=== PATIENT | male | born 1950 | race Two or more races ===

== ENCOUNTER 2018-07-27 21:42 | Inpatient (IN) | payer MEDICARE, OTHER ==
[~2018-07-27] VITALS: Ht 165.1 cm; Wt 93.0 kg
[~2018-07-27 21:42] MED LIST: DEPAKOTE250 MG PO; FERROUS SULFAT325 MG ORAL; NITROGLYCERIN2.5 MG PO; PANTOPRAZOLE SO40 MG ORAL
[2018-07-27 21:50] VITALS: BP 133/61
--- NOTE | 2018-07-27 21:50 | NUR ---
ED Nurse Note: Pt was brought in ED by Ambulance from [facility]. C/o Right arm Celluilitis. Pt is awake, confused. Right arm redness and swellen 3+. F/c in place with yellow color urine noted, IV at left upper arm [address] Osborne at bed side, waiting for orders.
[2018-07-27] MEDS ORDERED: Vancomycin 1.5gm/D5W Premix 250 ML IVPB ONE (22:15)
--- NOTE | 2018-07-27 22:15 | NUR ---
ED Nurse Note: Blood sample collected and sent to Lab.
[2018-07-27 22:53] LABS: HEMATOCRIT 27.5 % (42.0-52.0); HEMOGLOBIN 8.4 G/DL (14.2-18.0); MEAN CORPUSCULAR VOLUME 83 FL (80-99); PLATELET COUNT 65 K/UL (150-450); RED BLOOD COUNT 3.29 M/UL (4.70-6.10); RED CELL DISTRIBUTION WIDTH 18.9 % (11.6-14.8); WHITE BLOOD COUNT 4.6 K/UL (4.8-10.8)
--- NOTE | 2018-07-27 23:02 | NUR ---
ED Nurse Note: Pt's both arm were edema3+. Got order to draw blood on his legs.
[2018-07-27 23:06] LABS: ALANINE AMINOTRANSFERASE 27 U/L (12-78); ALBUMIN/GLOBULIN RATIO 0.4 (1.0-2.7); ALKALINE PHOSPHATASE 136 U/L (46-116); ANION GAP 5 mmol/L (5-15); ASPARTATE AMINO TRANSFERASE 24 U/L (15-37); BILIRUBIN,TOTAL 0.4 MG/DL (0.2-1.0); BLOOD UREA NITROGEN 53 mg/dL (7-18); CALCIUM 9.4 MG/DL (8.5-10.1); CARBON DIOXIDE 25 MMOL/L (21-32); CHLORIDE 108 MMOL/L (98-107); CREATININE 1.4 MG/DL (0.55-1.30); SODIUM 137 MMOL/L (136-145)
[2018-07-27 23:10] LABS: POTASSIUM 6.6 MMOL/L (3.5-5.1)
[2018-07-27] MEDS ORDERED: Insulin Human Regular 100units/ml 3ml IV ONE (23:15)
[2018-07-27] MEDS ORDERED: Calcium Gluconate 1gm/10ml vial IVP ONE (23:15)
--- NOTE | 2018-07-28 00:45 | NUR ---
ED Nurse Note: Meds given as ordered.
--- NOTE | 2018-07-28 01:07 | NUR ---
ED Nurse Note: Meds given as ordered.
--- NOTE | 2018-07-28 01:10 | NUR ---
ED Nurse Note: Urine sample and wound c/s of right arm sent to Lab.
[2018-07-28 01:39] LABS: BILIRUBIN, URINE NEGATIVE (NEGATIVE); COLOR,URINE PALE YELLOW; GLUCOSE, URINE (UA) NEGATIVE (NEGATIVE); KETONES,URINE NEGATIVE (NEGATIVE); LEUKOCYTE ESTERASE ,URINE 3+ (NEGATIVE); NITRITE,URINE NEGATIVE (NEGATIVE); PH,URINE 5 (4.5-8.0); PROTEIN,URINE 1+ (NEGATIVE); UROBILINOGEN,URINE NORMAL MG/DL (0.0-1.0)
[2018-07-28 01:52] LABS: APPEARANCE,URINE CLOUDY
--- NOTE | 2018-07-28 04:16 | Emergency Room Report ---
History of Present Illness General Chief Complaint: Skin Rash/Abscess Source: Medical Record Present Illness HPI 68-year-old male presents ED for evaluation. Patient brought in by EMS for swelling of the right upper extremity. Noticed today by nursing staff at [facility]. Upon arrival patient is in no distress. Nonverbal at baseline. No fevers or chills. No reported chest pain. No other aggravating relieving factors. no other associated symptoms Allergies: Coded Allergies: ATORVASTATIN (Unverified Allergy, Unknown, 07/27/18) Uncoded Allergies: VITAMIN B12 (Allergy, Unknown, 07/27/18) VITAMIN D (Allergy, Unknown, 07/27/18) Patient History Past Medical History: DM, HTN, GERD Immunizations: UTD Reviewed Nursing Documentation: PMH: Agreed; PSxH: Agreed Nursing Documentation-PMH Past Medical History: No History, Except For Hx Hypertension: Yes Hx COPD: Yes - dysphagia Hx Diabetes: Yes Hx Gastrointestinal Problems: Yes - GERD Review of Systems All Other Systems: limited Physical Exam Vital Signs Date Time Temp Pulse Resp B/P (MAP) Pulse Ox O2 Delivery O2 Flow Rate FiO2 07/27/18 21:32 96.3 71 18 120/70 95 Room Air Sp02 EP Interpretation: reviewed, normal General Appearance: no apparent distress, GCS 15, non-toxic, other - nonverbal Head: normocephalic Eyes: bilateral eye normal inspection, bilateral eye PERRL ENT: normal ENT inspection Neck: normal inspection Respiratory: chest non-tender, lungs clear, normal breath sounds, speaking full sentences Cardiovascular #1: regular rate, rhythm, no edema Gastrointestinal: normal bowel sounds, non tender, soft, non-distended, no guarding, no rebound Rectal: deferred Genitourinary: no CVA tenderness Musculoskeletal: swelling - RUE swelling Neurologic: other - nonverbal Psychiatric: other - nonverbal Skin: other - erythema/induration/swelling to RUE Lymphatic: normal inspection Procedures Critical Care Time Critical Care Time i. I feel this is a highly complex case requiring extensive working including EKG/Rhythm strip, Xray/CT/US, Blood/urine lab work, repeat exams while in ED, and administration of strong opiates/narcotics for pain control, admission to hospital or close patient follow up. Total time: 40 min bedside evaluation and treatment excludes procedures (EKG). Reason for critical care: hyperkalemia Possible complications: hypotension, hypertension, DC, shock, arrhythmias, metabolic acidosis, end organ damage, respiratory failure. Interventions: labs, IVFs, CXR. EKG. calcium, insulin/D50. venous duplex. broad spectrum abx. Course: Patient presenting with right upper extremity swelling. Venous duplex negative for DVT however limited study. Potassium 6.6. Troponin 0.042. EKG shows peaked T waves in anterior leads. Given calcium. Given insulin and D50. Broad-spectrum antibiotics Consultations: nursing staff, EMS, family Performed by: Dr Osborne Tolerated well condition = serious j. because of unstable vital signs this patient had a condition that could potentially threaten life or limb. I feel this is a critical patient who required my full attention while patient was considered critical. Total Critical Care Time excluding procedures was greater than 35 minutes Medical Decision Making Diagnostic Impression: Primary Impression: Cellulitis of right upper extremity Additional Impressions: Hyperkalemia, diminished renal excretion Renal insufficiency Anemia Qualified Codes: D64.9 - Anemia, unspecified UTI (urinary tract infection) Qualified Codes: N39.0 - Urinary tract infection, site not specified ER Course Hospital Course 68-year-old male presents to ED with redness, swelling to RUE Differential diagnoses include: Cellulitis, DVT, abscess, rash. Clinical course Patient placed on stretcher. After initial history and physical I ordered labs , blood Cx, UA, IVFs, doppler US of RUE labs reviewed - no leukocytosis, Hb/Hct 8.4/27.5, K 6.6, BUN 1.4, Trop 0.042, UA + bacteria Doppler US - no evidence of DVT EKG - peaked twaves in anterior leads given insulin/D50, given calcium. broad spectrum antibiotics given. Case discussed with Dr Johnson and he agreed to accept the patient to his service for further care and support Diagnosis - cellulitis of RUE, hyperkalemia, renal insuffiency, anemia, UTI Patient admitted to telemetry in serious condition Labs Test 07/27/18 22:30 07/27/18 22:58 07/27/18 23:30 07/28/18 01:10 White Blood Count 4.6 K/UL (4.8-10.8) Red Blood Count 3.29 M/UL (4.70-6.10) Hemoglobin 8.4 G/DL (14.2-18.0) Hematocrit 27.5 % (42.0-52.0) Mean Corpuscular Volume 83 FL (80-99) Mean Corpuscular Hemoglobin 25.4 PG (27.0-31.0) Mean Corpuscular Hemoglobin Concent 30.5 G/DL (32.0-36.0) Red Cell Distribution Width 18.9 % (11.6-14.8) Platelet Count 65 K/UL (150-450) Mean Platelet Volume 7.6 FL (6.5-10.1) Neutrophils (%) (Auto) % (45.0-75.0) Lymphocytes (%) (Auto) % (20.0-45.0) Monocytes (%) (Auto) % (1.0-10.0) Eosinophils (%) (Auto) % (0.0-3.0) Basophils (%) (Auto) % (0.0-2.0) Differential Total Cells Counted 100 Neutrophils % (Manual) 77 % (45-75) Lymphocytes % (Manual) 9 % (20-45) Monocytes % (Manual) 6 % (1-10) Eosinophils % (Manual) 1 % (0-3) Basophils % (Manual) 2 % (0-2) Band Neutrophils 5 % (0-8) Platelet Estimate Decreased Platelet Morphology Normal Hypochromasia 1+ Anisocytosis 1+ Sodium Level 137 MMOL/L (136-145) Potassium Level 6.6 MMOL/L (3.5-5.1) Chloride Level 108 MMOL/L (98-107) Carbon Dioxide Level 25 MMOL/L (21-32) Anion Gap 5 mmol/L (5-15) Blood Urea Nitrogen 53 mg/dL (7-18) Creatinine 1.4 MG/DL (0.55-1.30) Estimat Glomerular Filtration Rate 50.7 mL/min (>60) Glucose Level 167 MG/DL (74-106) Calcium Level 9.4 MG/DL (8.5-10.1) Total Bilirubin 0.4 MG/DL (0.2-1.0) Aspartate Amino Transf (AST/SGOT) 24 U/L (15-37) Alanine Aminotransferase (ALT/SGPT) 27 U/L (12-78) Alkaline Phosphatase 136 U/L (46-116) Total Protein 6.7 G/DL (6.4-8.2) Albumin 2.0 G/DL (3.4-5.0) Globulin 4.7 g/dL Albumin/Globulin Ratio 0.4 (1.0-2.7) Lactic Acid Level 1.20 mmol/L (0.4-2.0) Troponin I 0.042 ng/mL (0.000-0.056) Urine Color Pale yellow Urine Appearance Cloudy Urine pH 5 (4.5-8.0) Urine Specific [place] 1.015 (1.005-1.035) Urine Protein 1+ (NEGATIVE) Urine Glucose (UA) Negative (NEGATIVE) Urine Ketones Negative (NEGATIVE) Urine Blood 4+ (NEGATIVE) Urine Nitrite Negative (NEGATIVE) Urine Bilirubin Negative (NEGATIVE) Urine Urobilinogen Normal MG/DL (0.0-1.0) Urine Leukocyte Esterase 3+ (NEGATIVE) Urine RBC 15-20 /HPF (0 - 0) Urine WBC Tntc /HPF (0 - 0) Urine Squamous Epithelial Cells None /LPF (NONE/OCC) Urine Bacteria Moderate /HPF (NONE) Urine Coarse Granular Casts 2-4 /LPF (NONE) EKG Diagnostic Results Rate: normal Rhythm: NSR ST Segments: other - peaked twave in anterior leads ASA given to the pt in ED: No Rhythm Strip Diag. Results EP Interpretation: yes Rhythm: NSR, no PVC's, no ectopy Chest X-Ray Diagnostic Results Chest X-Ray Diagnostic Results : Chest X-Ray Ordered: Yes # of Views/Limited/Complete: 1 View Indication: Other EP Interpretation: Yes Interpretation: no consolidation, no effusion, no pneumothorax, no acute cardiopulmonary disease Impression: No acute disease Electronically Signed by: Electronically signed by Johnny Osborne MD CT/MRI/US Diagnostic Results CT/MRI/US Diagnostic Results : Imaging Test Ordered: Venous DUplex RUE Impression limited study due to cellulitis. no noted DVT Last Vital Signs Date Time Temp Pulse Resp B/P (MAP) Pulse Ox O2 Delivery O2 Flow Rate FiO2 07/27/18 21:50 97.1 72 18 133/61 95 Room Air Status: improved Disposition: ADMITTED INPATIENT Condition: Serious Referrals: Michael Johnson DO (PCP) Johnny Osborne MD Jul 28, 2018 04:16
--- NOTE | 2018-07-28 05:35 | NUR ---
TRANSFER TO FLOOR: Patient transferred to Tele/219 as ordered. Report given to Lennox/CJ. Belongings sent with Pt and rechecked with RN.
--- NOTE | 2018-07-28 05:40 | NUR ---
NURSE NOTES: Received pt from ED via [facility]. Pt is is awake, non-verbal. In no acute distress. VS stable. Placed on teletypesetter monitor showing SR. Bed in lowest position, call light within reach. Will contact MD for admission orders.
[2018-07-28 05:45] VITALS: BP 153/56
[2018-07-28] MEDS ORDERED: ZINC SULFATE220 M1 ORAL (06:52)
[2018-07-28] MEDS ORDERED: TRAMADOL HCL50 MG ORAL (06:52)
[2018-07-28] MEDS ORDERED: RISPERDAL2 MG ORAL (06:52)
[2018-07-28] MEDS ORDERED: MELOXICAM15 MG PO (06:52)
[2018-07-28] MEDS ORDERED: ASCORBIC ACID500 MG ORAL (06:52)
[2018-07-28] MEDS ORDERED: FERROUS SULFAT325 MG ORAL (06:52)
[2018-07-28] MEDS ORDERED: PAXIL20 MG ORAL (06:52)
[2018-07-28] MEDS ORDERED: MULTIVITAMINS1 EAC2 ORAL (06:52)
[2018-07-28] MEDS ORDERED: ACETAMINOPHEN325 M1 ORAL (06:52)
[2018-07-28] MEDS ORDERED: PANTOPRAZOLE SO40 MG ORAL (06:52)
[2018-07-28] MEDS ORDERED: HUMULIN R100 UNIT/1 SUBQ (06:52)
[2018-07-28] MEDS ORDERED: DOCUSATE SODIU100 M2 ORAL (06:52)
[2018-07-28] MEDS ORDERED: KEPPRA500 M4 ORAL (06:52)
[2018-07-28] MEDS ORDERED: Albuterol/Ipratropium 3ml neb HHN PRN (07:00)
[2018-07-28] MEDS ORDERED: Nitroglycerin Subl 0.4mg tab SL PRN (07:00)
[2018-07-28] MEDS ORDERED: Miralax 17gm pkt ORAL PRN (07:00)
[2018-07-28] MEDS ORDERED: Morphine Sulfate 4mg/ml Inj (IV USE ONLY) IVP PRN (07:00)
--- NOTE | 2018-07-28 07:50 | NUR ---
HAND-OFF: Report given to CJ Guevara.
[2018-07-28 08:00] VITALS: BP 150/70
[2018-07-28] MEDS: Heparin 5000 units/ml inj SUBQ SCH ×2 (09:00→20:17)
[2018-07-28] MEDS ORDERED: Cefepime HCl 2 GM in D5W 110 ML IV SCH ×2 (09:00→21:00)
--- NOTE | 2018-07-28 09:02 | Consultation ---
History of Present Illness General Date patient seen: Jul 28, 2018 Chief Complaint: Skin Rash/Abscess Reason for Consultation: Right arm swelling Present Illness HPI Mr. Tran is a 68 yo male who was sent to the ED from his care home for right arm swelling. He is not verbal at baseline so history obtained form the chart. There was fever, SOB, and we don not know how long he had this Problem. In the ED he was aferbile, Had no leukocytosis, US showed no DVT, CXR no PNA per ED read. ID was consulted for possible cellulitis. PMHx/PSHx Dysphagia HTN DM SocHx Unable to obtain as patient not verbal FamHx Unable to obtain as patient not verbal Allergies: Coded Allergies: ATORVASTATIN (Unverified Allergy, Unknown, 07/27/18) Uncoded Allergies: VITAMIN B12 (Allergy, Unknown, 07/27/18) VITAMIN D (Allergy, Unknown, 07/27/18) Medication History Scheduled Ascorbic Acid* (Ascorbic Acid*), 500 MG ORAL TWICE A DAY, (Reported) Divalproex Sodium* (Depakote*), 250 MG PO Q12HR, (Reported) Docusate Sodium (Docusate Sodium), 100 MG ORAL TWICE A DAY, (Reported) Ferrous Sulfate* (Ferrous Sulfate*), 325 MG ORAL DAILY, (Reported) Ferrous Sulfate* (Ferrous Sulfate*), 325 MG ORAL TWICE A DAY, (Reported) Insulin Regular, Human (Humulin R), SUBQ ACHS, (Reported) Levetiracetam (Keppra), 500 MG ORAL EVERY 12 HOURS, (Reported) Meloxicam* (Meloxicam*), 15 MG PO DAILY, (Reported) Multivitamins* (Multivitamins*), 1 TAB ORAL DAILY, (Reported) Pantoprazole* (Pantoprazole*), 40 MG ORAL DAILY, (Reported) Pantoprazole* (Pantoprazole*), 40 MG ORAL DAILY, (Reported) Paroxetine Hcl* (Paxil*), 20 MG ORAL DAILY, (Reported) Risperidone* (Risperdal*), 2 MG ORAL BID, (Reported) Zinc Sulfate (Zinc Sulfate*), 220 MG ORAL DAILY, (Reported) Scheduled PRN Acetaminophen* (Acetaminophen 325MG Tablet*), 650 MG ORAL Q4H PRN for Mild Pain/ Temp > 100.5, (Reported) Tramadol Hcl* (Ultram*), 50 MG ORAL Q6H PRN for Moderate Pain (Pain Scale 4-6), (Reported) Miscellaneous Medications Nitroglycerin (Nitroglycerin), 2.5 MG PO, (Reported) Patient History Healthcare decision maker Resuscitation status Full Code Advanced Directive on File Review of Systems ROS Narrative Unable to obtain as patient not verbal Physical Exam Last 24 Hour Vital Signs Date Time Temp Pulse Resp B/P (MAP) Pulse Ox O2 Delivery O2 Flow Rate FiO2 07/28/18 06:30 Room Air 07/28/18 05:45 97.0 65 20 153/56 (88) 98 07/28/18 05:35 65 07/28/18 05:35 97.5 75 18 135/62 96 Room Air 07/27/18 21:50 97.1 72 18 133/61 95 Room Air 07/27/18 21:32 96.3 71 18 120/70 95 Room Air Intake and Output 07/27/18 07/28/18 19:00 07:00 Intake Total 1250 ml Output Total 400 ml Balance 850 ml Intake IV Total 1250 ml Output Urine Total 400 ml Laboratory Tests Test 07/27/18 22:30 07/27/18 22:58 07/27/18 23:30 07/28/18 01:10 White Blood Count 4.6 K/UL (4.8-10.8) L Red Blood Count 3.29 M/UL (4.70-6.10) L Hemoglobin 8.4 G/DL (14.2-18.0) L Hematocrit 27.5 % (42.0-52.0) L Mean Corpuscular Volume 83 FL (80-99) Mean Corpuscular Hemoglobin 25.4 PG (27.0-31.0) L Mean Corpuscular Hemoglobin Concent 30.5 G/DL (32.0-36.0) L Red Cell Distribution Width 18.9 % (11.6-14.8) H Platelet Count 65 K/UL (150-450) L Mean Platelet Volume 7.6 FL (6.5-10.1) Neutrophils (%) (Auto) % (45.0-75.0) Lymphocytes (%) (Auto) % (20.0-45.0) Monocytes (%) (Auto) % (1.0-10.0) Eosinophils (%) (Auto) % (0.0-3.0) Basophils (%) (Auto) % (0.0-2.0) Differential Total Cells Counted 100 Neutrophils % (Manual) 77 % (45-75) H Lymphocytes % (Manual) 9 % (20-45) L Monocytes % (Manual) 6 % (1-10) Eosinophils % (Manual) 1 % (0-3) Basophils % (Manual) 2 % (0-2) Band Neutrophils 5 % (0-8) Platelet Estimate Decreased L Platelet Morphology Normal Hypochromasia 1+ Anisocytosis 1+ Sodium Level 137 MMOL/L (136-145) Potassium Level 6.6 MMOL/L (3.5-5.1) *H Chloride Level 108 MMOL/L (98-107) H Carbon Dioxide Level 25 MMOL/L (21-32) Anion Gap 5 mmol/L (5-15) Blood Urea Nitrogen 53 mg/dL (7-18) H Creatinine 1.4 MG/DL (0.55-1.30) H Estimat Glomerular Filtration Rate 50.7 mL/min (>60) Glucose Level 167 MG/DL (74-106) H Calcium Level 9.4 MG/DL (8.5-10.1) Total Bilirubin 0.4 MG/DL (0.2-1.0) Aspartate Amino Transf (AST/SGOT) 24 U/L (15-37) Alanine Aminotransferase (ALT/SGPT) 27 U/L (12-78) Alkaline Phosphatase 136 U/L (46-116) H Total Protein 6.7 G/DL (6.4-8.2) Albumin 2.0 G/DL (3.4-5.0) L Globulin 4.7 g/dL Albumin/Globulin Ratio 0.4 (1.0-2.7) L Lactic Acid Level 1.20 mmol/L (0.4-2.0) Troponin I 0.042 ng/mL (0.000-0.056) Urine Color Pale yellow Urine Appearance Cloudy Urine pH 5 (4.5-8.0) Urine Specific [place] 1.015 (1.005-1.035) Urine Protein 1+ (NEGATIVE) H Urine Glucose (UA) Negative (NEGATIVE) Urine Ketones Negative (NEGATIVE) Urine Blood 4+ (NEGATIVE) H Urine Nitrite Negative (NEGATIVE) Urine Bilirubin Negative (NEGATIVE) Urine Urobilinogen Normal MG/DL (0.0-1.0) Urine Leukocyte Esterase 3+ (NEGATIVE) H Urine RBC 15-20 /HPF (0 - 0) H Urine WBC Tntc /HPF (0 - 0) H Urine Squamous Epithelial Cells None /LPF (NONE/OCC) Urine Bacteria Moderate /HPF (NONE) H Urine Coarse Granular Casts 2-4 /LPF (NONE) H Height (Feet): 5 Height (Inches): 6.00 Weight (Pounds): 186 Medications Current Medications Medications (Trade) Dose Ordered Sig/Violette Route PRN Reason Start Time Stop Time Status Last Admin Dose Admin Acetaminophen (Tylenol) 650 mg Q4H PRN ORAL fever 07/28/18 07:00 08/27/18 06:59 Albuterol/ Ipratropium (Albuterol/ Ipratropium) 3 ml Q4H PRN HHN Shortness of Breath 07/28/18 07:00 08/02/18 06:59 Cefepime HCl 2 gm/ Dextrose 110 ml @ 220 mls/hr ONCE IV 07/28/18 09:00 07/28/18 10:00 Cefepime HCl 2 gm/ Dextrose 110 ml @ 220 mls/hr Q24H IV 07/28/18 21:00 08/04/18 20:59 Dextrose (Dextrose 50%) 25 ml Q30M PRN IV Hypoglycemia 07/28/18 07:00 08/27/18 06:59 Dextrose (Dextrose 50%) 50 ml Q30M PRN IV Hypoglycemia 07/28/18 07:00 08/27/18 06:59 Divalproex Sodium (Depakote) 250 mg Q12HR ORAL 07/28/18 09:00 08/27/18 08:59 Heparin Sodium (Porcine) (Heparin 5000 units/ml) 5,000 units EVERY 12 HOURS SUBQ 07/28/18 09:00 08/27/18 08:59 Morphine Sulfate (Morphine Sulfate) 2 mg Q4H PRN IVP Moderate Pain (Pain Scale 4-6) 07/28/18 07:00 08/04/18 06:59 Nitroglycerin (Ntg) 0.4 mg Q5M PRN SL Prn Chest Pain 07/28/18 07:00 2/9/19 06:59 Ondansetron HCl (Zofran) 4 mg Q6H PRN IVP Nausea & Vomiting 07/28/18 07:00 08/27/18 06:59 Pantoprazole (Protonix) 40 mg DAILY ORAL 07/28/18 09:00 08/27/18 08:59 Polyethylene Glycol (Miralax) 17 gm DAILYPRN PRN ORAL Constipation 07/28/18 07:00 08/27/18 06:59 Temazepam (Restoril) 15 mg HSPRN PRN ORAL Insomnia 07/28/18 07:00 08/04/18 06:59 Vancomycin HCl (Vanco rx to dose) 1 ea DAILY PRN MISC Per rx protocol 07/28/18 07:30 08/27/18 07:29 Objective Narrative Gen: NAD, Opens eyes not following commands HEENT: NCAT, MMM, EOMI, PERRL, No Oral lesion, no scleral icterus NECK: full range of motion, supple, no meningismus, No LAD, No JVD LUNGS: CTAB, No W/C, No Accessory muscle use CARDS: RRR, S1, S2, No M/R/G, ABD: Soft, NT, ND, No R/G, + BS, No HSM, No Masses : Deferred Ext: C/C/E, Pulses 2+ B/L (DP, Rad): Right upper extremity with swelling NEURO: A/O x 0, PSYCH: Mood/affect normal SKIN: Warm/dry, No rashes, Stage 4 sacral decube. No Purulent drainage Assessment/Plan Assessment/Plan 68 yo male who was sent to the ED from his care home for right arm swelling. Right arm swelling US no DVT No X-ray No Fever No leukocytosis Sacral Decub Stage 4 Dysphagia HTN DM PLAN - Continue Cefepime #1 and vancomycin #1 - Wound care - Monitor CBC and Temps - Monitor BMs Thank you for this consult. We will continue to follow the patient during this hospitalization. Macho Hernandez MD Jul 28, 2018 09:02
[2018-07-28] MEDS: Depakote 125mg Sprinkles ORAL SCH ×2 (09:58→20:21)
--- NOTE | 2018-07-28 10:05 | NUR ---
RD ASSESSMENT & RECOMMENDATIONS SEE CARE ACTIVITY FOR COMPLETE ASSESSMENT DAILY ESTIMATED NEEDS: Needs based on Wound, DM 73kg adj 30-35 kcals/kg 0651-8228 total kcals 1-1.5 g protein/kg 73-110 g total protein 25-30 mL/kg 6731-7317 total fluid mLs NUTRITION DIAGNOSIS: 1) Swallowing difficulty r/t dysphagia as evidenced by pt adm w/ puree texture diet and NTL. 2) Altered nutrition related lab values r/t clinical status as evidenced by elev K (6.6), elev BUN (53), elev creat (1.4), elev BG (167). 3) Increased kcal and protein needs r/t wasting and wound healing as evidenced by pt w/ BL LE moderate to severe wasting, wounds per photos w/ pending WC eval. CURRENT DIET: Regular puree w/ NTL PO DIET RECOMMENDATIONS: Maintain Regular diet (texture per LOADER) ADDITIONAL RECOMMENDATIONS: 1) MONITOR K, RENAL LABS/ need for diet change to RENAL 2) Monitor BG, need for CCHO MED diet 3) WOUND CARE: Add JACKIE BID; f/up w/ WC eval 4) Obtain a calibrated bed scale wt for CBW 5) LOADER eval for texture
--- NOTE | 2018-07-28 11:15 | NUR ---
HAND-OFF: Report given to JC Finley. Pt is in stable condition; plan of care endorsed.
[2018-07-28] MEDS: NovoLOG Insulin Flexpen SUBQ SCH ×3 (11:30→20:25)
[2018-07-28 12:00] VITALS: BP 140/83
--- NOTE | 2018-07-28 12:30 | Consultation ---
History of Present Illness General Date patient seen: Jul 28, 2018 Chief Complaint: Skin Rash/Abscess Reason for Consultation: Right arm swelling Present Illness HPI 68-year-old male with hx of presents ED for evaluation. Patient brought in by EMS for swelling of the right upper extremity. Upon arrival patient is in no distress. Nonverbal at baseline. Pt was found to be in acute renal failure with hyperkalemia. He also had severe anemia. Pt is admitted to telemetry for further work up. Allergies: Coded Allergies: ATORVASTATIN (Unverified Allergy, Unknown, 07/27/18) Uncoded Allergies: VITAMIN B12 (Allergy, Unknown, 07/27/18) VITAMIN D (Allergy, Unknown, 07/27/18) Medication History Scheduled Ascorbic Acid* (Ascorbic Acid*), 500 MG ORAL TWICE A DAY, (Reported) Divalproex Sodium* (Depakote*), 250 MG PO Q12HR, (Reported) Docusate Sodium (Docusate Sodium), 100 MG ORAL TWICE A DAY, (Reported) Ferrous Sulfate* (Ferrous Sulfate*), 325 MG ORAL DAILY, (Reported) Ferrous Sulfate* (Ferrous Sulfate*), 325 MG ORAL TWICE A DAY, (Reported) Insulin Regular, Human (Humulin R), SUBQ ACHS, (Reported) Levetiracetam (Keppra), 500 MG ORAL EVERY 12 HOURS, (Reported) Meloxicam* (Meloxicam*), 15 MG PO DAILY, (Reported) Multivitamins* (Multivitamins*), 1 TAB ORAL DAILY, (Reported) Pantoprazole* (Pantoprazole*), 40 MG ORAL DAILY, (Reported) Pantoprazole* (Pantoprazole*), 40 MG ORAL DAILY, (Reported) Paroxetine Hcl* (Paxil*), 20 MG ORAL DAILY, (Reported) Risperidone* (Risperdal*), 2 MG ORAL BID, (Reported) Zinc Sulfate (Zinc Sulfate*), 220 MG ORAL DAILY, (Reported) Scheduled PRN Acetaminophen* (Acetaminophen 325MG Tablet*), 650 MG ORAL Q4H PRN for Mild Pain/ Temp > 100.5, (Reported) Tramadol Hcl* (Ultram*), 50 MG ORAL Q6H PRN for Moderate Pain (Pain Scale 4-6), (Reported) Miscellaneous Medications Nitroglycerin (Nitroglycerin), 2.5 MG PO, (Reported) Patient History Healthcare decision maker Resuscitation status Full Code Advanced Directive on File Past Medical/Surgical History Past Medical/Surgical History: (1) COPD (chronic obstructive pulmonary disease) (2) History of seizure Review of Systems All Other Systems: negative except mentioned in HPI Physical Exam General Appearance: WD/WN Lines, tubes and drains: peripheral, PICC HEENT: normocephalic, atraumatic Neck: non-tender, supple Respiratory/Chest: chest wall non-tender, lungs clear Cardiovascular/Chest: normal peripheral pulses Abdomen: normal bowel sounds Genitourinary/Rectal: normal genital exam Last 24 Hour Vital Signs Date Time Temp Pulse Resp B/P (MAP) Pulse Ox O2 Delivery O2 Flow Rate FiO2 07/28/18 09:00 Room Air 07/28/18 08:00 96.2 68 20 150/70 (96) 99 07/28/18 06:30 Room Air 07/28/18 05:45 97.0 65 20 153/56 (88) 98 07/28/18 05:35 65 07/28/18 05:35 97.5 75 18 135/62 96 Room Air 07/27/18 21:50 97.1 72 18 133/61 95 Room Air 07/27/18 21:32 96.3 71 18 120/70 95 Room Air Intake and Output 07/27/18 07/28/18 18:59 06:59 Intake Total 1250 ml Output Total 400 ml Balance 850 ml IV Total 1250 ml Output Urine Total 400 ml Laboratory Tests Test 07/27/18 22:30 07/27/18 22:58 07/27/18 23:30 07/28/18 01:10 White Blood Count 4.6 K/UL (4.8-10.8) L Red Blood Count 3.29 M/UL (4.70-6.10) L Hemoglobin 8.4 G/DL (14.2-18.0) L Hematocrit 27.5 % (42.0-52.0) L Mean Corpuscular Volume 83 FL (80-99) Mean Corpuscular Hemoglobin 25.4 PG (27.0-31.0) L Mean Corpuscular Hemoglobin Concent 30.5 G/DL (32.0-36.0) L Red Cell Distribution Width 18.9 % (11.6-14.8) H Platelet Count 65 K/UL (150-450) L Mean Platelet Volume 7.6 FL (6.5-10.1) Neutrophils (%) (Auto) % (45.0-75.0) Lymphocytes (%) (Auto) % (20.0-45.0) Monocytes (%) (Auto) % (1.0-10.0) Eosinophils (%) (Auto) % (0.0-3.0) Basophils (%) (Auto) % (0.0-2.0) Differential Total Cells Counted 100 Neutrophils % (Manual) 77 % (45-75) H Lymphocytes % (Manual) 9 % (20-45) L Monocytes % (Manual) 6 % (1-10) Eosinophils % (Manual) 1 % (0-3) Basophils % (Manual) 2 % (0-2) Band Neutrophils 5 % (0-8) Platelet Estimate Decreased L Platelet Morphology Normal Hypochromasia 1+ Anisocytosis 1+ Sodium Level 137 MMOL/L (136-145) Potassium Level 6.6 MMOL/L (3.5-5.1) *H Chloride Level 108 MMOL/L (98-107) H Carbon Dioxide Level 25 MMOL/L (21-32) Anion Gap 5 mmol/L (5-15) Blood Urea Nitrogen 53 mg/dL (7-18) H Creatinine 1.4 MG/DL (0.55-1.30) H Estimat Glomerular Filtration Rate 50.7 mL/min (>60) Glucose Level 167 MG/DL (74-106) H Calcium Level 9.4 MG/DL (8.5-10.1) Total Bilirubin 0.4 MG/DL (0.2-1.0) Aspartate Amino Transf (AST/SGOT) 24 U/L (15-37) Alanine Aminotransferase (ALT/SGPT) 27 U/L (12-78) Alkaline Phosphatase 136 U/L (46-116) H Total Protein 6.7 G/DL (6.4-8.2) Albumin 2.0 G/DL (3.4-5.0) L Globulin 4.7 g/dL Albumin/Globulin Ratio 0.4 (1.0-2.7) L Lactic Acid Level 1.20 mmol/L (0.4-2.0) Troponin I 0.042 ng/mL (0.000-0.056) Urine Color Pale yellow Urine Appearance Cloudy Urine pH 5 (4.5-8.0) Urine Specific [place] 1.015 (1.005-1.035) Urine Protein 1+ (NEGATIVE) H Urine Glucose (UA) Negative (NEGATIVE) Urine Ketones Negative (NEGATIVE) Urine Blood 4+ (NEGATIVE) H Urine Nitrite Negative (NEGATIVE) Urine Bilirubin Negative (NEGATIVE) Urine Urobilinogen Normal MG/DL (0.0-1.0) Urine Leukocyte Esterase 3+ (NEGATIVE) H Urine RBC 15-20 /HPF (0 - 0) H Urine WBC Tntc /HPF (0 - 0) H Urine Squamous Epithelial Cells None /LPF (NONE/OCC) Urine Bacteria Moderate /HPF (NONE) H Urine Coarse Granular Casts 2-4 /LPF (NONE) H Height (Feet): 5 Height (Inches): 6.00 Weight (Pounds): 186 Medications Current Medications Medications (Trade) Dose Ordered Sig/Violette Route PRN Reason Start Time Stop Time Status Last Admin Dose Admin Acetaminophen (Tylenol) 650 mg Q4H PRN ORAL fever 07/28/18 07:00 08/27/18 06:59 Albuterol/ Ipratropium (Albuterol/ Ipratropium) 3 ml Q4H PRN HHN Shortness of Breath 07/28/18 07:00 08/02/18 06:59 Cefepime HCl 2 gm/ Dextrose 110 ml @ 220 mls/hr Q24H IV 07/28/18 21:00 08/04/18 20:59 Dextrose (Dextrose 50%) 25 ml Q30M PRN IV Hypoglycemia 07/28/18 09:15 08/27/18 09:14 Dextrose (Dextrose 50%) 50 ml Q30M PRN IV Hypoglycemia 07/28/18 09:15 08/27/18 09:14 Divalproex Sodium (Depakote Sprinkles) 250 mg Q12HR ORAL 07/28/18 10:00 08/27/18 09:59 07/28/18 09:58 Heparin Sodium (Porcine) (Heparin 5000 units/ml) 5,000 units EVERY 12 HOURS SUBQ 07/28/18 09:00 08/27/18 08:59 Insulin Aspart (NovoLOG) BEFORE MEALS AND HS SUBQ 07/28/18 11:30 08/27/18 11:29 07/28/18 11:30 Lansoprazole (Prevacid) 30 mg DAILY ORAL 07/28/18 09:00 08/27/18 08:59 07/28/18 09:58 Morphine Sulfate (Morphine Sulfate) 2 mg Q4H PRN IVP Moderate Pain (Pain Scale 4-6) 07/28/18 07:00 08/04/18 06:59 Nitroglycerin (Ntg) 0.4 mg Q5M PRN SL Prn Chest Pain 07/28/18 07:00 08/27/18 06:59 Ondansetron HCl (Zofran) 4 mg Q6H PRN IVP Nausea & Vomiting 07/28/18 07:00 08/27/18 06:59 Polyethylene Glycol (Miralax) 17 gm DAILYPRN PRN ORAL Constipation 07/28/18 07:00 08/27/18 06:59 Temazepam (Restoril) 15 mg HSPRN PRN ORAL Insomnia 07/28/18 07:00 08/04/18 06:59 Vancomycin HCl (Vanco rx to dose) 1 ea DAILY PRN MISC Per rx protocol 07/28/18 07:30 08/27/18 07:29 Assessment/Plan Problem List: (1) ATN (acute tubular necrosis) ICD Codes: N17.0 - Acute kidney failure with tubular necrosis SNOMED: 24293899 (2) COPD (chronic obstructive pulmonary disease) ICD Codes: J44.9 - Chronic obstructive pulmonary disease, unspecified SNOMED: 71590969 (3) History of seizure ICD Codes: Z87.898 - Personal history of other specified conditions SNOMED: 262362591 (4) UTI (urinary tract infection) ICD Codes: N39.0 - Urinary tract infection, site not specified SNOMED: 92970900, 589830165 Qualifiers: Qualified Codes: N39.0 - Urinary tract infection, site not specified (5) Hyperkalemia, diminished renal excretion ICD Codes: E87.5 - Hyperkalemia SNOMED: 30736932, 135888549 (6) Cellulitis of right upper extremity ICD Codes: L03.113 - Cellulitis of right upper limb SNOMED: 033252234 (7) Anemia ICD Codes: D64.9 - Anemia, unspecified SNOMED: 808997651 Qualifiers: Qualified Codes: D64.9 - Anemia, unspecified Assessment/Plan iv fluids Kayexalate ruiz cultures renal US check electrolytes ID evaluation. Lazaro Becker MD Jul 28, 2018 12:30
--- NOTE | 2018-07-28 13:11 | Diagnostic Imaging Report ---
Indication: Cough Technique: One view of the chest Comparison: none Findings: Lungs and pleural spaces are clear. Heart size normal. The aorta is tortuous Impression: No acute process
--- NOTE | 2018-07-28 13:42 | Consultation ---
Consult Note Consult Note asked to eval for renal failure and high K 68-year-old male presents ED for evaluation. Patient brought in by EMS for swelling of the right upper extremity. Noticed today by [facility] staff at [facility] facility. Upon arrival patient is in no distress. Nonverbal at baseline. No fevers or chills. No reported chest pain. No other aggravating relieving factors. no other associated symptoms Allergies: s: ATORVASTATIN (Unverified Allergy, Unknown, 07/27/18) Uncoded Allergies: VITAMIN B12 (Allergy, Unknown, 07/27/18) VITAMIN D (Allergy, Unknown, 07/27/18) Past Medical History: DM, HTN, GERD Immunizations: UTD Reviewed Nursing Documentation: PMH: Agreed; PSxH: Agreed Past Medical History: No History, Except For Hx Hypertension: Yes Hx COPD: Yes - dysphagia Hx Diabetes: Yes Hx Gastrointestinal Problems: Yes - GERD non historian examined data reviewed . Assessment/Plan Renal failure- Acute on Chronic, presents with hyperkalemia COPD Sz disorder UTI Anemia cellulitis Rt UE HypoAlbuminemia One liter Flomax Monitor renal parameters Anemia shay antibiotics avoid Nephrotoxics per orders Shashi Patel MD Jul 28, 2018 13:42
[2018-07-28 14:17] LABS: MEAN CORPUSCULAR VOLUME 83 FL (80-99); PLATELET COUNT 69 K/UL (150-450); RED BLOOD COUNT 3.14 M/UL (4.70-6.10); RED CELL DISTRIBUTION WIDTH 18.5 % (11.6-14.8); WHITE BLOOD COUNT 4.2 K/UL (4.8-10.8)
[2018-07-28 14:30] LABS: ALANINE AMINOTRANSFERASE 27 U/L (12-78); ALBUMIN 1.8 G/DL (3.4-5.0); ALBUMIN/GLOBULIN RATIO 0.4 (1.0-2.7); ALKALINE PHOSPHATASE 129 U/L (46-116); ANION GAP 3 mmol/L (5-15); ASPARTATE AMINO TRANSFERASE 26 U/L (15-37); BILIRUBIN,TOTAL 0.4 MG/DL (0.2-1.0); BLOOD UREA NITROGEN 48 mg/dL (7-18); CALCIUM 9.2 MG/DL (8.5-10.1); CARBON DIOXIDE 27 MMOL/L (21-32); CHLORIDE 108 MMOL/L (98-107); CREATININE 1.3 MG/DL (0.55-1.30); SODIUM 138 MMOL/L (136-145)
[2018-07-28 14:33] LABS: POTASSIUM 6.6 MMOL/L (3.5-5.1)
--- NOTE | 2018-07-28 14:59 | NUR ---
CASE MANAGEMENT:REVIEW BIBA FROM [facility] CC: SKIN RASH AND ABSCESS SI: RUE CELLULITIS. HYPERKALEMIA. UTI 96.2 71 18 120/70 96% ON RA K+6.6 H/H-8.4/27.5 PLT-65 K+6.6 BUN+53 CR+1.4 IS: IV VANCOMYCIN 1L NS BOLUS IV CA GLUCONATE IV INSULIN IV D50W CXR BLOOD CX : TO TELEMETRY INTERQUAL CRITERIA MET
--- NOTE | 2018-07-28 15:02 | NUR ---
NURSE NOTES:WOUND CARE NOTES:Pt admitted with cellulitis R forearm ,multiple pressure injuries present on admission.R forearm swollen. Full thickness wound above R wrist with 100% fibrinous slough with erythema along borders (L)1.3cm x (W)1.2cm ,undermining 9-5 by 3.3cm @11o'clock.Moderate amt purulent exudate noted.Dry brown eschar (2) sites noted to R wrist. DTPI noted to L trochanter,maroon discoloration with induration ,marginal erythema (L)7.2cm x (W)7.5cm.surrounding non-blanchable erythema noted. Full thickness pressure injury R Ischium ,wound base granular ,(+) maceration along edges,Bone palpable. Minimal serous exudate,no odor noted(L)4cm x (W)3cm x(D)4.5cm. DTPI R heel,Reabsorbing Blood blister with marginal erythema with surrounding fluctuance (L)6cm x (W)5cm. Non-blanchable erythema periwound. Non-blanchable erythema L heel with delineated borders ,fluctuant centrally (L)4cm x (W)3.5cm .R foot 2nd, 3rd and 4th metatarsals with stable dry eschar dorsal aspects of each metatarsals. Tx.Plan:Cleanse Wound R forearm with Saline.Pat dry .Apply Mupirocin oint to wound with attention to undermined areas. Cover with Optifoam drsg Twice Daily.(Confirmed with ) Cleanse R Ischial wound with Saline.Loosely pack with Hydrogel infused gauze.Cavilon Skin Barrier periwound .Cover Optifoam drsg Daily and prn. Apply Cavilon Skin Barrier to L trochanter .Cover with Optifoam drsg Change every 3 days and prn. Apply Cavilon Skin Barrier to R and L heels. Cover with Optifoam drsg .Change every 3 days and prn. Apply Cavilon Skin Barrier to dorsal aspects of L foot 2nd ,3rd,4th metatarsals daily . Off-load heels with pillow. Reposition at least every 2 hours or as tolerated. Air fluidized mattress.
--- NOTE | 2018-07-28 15:03 | Diagnostic Imaging Report ---
Indication: Right arm pain, cellulitis Technique: Grayscale and duplex images of the right upper extremity veins. Note that due to patient body habitus and cellulitis, only limited images could be obtained. The right subclavian, right basilic, and forearm veins could not be scanned. Comparison: none Findings: Limited images demonstrate no evidence of intraluminal thrombus within the internal jugular, axillary, brachial, cephalic veins. Normal phasic Doppler waveforms, demonstrating no evidence of valvular insufficiency. Normal compressibility of all venous structures study. Impression: Limited exam, as described. No evidence of upper extremity venous thrombosis
--- NOTE | 2018-07-28 15:30 | NUR ---
NURSE NOTES: Pt received from CJ Finley alert and oriented x0. Opens eyes to name but is nonverbal. IV site asymptomatic and patent. Bed in lowest position, call light and belongings within reach. Seizure precautions implemented - side rails padded, suction at bedside.
--- NOTE | 2018-07-28 15:38 | Consultation ---
History of Present Illness General Date patient seen: Jul 28, 2018 Chief Complaint: Skin Rash/Abscess Reason for Consultation: Right arm swelling Present Illness HPI 68 year old male detention resident with multiple medical comorbidities who is non verbal at baseline presented with recently noted right arm swelling. Patient cannot given history. History obtained from records. unknown etiology of swelling and was just noted 1-2 days ago. redness, drainage, warmth, cellulitis. surgery called to evaluate for right arm cellulitis. patient seen , chart reviewed, patient examined. Allergies: Coded Allergies: ATORVASTATIN (Unverified Allergy, Unknown, 07/27/18) Uncoded Allergies: VITAMIN B12 (Allergy, Unknown, 07/27/18) VITAMIN D (Allergy, Unknown, 07/27/18) Medication History Scheduled Ascorbic Acid* (Ascorbic Acid*), 500 MG ORAL TWICE A DAY, (Reported) Divalproex Sodium* (Depakote*), 250 MG PO Q12HR, (Reported) Docusate Sodium (Docusate Sodium), 100 MG ORAL TWICE A DAY, (Reported) Ferrous Sulfate* (Ferrous Sulfate*), 325 MG ORAL DAILY, (Reported) Ferrous Sulfate* (Ferrous Sulfate*), 325 MG ORAL TWICE A DAY, (Reported) Insulin Regular, Human (Humulin R), SUBQ ACHS, (Reported) Levetiracetam (Keppra), 500 MG ORAL EVERY 12 HOURS, (Reported) Meloxicam* (Meloxicam*), 15 MG PO DAILY, (Reported) Multivitamins* (Multivitamins*), 1 TAB ORAL DAILY, (Reported) Pantoprazole* (Pantoprazole*), 40 MG ORAL DAILY, (Reported) Pantoprazole* (Pantoprazole*), 40 MG ORAL DAILY, (Reported) Paroxetine Hcl* (Paxil*), 20 MG ORAL DAILY, (Reported) Risperidone* (Risperdal*), 2 MG ORAL BID, (Reported) Zinc Sulfate (Zinc Sulfate*), 220 MG ORAL DAILY, (Reported) Scheduled PRN Acetaminophen* (Acetaminophen 325MG Tablet*), 650 MG ORAL Q4H PRN for Mild Pain/ Temp > 100.5, (Reported) Tramadol Hcl* (Ultram*), 50 MG ORAL Q6H PRN for Moderate Pain (Pain Scale 4-6), (Reported) Miscellaneous Medications Nitroglycerin (Nitroglycerin), 2.5 MG PO, (Reported) Patient History Limited by: medical condition History Provided By: Medical Record, PMD Healthcare decision maker Resuscitation status Full Code Advanced Directive on File Past Medical/Surgical History Past Medical/Surgical History: (1) Anemia (2) Cellulitis of right upper extremity (3) Hyperkalemia, diminished renal excretion (4) Renal insufficiency (5) UTI (urinary tract infection) (6) History of seizure (7) COPD (chronic obstructive pulmonary disease) (8) ATN (acute tubular necrosis) Review of Systems ROS Narrative cannot obtain Physical Exam General Appearance: no apparent distress Lines, tubes and drains: peripheral HEENT: mucous membranes moist Neck: normal inspection Respiratory/Chest: normal breath sounds, no respiratory distress, no accessory muscle use Cardiovascular/Chest: regular rhythm Abdomen: soft, no organomegaly, no mass Extremities: other Skin Exam: other Neurologic: unresponsiveness Last 24 Hour Vital Signs Date Time Temp Pulse Resp B/P (MAP) Pulse Ox O2 Delivery O2 Flow Rate FiO2 07/28/18 12:03 64 07/28/18 12:00 96.3 68 20 140/83 (102) 96 07/28/18 09:00 Room Air 07/28/18 08:00 96.2 68 20 150/70 (96) 99 07/28/18 06:30 Room Air 07/28/18 05:45 97.0 65 20 153/56 (88) 98 07/28/18 05:35 65 07/28/18 05:35 97.5 75 18 135/62 96 Room Air 07/27/18 21:50 97.1 72 18 133/61 95 Room Air 07/27/18 21:32 96.3 71 18 120/70 95 Room Air Intake and Output 07/27/18 07/28/18 18:59 06:59 Intake Total 1250 ml Output Total 400 ml Balance 850 ml IV Total 1250 ml Output Urine Total 400 ml Laboratory Tests Test 07/27/18 22:30 07/27/18 22:58 07/27/18 23:30 07/28/18 01:10 White Blood Count 4.6 K/UL (4.8-10.8) L Red Blood Count 3.29 M/UL (4.70-6.10) L Hemoglobin 8.4 G/DL (14.2-18.0) L Hematocrit 27.5 % (42.0-52.0) L Mean Corpuscular Volume 83 FL (80-99) Mean Corpuscular Hemoglobin 25.4 PG (27.0-31.0) L Mean Corpuscular Hemoglobin Concent 30.5 G/DL (32.0-36.0) L Red Cell Distribution Width 18.9 % (11.6-14.8) H Platelet Count 65 K/UL (150-450) L Mean Platelet Volume 7.6 FL (6.5-10.1) Neutrophils (%) (Auto) % (45.0-75.0) Lymphocytes (%) (Auto) % (20.0-45.0) Monocytes (%) (Auto) % (1.0-10.0) Eosinophils (%) (Auto) % (0.0-3.0) Basophils (%) (Auto) % (0.0-2.0) Differential Total Cells Counted 100 Neutrophils % (Manual) 77 % (45-75) H Lymphocytes % (Manual) 9 % (20-45) L Monocytes % (Manual) 6 % (1-10) Eosinophils % (Manual) 1 % (0-3) Basophils % (Manual) 2 % (0-2) Band Neutrophils 5 % (0-8) Platelet Estimate Decreased L Platelet Morphology Normal Hypochromasia 1+ Anisocytosis 1+ Sodium Level 137 MMOL/L (136-145) Potassium Level 6.6 MMOL/L (3.5-5.1) *H Chloride Level 108 MMOL/L (98-107) H Carbon Dioxide Level 25 MMOL/L (21-32) Anion Gap 5 mmol/L (5-15) Blood Urea Nitrogen 53 mg/dL (7-18) H Creatinine 1.4 MG/DL (0.55-1.30) H Estimat Glomerular Filtration Rate 50.7 mL/min (>60) Glucose Level 167 MG/DL (74-106) H Calcium Level 9.4 MG/DL (8.5-10.1) Total Bilirubin 0.4 MG/DL (0.2-1.0) Aspartate Amino Transf (AST/SGOT) 24 U/L (15-37) Alanine Aminotransferase (ALT/SGPT) 27 U/L (12-78) Alkaline Phosphatase 136 U/L (46-116) H Total Protein 6.7 G/DL (6.4-8.2) Albumin 2.0 G/DL (3.4-5.0) L Globulin 4.7 g/dL Albumin/Globulin Ratio 0.4 (1.0-2.7) L Lactic Acid Level 1.20 mmol/L (0.4-2.0) Troponin I 0.042 ng/mL (0.000-0.056) Urine Color Pale yellow Urine Appearance Cloudy Urine pH 5 (4.5-8.0) Urine Specific [place] 1.015 (1.005-1.035) Urine Protein 1+ (NEGATIVE) H Urine Glucose (UA) Negative (NEGATIVE) Urine Ketones Negative (NEGATIVE) Urine Blood 4+ (NEGATIVE) H Urine Nitrite Negative (NEGATIVE) Urine Bilirubin Negative (NEGATIVE) Urine Urobilinogen Normal MG/DL (0.0-1.0) Urine Leukocyte Esterase 3+ (NEGATIVE) H Urine RBC 15-20 /HPF (0 - 0) H Urine WBC Tntc /HPF (0 - 0) H Urine Squamous Epithelial Cells None /LPF (NONE/OCC) Urine Bacteria Moderate /HPF (NONE) H Urine Coarse Granular Casts 2-4 /LPF (NONE) H Test 07/28/18 14:00 White Blood Count 4.2 K/UL (4.8-10.8) L Red Blood Count 3.14 M/UL (4.70-6.10) L Hemoglobin 8.0 G/DL (14.2-18.0) L Hematocrit 26.0 % (42.0-52.0) L Mean Corpuscular Volume 83 FL (80-99) Mean Corpuscular Hemoglobin 25.6 PG (27.0-31.0) L Mean Corpuscular Hemoglobin Concent 30.8 G/DL (32.0-36.0) L Red Cell Distribution Width 18.5 % (11.6-14.8) H Platelet Count 69 K/UL (150-450) L Mean Platelet Volume 8.1 FL (6.5-10.1) Neutrophils (%) (Auto) % (45.0-75.0) Lymphocytes (%) (Auto) % (20.0-45.0) Monocytes (%) (Auto) % (1.0-10.0) Eosinophils (%) (Auto) % (0.0-3.0) Basophils (%) (Auto) % (0.0-2.0) Differential Total Cells Counted 100 Neutrophils % (Manual) 76 % (45-75) H Lymphocytes % (Manual) 14 % (20-45) L Monocytes % (Manual) 4 % (1-10) Eosinophils % (Manual) 3 % (0-3) Basophils % (Manual) 0 % (0-2) Band Neutrophils 3 % (0-8) Platelet Estimate Decreased L Platelet Morphology Normal Hypochromasia 1+ Anisocytosis 2+ Sodium Level 138 MMOL/L (136-145) Potassium Level 6.6 MMOL/L (3.5-5.1) *H Chloride Level 108 MMOL/L (98-107) H Carbon Dioxide Level 27 MMOL/L (21-32) Anion Gap 3 mmol/L (5-15) L Blood Urea Nitrogen 48 mg/dL (7-18) H Creatinine 1.3 MG/DL (0.55-1.30) Estimat Glomerular Filtration Rate 55.2 mL/min (>60) Glucose Level 198 MG/DL (74-106) H Calcium Level 9.2 MG/DL (8.5-10.1) Total Bilirubin 0.4 MG/DL (0.2-1.0) Aspartate Amino Transf (AST/SGOT) 26 U/L (15-37) Alanine Aminotransferase (ALT/SGPT) 27 U/L (12-78) Alkaline Phosphatase 129 U/L (46-116) H Total Protein 6.3 G/DL (6.4-8.2) L Albumin 1.8 G/DL (3.4-5.0) L Globulin 4.5 g/dL Albumin/Globulin Ratio 0.4 (1.0-2.7) L Hepatitis A IgM Antibody Pending Hepatitis B Surface Antigen Pending Hepatitis B Core IgM Antibody Pending Hepatitis C Antibody Pending HIV (1&2) Antibody Rapid Pending Height (Feet): 5 Height (Inches): 6.00 Weight (Pounds): 186 Medications Current Medications Medications (Trade) Dose Ordered Sig/Violette Route PRN Reason Start Time Stop Time Status Last Admin Dose Admin Acetaminophen (Tylenol) 650 mg Q4H PRN ORAL fever 07/28/18 07:00 08/27/18 06:59 Albuterol/ Ipratropium (Albuterol/ Ipratropium) 3 ml Q4H PRN HHN Shortness of Breath 07/28/18 07:00 08/02/18 06:59 Cefepime HCl 2 gm/ Dextrose 110 ml @ 220 mls/hr Q24H IV 07/28/18 21:00 08/04/18 20:59 Dextrose (Dextrose 50%) 25 ml Q30M PRN IV Hypoglycemia 07/28/18 09:15 08/27/18 09:14 Dextrose (Dextrose 50%) 50 ml Q30M PRN IV Hypoglycemia 07/28/18 09:15 08/27/18 09:14 Divalproex Sodium (Depakote Sprinkles) 250 mg Q12HR ORAL 07/28/18 10:00 08/27/18 09:59 07/28/18 09:58 Heparin Sodium (Porcine) (Heparin 5000 units/ml) 5,000 units EVERY 12 HOURS SUBQ 07/28/18 09:00 08/27/18 08:59 Insulin Aspart (NovoLOG) BEFORE MEALS AND HS SUBQ 07/28/18 11:30 08/27/18 11:29 07/28/18 11:30 Lansoprazole (Prevacid) 30 mg DAILY ORAL 07/28/18 09:00 08/27/18 08:59 07/28/18 09:58 Morphine Sulfate (Morphine Sulfate) 2 mg Q4H PRN IVP Moderate Pain (Pain Scale 4-6) 07/28/18 07:00 08/04/18 06:59 Nitroglycerin (Ntg) 0.4 mg Q5M PRN SL Prn Chest Pain 07/28/18 07:00 08/27/18 06:59 Ondansetron HCl (Zofran) 4 mg Q6H PRN IVP Nausea & Vomiting 07/28/18 07:00 08/27/18 06:59 Polyethylene Glycol (Miralax) 17 gm DAILYPRN PRN ORAL Constipation 07/28/18 07:00 08/27/18 06:59 Sodium Chloride 1,000 ml @ 100 mls/hr Q10H IV 07/28/18 13:45 08/27/18 13:44 Tamsulosin HCl (Flomax) 0.4 mg BEDTIME ORAL 07/28/18 21:00 08/27/18 20:59 Temazepam (Restoril) 15 mg HSPRN PRN ORAL Insomnia 07/28/18 07:00 08/04/18 06:59 Vancomycin HCl (Vanco rx to dose) 1 ea DAILY PRN MISC Per rx protocol 07/28/18 07:30 08/27/18 07:29 Assessment/Plan Problem List: (1) Cellulitis of right upper extremity Assessment & Plan: right wrist cellulitis. 1.5cm ulceration noted. seropurulent drainage noted. minimal foul odor. cellulitis circumferential. pulses okay. hand okay. proximally okay -MRI of right wrist ordered -IV abx -skin protectant and dressings for now -keep right arm elevated will await MRI results. if abscess will need I&D. if no abscess will monitor clinically on medical therapy. ICD Codes: L03.113 - Cellulitis of right upper limb SNOMED: 374836788 (2) Decubitus ulcer of right buttock, stage 4 Assessment & Plan: patient presents with multiple wounds upon admission moderate sized stage 4 right buttock lower decubitus ulcer clean and seems to have had debridement prior right heel dti -apply hydrogel, gauze packing, dressings daily and prn -heel protectors, apply foam dressing to right heel -will monitor and treat wounds while in hospital -turn q2h -off load pressure -air mattress thank you ICD Codes: L89.314 - Pressure ulcer of right buttock, stage 4 SNOMED: 365362567 Jin Hogan Jul 28, 2018 15:38
[2018-07-28 16:00] VITALS: BP 153/71
[2018-07-28] MEDS ORDERED: Sodium Polystyrene Sulfonate 15gm Powder ORAL SCH (17:15)
--- NOTE | 2018-07-28 18:30 | History and Physical Report ---
DATE OF ADMISSION: 07/27/2018 TIME SEEN: 1 p.m. CONSULTANTS: 1. Lazaro Becker M.D. 2. Becki Coe M.D. 3. Shashi Patel M.D. 4. Rios Barron M.D. 5. Jin Hogan M.D. 6. Preston Escalera M.D. 7. CHIEF COMPLAINT: Nonhealing wound, right upper extremity cellulitis, hyperkalemia, elevated troponin, altered mental status. BRIEF HISTORY: This is a 68-year-old male from [facility] presented with the above-mentioned diagnosis, admitted to telemetry for further care. Currently, lethargic in bed, confused, not responding to questions. REVIEW OF SYSTEMS: Unavailable. PAST MEDICAL HISTORY: Cellulitis right upper extremity, anemia, renal insufficiency, UTI, seizure, COPD, ATN. PAST SURGICAL HISTORY: Unknown. ALLERGY: Atorvastatin, vitamin B12, and vitamin D. SOCIAL HISTORY: Unable to obtain secondary to the patient's condition. PHYSICAL EXAMINATION: GENERAL: Lethargic in bed, nonverbal. VITAL SIGNS: Temperature 96, pulse 68, respiratory rate 20, blood pressure 140/83. CARDIOVASCULAR: No murmurs. LUNGS: Distant and clear. ABDOMEN: Bowel sounds positive. Nontender. Nondistended. EXTREMITIES: No cyanosis, clubbing, or edema. Right arm dressing clean and dry. NEUROLOGIC: The patient flaccid in bed, not following directions. LABORATORY AND DIAGNOSTIC DATA: White count 4.6, hemoglobin and hematocrit 8.4 and 27, platelets 65. BMP show potassium 6.6, chloride 108, BUN and creatinine 53 and 1.4, glucose 167, alkaline phosphatase 136. Albumin 2.0. Urinalysis showed 3+ leukocyte esterase, 1+ protein. MEDICATIONS: Include cefepime, insulin, divalproex, dextrose, heparin, vancomycin, nitroglycerin, Zofran, morphine, Tylenol, and albuterol. ASSESSMENT: 1. Nonhealing wound. 2. Right upper extremity cellulitis. 3. UTI. 4. Hyperkalemia. 5. Anemia. 6. Elevated troponin. 7. Malnutrition. 8. Thrombocytopenia. 9. Renal cysts. 10. Altered mental status. 11. UTI. 12. Seizure. 13. COPD. 14. Hypertension. PLAN: 1. Continue previous medications. 2. Wound care. 3. Antibiotic per Infectious Diseases. 4. PT and dietary evaluation. 5. CBC and BMP in the morning. 6. Resume home medications. 7. We will add Dr. Lino, Dr. Hutchinson to consult. Michael Johnson D.O. DR: Dave JOB#: [id number] CC:
--- NOTE | 2018-07-28 19:43 | Consultation ---
Consult Note Consult Note NEUROLOGY CONSULTATION: Full note dictated #[id number] 68 y/o, HM of ?H who lives in a NH. He has a PH of HTN, COPD, renal dysfunction, seizure disorder, anemia, UTIs and right UE cellulitis. He was hospitalized for AMS and cellulitis. At this time he is non-verbal and as per his nurse he has been non-verbal since he came in. It is unclear as to what his baseline MS is. It is also unclear as to what type of seizure disorder he has he however is treated with a subtherapeutic dose of VA. ON EXAM: Awake but non-verbal. Unable to cooperate for further MS tests. Blinks to threat. No definite focal findings. Globally absent DTRs with flexor plantars. IMPRESSION: Cellulitis of RUE. Unclear as to what exactly his AMS represents. H/O unknown type of seizure disorder. REC: Brain MRI to evaluate AMS. EEG to evaluate for seizure type and AMS Labs for treatable AMS. Preston Escalera M.D., M.S.P.Preston Felix MD Jul 28, 2018 19:43
[2018-07-28 20:00] VITALS: BP 134/68
[2018-07-28] MEDS: Tamsulosin 0.4mg cap ORAL SCH (20:21)
--- NOTE | 2018-07-28 21:15 | Consultation ---
DATE OF CONSULTATION: 07/28/2018 NEUROLOGY CONSULTATION CONSULTING PHYSICIAN: Preston Escalera M.D. REQUESTING PHYSICIAN: Michael Johnson D.O. HISTORY: Mr. Juan Tran is a 68-year-old, gentleman, of unknown handedness, who lives in a care home. He has a past history of hypertension, chronic obstructive pulmonary disease, renal dysfunction, an undefined seizure disorder, anemia, urinary tract infections, and recently right upper extremity cellulitis. He was brought into the hospital for worsening cellulitis and in addition, "an alteration in his mental state." At this point in time, he is nonverbal and as per his nurse, he has been nonverbal ever since he came in. It is unclear as to what exactly his baseline mental state is. It is also unclear as to what type of seizure disorder he has. He, however, is being treated with subtherapeutic doses of valproic acid. PAST MEDICAL HISTORY: Hypertension, chronic obstructive pulmonary disease, renal dysfunction, seizure disorder, anemia, urinary tract infections, and right upper extremity cellulitis. FAMILY HISTORY: Unavailable. PERSONAL HISTORY: Home: He lives in the care home. Work: He is unemployed. Habits: None at this point in time. MEDICATIONS: Cefepime, Flomax, insulin, Prevacid, Depakote 250 mg q.12 hours, heparin for DVT prophylaxis, vancomycin, nitroglycerin, Zofran, MiraLAX, morphine sulfate, Tylenol, and DuoNeb inhaler. PHYSICAL EXAMINATION: GENERAL: He is a well-developed, well-nourished, gentleman, lying in bed, in no acute distress. VITAL SIGNS: Pulse 67/minute, blood pressure 153/71 mmHg, respirations 20/minute, temperature 96.1 degrees Fahrenheit. HEAD: Normocephalic and atraumatic. EENT: Examination benign. NECK: No neck rigidity was observed. NEUROLOGIC EXAMINATION: MENTAL STATUS EXAMINATION: He was awake, but nonverbal. He was unable to follow simple commands. He was unable to cooperate for further mental status testing. SPEECH: Could not be tested as he was mute. LANGUAGE: He was unable to follow simple commands and unable to express himself in any manner. CRANIAL NERVE EXAMINATION: II: He did blink to threat. III, IV & : The external ocular movements were present on oculocephalic maneuvers. The pupils were 3 mm in diameter, equal, round, regular, and reactive sluggishly to light. V & VII: The corneal reflexes were equal, but subdued. VIII: He did respond to sounds and had no nystagmus. IX & X: The gag reflex was present, but significantly subdued. XI: The sternocleidomastoids and trapezii did function. XII: The tongue was in the midline without any fasciculations or atrophy. MOTOR SYSTEM: The tone was increased in all four extremities with a combination of spasticity and gegenhalten. Examination of muscle mass revealed generalized wasting. Examination of power was impossible to perform because he moved all four extremities minimally on deep painful stimuli. SENSORY EXAMINATION: He responded appropriately to deep painful stimuli. He could not cooperate for other sensory modalities. REFLEXES: 0 at the biceps, triceps, brachioradialis, knees, and ankles. The plantar responses were flexor bilaterally. COORDINATION, STANCE & GAIT: Could not be tested. DIAGNOSTIC IMPRESSION: 1. Mr. Juan Tran is a 68-year-old, gentleman, of unknown handedness, who lives in a care home. He has a past history of hypertension, chronic obstructive pulmonary disease, renal dysfunction, seizure disorder, anemia, urinary tract infections, and right upper extremity cellulitis. He was hospitalized for an alteration in mental state and worsening of his right upper extremity cellulitis. At this point in time, he is nonverbal and is unable to give any history. 2. On neurological examination, at this time, he is awake, but not verbal. He is unable to cooperate for further mental status test. He does blink to threat. He does not demonstrate any lateralizing cranial nerve dysfunction. He only responds to deep painful stimuli with minimal movements of all four extremities and his deep tendon reflexes are globally absent. His plantar responses are flexor. 3. Laboratory data obtained thus far revealed that he is anemic with a hemoglobin of 8.0 G. His chemistry panel revealed an elevated potassium at 6.6, BUN elevated at 48, creatinine elevated at 1.3, blood glucose elevated at 198, alkaline phosphatase elevated to 129, albumin low at 1.8. His urinalysis revealed 3+ leukocyte esterase, 15-20 RBCs and too numerous to count WBCs per high-power field. 4. The patient's history and neurological examination are most compatible with cellulitis of the right upper extremity and a significant urinary tract infection. However, it is unclear as to what his change of mental state represents as his baseline mental state is unknown to us. 5. In addition, he also carries a history of a seizure disorder, but it is unclear as to what type of seizure disorder he has. At this point in time, he is on a subtherapeutic dose of valproic acid for seizure control. RECOMMENDATIONS: 1. Agree with management thus far. 2. Would try to obtain a better history regarding his baseline mental state and seizure type. 3. An MRI scan of the brain will be ordered to evaluate the patient for intracranial pathology. 4. An EEG will be ordered to evaluate the patient for his altered mental state and seizure type. 5. The patient will be worked up thoroughly for other treatable causes of altered mental state. 6. The patient will be observed closely and depending on how he fares over the next day or so, further recommendations will be given. Thank you for entrusting me with the care of Mr. Tran. I shall follow him with you. Preston Escalera M.D., M.S.P.H. DR: OLIVIA JOB#: [id number]
[2018-07-29] VITALS: BP 130/69
[2018-07-29] MEDS ORDERED: Vancomycin 1 GM in D5W 275 ML IV SCH (00:30)
[2018-07-29 04:00] VITALS: BP 123/65
[2018-07-29] MEDS ORDERED: LORazepam 0.5mg tab ORAL PRN (04:30)
[2018-07-29] MEDS: NovoLOG Insulin Flexpen SUBQ SCH ×4 (05:42→21:00)
[2018-07-29 06:03] LABS: HEMATOCRIT 26.7 % (42.0-52.0); HEMOGLOBIN 8.2 G/DL (14.2-18.0); MEAN CORPUSCULAR VOLUME 84 FL (80-99); PLATELET COUNT 74 K/UL (150-450); RED BLOOD COUNT 3.19 M/UL (4.70-6.10); WHITE BLOOD COUNT 4.2 K/UL (4.8-10.8)
[2018-07-29 06:24] LABS: ALANINE AMINOTRANSFERASE 34 U/L (12-78); ALBUMIN 1.9 G/DL (3.4-5.0); ALBUMIN/GLOBULIN RATIO 0.4 (1.0-2.7); ALKALINE PHOSPHATASE 135 U/L (46-116); ANION GAP 1 mmol/L (5-15); ASPARTATE AMINO TRANSFERASE 27 U/L (15-37); BILIRUBIN,TOTAL 0.4 MG/DL (0.2-1.0); BLOOD UREA NITROGEN 42 mg/dL (7-18); CALCIUM 9.3 MG/DL (8.5-10.1); CARBON DIOXIDE 28 MMOL/L (21-32); CHLORIDE 109 MMOL/L (98-107); CREATININE 1.2 MG/DL (0.55-1.30); SODIUM 138 MMOL/L (136-145)
[2018-07-29 06:27] LABS: POTASSIUM 6.5 MMOL/L (3.5-5.1)
[2018-07-29 06:35] LABS: CHOLESTEROL 113 MG/DL (< 200); FERRITIN 914 NG/ML (8-388); HDL CHOLESTEROL 22 MG/DL (40-60); TRIGLYCERIDES 20 MG/DL (30-150)
[2018-07-29 06:54] LABS: GAMMA GLUTAMYL TRANSPEPTIDASE 59 U/L (5-85); PHOSPHORUS 3.8 MG/DL (2.5-4.9)
[2018-07-29 06:57] LABS: % IRON SATURATION 32 % (15-50); IRON 48 ug/dL (50-175); TOTAL IRON BINDING CAPACITY 148 ug/dL (250-450)
[2018-07-29] MEDS ORDERED: Sodium Polystyrene Sulfonate 15gm Powder ORAL SCH (07:15)
[2018-07-29 08:00] VITALS: BP 114/61
--- NOTE | 2018-07-29 08:13 | NUR ---
HAND-OFF: Report given to CJ Cordoba.
--- NOTE | 2018-07-29 08:19 | NUR ---
NURSE NOTES: Received report from Jayesh Pineda RN. Pt in bed awake but aphasic. No distress noted. IV site when flushed, infiltrated at bedside report so will attempt to regain IV access. Asked MD Johnson for off-tele order for multiple MRIs to be performed today 07/29/18. Will continue to monitor.
--- NOTE | 2018-07-29 08:32 | Infectious Diseases Prog Note ---
Assessment/Plan Assessment/Plan 68 yo male who was sent to the ED from his long term for right arm swelling. Right arm swelling US no DVT No X-ray No Fever No leukocytosis Sacral Decub Stage 4 Dysphagia HTN DM PLAN - Continue Cefepime #2 and vancomycin #2 - Wound care - Monitor CBC and Temps - Monitor BMs - f/u MRI Thank you for this consult. We will continue to follow the patient during this hospitalization. Subjective Allergies: Coded Allergies: ATORVASTATIN (Unverified Allergy, Unknown, 07/27/18) Uncoded Allergies: VITAMIN B12 (Allergy, Unknown, 07/27/18) VITAMIN D (Allergy, Unknown, 07/27/18) Subjective Patient with eye open and tracking but not verbal Afebrile No leukocytosis Objective Vital Signs Last 24 Hour Vital Signs Date Time Temp Pulse Resp B/P (MAP) Pulse Ox O2 Delivery O2 Flow Rate FiO2 07/29/18 04:00 97.0 66 20 123/65 (84) 100 07/29/18 04:00 65 07/29/18 00:00 64 07/29/18 00:00 97.0 71 20 130/69 (89) 100 07/28/18 21:16 Nasal Cannula 2.0 28 07/28/18 21:16 60 18 Nasal Cannula 2.0 28 07/28/18 21:16 94 Nasal Cannula 2.0 28 07/28/18 21:00 Room Air 07/28/18 20:00 97.0 70 20 134/68 (90) 99 07/28/18 20:00 69 07/28/18 16:00 96.1 67 20 153/71 (98) 99 07/28/18 16:00 56 07/28/18 12:03 64 07/28/18 12:00 96.3 68 20 140/83 (102) 96 07/28/18 09:00 Room Air Height (Feet): 5 Height (Inches): 6.00 Weight (Pounds): 185 Objective Gen: NAD, Opens eyes not following commands HEENT: NCAT, MMM, EOMI LUNGS: CTAB, No W CARDS: RRR, S1, S2, No M/R/G, ABD: Soft, NT, ND, + BS Ext: C/C/E, Pulses 2+ B/L (DP, Rad): Right upper extremity with swelling with ulcer. some eschar covering SKIN: Warm/dry, No rashes, Stage 4 sacral decube. No Purulent drainage Microbiology Date/Time Source Procedure Growth Status 07/27/18 23:13 Blood Blood Culture - Preliminary NO GROWTH AFTER 24 HOURS Resulted 07/27/18 22:58 Blood Blood Culture - Preliminary NO GROWTH AFTER 24 HOURS Resulted Laboratory Tests Test 07/28/18 14:00 07/28/18 14:30 07/29/18 05:10 White Blood Count 4.2 K/UL (4.8-10.8) L 4.2 K/UL (4.8-10.8) L Red Blood Count 3.14 M/UL (4.70-6.10) L 3.19 M/UL (4.70-6.10) L Hemoglobin 8.0 G/DL (14.2-18.0) L 8.2 G/DL (14.2-18.0) L Hematocrit 26.0 % (42.0-52.0) L 26.7 % (42.0-52.0) L Mean Corpuscular Volume 83 FL (80-99) 84 FL (80-99) Mean Corpuscular Hemoglobin 25.6 PG (27.0-31.0) L 25.8 PG (27.0-31.0) L Mean Corpuscular Hemoglobin Concent 30.8 G/DL (32.0-36.0) L 30.8 G/DL (32.0-36.0) L Red Cell Distribution Width 18.5 % (11.6-14.8) H 19.0 % (11.6-14.8) H Platelet Count 69 K/UL (150-450) L 74 K/UL (150-450) L Mean Platelet Volume 8.1 FL (6.5-10.1) 6.5 FL (6.5-10.1) Neutrophils (%) (Auto) % (45.0-75.0) % (45.0-75.0) Lymphocytes (%) (Auto) % (20.0-45.0) % (20.0-45.0) Monocytes (%) (Auto) % (1.0-10.0) % (1.0-10.0) Eosinophils (%) (Auto) % (0.0-3.0) % (0.0-3.0) Basophils (%) (Auto) % (0.0-2.0) % (0.0-2.0) Differential Total Cells Counted 100 Neutrophils % (Manual) 76 % (45-75) H Lymphocytes % (Manual) 14 % (20-45) L Monocytes % (Manual) 4 % (1-10) Eosinophils % (Manual) 3 % (0-3) Basophils % (Manual) 0 % (0-2) Band Neutrophils 3 % (0-8) Platelet Estimate Decreased L Platelet Morphology Normal Hypochromasia 1+ Anisocytosis 2+ Sodium Level 138 MMOL/L (136-145) 138 MMOL/L (136-145) Potassium Level 6.6 MMOL/L (3.5-5.1) *H 6.5 MMOL/L (3.5-5.1) *H Chloride Level 108 MMOL/L (98-107) H 109 MMOL/L (98-107) H Carbon Dioxide Level 27 MMOL/L (21-32) 28 MMOL/L (21-32) Anion Gap 3 mmol/L (5-15) L 1 mmol/L (5-15) L Blood Urea Nitrogen 48 mg/dL (7-18) H 42 mg/dL (7-18) H Creatinine 1.3 MG/DL (0.55-1.30) 1.2 MG/DL (0.55-1.30) Estimat Glomerular Filtration Rate 55.2 mL/min (>60) > 60 mL/min (>60) Glucose Level 198 MG/DL (74-106) H 95 MG/DL (74-106) # Calcium Level 9.2 MG/DL (8.5-10.1) 9.3 MG/DL (8.5-10.1) Total Bilirubin 0.4 MG/DL (0.2-1.0) 0.4 MG/DL (0.2-1.0) Aspartate Amino Transf (AST/SGOT) 26 U/L (15-37) 27 U/L (15-37) Alanine Aminotransferase (ALT/SGPT) 27 U/L (12-78) 34 U/L (12-78) Alkaline Phosphatase 129 U/L (46-116) H 135 U/L (46-116) H Total Protein 6.3 G/DL (6.4-8.2) L 6.6 G/DL (6.4-8.2) Albumin 1.8 G/DL (3.4-5.0) L 1.9 G/DL (3.4-5.0) L Globulin 4.5 g/dL 4.7 g/dL Albumin/Globulin Ratio 0.4 (1.0-2.7) L 0.4 (1.0-2.7) L Hepatitis A IgM Antibody Negative (Negative) Hepatitis B Surface Antigen Negative (Negative) Hepatitis B Core IgM Antibody Negative (Negative) Hepatitis C Antibody <0.1 s/co ratio HIV (1&2) Antibody Rapid Negative (NEGATIVE) Vitamin D 25-Hydroxy Pending 25-Hydroxy Vitamin D2 Pending 25-Hydroxy Vitamin D3 Pending Rapid Plasma Reagin Pending Hemoglobin A1c 6.6 % (4.3-6.0) H Uric Acid 4.8 MG/DL (2.6-7.2) Phosphorus Level 3.8 MG/DL (2.5-4.9) Magnesium Level 1.7 MG/DL (1.8-2.4) L Iron Level 48 ug/dL (50-175) L Total Iron Binding Capacity 148 ug/dL (250-450) L Percent Iron Saturation 32 % (15-50) Unsaturated Iron Binding 100 ug/dL (112-346) L Ferritin 914 NG/ML (8-388) H Gamma Glutamyl Transpeptidase 59 U/L (5-85) Troponin I 0.049 ng/mL (0.000-0.056) Triglycerides Level 20 MG/DL (30-150) L Cholesterol Level 113 MG/DL (< 200) LDL Cholesterol 76 mg/dL (<100) HDL Cholesterol 22 MG/DL (40-60) L Cholesterol/HDL Ratio 5.1 (3.3-4.4) H Vitamin B12 Level > 2000 PG/ML (193-986) H Folate 17.8 NG/ML (8.6-58.9) Thyroid Stimulating Hormone (TSH) 4.876 uiU/mL (0.358-3.740) Random Vancomycin Level 11.9 ug/mL Current Medications Medications (Trade) Dose Ordered Sig/Violette Route PRN Reason Start Time Stop Time Status Last Admin Dose Admin Acetaminophen (Tylenol) 650 mg Q4H PRN ORAL fever 07/28/18 07:00 08/27/18 06:59 Albuterol/ Ipratropium (Albuterol/ Ipratropium) 3 ml Q4H PRN HHN Shortness of Breath 07/28/18 07:00 08/02/18 06:59 Cefepime HCl 2 gm/ Dextrose 110 ml @ 220 mls/hr Q24H IV 07/28/18 21:00 08/04/18 20:59 07/28/18 20:21 Dextrose (Dextrose 50%) 25 ml Q30M PRN IV Hypoglycemia 07/28/18 09:15 08/27/18 09:14 Dextrose (Dextrose 50%) 50 ml Q30M PRN IV Hypoglycemia 07/28/18 09:15 08/27/18 09:14 Divalproex Sodium (Depakote Sprinkles) 250 mg Q12HR ORAL 07/28/18 10:00 08/27/18 09:59 07/28/18 20:21 Heparin Sodium (Porcine) (Heparin 5000 units/ml) 5,000 units EVERY 12 HOURS SUBQ 07/28/18 09:00 08/27/18 08:59 Insulin Aspart (NovoLOG) BEFORE MEALS AND HS SUBQ 07/28/18 11:30 08/27/18 11:29 07/28/18 20:25 Lansoprazole (Prevacid) 30 mg DAILY ORAL 07/28/18 09:00 08/27/18 08:59 07/28/18 09:58 Lorazepam (Ativan) 0.5 mg Q6H PRN ORAL For Anxiety 07/29/18 04:30 08/05/18 04:29 Morphine Sulfate (Morphine Sulfate) 2 mg Q4H PRN IVP Moderate Pain (Pain Scale 4-6) 07/28/18 07:00 08/04/18 06:59 Nitroglycerin (Ntg) 0.4 mg Q5M PRN SL Prn Chest Pain 07/28/18 07:00 08/27/18 06:59 Ondansetron HCl (Zofran) 4 mg Q6H PRN IVP Nausea & Vomiting 07/28/18 07:00 08/27/18 06:59 Paroxetine HCl (Paxil) 20 mg DAILY ORAL 07/29/18 09:00 08/28/18 08:59 Polyethylene Glycol (Miralax) 17 gm DAILYPRN PRN ORAL Constipation 07/28/18 07:00 08/27/18 06:59 Risperidone (RisperDAL) 1 mg BID ORAL 07/29/18 09:00 08/28/18 08:59 Sodium Polystyrene Sulfonate (Kayexalate) 30 gm ONCE ORAL 07/29/18 07:15 07/29/18 09:00 Sodium Chloride 1,000 ml @ 100 mls/hr Q10H IV 07/28/18 13:45 08/27/18 13:44 07/29/18 05:58 Tamsulosin HCl (Flomax) 0.4 mg BEDTIME ORAL 07/28/18 21:00 08/27/18 20:59 07/28/18 20:21 Temazepam (Restoril) 15 mg HSPRN PRN ORAL Insomnia 07/28/18 07:00 08/04/18 06:59 Vancomycin HCl (Vanco rx to dose) 1 ea DAILY PRN MISC Per rx protocol 07/28/18 07:30 08/27/18 07:29 Macho Hernandez MD Jul 29, 2018 08:32
[2018-07-29] MEDS: Cefepime 2gm/D5W 110ml IV SCH ×4 (09:00→18:11)
[2018-07-29] MEDS: Heparin 5000 units/ml inj SUBQ SCH (09:00)
[2018-07-29] MEDS: Depakote 125mg Sprinkles ORAL SCH ×3 (09:02→21:45)
[2018-07-29] MEDS: PARoxetine 20mg tab ORAL SCH ×2 (09:02→09:32)
[2018-07-29] MEDS: Sodium Polystyrene Sulfonate 15gm Powder ORAL SCH ×5 (09:02→23:15)
--- NOTE | 2018-07-29 10:07 | Diagnostic Imaging Report ---
Indication: Elevated liver function tests Technique: Grayscale and duplex Doppler imaging of the abdomen performed. Comparison: None Findings: The liver is enlarged and slightly heterogeneous.. The gallbladder is unremarkable. The demonstrated part of the pancreas, aorta and IVC show no abnormalities. There are small cysts noted within the left kidney. The current exam is limited due to body habitus. The spleen is normal in size. There is no biliary ductal dilatation identified. Doppler evaluation of the main portal vein shows patency. There is no ascites. No hydronephrosis seen. Impression: Hepatomegaly. Mild fatty infiltration. Cysts within the left kidney. Limited evaluation due to body habitus
[2018-07-29] MEDS ORDERED: Lidocaine 1% Plain 30 ml INJ PRN (10:45)
[2018-07-29] MEDS ORDERED: Heparin 2000 units/Ns 1000ml INJ PRN (10:45)
[2018-07-29 12:00] VITALS: BP 106/55
--- NOTE | 2018-07-29 12:04 | General Surgery Progress Note ---
General Surgery-Progress Note Subjective Additional Comments no acute events. wound draining still Objective Last 24 Hour Vital Signs Date Time Temp Pulse Resp B/P (MAP) Pulse Ox O2 Delivery O2 Flow Rate FiO2 07/29/18 11:28 95 Nasal Cannula 2.0 28 07/29/18 11:28 64 18 Nasal Cannula 2.0 28 07/29/18 11:28 Nasal Cannula 2.0 28 07/29/18 09:00 Room Air 07/29/18 08:00 98.4 60 17 114/61 (78) 97 07/29/18 08:00 53 07/29/18 04:00 97.0 66 20 123/65 (84) 100 07/29/18 04:00 65 07/29/18 00:00 64 07/29/18 00:00 97.0 71 20 130/69 (89) 100 07/28/18 21:16 Nasal Cannula 2.0 28 07/28/18 21:16 60 18 Nasal Cannula 2.0 28 07/28/18 21:16 94 Nasal Cannula 2.0 28 07/28/18 21:00 Room Air 07/28/18 20:00 97.0 70 20 134/68 (90) 99 07/28/18 20:00 69 07/28/18 16:00 96.1 67 20 153/71 (98) 99 07/28/18 16:00 56 07/28/18 12:03 64 I&O Intake and Output 07/28/18 07/29/18 19:00 07:00 Intake Total 740 ml 1240 ml Output Total 1600 ml 1200 ml Balance -860 ml 40 ml Intake Oral 540 ml 220 ml IV Total 200 ml 1020 ml Output Urine Total 1600 ml 1200 ml Dressing: saturated Wound: other Drains: other Cardiovascular: RSR Respiratory: clear Abdomen: soft, present bowel sounds Extremities: other Laboratory Tests Test 07/28/18 14:00 07/28/18 14:30 07/29/18 05:10 07/29/18 10:30 White Blood Count 4.2 K/UL (4.8-10.8) L 4.2 K/UL (4.8-10.8) L Red Blood Count 3.14 M/UL (4.70-6.10) L 3.19 M/UL (4.70-6.10) L Hemoglobin 8.0 G/DL (14.2-18.0) L 8.2 G/DL (14.2-18.0) L Hematocrit 26.0 % (42.0-52.0) L 26.7 % (42.0-52.0) L Mean Corpuscular Volume 83 FL (80-99) 84 FL (80-99) Mean Corpuscular Hemoglobin 25.6 PG (27.0-31.0) L 25.8 PG (27.0-31.0) L Mean Corpuscular Hemoglobin Concent 30.8 G/DL (32.0-36.0) L 30.8 G/DL (32.0-36.0) L Red Cell Distribution Width 18.5 % (11.6-14.8) H 19.0 % (11.6-14.8) H Platelet Count 69 K/UL (150-450) L 74 K/UL (150-450) L Mean Platelet Volume 8.1 FL (6.5-10.1) 6.5 FL (6.5-10.1) Neutrophils (%) (Auto) % (45.0-75.0) % (45.0-75.0) Lymphocytes (%) (Auto) % (20.0-45.0) % (20.0-45.0) Monocytes (%) (Auto) % (1.0-10.0) % (1.0-10.0) Eosinophils (%) (Auto) % (0.0-3.0) % (0.0-3.0) Basophils (%) (Auto) % (0.0-2.0) % (0.0-2.0) Differential Total Cells Counted 100 Neutrophils % (Manual) 76 % (45-75) H Lymphocytes % (Manual) 14 % (20-45) L Monocytes % (Manual) 4 % (1-10) Eosinophils % (Manual) 3 % (0-3) Basophils % (Manual) 0 % (0-2) Band Neutrophils 3 % (0-8) Platelet Estimate Decreased L Platelet Morphology Normal Hypochromasia 1+ Anisocytosis 2+ Sodium Level 138 MMOL/L (136-145) 138 MMOL/L (136-145) Potassium Level 6.6 MMOL/L (3.5-5.1) *H 6.5 MMOL/L (3.5-5.1) *H 6.3 MMOL/L (3.5-5.1) *H Chloride Level 108 MMOL/L (98-107) H 109 MMOL/L (98-107) H Carbon Dioxide Level 27 MMOL/L (21-32) 28 MMOL/L (21-32) Anion Gap 3 mmol/L (5-15) L 1 mmol/L (5-15) L Blood Urea Nitrogen 48 mg/dL (7-18) H 42 mg/dL (7-18) H Creatinine 1.3 MG/DL (0.55-1.30) 1.2 MG/DL (0.55-1.30) Estimat Glomerular Filtration Rate 55.2 mL/min (>60) > 60 mL/min (>60) Glucose Level 198 MG/DL (74-106) H 95 MG/DL (74-106) # Calcium Level 9.2 MG/DL (8.5-10.1) 9.3 MG/DL (8.5-10.1) Total Bilirubin 0.4 MG/DL (0.2-1.0) 0.4 MG/DL (0.2-1.0) Aspartate Amino Transf (AST/SGOT) 26 U/L (15-37) 27 U/L (15-37) Alanine Aminotransferase (ALT/SGPT) 27 U/L (12-78) 34 U/L (12-78) Alkaline Phosphatase 129 U/L (46-116) H 135 U/L (46-116) H Total Protein 6.3 G/DL (6.4-8.2) L 6.6 G/DL (6.4-8.2) Albumin 1.8 G/DL (3.4-5.0) L 1.9 G/DL (3.4-5.0) L Globulin 4.5 g/dL 4.7 g/dL Albumin/Globulin Ratio 0.4 (1.0-2.7) L 0.4 (1.0-2.7) L Hepatitis A IgM Antibody Negative (Negative) Hepatitis B Surface Antigen Negative (Negative) Hepatitis B Core IgM Antibody Negative (Negative) Hepatitis C Antibody <0.1 s/co ratio HIV (1&2) Antibody Rapid Negative (NEGATIVE) Vitamin D 25-Hydroxy Pending 25-Hydroxy Vitamin D2 Pending 25-Hydroxy Vitamin D3 Pending Rapid Plasma Reagin Pending Hemoglobin A1c 6.6 % (4.3-6.0) H Uric Acid 4.8 MG/DL (2.6-7.2) Phosphorus Level 3.8 MG/DL (2.5-4.9) Magnesium Level 1.7 MG/DL (1.8-2.4) L Iron Level 48 ug/dL (50-175) L Total Iron Binding Capacity 148 ug/dL (250-450) L Percent Iron Saturation 32 % (15-50) Unsaturated Iron Binding 100 ug/dL (112-346) L Ferritin 914 NG/ML (8-388) H Gamma Glutamyl Transpeptidase 59 U/L (5-85) Troponin I 0.049 ng/mL (0.000-0.056) Triglycerides Level 20 MG/DL (30-150) L Cholesterol Level 113 MG/DL (< 200) LDL Cholesterol 76 mg/dL (<100) HDL Cholesterol 22 MG/DL (40-60) L Cholesterol/HDL Ratio 5.1 (3.3-4.4) H Vitamin B12 Level > 2000 PG/ML (193-986) H Folate 17.8 NG/ML (8.6-58.9) Thyroid Stimulating Hormone (TSH) 4.876 uiU/mL (0.358-3.740) Random Vancomycin Level 11.9 ug/mL Plan Problems: (1) Cellulitis of right upper extremity Assessment & Plan: right wrist cellulitis. 1.5cm ulceration noted. seropurulent drainage noted. minimal foul odor. cellulitis circumferential. pulses okay. hand okay. proximally okay hand with more edema today. ulceration still draining edema in right arm and hand 2+ pitting. no abscess palpated. no areas of significant induration -MRI of right wrist pending -IV abx (lost IV access. STAT PICC) -skin protectant and dressings for now -keep right arm elevated will await MRI results. if abscess will need I&D. if no abscess will monitor clinically on medical therapy. (2) Decubitus ulcer of right buttock, stage 4 Assessment & Plan: patient presents with multiple wounds upon admission moderate sized stage 4 right buttock lower decubitus ulcer clean and seems to have had debridement prior right heel dti -apply hydrogel, gauze packing, dressings daily and prn -heel protectors, apply foam dressing to right heel -will monitor and treat wounds while in hospital -turn q2h -off load pressure -air mattress thank you Jin Hogan Jul 29, 2018 12:04
--- NOTE | 2018-07-29 12:24 | General Progress Note ---
Assessment/Plan Problem List: (1) Anemia ICD Codes: D64.9 - Anemia, unspecified SNOMED: 872100593 Qualifiers: Qualified Codes: D64.9 - Anemia, unspecified (2) Cellulitis of right upper extremity ICD Codes: L03.113 - Cellulitis of right upper limb SNOMED: 643867081 (3) Renal insufficiency ICD Codes: N28.9 - Disorder of kidney and ureter, unspecified SNOMED: 894586089, 901442283 (4) UTI (urinary tract infection) ICD Codes: N39.0 - Urinary tract infection, site not specified SNOMED: 62945268, 752576887 Qualifiers: Qualified Codes: N39.0 - Urinary tract infection, site not specified (5) History of seizure ICD Codes: Z87.898 - Personal history of other specified conditions SNOMED: 067358213 (6) COPD (chronic obstructive pulmonary disease) ICD Codes: J44.9 - Chronic obstructive pulmonary disease, unspecified SNOMED: 09300388 (7) ATN (acute tubular necrosis) ICD Codes: N17.0 - Acute kidney failure with tubular necrosis SNOMED: 53718418 (8) Hyperkalemia, diminished renal excretion ICD Codes: E87.5 - Hyperkalemia SNOMED: 53245416, 211553667 Status: unchanged Assessment/Plan wound care abx pt diet cbc bmp am Subjective Constitutional: Reports: weakness Allergies: Coded Allergies: ATORVASTATIN (Unverified Allergy, Unknown, 07/27/18) Uncoded Allergies: VITAMIN B12 (Allergy, Unknown, 07/27/18) VITAMIN D (Allergy, Unknown, 07/27/18) All Systems: reviewed and negative except above Subjective confused in bed Objective Last 24 Hour Vital Signs Date Time Temp Pulse Resp B/P (MAP) Pulse Ox O2 Delivery O2 Flow Rate FiO2 07/29/18 11:28 95 Nasal Cannula 2.0 28 07/29/18 11:28 64 18 Nasal Cannula 2.0 28 07/29/18 11:28 Nasal Cannula 2.0 28 07/29/18 09:00 Room Air 07/29/18 08:00 98.4 60 17 114/61 (78) 97 07/29/18 08:00 53 07/29/18 04:00 97.0 66 20 123/65 (84) 100 07/29/18 04:00 65 07/29/18 00:00 64 07/29/18 00:00 97.0 71 20 130/69 (89) 100 07/28/18 21:16 Nasal Cannula 2.0 28 07/28/18 21:16 60 18 Nasal Cannula 2.0 28 07/28/18 21:16 94 Nasal Cannula 2.0 28 07/28/18 21:00 Room Air 07/28/18 20:00 97.0 70 20 134/68 (90) 99 07/28/18 20:00 69 07/28/18 16:00 96.1 67 20 153/71 (98) 99 07/28/18 16:00 56 Intake and Output 07/28/18 07/29/18 19:00 07:00 Intake Total 740 ml 1240 ml Output Total 1600 ml 1200 ml Balance -860 ml 40 ml Intake Oral 540 ml 220 ml IV Total 200 ml 1020 ml Output Urine Total 1600 ml 1200 ml Laboratory Tests 07/28/18 14:00: White Blood Count 4.2L, Red Blood Count 3.14L, Hemoglobin 8.0L, Hematocrit 26.0L , Mean Corpuscular Volume 83, Mean Corpuscular Hemoglobin 25.6L, Mean Corpuscular Hemoglobin Concent 30.8L, Red Cell Distribution Width 18.5H, Platelet Count 69L, Mean Platelet Volume 8.1, Neutrophils (%) (Auto) , Lymphocytes (%) (Auto) , Monocytes (%) (Auto) , Eosinophils (%) (Auto) , Basophils (%) (Auto) , Differential Total Cells Counted 100, Neutrophils % ( Manual) 76H, Lymphocytes % (Manual) 14L, Monocytes % (Manual) 4, Eosinophils % ( Manual) 3, Basophils % (Manual) 0, Band Neutrophils 3, Platelet Estimate DecreasedL, Platelet Morphology Normal, Hypochromasia 1+, Anisocytosis 2+, Sodium Level 138, Potassium Level 6.6*H, Chloride Level 108H, Carbon Dioxide Level 27, Anion Gap 3L, Blood Urea Nitrogen 48H, Creatinine 1.3, Estimat Glomerular Filtration Rate 55.2, Glucose Level 198H, Calcium Level 9.2, Total Bilirubin 0.4, Aspartate Amino Transf (AST/SGOT) 26, Alanine Aminotransferase ( ALT/SGPT) 27, Alkaline Phosphatase 129H, Total Protein 6.3L, Albumin 1.8L, Globulin 4.5, Albumin/Globulin Ratio 0.4L, Hepatitis A IgM Antibody Negative, Hepatitis B Surface Antigen Negative, Hepatitis B Core IgM Antibody Negative, Hepatitis C Antibody <0.1, HIV (1&2) Antibody Rapid Negative 07/28/18 14:30: Vitamin D 25-Hydroxy [Pending], 25-Hydroxy Vitamin D2 [Pending], 25-Hydroxy Vitamin D3 [Pending], Rapid Plasma Reagin [Pending] 07/29/18 05:10: White Blood Count 4.2L, Red Blood Count 3.19L, Hemoglobin 8.2L, Hematocrit 26.7L , Mean Corpuscular Volume 84, Mean Corpuscular Hemoglobin 25.8L, Mean Corpuscular Hemoglobin Concent 30.8L, Red Cell Distribution Width 19.0H, Platelet Count 74L, Mean Platelet Volume 6.5, Neutrophils (%) (Auto) , Lymphocytes (%) (Auto) , Monocytes (%) (Auto) , Eosinophils (%) (Auto) , Basophils (%) (Auto) , Sodium Level 138, Potassium Level 6.5*H, Chloride Level 109H, Carbon Dioxide Level 28, Anion Gap 1L, Blood Urea Nitrogen 42H, Creatinine 1.2, Estimat Glomerular Filtration Rate > 60, Glucose Level 95#, Calcium Level 9.3, Total Bilirubin 0.4, Aspartate Amino Transf (AST/SGOT) 27, Alanine Aminotransferase (ALT/SGPT) 34, Alkaline Phosphatase 135H, Total Protein 6.6, Albumin 1.9L, Globulin 4.7, Albumin/Globulin Ratio 0.4L, Hemoglobin A1c 6.6H, Uric Acid 4.8, Phosphorus Level 3.8, Magnesium Level 1.7L, Iron Level 48L, Total Iron Binding Capacity 148L, Percent Iron Saturation 32, Unsaturated Iron Binding 100L, Ferritin 914H, Gamma Glutamyl Transpeptidase 59, Troponin I 0.049, Triglycerides Level 20L, Cholesterol Level 113, LDL Cholesterol 76, HDL Cholesterol 22L, Cholesterol/HDL Ratio 5.1H, Vitamin B12 Level > 2000H, Folate 17.8, Thyroid Stimulating Hormone (TSH) 4.876H, Random Vancomycin Level 11.9 07/29/18 10:30: Potassium Level 6.3*H Height (Feet): 5 Height (Inches): 6.00 Weight (Pounds): 185 General Appearance: lethargic EENT: normal ENT inspection Neck: normal alignment Cardiovascular: normal peripheral pulses, normal rate, regular rhythm Respiratory/Chest: chest wall non-tender, lungs clear, normal breath sounds Abdomen: normal bowel sounds, non tender, soft Extremities: normal inspection Edema: 1+ Arm (L), 1+ Arm (R), 1+ Leg (L), 1+ Leg (R), 1+ Pedal (L), 1+ Pedal ( R), 1+ Generalized Edema: trace edema Neurologic: motor weakness Skin: normal pigmentation, warm/dry Objective r wrist dressing c&d Michael Johnson DO Jul 29, 2018 12:24
--- NOTE | 2018-07-29 12:34 | Consultation ---
History of Present Illness General Date patient seen: Jul 29, 2018 Chief Complaint: Skin Rash/Abscess Reason for Consultation: Right arm swelling Present Illness Allergies: Coded Allergies: ATORVASTATIN (Unverified Allergy, Unknown, 07/27/18) Uncoded Allergies: VITAMIN B12 (Allergy, Unknown, 07/27/18) VITAMIN D (Allergy, Unknown, 07/27/18) Medication History Scheduled Ascorbic Acid* (Ascorbic Acid*), 500 MG ORAL TWICE A DAY, (Reported) Divalproex Sodium* (Depakote*), 250 MG PO Q12HR, (Reported) Docusate Sodium (Docusate Sodium), 100 MG ORAL TWICE A DAY, (Reported) Ferrous Sulfate* (Ferrous Sulfate*), 325 MG ORAL DAILY, (Reported) Ferrous Sulfate* (Ferrous Sulfate*), 325 MG ORAL TWICE A DAY, (Reported) Insulin Regular, Human (Humulin R), SUBQ ACHS, (Reported) Levetiracetam (Keppra), 500 MG ORAL EVERY 12 HOURS, (Reported) Meloxicam* (Meloxicam*), 15 MG PO DAILY, (Reported) Multivitamins* (Multivitamins*), 1 TAB ORAL DAILY, (Reported) Pantoprazole* (Pantoprazole*), 40 MG ORAL DAILY, (Reported) Pantoprazole* (Pantoprazole*), 40 MG ORAL DAILY, (Reported) Paroxetine Hcl* (Paxil*), 20 MG ORAL DAILY, (Reported) Risperidone* (Risperdal*), 2 MG ORAL BID, (Reported) Zinc Sulfate (Zinc Sulfate*), 220 MG ORAL DAILY, (Reported) Scheduled PRN Acetaminophen* (Acetaminophen 325MG Tablet*), 650 MG ORAL Q4H PRN for Mild Pain/ Temp > 100.5, (Reported) Tramadol Hcl* (Ultram*), 50 MG ORAL Q6H PRN for Moderate Pain (Pain Scale 4-6), (Reported) Miscellaneous Medications Nitroglycerin (Nitroglycerin), 2.5 MG PO, (Reported) Patient History Healthcare decision maker Resuscitation status Full Code Advanced Directive on File Physical Exam Last 24 Hour Vital Signs Date Time Temp Pulse Resp B/P (MAP) Pulse Ox O2 Delivery O2 Flow Rate FiO2 07/29/18 11:28 95 Nasal Cannula 2.0 28 07/29/18 11:28 64 18 Nasal Cannula 2.0 28 07/29/18 11:28 Nasal Cannula 2.0 28 07/29/18 09:00 Room Air 07/29/18 08:00 98.4 60 17 114/61 (78) 97 07/29/18 08:00 53 07/29/18 04:00 97.0 66 20 123/65 (84) 100 07/29/18 04:00 65 07/29/18 00:00 64 07/29/18 00:00 97.0 71 20 130/69 (89) 100 07/28/18 21:16 Nasal Cannula 2.0 28 07/28/18 21:16 60 18 Nasal Cannula 2.0 28 07/28/18 21:16 94 Nasal Cannula 2.0 28 07/28/18 21:00 Room Air 07/28/18 20:00 97.0 70 20 134/68 (90) 99 07/28/18 20:00 69 07/28/18 16:00 96.1 67 20 153/71 (98) 99 07/28/18 16:00 56 Intake and Output 07/28/18 07/29/18 19:00 07:00 Intake Total 740 ml 1240 ml Output Total 1600 ml 1200 ml Balance -860 ml 40 ml Intake Oral 540 ml 220 ml IV Total 200 ml 1020 ml Output Urine Total 1600 ml 1200 ml Laboratory Tests Test 07/28/18 14:00 07/28/18 14:30 07/29/18 05:10 07/29/18 10:30 White Blood Count 4.2 K/UL (4.8-10.8) L 4.2 K/UL (4.8-10.8) L Red Blood Count 3.14 M/UL (4.70-6.10) L 3.19 M/UL (4.70-6.10) L Hemoglobin 8.0 G/DL (14.2-18.0) L 8.2 G/DL (14.2-18.0) L Hematocrit 26.0 % (42.0-52.0) L 26.7 % (42.0-52.0) L Mean Corpuscular Volume 83 FL (80-99) 84 FL (80-99) Mean Corpuscular Hemoglobin 25.6 PG (27.0-31.0) L 25.8 PG (27.0-31.0) L Mean Corpuscular Hemoglobin Concent 30.8 G/DL (32.0-36.0) L 30.8 G/DL (32.0-36.0) L Red Cell Distribution Width 18.5 % (11.6-14.8) H 19.0 % (11.6-14.8) H Platelet Count 69 K/UL (150-450) L 74 K/UL (150-450) L Mean Platelet Volume 8.1 FL (6.5-10.1) 6.5 FL (6.5-10.1) Neutrophils (%) (Auto) % (45.0-75.0) % (45.0-75.0) Lymphocytes (%) (Auto) % (20.0-45.0) % (20.0-45.0) Monocytes (%) (Auto) % (1.0-10.0) % (1.0-10.0) Eosinophils (%) (Auto) % (0.0-3.0) % (0.0-3.0) Basophils (%) (Auto) % (0.0-2.0) % (0.0-2.0) Differential Total Cells Counted 100 Neutrophils % (Manual) 76 % (45-75) H Lymphocytes % (Manual) 14 % (20-45) L Monocytes % (Manual) 4 % (1-10) Eosinophils % (Manual) 3 % (0-3) Basophils % (Manual) 0 % (0-2) Band Neutrophils 3 % (0-8) Platelet Estimate Decreased L Platelet Morphology Normal Hypochromasia 1+ Anisocytosis 2+ Sodium Level 138 MMOL/L (136-145) 138 MMOL/L (136-145) Potassium Level 6.6 MMOL/L (3.5-5.1) *H 6.5 MMOL/L (3.5-5.1) *H 6.3 MMOL/L (3.5-5.1) *H Chloride Level 108 MMOL/L (98-107) H 109 MMOL/L (98-107) H Carbon Dioxide Level 27 MMOL/L (21-32) 28 MMOL/L (21-32) Anion Gap 3 mmol/L (5-15) L 1 mmol/L (5-15) L Blood Urea Nitrogen 48 mg/dL (7-18) H 42 mg/dL (7-18) H Creatinine 1.3 MG/DL (0.55-1.30) 1.2 MG/DL (0.55-1.30) Estimat Glomerular Filtration Rate 55.2 mL/min (>60) > 60 mL/min (>60) Glucose Level 198 MG/DL (74-106) H 95 MG/DL (74-106) # Calcium Level 9.2 MG/DL (8.5-10.1) 9.3 MG/DL (8.5-10.1) Total Bilirubin 0.4 MG/DL (0.2-1.0) 0.4 MG/DL (0.2-1.0) Aspartate Amino Transf (AST/SGOT) 26 U/L (15-37) 27 U/L (15-37) Alanine Aminotransferase (ALT/SGPT) 27 U/L (12-78) 34 U/L (12-78) Alkaline Phosphatase 129 U/L (46-116) H 135 U/L (46-116) H Total Protein 6.3 G/DL (6.4-8.2) L 6.6 G/DL (6.4-8.2) Albumin 1.8 G/DL (3.4-5.0) L 1.9 G/DL (3.4-5.0) L Globulin 4.5 g/dL 4.7 g/dL Albumin/Globulin Ratio 0.4 (1.0-2.7) L 0.4 (1.0-2.7) L Hepatitis A IgM Antibody Negative (Negative) Hepatitis B Surface Antigen Negative (Negative) Hepatitis B Core IgM Antibody Negative (Negative) Hepatitis C Antibody <0.1 s/co ratio HIV (1&2) Antibody Rapid Negative (NEGATIVE) Vitamin D 25-Hydroxy Pending 25-Hydroxy Vitamin D2 Pending 25-Hydroxy Vitamin D3 Pending Rapid Plasma Reagin Pending Hemoglobin A1c 6.6 % (4.3-6.0) H Uric Acid 4.8 MG/DL (2.6-7.2) Phosphorus Level 3.8 MG/DL (2.5-4.9) Magnesium Level 1.7 MG/DL (1.8-2.4) L Iron Level 48 ug/dL (50-175) L Total Iron Binding Capacity 148 ug/dL (250-450) L Percent Iron Saturation 32 % (15-50) Unsaturated Iron Binding 100 ug/dL (112-346) L Ferritin 914 NG/ML (8-388) H Gamma Glutamyl Transpeptidase 59 U/L (5-85) Troponin I 0.049 ng/mL (0.000-0.056) Triglycerides Level 20 MG/DL (30-150) L Cholesterol Level 113 MG/DL (< 200) LDL Cholesterol 76 mg/dL (<100) HDL Cholesterol 22 MG/DL (40-60) L Cholesterol/HDL Ratio 5.1 (3.3-4.4) H Vitamin B12 Level > 2000 PG/ML (193-986) H Folate 17.8 NG/ML (8.6-58.9) Thyroid Stimulating Hormone (TSH) 4.876 uiU/mL (0.358-3.740) Random Vancomycin Level 11.9 ug/mL Height (Feet): 5 Height (Inches): 6.00 Weight (Pounds): 185 Medications Current Medications Medications (Trade) Dose Ordered Sig/Violette Route PRN Reason Start Time Stop Time Status Last Admin Dose Admin Acetaminophen (Tylenol) 650 mg Q4H PRN ORAL fever 07/28/18 07:00 08/27/18 06:59 Albuterol/ Ipratropium (Albuterol/ Ipratropium) 3 ml Q4H PRN HHN Shortness of Breath 07/28/18 07:00 08/02/18 06:59 Cefepime HCl 2 gm/ Dextrose 110 ml @ 220 mls/hr EVERY 12 HOURS IV 07/29/18 09:00 08/05/18 08:59 Chlorhexidine Gluconate (Samantha-Hex 2%) 1 applic DAILY@2000 TOPIC 07/29/18 20:00 08/28/18 19:59 Dextrose (Dextrose 50%) 25 ml Q30M PRN IV Hypoglycemia 07/28/18 09:15 08/27/18 09:14 Dextrose (Dextrose 50%) 50 ml Q30M PRN IV Hypoglycemia 07/28/18 09:15 08/27/18 09:14 Divalproex Sodium (Depakote Sprinkles) 250 mg Q12HR ORAL 07/28/18 10:00 08/27/18 09:59 07/28/18 20:21 Heparin Sodium (Porcine) (Heparin 5000 units/ml) 5,000 units EVERY 12 HOURS SUBQ 07/28/18 09:00 08/27/18 08:59 Heparin Sodium/ Sodium Chloride (Heparin 2000 units/Ns 1000ml premix) 2,000 unit ONCE PRN INJ picc line placement 07/29/18 10:45 07/30/18 10:44 Insulin Aspart (NovoLOG) BEFORE MEALS AND HS SUBQ 07/28/18 11:30 08/27/18 11:29 07/28/18 20:25 Lansoprazole (Prevacid) 30 mg DAILY ORAL 07/28/18 09:00 08/27/18 08:59 07/28/18 09:58 Lidocaine HCl (Xylocaine 1% 30ml) 30 ml ONCE PRN INJ picc line placement 07/29/18 10:45 07/30/18 10:44 Lorazepam (Ativan) 0.5 mg Q6H PRN ORAL For Anxiety 07/29/18 04:30 08/05/18 04:29 Morphine Sulfate (Morphine Sulfate) 2 mg Q4H PRN IVP Moderate Pain (Pain Scale 4-6) 07/28/18 07:00 08/04/18 06:59 Nitroglycerin (Ntg) 0.4 mg Q5M PRN SL Prn Chest Pain 07/28/18 07:00 08/27/18 06:59 Ondansetron HCl (Zofran) 4 mg Q6H PRN IVP Nausea & Vomiting 07/28/18 07:00 08/27/18 06:59 Paroxetine HCl (Paxil) 20 mg DAILY ORAL 07/29/18 09:00 08/28/18 08:59 Polyethylene Glycol (Miralax) 17 gm DAILYPRN PRN ORAL Constipation 07/28/18 07:00 08/27/18 06:59 Risperidone (RisperDAL) 1 mg BID ORAL 07/29/18 09:00 08/28/18 08:59 Sodium Polystyrene Sulfonate (Kayexalate) 30 gm THREE TIMES A DAY ORAL 07/29/18 09:00 08/28/18 08:59 Sodium Chloride 1,000 ml @ 100 mls/hr Q10H IV 07/28/18 13:45 08/27/18 13:44 07/29/18 05:58 Tamsulosin HCl (Flomax) 0.4 mg BEDTIME ORAL 07/28/18 21:00 08/27/18 20:59 07/28/18 20:21 Temazepam (Restoril) 15 mg HSPRN PRN ORAL Insomnia 07/28/18 07:00 08/04/18 06:59 Vancomycin HCl (Vanco rx to dose) 1 ea DAILY PRN MISC Per rx protocol 07/28/18 07:30 08/27/18 07:29 Vancomycin HCl/ Dextrose 250 ml @ 125 mls/hr Q24H IVPB 07/29/18 12:00 08/03/18 11:59 Assessment/Plan Status Narrative Hematology Consultation REQ MD: Anjum Johnson RFC: Pancytopenia DOS: 07/29/18 HPI 68-year-old male presents ED for evaluation. Patient brought in by EMS for swelling of the right upper extremity. [facility]. Upon arrival patient is in no distress. Nonverbal at baseline. No fevers or chills. No reported chest pain. No other aggravating relieving factors. no other associated symptoms, not to have decub ulceration that is severe draining, started on abx, seen by providers, has panctyopenia and heme consulted Coded Allergies: ATORVASTATIN (Unverified Allergy, Unknown, 07/27/18) Uncoded Allergies: VITAMIN B12 (Allergy, Unknown, 07/27/18) VITAMIN D (Allergy, Unknown, 07/27/18) Past Medical History: DM, HTN, GERD Immunizations: UTD Reviewed Nursing Documentation: PMH: Agreed; PSxH: Agreed Past Medical History: No History, Except For Hx Hypertension: Yes Hx COPD: Yes - dysphagia Hx Diabetes: Yes Hx Gastrointestinal Problems: Yes - GERD Review of Systems: limited ER Physical Exam - General Physical Exam Vital Signs Last 24 Hour Vital Signs Date Time Temp Pulse Resp B/P (MAP) Pulse Ox O2 Delivery O2 Flow Rate FiO2 07/29/18 11:28 95 Nasal Cannula 2.0 28 07/29/18 11:28 64 18 Nasal Cannula 2.0 28 07/29/18 11:28 Nasal Cannula 2.0 28 07/29/18 09:00 Room Air 07/29/18 08:00 98.4 60 17 114/61 (78) 97 07/29/18 08:00 53 07/29/18 04:00 97.0 66 20 123/65 (84) 100 07/29/18 04:00 65 07/29/18 00:00 64 07/29/18 00:00 97.0 71 20 130/69 (89) 100 07/28/18 21:16 Nasal Cannula 2.0 28 07/28/18 21:16 60 18 Nasal Cannula 2.0 28 07/28/18 21:16 94 Nasal Cannula 2.0 28 07/28/18 21:00 Room Air 07/28/18 20:00 97.0 70 20 134/68 (90) 99 07/28/18 20:00 69 07/28/18 16:00 96.1 67 20 153/71 (98) 99 07/28/18 16:00 56 Sp02 EP Interpretation: reviewed, normal General Appearance: no apparent distress, GCS 15, non-toxic, other - nonverbal Head: normocephalic Eyes: bilateral eye normal inspection, bilateral eye PERRL ENT: normal ENT inspection Neck: normal inspection Respiratory: chest non-tender, lungs clear, normal breath sounds, speaking full sentences Cardiovascular: regular rate, rhythm, no edema Gastrointestinal: normal bowel sounds, non tender Rectal: deferred Genitourinary: no CVA tenderness Musculoskeletal: swelling - RUE swelling Assessment and Recs # Pancytopenia -- mutliple etiologies possible, potentially related to infection /viralcauses, ongoing multiple infections, celluliis, baseline unknown, 1st time admitted --> hepatitis and hiv are negative --> anemia panel reviewed and is cw acd --> us of the abdomen has been ordered and results pending --> if no underyling cause, consider a bone marrow biopsy --> peripheral smear review --> med reviewed # Anemia of chronic disease --> panel has been reviewed # Cellulitis of right upper extremity --> s/p treatment with abx --> appre id and surg recs # Hyperkalemia, diminished renal excretion --> as per renal recs --> on ivf # Renal insufficiency --> s/p ivf administration # UTI (urinary tract infection) Test 07/27/18 22:30 07/27/18 22:58 07/27/18 23:30 07/28/18 01:10 White Blood Count 4.6 K/UL (4.8-10.8) Red Blood Count 3.29 M/UL (4.70-6.10) Hemoglobin 8.4 G/DL (14.2-18.0) Hematocrit 27.5 % (42.0-52.0) Mean Corpuscular Volume 83 FL (80-99) Mean Corpuscular Hemoglobin 25.4 PG (27.0-31.0) Mean Corpuscular Hemoglobin Concent 30.5 G/DL (32.0-36.0) Red Cell Distribution Width 18.9 % (11.6-14.8) Platelet Count 65 K/UL (150-450) Mean Platelet Volume 7.6 FL (6.5-10.1) Neutrophils (%) (Auto) % (45.0-75.0) Lymphocytes (%) (Auto) % (20.0-45.0) Monocytes (%) (Auto) % (1.0-10.0) Eosinophils (%) (Auto) % (0.0-3.0) Basophils (%) (Auto) % (0.0-2.0) Differential Total Cells Counted 100 Neutrophils % (Manual) 77 % (45-75) Lymphocytes % (Manual) 9 % (20-45) Monocytes % (Manual) 6 % (1-10) Eosinophils % (Manual) 1 % (0-3) Basophils % (Manual) 2 % (0-2) Band Neutrophils 5 % (0-8) Platelet Estimate Decreased Platelet Morphology Normal Hypochromasia 1+ Anisocytosis 1+ Sodium Level 137 MMOL/L (136-145) Potassium Level 6.6 MMOL/L (3.5-5.1) Chloride Level 108 MMOL/L (98-107) Carbon Dioxide Level 25 MMOL/L (21-32) Anion Gap 5 mmol/L (5-15) Blood Urea Nitrogen 53 mg/dL (7-18) Creatinine 1.4 MG/DL (0.55-1.30) Estimat Glomerular Filtration Rate 50.7 mL/min (>60) Glucose Level 167 MG/DL (74-106) Calcium Level 9.4 MG/DL (8.5-10.1) Total Bilirubin 0.4 MG/DL (0.2-1.0) Aspartate Amino Transf (AST/SGOT) 24 U/L (15-37) Alanine Aminotransferase (ALT/SGPT) 27 U/L (12-78) Alkaline Phosphatase 136 U/L (46-116) Total Protein 6.7 G/DL (6.4-8.2) Albumin 2.0 G/DL (3.4-5.0) Globulin 4.7 g/dL Albumin/Globulin Ratio 0.4 (1.0-2.7) Lactic Acid Level 1.20 mmol/L (0.4-2.0) Troponin I 0.042 ng/mL (0.000-0.056) Urine Color Pale yellow Urine Appearance Cloudy Urine pH 5 (4.5-8.0) Urine Specific [place] 1.015 (1.005-1.035) Urine Protein 1+ (NEGATIVE) Urine Glucose (UA) Negative (NEGATIVE) Urine Ketones Negative (NEGATIVE) Urine Blood 4+ (NEGATIVE) Urine Nitrite Negative (NEGATIVE) Urine Bilirubin Negative (NEGATIVE) Urine Urobilinogen Normal MG/DL (0.0-1.0) Urine Leukocyte Esterase 3+ (NEGATIVE) Urine RBC 15-20 /HPF (0 - 0) Urine WBC Tntc /HPF (0 - 0) Urine Squamous Epithelial Cells None /LPF (NONE/OCC) Urine Bacteria Moderate /HPF (NONE) Urine Coarse Granular Casts 2-4 /LPF (NONE) Alex Lino MD Jul 29, 2018 12:34
--- NOTE | 2018-07-29 12:48 | Pulmonology Progress Note ---
Assessment/Plan Problems: (1) ATN (acute tubular necrosis) (2) COPD (chronic obstructive pulmonary disease) (3) History of seizure (4) UTI (urinary tract infection) (5) Hyperkalemia, diminished renal excretion (6) Cellulitis of right upper extremity (7) Anemia Assessment/Plan EEG, MRI pending symptomatic treatment K slightly lower iv fluids neuro f/u respiratory treatment. Subjective ROS Limited/Unobtainable: No Constitutional: Reports: no symptoms Respiratory: Reports: no symptoms Allergies: Coded Allergies: ATORVASTATIN (Unverified Allergy, Unknown, 07/27/18) Uncoded Allergies: VITAMIN B12 (Allergy, Unknown, 07/27/18) VITAMIN D (Allergy, Unknown, 07/27/18) Objective Last 24 Hour Vital Signs Date Time Temp Pulse Resp B/P (MAP) Pulse Ox O2 Delivery O2 Flow Rate FiO2 07/29/18 11:28 95 Nasal Cannula 2.0 28 07/29/18 11:28 64 18 Nasal Cannula 2.0 28 07/29/18 11:28 Nasal Cannula 2.0 28 07/29/18 09:00 Room Air 07/29/18 08:00 98.4 60 17 114/61 (78) 97 07/29/18 08:00 53 07/29/18 04:00 97.0 66 20 123/65 (84) 100 07/29/18 04:00 65 07/29/18 00:00 64 07/29/18 00:00 97.0 71 20 130/69 (89) 100 07/28/18 21:16 Nasal Cannula 2.0 28 07/28/18 21:16 60 18 Nasal Cannula 2.0 28 07/28/18 21:16 94 Nasal Cannula 2.0 28 07/28/18 21:00 Room Air 07/28/18 20:00 97.0 70 20 134/68 (90) 99 07/28/18 20:00 69 07/28/18 16:00 96.1 67 20 153/71 (98) 99 07/28/18 16:00 56 Intake and Output 07/28/18 07/29/18 19:00 07:00 Intake Total 740 ml 1240 ml Output Total 1600 ml 1200 ml Balance -860 ml 40 ml Intake Oral 540 ml 220 ml IV Total 200 ml 1020 ml Output Urine Total 1600 ml 1200 ml Objective General Appearance: WD/WN Lines, tubes and drains: peripheral HEENT: normocephalic, atraumatic Neck: non-tender, normal alignment Breasts: no masses Cardiovascular/Chest: normal rate Genitourinary/Rectal: normal genital exam Skin Exam: normal pigmentation, rash, other - Microbiology Date/Time Source Procedure Growth Status 07/27/18 23:13 Blood Blood Culture - Preliminary NO GROWTH AFTER 24 HOURS Resulted 07/27/18 22:58 Blood Blood Culture - Preliminary NO GROWTH AFTER 24 HOURS Resulted 07/28/18 01:10 Urine,Clean Catch Urine Culture - Preliminary NO GROWTH Resulted 07/28/18 06:00 Buttock Right Gram Stain Pending Resulted 07/28/18 06:00 Buttock Right Wound Culture - Preliminary Resulted 07/28/18 02:43 Arm Right Gram Stain Pending Resulted 07/28/18 02:43 Arm Right Wound Culture - Preliminary NO GROWTH AFTER 24 HOURS Resulted 07/28/18 02:43 Rectum - Preliminary Resulted Laboratory Tests 07/28/18 14:00: White Blood Count 4.2L, Red Blood Count 3.14L, Hemoglobin 8.0L, Hematocrit 26.0L , Mean Corpuscular Volume 83, Mean Corpuscular Hemoglobin 25.6L, Mean Corpuscular Hemoglobin Concent 30.8L, Red Cell Distribution Width 18.5H, Platelet Count 69L, Mean Platelet Volume 8.1, Neutrophils (%) (Auto) , Lymphocytes (%) (Auto) , Monocytes (%) (Auto) , Eosinophils (%) (Auto) , Basophils (%) (Auto) , Differential Total Cells Counted 100, Neutrophils % ( Manual) 76H, Lymphocytes % (Manual) 14L, Monocytes % (Manual) 4, Eosinophils % ( Manual) 3, Basophils % (Manual) 0, Band Neutrophils 3, Platelet Estimate DecreasedL, Platelet Morphology Normal, Hypochromasia 1+, Anisocytosis 2+, Sodium Level 138, Potassium Level 6.6*H, Chloride Level 108H, Carbon Dioxide Level 27, Anion Gap 3L, Blood Urea Nitrogen 48H, Creatinine 1.3, Estimat Glomerular Filtration Rate 55.2, Glucose Level 198H, Calcium Level 9.2, Total Bilirubin 0.4, Aspartate Amino Transf (AST/SGOT) 26, Alanine Aminotransferase ( ALT/SGPT) 27, Alkaline Phosphatase 129H, Total Protein 6.3L, Albumin 1.8L, Globulin 4.5, Albumin/Globulin Ratio 0.4L, Hepatitis A IgM Antibody Negative, Hepatitis B Surface Antigen Negative, Hepatitis B Core IgM Antibody Negative, Hepatitis C Antibody <0.1, HIV (1&2) Antibody Rapid Negative 07/28/18 14:30: Vitamin D 25-Hydroxy [Pending], 25-Hydroxy Vitamin D2 [Pending], 25-Hydroxy Vitamin D3 [Pending], Rapid Plasma Reagin [Pending] 07/29/18 05:10: White Blood Count 4.2L, Red Blood Count 3.19L, Hemoglobin 8.2L, Hematocrit 26.7L , Mean Corpuscular Volume 84, Mean Corpuscular Hemoglobin 25.8L, Mean Corpuscular Hemoglobin Concent 30.8L, Red Cell Distribution Width 19.0H, Platelet Count 74L, Mean Platelet Volume 6.5, Neutrophils (%) (Auto) , Lymphocytes (%) (Auto) , Monocytes (%) (Auto) , Eosinophils (%) (Auto) , Basophils (%) (Auto) , Sodium Level 138, Potassium Level 6.5*H, Chloride Level 109H, Carbon Dioxide Level 28, Anion Gap 1L, Blood Urea Nitrogen 42H, Creatinine 1.2, Estimat Glomerular Filtration Rate > 60, Glucose Level 95#, Calcium Level 9.3, Total Bilirubin 0.4, Aspartate Amino Transf (AST/SGOT) 27, Alanine Aminotransferase (ALT/SGPT) 34, Alkaline Phosphatase 135H, Total Protein 6.6, Albumin 1.9L, Globulin 4.7, Albumin/Globulin Ratio 0.4L, Hemoglobin A1c 6.6H, Uric Acid 4.8, Phosphorus Level 3.8, Magnesium Level 1.7L, Iron Level 48L, Total Iron Binding Capacity 148L, Percent Iron Saturation 32, Unsaturated Iron Binding 100L, Ferritin 914H, Gamma Glutamyl Transpeptidase 59, Troponin I 0.049, Triglycerides Level 20L, Cholesterol Level 113, LDL Cholesterol 76, HDL Cholesterol 22L, Cholesterol/HDL Ratio 5.1H, Vitamin B12 Level > 2000H, Folate 17.8, Thyroid Stimulating Hormone (TSH) 4.876H, Random Vancomycin Level 11.9 07/29/18 10:30: Potassium Level 6.3*H Current Medications Medications (Trade) Dose Ordered Sig/Violette Route PRN Reason Start Time Stop Time Status Last Admin Dose Admin Acetaminophen (Tylenol) 650 mg Q4H PRN ORAL fever 07/28/18 07:00 08/27/18 06:59 Albuterol/ Ipratropium (Albuterol/ Ipratropium) 3 ml Q4H PRN HHN Shortness of Breath 07/28/18 07:00 08/02/18 06:59 Cefepime HCl 2 gm/ Dextrose 110 ml @ 220 mls/hr EVERY 12 HOURS IV 07/29/18 09:00 08/05/18 08:59 Chlorhexidine Gluconate (Samantha-Hex 2%) 1 applic DAILY@2000 TOPIC 07/29/18 20:00 08/28/18 19:59 Dextrose (Dextrose 50%) 25 ml Q30M PRN IV Hypoglycemia 07/28/18 09:15 08/27/18 09:14 Dextrose (Dextrose 50%) 50 ml Q30M PRN IV Hypoglycemia 07/28/18 09:15 08/27/18 09:14 Divalproex Sodium (Depakote Sprinkles) 250 mg Q12HR ORAL 07/28/18 10:00 08/27/18 09:59 07/28/18 20:21 Heparin Sodium (Porcine) (Heparin 5000 units/ml) 5,000 units EVERY 12 HOURS SUBQ 07/28/18 09:00 08/27/18 08:59 Heparin Sodium/ Sodium Chloride (Heparin 2000 units/Ns 1000ml premix) 2,000 unit ONCE PRN INJ picc line placement 07/29/18 10:45 07/30/18 10:44 Insulin Aspart (NovoLOG) BEFORE MEALS AND HS SUBQ 07/28/18 11:30 08/27/18 11:29 07/28/18 20:25 Lansoprazole (Prevacid) 30 mg DAILY ORAL 07/28/18 09:00 08/27/18 08:59 07/28/18 09:58 Lidocaine HCl (Xylocaine 1% 30ml) 30 ml ONCE PRN INJ picc line placement 07/29/18 10:45 07/30/18 10:44 Lorazepam (Ativan) 0.5 mg Q6H PRN ORAL For Anxiety 07/29/18 04:30 08/05/18 04:29 Morphine Sulfate (Morphine Sulfate) 2 mg Q4H PRN IVP Moderate Pain (Pain Scale 4-6) 07/28/18 07:00 08/04/18 06:59 Nitroglycerin (Ntg) 0.4 mg Q5M PRN SL Prn Chest Pain 07/28/18 07:00 08/27/18 06:59 Ondansetron HCl (Zofran) 4 mg Q6H PRN IVP Nausea & Vomiting 07/28/18 07:00 08/27/18 06:59 Paroxetine HCl (Paxil) 20 mg DAILY ORAL 07/29/18 09:00 08/28/18 08:59 Polyethylene Glycol (Miralax) 17 gm DAILYPRN PRN ORAL Constipation 07/28/18 07:00 08/27/18 06:59 Risperidone (RisperDAL) 1 mg BID ORAL 07/29/18 09:00 08/28/18 08:59 Sodium Polystyrene Sulfonate (Kayexalate) 30 gm THREE TIMES A DAY ORAL 07/29/18 09:00 08/28/18 08:59 Sodium Chloride 1,000 ml @ 100 mls/hr Q10H IV 07/28/18 13:45 08/27/18 13:44 07/29/18 05:58 Tamsulosin HCl (Flomax) 0.4 mg BEDTIME ORAL 07/28/18 21:00 08/27/18 20:59 07/28/18 20:21 Temazepam (Restoril) 15 mg HSPRN PRN ORAL Insomnia 07/28/18 07:00 08/04/18 06:59 Vancomycin HCl (Vanco rx to dose) 1 ea DAILY PRN MISC Per rx protocol 07/28/18 07:30 08/27/18 07:29 Vancomycin HCl/ Dextrose 250 ml @ 125 mls/hr Q24H IVPB 07/29/18 12:00 08/03/18 11:59 Lazaro Becker MD Jul 29, 2018 12:48
[2018-07-29] MEDS ORDERED: LORazepam Inj 2mg/ml 1ml IM SCH (13:00)
--- NOTE | 2018-07-29 14:25 | NUR ---
MRI RIGHT WRIST/FOREARM COMPLETED. MRI BRAIN COMPLETED.
--- NOTE | 2018-07-29 14:57 | Nephrology Progress Note ---
Assessment/Plan Problem List: (1) Renal insufficiency Assessment: acute on chronic (2) Hyperkalemia (3) Anemia (4) Hypoalbuminemia (5) History of seizure Assessment Renal failure- Acute on Chronic, presents with hyperkalemia COPD Sz disorder UTI Anemia cellulitis Rt UE HypoAlbuminemia Plan Hydrate Flomax Kayexelate 2K diet stop heparin SQ Monitor renal parameters Anemia shay antibiotics avoid Nephrotoxics per orders Subjective ROS Limited/Unobtainable: No Constitutional: Reports: malaise, weakness Objective Objective Last 24 Hour Vital Signs Date Time Temp Pulse Resp B/P (MAP) Pulse Ox O2 Delivery O2 Flow Rate FiO2 07/29/18 12:00 98.0 71 20 106/55 (72) 95 07/29/18 11:28 95 Nasal Cannula 2.0 28 07/29/18 11:28 64 18 Nasal Cannula 2.0 28 07/29/18 11:28 Nasal Cannula 2.0 28 07/29/18 09:00 Room Air 07/29/18 08:00 98.4 60 17 114/61 (78) 97 07/29/18 08:00 53 07/29/18 04:00 97.0 66 20 123/65 (84) 100 07/29/18 04:00 65 07/29/18 00:00 64 07/29/18 00:00 97.0 71 20 130/69 (89) 100 07/28/18 21:16 Nasal Cannula 2.0 28 07/28/18 21:16 60 18 Nasal Cannula 2.0 28 07/28/18 21:16 94 Nasal Cannula 2.0 28 07/28/18 21:00 Room Air 07/28/18 20:00 97.0 70 20 134/68 (90) 99 07/28/18 20:00 69 07/28/18 16:00 96.1 67 20 153/71 (98) 99 07/28/18 16:00 56 Intake and Output 07/28/18 07/29/18 18:59 06:59 Intake Total 740 ml 1240 ml Output Total 1600 ml 1200 ml Balance -860 ml 40 ml Intake Oral 540 ml 220 ml IV Total 200 ml 1020 ml Output Urine Total 1600 ml 1200 ml Laboratory Tests 07/29/18 05:10: White Blood Count 4.2L, Red Blood Count 3.19L, Hemoglobin 8.2L, Hematocrit 26.7L , Mean Corpuscular Volume 84, Mean Corpuscular Hemoglobin 25.8L, Mean Corpuscular Hemoglobin Concent 30.8L, Red Cell Distribution Width 19.0H, Platelet Count 74L, Mean Platelet Volume 6.5, Neutrophils (%) (Auto) , Lymphocytes (%) (Auto) , Monocytes (%) (Auto) , Eosinophils (%) (Auto) , Basophils (%) (Auto) , Sodium Level 138, Potassium Level 6.5*H, Chloride Level 109H, Carbon Dioxide Level 28, Anion Gap 1L, Blood Urea Nitrogen 42H, Creatinine 1.2, Estimat Glomerular Filtration Rate > 60, Glucose Level 95#, Hemoglobin A1c 6.6H, Uric Acid 4.8, Calcium Level 9.3, Phosphorus Level 3.8, Magnesium Level 1.7L, Iron Level 48L, Total Iron Binding Capacity 148L, Percent Iron Saturation 32, Unsaturated Iron Binding 100L, Ferritin 914H, Total Bilirubin 0.4, Gamma Glutamyl Transpeptidase 59, Aspartate Amino Transf (AST/ SGOT) 27, Alanine Aminotransferase (ALT/SGPT) 34, Alkaline Phosphatase 135H, Troponin I 0.049, Total Protein 6.6, Albumin 1.9L, Globulin 4.7, Albumin/ Globulin Ratio 0.4L, Triglycerides Level 20L, Cholesterol Level 113, LDL Cholesterol 76, HDL Cholesterol 22L, Cholesterol/HDL Ratio 5.1H, Vitamin B12 Level > 2000H, Folate 17.8, Thyroid Stimulating Hormone (TSH) 4.876H, Random Vancomycin Level 11.9 07/29/18 10:30: Potassium Level 6.3*H Height (Feet): 5 Height (Inches): 6.00 Weight (Pounds): 185 General Appearance: no apparent distress, lethargic Cardiovascular: normal rate Respiratory/Chest: decreased breath sounds Abdomen: soft Shashi Patel MD Jul 29, 2018 14:57
--- NOTE | 2018-07-29 15:31 | Diagnostic Imaging Report ---
Indication: termite treater venous access Findings: After the indications, procedure, risks, complications, and alternatives of the procedure were explained, written informed consent was obtained. The left upper extremity was prepped with alcohol. All elements of maximal sterile barrier technique were followed including usage of a cap, mask, sterile gown, sterile gloves, hand hygiene and a large sterile sheet. Sonographic evaluation of the upper extremity was performed demonstrating a patent and compressible basilic vein. Access was obtained under real-time ultrasound guidance (with utilization of sterile gel and sterile probe cover) and digital image was saved and archived. An .018 wire was introduced. Needle exchanged for a 5 Portuguese peel-away sheath. Measurements were obtained. A 5 Portuguese dual-lumen Power PICC line catheter was cut to 47 cm and introduced over the wire. Peel-away sheath and wire were removed.Catheter was secured to the skin using 2-0 Prolene suture. Both ports aspirate and flush easily. Fluoroscopic images show distal tip in the superior vena cava. Total fluoroscopic time 14 seconds. Impression: Successful placement of an upper extremity PICC line catheter
--- NOTE | 2018-07-29 15:44 | Diagnostic Imaging Report ---
Indication: Seizure Technique: The head was imaged in a 1.5 Keyonna magnet. Sequences obtained include sagittal and axial T1 FLAIR, axial T2 fast spin echo with fat saturation, axial T2 FLAIR, diffusion and ADC map. Comparison: None Findings: There is considerable motion related artifact significantly limiting evaluation. There is moderate prominence of the sulci, ventricles, and basal cisterns consistent with atrophy. Moderate, nonspecific T2 hyperintensity noted within white matter. This may be due to chronic small vessel disease. There is no restricted diffusion. Sexton-white differentiation is normal. There is no mass effect, midline shift, edema, or hemorrhage. There are no abnormal extra-axial or intra-axial fluid collections. The corpus callosum and sella are unremarkable. The brainstem and cerebellum are unremarkable. Bone marrow signal within the visualized osseous structures appears age appropriate and unremarkable otherwise. Impression: No acute intracranial findings. Significantly limited study due to motion. No acute CVA, obvious bleed or mass effect/edema. Moderate atrophy and evidence of chronic small vessel disease involving white matter tracts.
[2018-07-29 16:00] VITALS: BP 123/72
--- NOTE | 2018-07-29 16:00 | Consultation ---
DATE OF CONSULTATION: 07/29/2018 CONSULTING PHYSICIAN: Becki Coe M.D. HISTORY OF PRESENT ILLNESS: This is a male patient. He is 68 years old. He was admitted to [facility] secondary to hypokalemia, right upper extremity cellulitis. This patient is very confused and disorganized. His mood is labile. He has got no logical plan for his own self-care and does have low energy, poor appetite, and loss of interest in activities. This patient does have some mood lability, confusion, and disorganized thought process worsened by stress of his medical illness. That is why he does require daily psychiatric consultation because he does have history of schizoaffective, bipolar type and he does have worsened mood lability worsened by stress of his medical illness, which is why his attending physician has requested daily psychiatric consultation. He came in with right upper extremity cellulitis and hypokalemia, but he is very confused and he has increasing confusion secondary to stress of his medical illness, which is another reason why the daily psychiatric consultation requested. It is very difficult to get a history from him because he is very poor historian at bedside today, so a lot of information I obtained had to be through chart review for this patient. PAST MEDICAL HISTORY: Cellulitis of right upper extremity, urinary tract infection, acute tubular necrosis, COPD, seizure disorder, renal insufficiency, and anemia. ALLERGIES: He has allergies to atorvastatin, vitamin B12, and vitamin D. MEDICATIONS: This patient's psychotropic medications on admission normally this patient takes Risperdal 1 mg twice a day, Paxil 20 mg daily, and Depakote 250 mg q.12 hours per chart. SUBSTANCE ABUSE HISTORY: No known history of any drug and alcohol use. PAIN ASSESSMENT: 0/10 pain. DEVELOPMENTAL PROBLEMS: Denies. FAMILY PSYCHIATRIC HISTORY: No known family psychiatric history. SOCIAL HISTORY: This patient is currently living in [facility]. Financially supported by [employer] and Medicare. PSYCHIATRIC HISTORY: He has schizoaffective bipolar type, rule out depression with psychotic features, rule out dementia with psychosis. MENTAL STATUS EXAMINATION: This is a 68-year-old male. Appearance is disheveled. Attitude, irritable and agitated. His affect is flat. His intellect is poor because he does not know last four presidents, does not know current events. Mood, depressed and anxious. Motor activity, psychomotor agitation. Attention span is poor because he cannot do serials 7's or spell world backwards. Orientation x1. He is only oriented to person, but not time, place, or situation. Speech is nonverbal. Thought process, disorganized and illogical thought content. He has poverty of speech. Perception is poor because he seems to have as paranoid delusions. Abstract reasoning is poor he does not understand proverbs. His insight is poor because he has . Judgment is poor because he does not medical decisions for himself, is not able to support judgment. No signs of any suicidal or homicidal ideations, but as far as his short-term memory is 0/3 on a 3 word recall, so poor short-term memory, long-term memory is poor because he does not seem to recall any long-term events in his life such as high school that he went to. DIAGNOSES: 1. Major depression disorder with psychotic features, rule out dementia with psychosis, no secondary. 2. Medical includes hyperlipidemia, cellulitis of right upper extremity, acute tubular necrosis, urinary tract infection, seizure disorder, COPD, renal insufficiency, and anemia. 3. Psychosocial stressors, financial. 4. Functional impairment, severe. PLAN: I am going to start him back on his Risperdal 1 mg twice a day and Paxil 20 mg daily. Continue Depakote 250 mg q.12 h., and his antiseizure, mood stabilizer medication. I am also going to add Ativan 1 mg every 6 hours p.r.n. anxiety and agitation. Encouraged him to interact appropriately with staff and other patients and try to get him to respond verbally, although it is very difficult. Also 20 minutes of insight-oriented psychotherapy and behavior management provided for this patient. insight into his medical and psychiatric condition and also behavioral management with staff. The patient is seen and assessed in his room. I would like to thank Dr. Michael Johnson for this interesting consultation. I will be happy to follow this patient with you throughout his hospital course. Becki Coe M.D. : RACHEL JOB#: [id number] CC:
--- NOTE | 2018-07-29 16:01 | Cardiac Electrophysiology PN ---
Subjective Subjective [id number] Objective Last 24 Hour Vital Signs Date Time Temp Pulse Resp B/P (MAP) Pulse Ox O2 Delivery O2 Flow Rate FiO2 07/29/18 12:00 98.0 71 20 106/55 (72) 95 07/29/18 11:28 95 Nasal Cannula 2.0 28 07/29/18 11:28 64 18 Nasal Cannula 2.0 28 07/29/18 11:28 Nasal Cannula 2.0 28 07/29/18 09:00 Room Air 07/29/18 08:00 98.4 60 17 114/61 (78) 97 07/29/18 08:00 53 07/29/18 04:00 97.0 66 20 123/65 (84) 100 07/29/18 04:00 65 07/29/18 00:00 64 07/29/18 00:00 97.0 71 20 130/69 (89) 100 07/28/18 21:16 Nasal Cannula 2.0 28 07/28/18 21:16 60 18 Nasal Cannula 2.0 28 07/28/18 21:16 94 Nasal Cannula 2.0 28 07/28/18 21:00 Room Air 07/28/18 20:00 97.0 70 20 134/68 (90) 99 07/28/18 20:00 69 Intake and Output 07/28/18 07/29/18 18:59 06:59 Intake Total 740 ml 1240 ml Output Total 1600 ml 1200 ml Balance -860 ml 40 ml Intake Oral 540 ml 220 ml IV Total 200 ml 1020 ml Output Urine Total 1600 ml 1200 ml Laboratory Tests Test 07/29/18 05:10 07/29/18 10:30 White Blood Count 4.2 K/UL (4.8-10.8) L Red Blood Count 3.19 M/UL (4.70-6.10) L Hemoglobin 8.2 G/DL (14.2-18.0) L Hematocrit 26.7 % (42.0-52.0) L Mean Corpuscular Volume 84 FL (80-99) Mean Corpuscular Hemoglobin 25.8 PG (27.0-31.0) L Mean Corpuscular Hemoglobin Concent 30.8 G/DL (32.0-36.0) L Red Cell Distribution Width 19.0 % (11.6-14.8) H Platelet Count 74 K/UL (150-450) L Mean Platelet Volume 6.5 FL (6.5-10.1) Neutrophils (%) (Auto) % (45.0-75.0) Lymphocytes (%) (Auto) % (20.0-45.0) Monocytes (%) (Auto) % (1.0-10.0) Eosinophils (%) (Auto) % (0.0-3.0) Basophils (%) (Auto) % (0.0-2.0) Sodium Level 138 MMOL/L (136-145) Potassium Level 6.5 MMOL/L (3.5-5.1) *H 6.3 MMOL/L (3.5-5.1) *H Chloride Level 109 MMOL/L (98-107) H Carbon Dioxide Level 28 MMOL/L (21-32) Anion Gap 1 mmol/L (5-15) L Blood Urea Nitrogen 42 mg/dL (7-18) H Creatinine 1.2 MG/DL (0.55-1.30) Estimat Glomerular Filtration Rate > 60 mL/min (>60) Glucose Level 95 MG/DL (74-106) # Hemoglobin A1c 6.6 % (4.3-6.0) H Uric Acid 4.8 MG/DL (2.6-7.2) Calcium Level 9.3 MG/DL (8.5-10.1) Phosphorus Level 3.8 MG/DL (2.5-4.9) Magnesium Level 1.7 MG/DL (1.8-2.4) L Iron Level 48 ug/dL (50-175) L Total Iron Binding Capacity 148 ug/dL (250-450) L Percent Iron Saturation 32 % (15-50) Unsaturated Iron Binding 100 ug/dL (112-346) L Ferritin 914 NG/ML (8-388) H Total Bilirubin 0.4 MG/DL (0.2-1.0) Gamma Glutamyl Transpeptidase 59 U/L (5-85) Aspartate Amino Transf (AST/SGOT) 27 U/L (15-37) Alanine Aminotransferase (ALT/SGPT) 34 U/L (12-78) Alkaline Phosphatase 135 U/L (46-116) H Troponin I 0.049 ng/mL (0.000-0.056) Total Protein 6.6 G/DL (6.4-8.2) Albumin 1.9 G/DL (3.4-5.0) L Globulin 4.7 g/dL Albumin/Globulin Ratio 0.4 (1.0-2.7) L Triglycerides Level 20 MG/DL (30-150) L Cholesterol Level 113 MG/DL (< 200) LDL Cholesterol 76 mg/dL (<100) HDL Cholesterol 22 MG/DL (40-60) L Cholesterol/HDL Ratio 5.1 (3.3-4.4) H Vitamin B12 Level > 2000 PG/ML (193-986) H Folate 17.8 NG/ML (8.6-58.9) Thyroid Stimulating Hormone (TSH) 4.876 uiU/mL (0.358-3.740) Random Vancomycin Level 11.9 ug/mL Microbiology Date/Time Source Procedure Growth Status 07/27/18 23:13 Blood Blood Culture - Preliminary NO GROWTH AFTER 24 HOURS Resulted 07/27/18 22:58 Blood Blood Culture - Preliminary NO GROWTH AFTER 24 HOURS Resulted 07/28/18 01:10 Urine,Clean Catch Urine Culture - Preliminary NO GROWTH Resulted 07/28/18 06:00 Buttock Right Gram Stain - Final Resulted 07/28/18 06:00 Buttock Right Wound Culture - Preliminary Resulted 07/28/18 02:43 Arm Right Gram Stain - Final Resulted 07/28/18 02:43 Arm Right Wound Culture - Preliminary NO GROWTH AFTER 24 HOURS Resulted 07/28/18 02:43 Rectum - Preliminary Resulted Rios Barron MD Jul 29, 2018 16:01
--- NOTE | 2018-07-29 16:08 | Neurology Progress Note ---
Interim History Interim History Interim History Mr. Tran continues to be awake. 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 He continues to be cognitively impoverished. He continues to be generally weak. Review of Systems Neuro Review of Systems Unable to evaluate. Objective Physical Exam Last Vital Signs Date Time Temp Pulse Resp B/P (MAP) Pulse Ox O2 Delivery O2 Flow Rate FiO2 07/29/18 12:00 98.0 71 20 106/55 (72) 95 07/29/18 11:28 Nasal Cannula 2.0 28 Laboratory Tests Test 07/29/18 05:10 07/29/18 10:30 White Blood Count 4.2 K/UL (4.8-10.8) L Red Blood Count 3.19 M/UL (4.70-6.10) L Hemoglobin 8.2 G/DL (14.2-18.0) L Hematocrit 26.7 % (42.0-52.0) L Mean Corpuscular Volume 84 FL (80-99) Mean Corpuscular Hemoglobin 25.8 PG (27.0-31.0) L Mean Corpuscular Hemoglobin Concent 30.8 G/DL (32.0-36.0) L Red Cell Distribution Width 19.0 % (11.6-14.8) H Platelet Count 74 K/UL (150-450) L Mean Platelet Volume 6.5 FL (6.5-10.1) Neutrophils (%) (Auto) % (45.0-75.0) Lymphocytes (%) (Auto) % (20.0-45.0) Monocytes (%) (Auto) % (1.0-10.0) Eosinophils (%) (Auto) % (0.0-3.0) Basophils (%) (Auto) % (0.0-2.0) Sodium Level 138 MMOL/L (136-145) Potassium Level 6.5 MMOL/L (3.5-5.1) *H 6.3 MMOL/L (3.5-5.1) *H Chloride Level 109 MMOL/L (98-107) H Carbon Dioxide Level 28 MMOL/L (21-32) Anion Gap 1 mmol/L (5-15) L Blood Urea Nitrogen 42 mg/dL (7-18) H Creatinine 1.2 MG/DL (0.55-1.30) Estimat Glomerular Filtration Rate > 60 mL/min (>60) Glucose Level 95 MG/DL (74-106) # Hemoglobin A1c 6.6 % (4.3-6.0) H Uric Acid 4.8 MG/DL (2.6-7.2) Calcium Level 9.3 MG/DL (8.5-10.1) Phosphorus Level 3.8 MG/DL (2.5-4.9) Magnesium Level 1.7 MG/DL (1.8-2.4) L Iron Level 48 ug/dL (50-175) L Total Iron Binding Capacity 148 ug/dL (250-450) L Percent Iron Saturation 32 % (15-50) Unsaturated Iron Binding 100 ug/dL (112-346) L Ferritin 914 NG/ML (8-388) H Total Bilirubin 0.4 MG/DL (0.2-1.0) Gamma Glutamyl Transpeptidase 59 U/L (5-85) Aspartate Amino Transf (AST/SGOT) 27 U/L (15-37) Alanine Aminotransferase (ALT/SGPT) 34 U/L (12-78) Alkaline Phosphatase 135 U/L (46-116) H Troponin I 0.049 ng/mL (0.000-0.056) Total Protein 6.6 G/DL (6.4-8.2) Albumin 1.9 G/DL (3.4-5.0) L Globulin 4.7 g/dL Albumin/Globulin Ratio 0.4 (1.0-2.7) L Triglycerides Level 20 MG/DL (30-150) L Cholesterol Level 113 MG/DL (< 200) LDL Cholesterol 76 mg/dL (<100) HDL Cholesterol 22 MG/DL (40-60) L Cholesterol/HDL Ratio 5.1 (3.3-4.4) H Vitamin B12 Level > 2000 PG/ML (193-986) H Folate 17.8 NG/ML (8.6-58.9) Thyroid Stimulating Hormone (TSH) 4.876 uiU/mL (0.358-3.740) Random Vancomycin Level 11.9 ug/mL Neurologic Exam Objective PHYSICAL EXAMINATION: GENERAL: He is a well-developed, well-nourished, gentleman, lying in bed, in no acute distress. HEAD: Normocephalic and atraumatic. EENT: Examination benign. NECK: No neck rigidity was observed. NEUROLOGIC EXAMINATION: MENTAL STATUS EXAMINATION: He was awake, but nonverbal. He was unable to follow simple commands. He was unable to cooperate for further mental status testing. SPEECH: Could not be tested as he was mute. LANGUAGE: He was unable to follow simple commands and unable to express himself in any manner. CRANIAL NERVE EXAMINATION: II: He did blink to threat. III, IV & : The external ocular movements were present on oculocephalic maneuvers. The pupils were 3 mm in diameter, equal, round, regular, and reactive sluggishly to light. V & VII: The corneal reflexes were equal, but subdued. VIII: He did respond to sounds and had no nystagmus. IX & X: The gag reflex was present, but significantly subdued. XI: The sternocleidomastoids and trapezii did function. XII: The tongue was in the midline without any fasciculations or atrophy. MOTOR SYSTEM: The tone was increased in all four extremities with a combination of spasticity and gegenhalten. Examination of muscle mass revealed generalized wasting. Examination of power was impossible to perform because he moved all four extremities minimally on deep painful stimuli. SENSORY EXAMINATION: He responded appropriately to deep painful stimuli. He could not cooperate for other sensory modalities. REFLEXES: 0 at the biceps, triceps, brachioradialis, knees, and ankles. The plantar responses were flexor bilaterally. COORDINATION, STANCE & GAIT: Could not be tested. Impression/Recommendations Diagnostic Impression 1. Mr. Juan Tran is a 68-year-old, gentleman, of unknown handedness , who lives in a half-way. He has a past history of hypertension, chronic obstructive pulmonary disease, renal dysfunction, seizure disorder, anemia, urinary tract infections, and right upper extremity cellulitis. He was hospitalized for an alteration in mental state and worsening of his right upper extremity cellulitis. At this point in time, he is nonverbal and is unable to give any history. 2. He continues to be awake. 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 He continues to be cognitively impoverished. He continues to be generally weak. 3. On neurological examination, at this time, he is awake, but not verbal. He is unable to cooperate for further mental status test. He does blink to threat. He does not demonstrate any lateralizing cranial nerve dysfunction. He only responds to deep painful stimuli with minimal movements of all four extremities and his deep tendon reflexes are globally absent. His plantar responses are flexor. 4. Laboratory data obtained thus far revealed that he is anemic with a hemoglobin of 8.0 G. His chemistry panel revealed an elevated potassium at 6.6 , BUN elevated at 48, creatinine elevated at 1.3, blood glucose elevated at 198 , alkaline phosphatase elevated to 129, albumin low at 1.8. His urinalysis revealed 3+ leukocyte esterase, 15-20 RBCs and too numerous to count WBCs per high-power field. 5. Further laboratory tests have revealed an elevated TSH. 6. The MRI done on 07/29/18 was marred by movement artifact but did not reveal any acute pathology. Old deep white matter disease and atrophy was seen. 7. The patient's history and neurological examination are most compatible with cellulitis of the right upper extremity and a significant urinary tract infection. However, it is unclear as to what his change of mental state represents as his baseline mental state is unknown to us. 8. In addition, he also carries a history of a seizure disorder, but it is unclear as to what type of seizure disorder he has. At this point in time, he is on a subtherapeutic dose of valproic acid for seizure control. Recommendations 1. Continue present management. 2. Would try to obtain a better history regarding his baseline mental state and seizure type. 3. Await EEG to evaluate the patient for his altered mental state and seizure type. 4. T3 and T4 to evaluate elevated TSH 5. Observe closely. Preston Escalera M.D., M.S.P.H. Preston Escalera MD Jul 29, 2018 16:07
[2018-07-29] MEDS: Vancomycin 1.5 GM/D5W 250ML IVPB SCH (16:27)
--- NOTE | 2018-07-29 19:59 | NUR ---
HAND-OFF: Report given to CJ Turner. Endorsed call to Nurse Practitioner Physicians Assistant per MD Johnson. New orders noted and carried out. Pt stable.
[2018-07-29 20:00] VITALS: BP 100/63
--- NOTE | 2018-07-29 20:00 | NUR ---
NURSE NOTES: Received report from Aisha Burrell RN. Patient in bed awake and non-verbal, responds to mostly to tactile stimuli with no tracking observed. No S/S of acute pain at this time, kept clean, dry, and comfortable at this time. FC intact and patent. ISMAEL PICC (2 lumen) inserted on 07/29 at 1520, both lines are intact and patent. Safety and seizure precaution in place; siderails up and padded x3, call light within reach, bed in lowest position, suction equipment present at bedside, brakes and alarm on at all times and bed is free from clutter. Needs and wants anticipated and attended, will continue plan of care and monitor for any changes noted
--- NOTE | 2018-07-29 21:30 | NUR ---
NURSE NOTES: Spoke with MD Amanda regarding NGT placement. Order received and carried out
[2018-07-29] MEDS: Tamsulosin 0.4mg cap ORAL SCH (21:45)
--- NOTE | 2018-07-29 21:50 | NUR ---
NURSE NOTES: Called MD Jw regarding patients EEG result. No new orders, continue to monitor and implement seizure precaution per protocol
[2018-07-29] MEDS: Dyna-Hex 2% Top Sol 2oz TOPIC SCH (21:53)
--- NOTE | 2018-07-29 22:10 | NUR ---
NURSE NOTES: NGT inserted with CN at bedside, placement and residual checked. Will order portable Abd XRay to confirm placement
--- NOTE | 2018-07-29 23:15 | Diagnostic Imaging Report ---
EXAM: XR Abdomen, one view. CLINICAL HISTORY: NGT TECHNIQUE: Frontal view of the left upper quadrant. COMPARISON: No relevant prior studies available. FINDINGS: Lower thorax: Small left-sided pleural effusion versus pleural thickening. Gastrointestinal tract: A prominent small bowel loop is projected in the left upper quadrant. Bones/joints: Degenerative changes of the thoracolumbar spine. Tubes, lines and devices: Nasogastric tube with tip projected in the region of the body/fundus of the stomach. IMPRESSION: 1. Nasogastric tube with tip projected in the region of the body/fundus of the stomach. 2. A prominent small bowel loop is projected in the left upper quadrant.
--- NOTE | 2018-07-29 23:20 | NUR ---
NURSE NOTES: ABD XR result seen and reviewed, NGT placement confirmed. Will continue to monitor
[2018-07-30] VITALS: BP 129/59
--- NOTE | 2018-07-30 02:45 | NUR ---
NURSE NOTES: Patient in bed asleep with no S/S of acute pain or distress noted at this time. Will continue to monitor
[2018-07-30 04:00] VITALS: BP 101/62
--- NOTE | 2018-07-30 05:15 | Consultation ---
DATE OF CONSULTATION: 07/29/2018 CARDIOLOGY CONSULTATION CONSULTING PHYSICIAN: Rios Barron M.D. REFERRING PHYSICIAN: Michael Johnson D.O. REASON FOR CONSULTATION: Evaluation of hypertension. HISTORY OF PRESENT ILLNESS: The patient is a 68-year-old gentleman with history of hypertension, diabetes, and gastroesophageal reflux disorder, and dementia, was brought to the emergency room for right upper extremity edema that was noticed by nursing staff. The patient is nonverbal at baseline. There is no report of fever, chills, chest pain, or shortness of breath. The patient also has pancytopenia. Cardiology consultation was obtained for further evaluation and management. REVIEW OF SYSTEMS: Cannot be obtained. PAST MEDICAL HISTORY: As mentioned above. FAMILY HISTORY: Noncontributory. SOCIAL HISTORY: She alcohol. PHYSICAL EXAMINATION: VITAL SIGNS: Blood pressure of 106/55, pulse 71, respirations is 18, and he is afebrile. HEAD AND NECK: Shows no JVD. LUNGS: Decreased breath sounds. CARDIOVASCULAR: Shows regular S1 and S2 with no gallop. ABDOMEN: Soft. EXTREMITIES: A 2+ pitting edema on the right arm and leg. LABORATORY AND DIAGNOSTIC DATA: MRI of the brain showed no acute intracranial findings with no other atrophy and chronic ischemic skin changes. His EKG showing sinus rhythm, normal electrocardiogram. LABORATORY DATA: Labs show white count of 4.2, hemoglobin , hematocrit 26.7, and platelet count . His potassium was 6.3, initially was 6.6. Sodium 138, BUN of 48, and creatinine 1.3. Troponin was negative. ASSESSMENT AND PLAN: 1. Hyperkalemia. The patient's EKG showed no acute ischemic changes. We will keep the patient on telemetry, get an echocardiogram to evaluate for ejection fraction and wall motion abnormality. The patient received Kayexalate. 2. History of hypertension. Blood pressure currently is stable. Off antihypertensive agents. 3. Pancytopenia, . 4. Right arm swelling and cellulitis, on IV antibiotics. 5. Renal insufficiency . Thank you very much, Dr. Johnson, for allowing me to participate in the care of this patient. Please do not hesitate to contact me for any questions regarding my evaluation. Rios Barron M.D. DR: CRISTOPHER JOB#: [id number] CC:
[2018-07-30] MEDS: NovoLOG Insulin Flexpen SUBQ SCH ×4 (06:30→21:00)
--- NOTE | 2018-07-30 07:39 | NUR ---
HAND-OFF: Report given to Robin Brito RN. Patient in bed in stable condition, endorsed plan of care
--- NOTE | 2018-07-30 07:40 | NUR ---
NURSE NOTES: Patient in bed asleep with no sign or symptom of acute pain or distress noted at this time. Patient is breathing regular and unlabored. Patient is SR. Patient's NGT is intact. Bed is in the lowest postion with 3 side rails up. Call light within reach. Patient is on p200 mattress. Will continue to monitor.
[2018-07-30 07:58] LABS: HEMATOCRIT 25.1 % (42.0-52.0); HEMOGLOBIN 7.7 G/DL (14.2-18.0); MEAN CORPUSCULAR VOLUME 84 FL (80-99); PLATELET COUNT 90 K/UL (150-450); RED BLOOD COUNT 2.99 M/UL (4.70-6.10); RED CELL DISTRIBUTION WIDTH 18.6 % (11.6-14.8); WHITE BLOOD COUNT 4.2 K/UL (4.8-10.8)
[2018-07-30 08:00] VITALS: BP 116/70
[2018-07-30 08:23] LABS: ALANINE AMINOTRANSFERASE 29 U/L (12-78); ALBUMIN 1.8 G/DL (3.4-5.0); ALBUMIN/GLOBULIN RATIO 0.4 (1.0-2.7); ALKALINE PHOSPHATASE 129 U/L (46-116); ANION GAP 5 mmol/L (5-15); ASPARTATE AMINO TRANSFERASE 24 U/L (15-37); BILIRUBIN,TOTAL 0.5 MG/DL (0.2-1.0); BLOOD UREA NITROGEN 37 mg/dL (7-18); CALCIUM 9.6 MG/DL (8.5-10.1); CARBON DIOXIDE 28 MMOL/L (21-32); CHLORIDE 109 MMOL/L (98-107); CREATININE 1.4 MG/DL (0.55-1.30); PHOSPHORUS 3.5 MG/DL (2.5-4.9); POTASSIUM 5.4 MMOL/L (3.5-5.1); SODIUM 142 MMOL/L (136-145)
[2018-07-30] MEDS: Depakote 125mg Sprinkles ORAL SCH ×2 (09:00→21:00)
--- NOTE | 2018-07-30 09:19 | General Progress Note ---
Assessment/Plan Problem List: (1) Anemia ICD Codes: D64.9 - Anemia, unspecified SNOMED: 794293195 Qualifiers: Qualified Codes: D64.9 - Anemia, unspecified (2) Cellulitis of right upper extremity ICD Codes: L03.113 - Cellulitis of right upper limb SNOMED: 960859016 (3) Renal insufficiency ICD Codes: N28.9 - Disorder of kidney and ureter, unspecified SNOMED: 040286308, 855744773 (4) UTI (urinary tract infection) ICD Codes: N39.0 - Urinary tract infection, site not specified SNOMED: 36482012, 072669289 Qualifiers: Qualified Codes: N39.0 - Urinary tract infection, site not specified (5) History of seizure ICD Codes: Z87.898 - Personal history of other specified conditions SNOMED: 739877090 (6) COPD (chronic obstructive pulmonary disease) ICD Codes: J44.9 - Chronic obstructive pulmonary disease, unspecified SNOMED: 88574399 (7) ATN (acute tubular necrosis) ICD Codes: N17.0 - Acute kidney failure with tubular necrosis SNOMED: 47014778 (8) Hyperkalemia, diminished renal excretion ICD Codes: E87.5 - Hyperkalemia SNOMED: 02744478, 181690330 Status: unchanged Assessment/Plan wound care abx pt diet cbc bmp am gi eval Subjective Constitutional: Reports: weakness Allergies: Coded Allergies: ATORVASTATIN (Unverified Allergy, Unknown, 07/27/18) Uncoded Allergies: VITAMIN B12 (Allergy, Unknown, 07/27/18) VITAMIN D (Allergy, Unknown, 07/27/18) All Systems: reviewed and negative except above Subjective confused in bed ng Objective Last 24 Hour Vital Signs Date Time Temp Pulse Resp B/P (MAP) Pulse Ox O2 Delivery O2 Flow Rate FiO2 07/30/18 08:36 90 18 Room Air 21 07/30/18 08:36 Room Air 21 07/30/18 08:36 92 Room Air 21 07/30/18 04:00 93 07/30/18 04:00 97.4 97 18 101/62 (75) 93 07/30/18 00:00 92 07/30/18 00:00 98.0 88 17 129/59 (82) 97 07/29/18 21:00 Room Air 07/29/18 20:00 97.2 95 17 100/63 (75) 95 07/29/18 20:00 82 07/29/18 16:40 Nasal Cannula 2.0 28 07/29/18 16:40 70 18 Nasal Cannula 2.0 28 07/29/18 16:40 94 Nasal Cannula 2.0 28 07/29/18 16:00 98.3 76 18 123/72 (89) 93 07/29/18 16:00 86 07/29/18 12:00 77 07/29/18 12:00 98.0 71 20 106/55 (72) 95 07/29/18 11:28 95 Nasal Cannula 2.0 28 07/29/18 11:28 64 18 Nasal Cannula 2.0 28 07/29/18 11:28 Nasal Cannula 2.0 28 Intake and Output 07/29/18 07/30/18 19:00 07:00 Intake Total 30 ml 1200 ml Output Total 800 ml 1500 ml Balance -770 ml -300 ml Intake Oral 30 ml Free Water 300 ml IV Total 900 ml Output Urine Total 800 ml 1500 ml # Bowel Movements 1 Laboratory Tests 07/29/18 10:30: Potassium Level 6.3*H, Free Triiodothyronine 1.1L 07/30/18 06:45: Potassium Level 5.4H, White Blood Count 4.2L, Red Blood Count 2.99L, Hemoglobin 7.7L, Hematocrit 25.1L, Mean Corpuscular Volume 84, Mean Corpuscular Hemoglobin 25.8L, Mean Corpuscular Hemoglobin Concent 30.7L, Red Cell Distribution Width 18.6H, Platelet Count 90L, Mean Platelet Volume 7.3, Neutrophils (%) (Auto) , Lymphocytes (%) (Auto) , Monocytes (%) (Auto) , Eosinophils (%) (Auto) , Basophils (%) (Auto) , Neutrophils % (Manual) [Pending], Lymphocytes % (Manual) [Pending], Platelet Estimate [Pending], Platelet Morphology [Pending], Sodium Level 142, Chloride Level 109H, Carbon Dioxide Level 28, Anion Gap 5, Blood Urea Nitrogen 37H, Creatinine 1.4H, Estimat Glomerular Filtration Rate 50.7, Glucose Level 67L, Uric Acid 5.5, Calcium Level 9.6, Phosphorus Level 3.5, Magnesium Level 1.6L, Total Bilirubin 0.5, Aspartate Amino Transf (AST/SGOT) 24 , Alanine Aminotransferase (ALT/SGPT) 29, Alkaline Phosphatase 129H, Total Protein 6.4, Albumin 1.8L, Globulin 4.6, Albumin/Globulin Ratio 0.4L, Thyroid Stimulating Hormone (TSH) 4.558H, Free Thyroxine 0.94 Height (Feet): 5 Height (Inches): 6.00 Weight (Pounds): 185 General Appearance: lethargic, confused EENT: normal ENT inspection Neck: normal alignment Cardiovascular: normal peripheral pulses, normal rate, regular rhythm Respiratory/Chest: chest wall non-tender, lungs clear, normal breath sounds Abdomen: normal bowel sounds, non tender, soft Extremities: normal inspection Edema: no edema noted Arm (L), no edema noted Arm (R), no edema noted Leg (L), no edema noted Leg (R), no edema noted Pedal (L), no edema noted Pedal (R), no edema noted Generalized Neurologic: motor weakness Skin: normal pigmentation, warm/dry Objective r wrist dressing c&d Michael Johnson DO Jul 30, 2018 09:19
[2018-07-30] MEDS: PARoxetine 20mg tab ORAL SCH (10:01)
[2018-07-30] MEDS: Cefepime 2gm/D5W 110ml IV SCH ×2 (10:15)
--- NOTE | 2018-07-30 10:40 | NUR ---
NURSE NOTES: Dr. Patel saw patient at 10:30am. Dr. Patel is aware about potassium level 5.4 and to continue treatment. IN addition, Dr. Cuello saw patient at 10:35am.
--- NOTE | 2018-07-30 11:18 | Infectious Diseases Prog Note ---
Assessment/Plan Assessment/Plan 68 yo male who [facility] for [facility] swelling. Right arm swelling right wrist cellulitis- 1.5cm ulceration noted. seropurulent drainage noted. minimal foul odor. cellulitis circumferential. -wound cx NTD -MRI R wrist p US no DVT No X-ray No Fever No leukocytosis Sacral Decub Stage 4 Dysphagia HTN DM PLAN - Continue Cefepime #3 and vancomycin #3 pending wound cx, MRI R wrist and clinical improvement - Wound care - Monitor CBC and Temps - Monitor BMs - f/u MRI Thank you for this consult. We will continue to follow the patient during this hospitalization. Subjective Allergies: Coded Allergies: ATORVASTATIN (Unverified Allergy, Unknown, 07/27/18) Uncoded Allergies: VITAMIN B12 (Allergy, Unknown, 07/27/18) VITAMIN D (Allergy, Unknown, 07/27/18) Subjective afebrile wound cx NTD MRI R wrist P Objective Vital Signs Last 24 Hour Vital Signs Date Time Temp Pulse Resp B/P (MAP) Pulse Ox O2 Delivery O2 Flow Rate FiO2 07/30/18 08:36 90 18 Room Air 21 07/30/18 08:36 Room Air 21 07/30/18 08:36 92 Room Air 21 07/30/18 08:00 97.8 92 20 116/70 (85) 94 07/30/18 04:00 93 07/30/18 04:00 97.4 97 18 101/62 (75) 93 07/30/18 00:00 92 07/30/18 00:00 98.0 88 17 129/59 (82) 97 07/29/18 21:00 Room Air 07/29/18 20:00 97.2 95 17 100/63 (75) 95 07/29/18 20:00 82 07/29/18 16:40 Nasal Cannula 2.0 28 07/29/18 16:40 70 18 Nasal Cannula 2.0 28 07/29/18 16:40 94 Nasal Cannula 2.0 28 07/29/18 16:00 98.3 76 18 123/72 (89) 93 07/29/18 16:00 86 07/29/18 12:00 77 07/29/18 12:00 98.0 71 20 106/55 (72) 95 07/29/18 11:28 95 Nasal Cannula 2.0 28 07/29/18 11:28 64 18 Nasal Cannula 2.0 28 07/29/18 11:28 Nasal Cannula 2.0 28 Height (Feet): 5 Height (Inches): 6.00 Weight (Pounds): 185 Objective Gen: NAD, Opens eyes not following commands HEENT: NCAT, MMM, EOMI LUNGS: CTAB, No W CARDS: RRR, S1, S2, No M/R/G, ABD: Soft, NT, ND, + BS Ext: C/C/E, Pulses 2+ B/L (DP, Rad): Right upper extremity with swelling with ulcer. some eschar covering SKIN: Warm/dry, No rashes, Stage 4 sacral decube. No Purulent drainage Microbiology Date/Time Source Procedure Growth Status 07/27/18 23:13 Blood Blood Culture - Preliminary NO GROWTH AFTER 48 HOURS Resulted 07/27/18 22:58 Blood Blood Culture - Preliminary NO GROWTH AFTER 48 HOURS Resulted 07/28/18 02:43 Nasal Nares MRSA Culture - Final NO METHICILLIN RESISTANT STAPH AUREUS... Complete 07/28/18 01:10 Urine,Clean Catch Urine Culture - Final NO GROWTH AFTER 48 HOURS Complete 07/28/18 06:00 Buttock Right Gram Stain - Final Resulted 07/28/18 06:00 Buttock Right Wound Culture - Preliminary Resulted 07/28/18 02:43 Arm Right Gram Stain - Final Resulted 07/28/18 02:43 Arm Right Wound Culture - Preliminary NO GROWTH AFTER 24 HOURS Resulted 07/28/18 02:43 Rectum - Preliminary Resulted Laboratory Tests Test 07/30/18 06:45 White Blood Count 4.2 K/UL (4.8-10.8) L Red Blood Count 2.99 M/UL (4.70-6.10) L Hemoglobin 7.7 G/DL (14.2-18.0) L Hematocrit 25.1 % (42.0-52.0) L Mean Corpuscular Volume 84 FL (80-99) Mean Corpuscular Hemoglobin 25.8 PG (27.0-31.0) L Mean Corpuscular Hemoglobin Concent 30.7 G/DL (32.0-36.0) L Red Cell Distribution Width 18.6 % (11.6-14.8) H Platelet Count 90 K/UL (150-450) L Mean Platelet Volume 7.3 FL (6.5-10.1) Neutrophils (%) (Auto) % (45.0-75.0) Lymphocytes (%) (Auto) % (20.0-45.0) Monocytes (%) (Auto) % (1.0-10.0) Eosinophils (%) (Auto) % (0.0-3.0) Basophils (%) (Auto) % (0.0-2.0) Neutrophils % (Manual) Pending Lymphocytes % (Manual) Pending Platelet Estimate Pending Platelet Morphology Pending Sodium Level 142 MMOL/L (136-145) Potassium Level 5.4 MMOL/L (3.5-5.1) H Chloride Level 109 MMOL/L (98-107) H Carbon Dioxide Level 28 MMOL/L (21-32) Anion Gap 5 mmol/L (5-15) Blood Urea Nitrogen 37 mg/dL (7-18) H Creatinine 1.4 MG/DL (0.55-1.30) H Estimat Glomerular Filtration Rate 50.7 mL/min (>60) Glucose Level 67 MG/DL (74-106) L Uric Acid 5.5 MG/DL (2.6-7.2) Calcium Level 9.6 MG/DL (8.5-10.1) Phosphorus Level 3.5 MG/DL (2.5-4.9) Magnesium Level 1.6 MG/DL (1.8-2.4) L Total Bilirubin 0.5 MG/DL (0.2-1.0) Aspartate Amino Transf (AST/SGOT) 24 U/L (15-37) Alanine Aminotransferase (ALT/SGPT) 29 U/L (12-78) Alkaline Phosphatase 129 U/L (46-116) H Total Protein 6.4 G/DL (6.4-8.2) Albumin 1.8 G/DL (3.4-5.0) L Globulin 4.6 g/dL Albumin/Globulin Ratio 0.4 (1.0-2.7) L Thyroid Stimulating Hormone (TSH) 4.558 uiU/mL (0.358-3.740) Free Thyroxine 0.94 NG/DL (0.76-1.46) Current Medications Medications (Trade) Dose Ordered Sig/Violette Route PRN Reason Start Time Stop Time Status Last Admin Dose Admin Acetaminophen (Tylenol) 650 mg Q4H PRN ORAL fever 07/28/18 07:00 08/27/18 06:59 Albuterol/ Ipratropium (Albuterol/ Ipratropium) 3 ml Q4H PRN HHN Shortness of Breath 07/28/18 07:00 08/02/18 06:59 Cefepime HCl 2 gm/ Dextrose 110 ml @ 220 mls/hr DAILY IV 07/31/18 09:00 08/07/18 08:59 Chlorhexidine Gluconate (Samantha-Hex 2%) 1 applic DAILY@2000 TOPIC 07/29/18 20:00 08/28/18 19:59 07/29/18 21:53 Dextrose (Dextrose 50%) 25 ml Q30M PRN IV Hypoglycemia 07/28/18 09:15 08/27/18 09:14 Dextrose (Dextrose 50%) 50 ml Q30M PRN IV Hypoglycemia 07/28/18 09:15 08/27/18 09:14 Divalproex Sodium (Depakote Sprinkles) 250 mg Q12HR ORAL 07/28/18 10:00 08/27/18 09:59 07/30/18 09:00 Insulin Aspart (NovoLOG) BEFORE MEALS AND HS SUBQ 07/28/18 11:30 08/27/18 11:29 07/28/18 20:25 Lansoprazole (Prevacid) 30 mg DAILY ORAL 07/28/18 09:00 08/27/18 08:59 07/30/18 10:00 Lorazepam (Ativan) 0.5 mg Q6H PRN ORAL For Anxiety 07/29/18 04:30 08/05/18 04:29 Morphine Sulfate (Morphine Sulfate) 2 mg Q4H PRN IVP Moderate Pain (Pain Scale 4-6) 07/28/18 07:00 08/04/18 06:59 Nitroglycerin (Ntg) 0.4 mg Q5M PRN SL Prn Chest Pain 07/28/18 07:00 08/27/18 06:59 Ondansetron HCl (Zofran) 4 mg Q6H PRN IVP Nausea & Vomiting 07/28/18 07:00 08/27/18 06:59 Paroxetine HCl (Paxil) 20 mg DAILY ORAL 07/29/18 09:00 08/28/18 08:59 07/30/18 10:01 Polyethylene Glycol (Miralax) 17 gm DAILYPRN PRN ORAL Constipation 07/28/18 07:00 08/27/18 06:59 Risperidone (RisperDAL) 1 mg BID ORAL 07/29/18 09:00 08/28/18 08:59 07/30/18 10:00 Sodium Polystyrene Sulfonate (Kayexalate) 30 gm THREE TIMES A DAY ORAL 07/29/18 09:00 08/28/18 08:59 07/29/18 23:15 Sodium Chloride 1,000 ml @ 100 mls/hr Q10H IV 07/28/18 13:45 08/27/18 13:44 07/29/18 20:37 Tamsulosin HCl (Flomax) 0.4 mg BEDTIME ORAL 07/28/18 21:00 08/27/18 20:59 07/29/18 21:45 Temazepam (Restoril) 15 mg HSPRN PRN ORAL Insomnia 07/28/18 07:00 08/04/18 06:59 Vancomycin HCl (Vanco rx to dose) 1 ea DAILY PRN MISC Per rx protocol 07/28/18 07:30 08/27/18 07:29 Vancomycin HCl/ Dextrose 250 ml @ 125 mls/hr Q24H IVPB 07/29/18 12:00 08/03/18 11:59 07/29/18 16:27 Rima Reardon M.D. Jul 30, 2018 11:18
[2018-07-30 12:00] VITALS: BP 129/61
--- NOTE | 2018-07-30 12:31 | Diagnostic Imaging Report ---
EXAM: XR Abdomen, 2 Views CLINICAL HISTORY: NGT TECHNIQUE: Frontal view of the abdomen/pelvis with upright view of the abdomen. COMPARISON: Abdominal x-ray dated 07/29/18. FINDINGS: Intraperitoneal space: No visible free air under the diaphragm. Gastrointestinal tract: Diffuse colonic and rectal fecal retention, suggestive of constipation. Bowel gas pattern is otherwise unremarkable. No evidence of pneumatosis intestinalis. Organs: Renal shadows are partially obscured by overlying bowel gas. No abnormal calcifications in the abdomen or pelvis. Bones/joints: Unremarkable. Tubes, lines and devices: Nasogastric tube tip overlies the expected region of the gastric body. IMPRESSION: 1. Nasogastric tube tip overlies the expected region of the gastric body. 2. Diffuse colonic and rectal fecal retention, suggestive of constipation.
--- NOTE | 2018-07-30 12:34 | Cardiac Electrophysiology PN ---
Assessment/Plan Assessment/Plan 1. Hyperkalemia. The patient received Kayexalate. The patient's EKG showed no acute ischemic changes. Echocardiogram 55% 2. History of hypertension. Blood pressure currently is stable off antihypertensive agents. 3. Pancytopenia. 4. Right arm swelling and cellulitis, on IV antibiotics. 5. Renal insufficiency 6. Dysphagia, PEG DW RN Subjective Subjective Confused. Has NG tube in. Awaiting swallow eval Objective Last 24 Hour Vital Signs Date Time Temp Pulse Resp B/P (MAP) Pulse Ox O2 Delivery O2 Flow Rate FiO2 07/30/18 09:00 Room Air 07/30/18 08:36 90 18 Room Air 21 07/30/18 08:36 Room Air 21 07/30/18 08:36 92 Room Air 21 07/30/18 08:00 97.8 92 20 116/70 (85) 94 07/30/18 07:55 92 07/30/18 04:00 93 07/30/18 04:00 97.4 97 18 101/62 (75) 93 07/30/18 00:00 92 07/30/18 00:00 98.0 88 17 129/59 (82) 97 07/29/18 21:00 Room Air 07/29/18 20:00 97.2 95 17 100/63 (75) 95 07/29/18 20:00 82 07/29/18 16:40 Nasal Cannula 2.0 28 07/29/18 16:40 70 18 Nasal Cannula 2.0 28 07/29/18 16:40 94 Nasal Cannula 2.0 28 07/29/18 16:00 98.3 76 18 123/72 (89) 93 07/29/18 16:00 86 Intake and Output 07/29/18 07/30/18 19:00 07:00 Intake Total 30 ml 1200 ml Output Total 800 ml 1500 ml Balance -770 ml -300 ml Intake Oral 30 ml Free Water 300 ml IV Total 900 ml Output Urine Total 800 ml 1500 ml # Bowel Movements 1 Laboratory Tests Test 07/30/18 06:45 White Blood Count 4.2 K/UL (4.8-10.8) L Red Blood Count 2.99 M/UL (4.70-6.10) L Hemoglobin 7.7 G/DL (14.2-18.0) L Hematocrit 25.1 % (42.0-52.0) L Mean Corpuscular Volume 84 FL (80-99) Mean Corpuscular Hemoglobin 25.8 PG (27.0-31.0) L Mean Corpuscular Hemoglobin Concent 30.7 G/DL (32.0-36.0) L Red Cell Distribution Width 18.6 % (11.6-14.8) H Platelet Count 90 K/UL (150-450) L Mean Platelet Volume 7.3 FL (6.5-10.1) Neutrophils (%) (Auto) % (45.0-75.0) Lymphocytes (%) (Auto) % (20.0-45.0) Monocytes (%) (Auto) % (1.0-10.0) Eosinophils (%) (Auto) % (0.0-3.0) Basophils (%) (Auto) % (0.0-2.0) Differential Total Cells Counted 100 Neutrophils % (Manual) 78 % (45-75) H Lymphocytes % (Manual) 12 % (20-45) L Monocytes % (Manual) 6 % (1-10) Eosinophils % (Manual) 1 % (0-3) Basophils % (Manual) 0 % (0-2) Band Neutrophils 3 % (0-8) Platelet Estimate Decreased L Platelet Morphology Normal Hypochromasia 2+ Anisocytosis 2+ Sodium Level 142 MMOL/L (136-145) Potassium Level 5.4 MMOL/L (3.5-5.1) H Chloride Level 109 MMOL/L (98-107) H Carbon Dioxide Level 28 MMOL/L (21-32) Anion Gap 5 mmol/L (5-15) Blood Urea Nitrogen 37 mg/dL (7-18) H Creatinine 1.4 MG/DL (0.55-1.30) H Estimat Glomerular Filtration Rate 50.7 mL/min (>60) Glucose Level 67 MG/DL (74-106) L Uric Acid 5.5 MG/DL (2.6-7.2) Calcium Level 9.6 MG/DL (8.5-10.1) Phosphorus Level 3.5 MG/DL (2.5-4.9) Magnesium Level 1.6 MG/DL (1.8-2.4) L Total Bilirubin 0.5 MG/DL (0.2-1.0) Aspartate Amino Transf (AST/SGOT) 24 U/L (15-37) Alanine Aminotransferase (ALT/SGPT) 29 U/L (12-78) Alkaline Phosphatase 129 U/L (46-116) H Total Protein 6.4 G/DL (6.4-8.2) Albumin 1.8 G/DL (3.4-5.0) L Globulin 4.6 g/dL Albumin/Globulin Ratio 0.4 (1.0-2.7) L Thyroid Stimulating Hormone (TSH) 4.558 uiU/mL (0.358-3.740) Free Thyroxine 0.94 NG/DL (0.76-1.46) Microbiology Date/Time Source Procedure Growth Status 07/27/18 23:13 Blood Blood Culture - Preliminary NO GROWTH AFTER 48 HOURS Resulted 07/27/18 22:58 Blood Blood Culture - Preliminary NO GROWTH AFTER 48 HOURS Resulted 07/28/18 02:43 Nasal Nares MRSA Culture - Final NO METHICILLIN RESISTANT STAPH AUREUS... Complete 07/28/18 01:10 Urine,Clean Catch Urine Culture - Final NO GROWTH AFTER 48 HOURS Complete 07/28/18 06:00 Buttock Right Gram Stain - Final Resulted 07/28/18 06:00 Buttock Right Wound Culture - Preliminary Resulted 07/28/18 02:43 Arm Right Gram Stain - Final Resulted 07/28/18 02:43 Arm Right Wound Culture - Preliminary NO GROWTH AFTER 24 HOURS Resulted 07/28/18 02:43 Rectum - Final NO CARBAPENEM-RESISTANT ENTEROBACTERI... Complete 07/28/18 02:43 Rectum VRE Culture - Final Enterococcus Faecalis - Vre Complete Objective HEAD AND NECK: Shows no JVD. LUNGS: Decreased breath sounds. CARDIOVASCULAR: Shows regular S1 and S2 with no gallop. ABDOMEN: Soft. EXTREMITIES: 2+ pitting edema on the right arm and leg. Rios Barron MD Jul 30, 2018 12:34
--- NOTE | 2018-07-30 14:05 | Nephrology Progress Note ---
Assessment/Plan Problem List: (1) Renal insufficiency Assessment: acute on chronic (2) Hyperkalemia (3) Anemia (4) Hypoalbuminemia (5) History of seizure Assessment Renal failure- Acute on Chronic, presents with hyperkalemia COPD Sz disorder UTI Anemia cellulitis Rt UE HypoAlbuminemia Plan NGT Hydrate Kayexelate Nepro NGT stop heparin SQ Monitor renal parameters Anemia shay antibiotics avoid Nephrotoxics per orders Subjective ROS Limited/Unobtainable: No Constitutional: Reports: malaise, weakness Objective Objective Last 24 Hour Vital Signs Date Time Temp Pulse Resp B/P (MAP) Pulse Ox O2 Delivery O2 Flow Rate FiO2 07/30/18 09:00 Room Air 07/30/18 08:36 90 18 Room Air 21 07/30/18 08:36 Room Air 21 07/30/18 08:36 92 Room Air 21 07/30/18 08:00 97.8 92 20 116/70 (85) 94 07/30/18 07:55 92 07/30/18 04:00 93 07/30/18 04:00 97.4 97 18 101/62 (75) 93 07/30/18 00:00 92 07/30/18 00:00 98.0 88 17 129/59 (82) 97 07/29/18 21:00 Room Air 07/29/18 20:00 97.2 95 17 100/63 (75) 95 07/29/18 20:00 82 07/29/18 16:40 Nasal Cannula 2.0 28 07/29/18 16:40 70 18 Nasal Cannula 2.0 28 07/29/18 16:40 94 Nasal Cannula 2.0 28 07/29/18 16:00 98.3 76 18 123/72 (89) 93 07/29/18 16:00 86 Intake and Output 07/29/18 07/30/18 19:00 07:00 Intake Total 30 ml 1200 ml Output Total 800 ml 1500 ml Balance -770 ml -300 ml Intake Oral 30 ml Free Water 300 ml IV Total 900 ml Output Urine Total 800 ml 1500 ml # Bowel Movements 1 Laboratory Tests 07/30/18 06:45: White Blood Count 4.2L, Red Blood Count 2.99L, Hemoglobin 7.7L, Hematocrit 25.1L , Mean Corpuscular Volume 84, Mean Corpuscular Hemoglobin 25.8L, Mean Corpuscular Hemoglobin Concent 30.7L, Red Cell Distribution Width 18.6H, Platelet Count 90L, Mean Platelet Volume 7.3, Neutrophils (%) (Auto) , Lymphocytes (%) (Auto) , Monocytes (%) (Auto) , Eosinophils (%) (Auto) , Basophils (%) (Auto) , Differential Total Cells Counted 100, Neutrophils % ( Manual) 78H, Lymphocytes % (Manual) 12L, Monocytes % (Manual) 6, Eosinophils % ( Manual) 1, Basophils % (Manual) 0, Band Neutrophils 3, Platelet Estimate DecreasedL, Platelet Morphology Normal, Hypochromasia 2+, Anisocytosis 2+, Sodium Level 142, Potassium Level 5.4H, Chloride Level 109H, Carbon Dioxide Level 28, Anion Gap 5, Blood Urea Nitrogen 37H, Creatinine 1.4H, Estimat Glomerular Filtration Rate 50.7, Glucose Level 67L, Uric Acid 5.5, Calcium Level 9.6, Phosphorus Level 3.5, Magnesium Level 1.6L, Total Bilirubin 0.5, Aspartate Amino Transf (AST/SGOT) 24, Alanine Aminotransferase (ALT/SGPT) 29, Alkaline Phosphatase 129H, Total Protein 6.4, Albumin 1.8L, Globulin 4.6, Albumin/Globulin Ratio 0.4L, Thyroid Stimulating Hormone (TSH) 4.558H, Free Thyroxine 0.94 Height (Feet): 5 Height (Inches): 6.00 Weight (Pounds): 185 General Appearance: no apparent distress EENT: other - NGT Cardiovascular: tachycardia Respiratory/Chest: decreased breath sounds Abdomen: soft Shashi Patel MD Jul 30, 2018 14:05
[2018-07-30] MEDS: Sodium Polystyrene Sulfonate 15gm Powder ORAL SCH ×2 (14:14→18:00)
[2018-07-30] MEDS: Vancomycin 1.5 GM/D5W 250ML IVPB SCH (14:28)
--- NOTE | 2018-07-30 14:43 | General Surgery Progress Note ---
General Surgery-Progress Note Subjective Additional Comments right wrist and hand edema improved. Objective Last 24 Hour Vital Signs Date Time Temp Pulse Resp B/P (MAP) Pulse Ox O2 Delivery O2 Flow Rate FiO2 07/30/18 09:00 Room Air 07/30/18 08:36 90 18 Room Air 21 07/30/18 08:36 Room Air 21 07/30/18 08:36 92 Room Air 21 07/30/18 08:00 97.8 92 20 116/70 (85) 94 07/30/18 07:55 92 07/30/18 04:00 93 07/30/18 04:00 97.4 97 18 101/62 (75) 93 07/30/18 00:00 92 07/30/18 00:00 98.0 88 17 129/59 (82) 97 07/29/18 21:00 Room Air 07/29/18 20:00 97.2 95 17 100/63 (75) 95 07/29/18 20:00 82 07/29/18 16:40 Nasal Cannula 2.0 28 07/29/18 16:40 70 18 Nasal Cannula 2.0 28 07/29/18 16:40 94 Nasal Cannula 2.0 28 07/29/18 16:00 98.3 76 18 123/72 (89) 93 07/29/18 16:00 86 I&O Intake and Output 07/29/18 07/30/18 19:00 07:00 Intake Total 30 ml 1200 ml Output Total 800 ml 1500 ml Balance -770 ml -300 ml Intake Oral 30 ml Free Water 300 ml IV Total 900 ml Output Urine Total 800 ml 1500 ml # Bowel Movements 1 Dressing: saturated Wound: other Drains: other Cardiovascular: RSR Respiratory: clear Abdomen: soft, distended, present bowel sounds Extremities: other Laboratory Tests Test 07/30/18 06:45 White Blood Count 4.2 K/UL (4.8-10.8) L Red Blood Count 2.99 M/UL (4.70-6.10) L Hemoglobin 7.7 G/DL (14.2-18.0) L Hematocrit 25.1 % (42.0-52.0) L Mean Corpuscular Volume 84 FL (80-99) Mean Corpuscular Hemoglobin 25.8 PG (27.0-31.0) L Mean Corpuscular Hemoglobin Concent 30.7 G/DL (32.0-36.0) L Red Cell Distribution Width 18.6 % (11.6-14.8) H Platelet Count 90 K/UL (150-450) L Mean Platelet Volume 7.3 FL (6.5-10.1) Neutrophils (%) (Auto) % (45.0-75.0) Lymphocytes (%) (Auto) % (20.0-45.0) Monocytes (%) (Auto) % (1.0-10.0) Eosinophils (%) (Auto) % (0.0-3.0) Basophils (%) (Auto) % (0.0-2.0) Differential Total Cells Counted 100 Neutrophils % (Manual) 78 % (45-75) H Lymphocytes % (Manual) 12 % (20-45) L Monocytes % (Manual) 6 % (1-10) Eosinophils % (Manual) 1 % (0-3) Basophils % (Manual) 0 % (0-2) Band Neutrophils 3 % (0-8) Platelet Estimate Decreased L Platelet Morphology Normal Hypochromasia 2+ Anisocytosis 2+ Sodium Level 142 MMOL/L (136-145) Potassium Level 5.4 MMOL/L (3.5-5.1) H Chloride Level 109 MMOL/L (98-107) H Carbon Dioxide Level 28 MMOL/L (21-32) Anion Gap 5 mmol/L (5-15) Blood Urea Nitrogen 37 mg/dL (7-18) H Creatinine 1.4 MG/DL (0.55-1.30) H Estimat Glomerular Filtration Rate 50.7 mL/min (>60) Glucose Level 67 MG/DL (74-106) L Uric Acid 5.5 MG/DL (2.6-7.2) Calcium Level 9.6 MG/DL (8.5-10.1) Phosphorus Level 3.5 MG/DL (2.5-4.9) Magnesium Level 1.6 MG/DL (1.8-2.4) L Total Bilirubin 0.5 MG/DL (0.2-1.0) Aspartate Amino Transf (AST/SGOT) 24 U/L (15-37) Alanine Aminotransferase (ALT/SGPT) 29 U/L (12-78) Alkaline Phosphatase 129 U/L (46-116) H Total Protein 6.4 G/DL (6.4-8.2) Albumin 1.8 G/DL (3.4-5.0) L Globulin 4.6 g/dL Albumin/Globulin Ratio 0.4 (1.0-2.7) L Thyroid Stimulating Hormone (TSH) 4.558 uiU/mL (0.358-3.740) Free Thyroxine 0.94 NG/DL (0.76-1.46) Plan Problems: (1) Cellulitis of right upper extremity Assessment & Plan: right wrist cellulitis. 1.5cm ulceration noted. seropurulent drainage noted. minimal foul odor. cellulitis circumferential. pulses okay. hand okay. proximally okay edema improved today ulceration still draining edema in right arm and hand 2+ pitting. no abscess palpated. no areas of significant induration -MRI of right wrist pending -IV abx (lost IV access. STAT PICC) -skin protectant and dressings for now -keep right arm elevated will await MRI results. if abscess will need I&D. if no abscess will monitor clinically on medical therapy. (2) Decubitus ulcer of right buttock, stage 4 Assessment & Plan: patient presents with multiple wounds upon admission moderate sized stage 4 right buttock lower decubitus ulcer clean and seems to have had debridement prior right heel dti -apply hydrogel, gauze packing, dressings daily and prn -heel protectors, apply foam dressing to right heel -will monitor and treat wounds while in hospital -turn q2h -off load pressure -air mattress thank you Jin Hogan Jul 30, 2018 14:43
--- NOTE | 2018-07-30 14:51 | Neurology Progress Note ---
Interim History Interim History Interim History Mr. Tran continues to be awake. 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 He continues to be cognitively impoverished. He continues to be generally weak. There has been no improvement in his condition. His right UE however is less swollen. Review of Systems Neuro Review of Systems Unable to evaluate. Objective Physical Exam Last Vital Signs Date Time Temp Pulse Resp B/P (MAP) Pulse Ox O2 Delivery O2 Flow Rate FiO2 07/30/18 09:00 Room Air 07/30/18 08:36 90 18 21 07/30/18 08:36 92 07/30/18 08:00 97.8 116/70 (85) 07/29/18 16:40 2.0 Laboratory Tests Test 07/30/18 06:45 White Blood Count 4.2 K/UL (4.8-10.8) L Red Blood Count 2.99 M/UL (4.70-6.10) L Hemoglobin 7.7 G/DL (14.2-18.0) L Hematocrit 25.1 % (42.0-52.0) L Mean Corpuscular Volume 84 FL (80-99) Mean Corpuscular Hemoglobin 25.8 PG (27.0-31.0) L Mean Corpuscular Hemoglobin Concent 30.7 G/DL (32.0-36.0) L Red Cell Distribution Width 18.6 % (11.6-14.8) H Platelet Count 90 K/UL (150-450) L Mean Platelet Volume 7.3 FL (6.5-10.1) Neutrophils (%) (Auto) % (45.0-75.0) Lymphocytes (%) (Auto) % (20.0-45.0) Monocytes (%) (Auto) % (1.0-10.0) Eosinophils (%) (Auto) % (0.0-3.0) Basophils (%) (Auto) % (0.0-2.0) Differential Total Cells Counted 100 Neutrophils % (Manual) 78 % (45-75) H Lymphocytes % (Manual) 12 % (20-45) L Monocytes % (Manual) 6 % (1-10) Eosinophils % (Manual) 1 % (0-3) Basophils % (Manual) 0 % (0-2) Band Neutrophils 3 % (0-8) Platelet Estimate Decreased L Platelet Morphology Normal Hypochromasia 2+ Anisocytosis 2+ Sodium Level 142 MMOL/L (136-145) Potassium Level 5.4 MMOL/L (3.5-5.1) H Chloride Level 109 MMOL/L (98-107) H Carbon Dioxide Level 28 MMOL/L (21-32) Anion Gap 5 mmol/L (5-15) Blood Urea Nitrogen 37 mg/dL (7-18) H Creatinine 1.4 MG/DL (0.55-1.30) H Estimat Glomerular Filtration Rate 50.7 mL/min (>60) Glucose Level 67 MG/DL (74-106) L Uric Acid 5.5 MG/DL (2.6-7.2) Calcium Level 9.6 MG/DL (8.5-10.1) Phosphorus Level 3.5 MG/DL (2.5-4.9) Magnesium Level 1.6 MG/DL (1.8-2.4) L Total Bilirubin 0.5 MG/DL (0.2-1.0) Aspartate Amino Transf (AST/SGOT) 24 U/L (15-37) Alanine Aminotransferase (ALT/SGPT) 29 U/L (12-78) Alkaline Phosphatase 129 U/L (46-116) H Total Protein 6.4 G/DL (6.4-8.2) Albumin 1.8 G/DL (3.4-5.0) L Globulin 4.6 g/dL Albumin/Globulin Ratio 0.4 (1.0-2.7) L Thyroid Stimulating Hormone (TSH) 4.558 uiU/mL (0.358-3.740) Free Thyroxine 0.94 NG/DL (0.76-1.46) Neurologic Exam Objective PHYSICAL EXAMINATION: GENERAL: He is a well-developed, well-nourished, gentleman, lying in bed, in no acute distress. HEAD: Normocephalic and atraumatic. EENT: Examination benign. NECK: No neck rigidity was observed. NEUROLOGIC EXAMINATION: MENTAL STATUS EXAMINATION: He was awake, but nonverbal. He was unable to follow simple commands. He was unable to cooperate for further mental status testing. SPEECH: Could not be tested as he was mute. LANGUAGE: He was unable to follow simple commands and unable to express himself in any manner. CRANIAL NERVE EXAMINATION: II: He did blink to threat. III, IV & : The external ocular movements were present on oculocephalic maneuvers. The pupils were 3 mm in diameter, equal, round, regular, and reactive sluggishly to light. V & VII: The corneal reflexes were equal, but subdued. VIII: He did respond to sounds and had no nystagmus. IX & X: The gag reflex was present, but significantly subdued. XI: The sternocleidomastoids and trapezii did function. XII: The tongue was in the midline without any fasciculations or atrophy. MOTOR SYSTEM: The tone was increased in all four extremities with a combination of spasticity and gegenhalten. Examination of muscle mass revealed generalized wasting. Examination of power was impossible to perform because he moved all four extremities minimally on deep painful stimuli. SENSORY EXAMINATION: He responded appropriately to deep painful stimuli. He could not cooperate for other sensory modalities. REFLEXES: 0 at the biceps, triceps, brachioradialis, knees, and ankles. The plantar responses were flexor bilaterally. COORDINATION, STANCE & GAIT: Could not be tested. Impression/Recommendations Diagnostic Impression 1. Mr. Juan Tran is a 68-year-old, gentleman, of unknown handedness , who lives in a assisted. He has a past history of hypertension, chronic obstructive pulmonary disease, renal dysfunction, seizure disorder, anemia, urinary tract infections, and right upper extremity cellulitis. He was hospitalized for an alteration in mental state and worsening of his right upper extremity cellulitis. At this point in time, he is nonverbal and is unable to give any history. 2. He continues to be awake. 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 He continues to be cognitively impoverished. He continues to be generally weak. There has been no improvement in his condition. His right UE however is less swollen. 3. On neurological examination, at this time, he is awake, but not verbal. He is unable to cooperate for further mental status test. He does blink to threat. He does not demonstrate any lateralizing cranial nerve dysfunction. He only responds to deep painful stimuli with minimal movements of all four extremities and his deep tendon reflexes are globally absent. His plantar responses are flexor. 4. Laboratory data obtained thus far revealed that he is anemic with a hemoglobin of 8.0 G. His chemistry panel revealed an elevated potassium at 6.6 , BUN elevated at 48, creatinine elevated at 1.3, blood glucose elevated at 198 , alkaline phosphatase elevated to 129, albumin low at 1.8. His urinalysis revealed 3+ leukocyte esterase, 15-20 RBCs and too numerous to count WBCs per high-power field. 5. Further laboratory tests have revealed an elevated TSH. 6. The MRI done on 07/29/18 was marred by movement artifact but did not reveal any acute pathology. Old deep white matter disease and atrophy was seen. 7. The EEG done on 07/29/18 revealed a severe toxic metabolic encephalopathy and multifocal epileptogenic discharges from F3/F4/T3/T4. No electrographic or clinical seizures were noted. 8. The patient's history and neurological examination are most compatible with cellulitis of the right upper extremity and a significant urinary tract infection. However, it is unclear as to what his change of mental state represents as his baseline mental state is unknown to us. 9. In addition, he also carries a history of a seizure disorder, but it is unclear as to what type of seizure disorder he has. At this point in time, he is on a subtherapeutic dose of valproic acid for seizure control. Recommendations 1. Continue present management. 2. Would try to obtain a better history regarding his baseline mental state and seizure type. 3. Increase Depakote to 1 G q 12 hours. 4. Observe closely. Preston Escalera M.D., M.S.P.H. Preston Escalera MD Jul 30, 2018 14:51
--- NOTE | 2018-07-30 15:20 | General Progress Note ---
Assessment/Plan Assessment/Plan # Pancytopenia -- mutliple etiologies possible, potentially related to infection /viralcauses, ongoing multiple infections, celluliis, baseline unknown, 1st time admitted --> hepatitis and hiv are negative --> anemia panel reviewed and is cw acd --> us of the abdomen has been ordered and results pending --> if no underyling cause, consider a bone marrow biopsy --> peripheral smear review --> med reviewed # Anemia of chronic disease --> panel has been reviewed --> transfuse to hgb goal >7 # Cellulitis of right upper extremity --> s/p treatment with abx --> appre id and surg recs # Hyperkalemia, diminished renal excretion --> as per renal recs --> on ivf # Renal insufficiency --> s/p ivf administration # UTI (urinary tract infection) Subjective Constitutional: Denies: no symptoms, chills, diaphoresis, fever, malaise, weakness, other HEENT: Denies: no symptoms, eye pain, blurred vision, tearing, double vision, ear pain, ear discharge, nose pain, nose congestion, throat pain, throat swelling, mouth pain, mouth swelling, other Cardiovascular: Denies: no symptoms, chest pain, edema, irregular heart rate, lightheadedness, palpitations, syncope, other Respiratory: Denies: no symptoms, cough, orthopnea, shortness of breath, SOB with excertion, SOB at rest, sputum, stridor, wheezing, other Gastrointestinal/Abdominal: Denies: no symptoms, abdomen distended, abdominal pain, black stools, tarry stools, blood in stool, constipated, diarrhea, difficulty swallowing, nausea, poor appetite, poor fluid intake, rectal bleeding , vomiting, other Genitourinary: Denies: no symptoms, burning, discharge, frequency, flank pain, hematuria, incontinence, pain, urgency, other Neurologic/Psychiatric: Denies: no symptoms, anxiety, depressed, emotional problems, headache, numbness, paresthesia, pre-existing deficit, seizure, tingling, tremors, weakness, other Endocrine: Denies: no symptoms, excessive sweating, flushing, intolerance to cold, intolerance to heat, increased hunger, increased thirst, increased urine, unexplained weight gain, unexplained weight loss, other Allergies: Coded Allergies: ATORVASTATIN (Unverified Allergy, Unknown, 07/27/18) Uncoded Allergies: VITAMIN B12 (Allergy, Unknown, 07/27/18) VITAMIN D (Allergy, Unknown, 07/27/18) Subjective 07/30: remains without events, nonverbal, less swollen arm/less cellulitis Objective Last 24 Hour Vital Signs Date Time Temp Pulse Resp B/P (MAP) Pulse Ox O2 Delivery O2 Flow Rate FiO2 07/30/18 12:00 97.6 97 20 129/61 (83) 94 07/30/18 09:00 Room Air 07/30/18 08:36 90 18 Room Air 21 07/30/18 08:36 Room Air 21 07/30/18 08:36 92 Room Air 21 07/30/18 08:00 97.8 92 20 116/70 (85) 94 07/30/18 07:55 92 07/30/18 04:00 93 07/30/18 04:00 97.4 97 18 101/62 (75) 93 07/30/18 00:00 92 07/30/18 00:00 98.0 88 17 129/59 (82) 97 07/29/18 21:00 Room Air 07/29/18 20:00 97.2 95 17 100/63 (75) 95 07/29/18 20:00 82 07/29/18 16:40 Nasal Cannula 2.0 28 07/29/18 16:40 70 18 Nasal Cannula 2.0 28 07/29/18 16:40 94 Nasal Cannula 2.0 28 07/29/18 16:00 98.3 76 18 123/72 (89) 93 07/29/18 16:00 86 Intake and Output 07/29/18 07/30/18 19:00 07:00 Intake Total 30 ml 1200 ml Output Total 800 ml 1500 ml Balance -770 ml -300 ml Intake Oral 30 ml Free Water 300 ml IV Total 900 ml Output Urine Total 800 ml 1500 ml # Bowel Movements 1 Laboratory Tests 07/30/18 06:45: White Blood Count 4.2L, Red Blood Count 2.99L, Hemoglobin 7.7L, Hematocrit 25.1L , Mean Corpuscular Volume 84, Mean Corpuscular Hemoglobin 25.8L, Mean Corpuscular Hemoglobin Concent 30.7L, Red Cell Distribution Width 18.6H, Platelet Count 90L, Mean Platelet Volume 7.3, Neutrophils (%) (Auto) , Lymphocytes (%) (Auto) , Monocytes (%) (Auto) , Eosinophils (%) (Auto) , Basophils (%) (Auto) , Differential Total Cells Counted 100, Neutrophils % ( Manual) 78H, Lymphocytes % (Manual) 12L, Monocytes % (Manual) 6, Eosinophils % ( Manual) 1, Basophils % (Manual) 0, Band Neutrophils 3, Platelet Estimate DecreasedL, Platelet Morphology Normal, Hypochromasia 2+, Anisocytosis 2+, Sodium Level 142, Potassium Level 5.4H, Chloride Level 109H, Carbon Dioxide Level 28, Anion Gap 5, Blood Urea Nitrogen 37H, Creatinine 1.4H, Estimat Glomerular Filtration Rate 50.7, Glucose Level 67L, Uric Acid 5.5, Calcium Level 9.6, Phosphorus Level 3.5, Magnesium Level 1.6L, Total Bilirubin 0.5, Aspartate Amino Transf (AST/SGOT) 24, Alanine Aminotransferase (ALT/SGPT) 29, Alkaline Phosphatase 129H, Total Protein 6.4, Albumin 1.8L, Globulin 4.6, Albumin/Globulin Ratio 0.4L, Thyroid Stimulating Hormone (TSH) 4.558H, Free Thyroxine 0.94 Height (Feet): 5 Height (Inches): 6.00 Weight (Pounds): 185 General Appearance: no apparent distress Neck: normal alignment Cardiovascular: regular rhythm Respiratory/Chest: no respiratory distress Abdomen: abnormal bowel sounds Edema: 1+ Leg (L), 1+ Leg (R) Edema: mild edema Alex Lino MD Jul 30, 2018 15:20
[2018-07-30 16:00] VITALS: BP 137/95
[2018-07-30] MEDS ORDERED: 1/2 NS 1000ml IV ONE (16:55)
[2018-07-30] MEDS ORDERED: NS 275ml ONE (16:55)
[2018-07-30] MEDS ORDERED: Tubing IV Secondary IV ONE (16:55)
[2018-07-30] MEDS ORDERED: Sterile Water Irrig 1000ml IRRIG ONE (16:55)
[2018-07-30] MEDS ORDERED: Tubing IV Blood Pump IV ONE (16:55)
--- NOTE | 2018-07-30 17:00 | NUR ---
NURSE NOTES: Attempted to flush ng tube. Was unsuccessful. Had poker dealer Malia attempt to unclog ng tube and was unsuccessful. Will be endorsed to project safety manager.
--- NOTE | 2018-07-30 18:45 | NUR ---
NURSE NOTES: Dr. Lino was notified of hgb 7.7 at 12:10pm. Received order for one unit PRBC. PRBC was started at 4:15pm and ended at 6:45pm. No s/s noted and patient resting comfortably in the bed in lowest position.
--- NOTE | 2018-07-30 19:27 | NUR ---
HAND-OFF: Report given to CJ Turner. Endorsed plan of care.
--- NOTE | 2018-07-30 19:30 | NUR ---
NURSE NOTES: Received report from Robin Brito RN. Patient in bed with HOB elevated at semi fowlers for new order of NGT placement and tube feeding. NGT clogged at this time and will try to declog during shift and will start new tube feeding formula once access has been established. Patient is non verbal with noted grunts and grimaces when in pain, no acute pain noted at this time; kept clean, dry and comfortable in bed. PICC line on LUE (2 lumen) intact and patent. Safety and seizure precaution in place; siderails x2up and padded, call light within reach, bed in lowest position, brakes and alarm on at all times, and suction equipment set up in place at bedside. No SOB/ resp distress noted at this time, will continue to unclog NGT. Needs and wants anticipated and attended, will continue plan of care and monitor for any changes noted
[2018-07-30 20:00] VITALS: BP 115/70
--- NOTE | 2018-07-30 21:00 | NUR ---
NURSE NOTES: Still trying to declog NGT for medication admin at this time, unsuccessful. CN notified and will try to unclog.
--- NOTE | 2018-07-30 21:35 | Pulmonology Progress Note ---
Assessment/Plan Problems: (1) ATN (acute tubular necrosis) (2) COPD (chronic obstructive pulmonary disease) (3) History of seizure (4) UTI (urinary tract infection) (5) Hyperkalemia, diminished renal excretion (6) Cellulitis of right upper extremity (7) Anemia Assessment/Plan improving slightly symptomatic treatment K slightly lower iv fluids neuro f/u respiratory treatment. continue telemetry Subjective ROS Limited/Unobtainable: No Constitutional: Reports: no symptoms HEENT: Repors: no symptoms Allergies: Coded Allergies: ATORVASTATIN (Unverified Allergy, Unknown, 07/27/18) Uncoded Allergies: VITAMIN B12 (Allergy, Unknown, 07/27/18) VITAMIN D (Allergy, Unknown, 07/27/18) Objective Last 24 Hour Vital Signs Date Time Temp Pulse Resp B/P (MAP) Pulse Ox O2 Delivery O2 Flow Rate FiO2 07/30/18 16:00 97.4 93 20 137/95 (109) 94 07/30/18 15:33 88 07/30/18 12:00 97.6 97 20 129/61 (83) 94 07/30/18 11:29 100 07/30/18 09:00 Room Air 07/30/18 08:36 90 18 Room Air 21 07/30/18 08:36 Room Air 21 07/30/18 08:36 92 Room Air 21 07/30/18 08:00 97.8 92 20 116/70 (85) 94 07/30/18 07:55 92 07/30/18 04:00 93 07/30/18 04:00 97.4 97 18 101/62 (75) 93 07/30/18 00:00 92 07/30/18 00:00 98.0 88 17 129/59 (82) 97 Intake and Output 07/29/18 07/30/18 18:59 06:59 Intake Total 30 ml 1200 ml Output Total 800 ml 1500 ml Balance -770 ml -300 ml Intake Oral 30 ml Free Water 300 ml IV Total 900 ml Output Urine Total 800 ml 1500 ml # Bowel Movements 1 Objective General Appearance: WD/WN Lines, tubes and drains: peripheral HEENT: normocephalic, atraumatic Neck: non-tender, normal alignment Breasts: no masses Cardiovascular/Chest: normal rate Genitourinary/Rectal: normal genital exam Skin Exam: normal pigmentation, rash, other - Microbiology Date/Time Source Procedure Growth Status 07/27/18 23:13 Blood Blood Culture - Preliminary NO GROWTH AFTER 48 HOURS Resulted 07/27/18 22:58 Blood Blood Culture - Preliminary NO GROWTH AFTER 48 HOURS Resulted 07/28/18 02:43 Nasal Nares MRSA Culture - Final NO METHICILLIN RESISTANT STAPH AUREUS... Complete 07/28/18 01:10 Urine,Clean Catch Urine Culture - Final NO GROWTH AFTER 48 HOURS Complete 07/28/18 06:00 Buttock Right Gram Stain - Final Resulted 07/28/18 06:00 Buttock Right Wound Culture - Preliminary Resulted 07/28/18 02:43 Arm Right Gram Stain - Final Resulted 07/28/18 02:43 Arm Right Wound Culture - Preliminary NO GROWTH AFTER 48 HOURS Resulted 07/28/18 02:43 Rectum - Final NO CARBAPENEM-RESISTANT ENTEROBACTERI... Complete 07/28/18 02:43 Rectum VRE Culture - Final Enterococcus Faecalis - Vre Complete Laboratory Tests 07/30/18 06:45: White Blood Count 4.2L, Red Blood Count 2.99L, Hemoglobin 7.7L, Hematocrit 25.1L , Mean Corpuscular Volume 84, Mean Corpuscular Hemoglobin 25.8L, Mean Corpuscular Hemoglobin Concent 30.7L, Red Cell Distribution Width 18.6H, Platelet Count 90L, Mean Platelet Volume 7.3, Neutrophils (%) (Auto) , Lymphocytes (%) (Auto) , Monocytes (%) (Auto) , Eosinophils (%) (Auto) , Basophils (%) (Auto) , Differential Total Cells Counted 100, Neutrophils % ( Manual) 78H, Lymphocytes % (Manual) 12L, Monocytes % (Manual) 6, Eosinophils % ( Manual) 1, Basophils % (Manual) 0, Band Neutrophils 3, Platelet Estimate DecreasedL, Platelet Morphology Normal, Hypochromasia 2+, Anisocytosis 2+, Sodium Level 142, Potassium Level 5.4H, Chloride Level 109H, Carbon Dioxide Level 28, Anion Gap 5, Blood Urea Nitrogen 37H, Creatinine 1.4H, Estimat Glomerular Filtration Rate 50.7, Glucose Level 67L, Uric Acid 5.5, Calcium Level 9.6, Phosphorus Level 3.5, Magnesium Level 1.6L, Total Bilirubin 0.5, Aspartate Amino Transf (AST/SGOT) 24, Alanine Aminotransferase (ALT/SGPT) 29, Alkaline Phosphatase 129H, Total Protein 6.4, Albumin 1.8L, Globulin 4.6, Albumin/Globulin Ratio 0.4L, Thyroid Stimulating Hormone (TSH) 4.558H, Free Thyroxine 0.94 Current Medications Medications (Trade) Dose Ordered Sig/Violette Route PRN Reason Start Time Stop Time Status Last Admin Dose Admin Acetaminophen (Tylenol) 650 mg Q4H PRN ORAL fever 07/28/18 07:00 08/27/18 06:59 Albuterol/ Ipratropium (Albuterol/ Ipratropium) 3 ml Q4H PRN HHN Shortness of Breath 07/28/18 07:00 08/02/18 06:59 Cefepime HCl 2 gm/ Dextrose 110 ml @ 220 mls/hr DAILY IV 07/31/18 09:00 08/07/18 08:59 Chlorhexidine Gluconate (Samantha-Hex 2%) 1 applic DAILY@2000 TOPIC 07/29/18 20:00 08/28/18 19:59 07/29/18 21:53 Dextrose (Dextrose 50%) 25 ml Q30M PRN IV Hypoglycemia 07/28/18 09:15 08/27/18 09:14 Dextrose (Dextrose 50%) 50 ml Q30M PRN IV Hypoglycemia 07/28/18 09:15 08/27/18 09:14 Divalproex Sodium (Depakote Sprinkles) 1,000 mg Q12HR ORAL 07/30/18 21:00 08/29/18 20:59 Insulin Aspart (NovoLOG) BEFORE MEALS AND HS SUBQ 07/28/18 11:30 08/27/18 11:29 07/28/18 20:25 Lansoprazole (Prevacid) 30 mg DAILY NG 07/31/18 09:00 08/27/18 08:59 Lorazepam (Ativan) 0.5 mg Q6H PRN ORAL For Anxiety 07/29/18 04:30 08/05/18 04:29 Morphine Sulfate (Morphine Sulfate) 2 mg Q4H PRN IVP Moderate Pain (Pain Scale 4-6) 07/28/18 07:00 08/04/18 06:59 Nitroglycerin (Ntg) 0.4 mg Q5M PRN SL Prn Chest Pain 07/28/18 07:00 08/27/18 06:59 Ondansetron HCl (Zofran) 4 mg Q6H PRN IVP Nausea & Vomiting 07/28/18 07:00 08/27/18 06:59 Paroxetine HCl (Paxil) 20 mg DAILY ORAL 07/29/18 09:00 08/28/18 08:59 07/30/18 10:01 Polyethylene Glycol (Miralax) 17 gm DAILYPRN PRN ORAL Constipation 07/28/18 07:00 08/27/18 06:59 Risperidone (RisperDAL) 1 mg BID ORAL 07/29/18 09:00 08/28/18 08:59 07/30/18 10:00 Sodium Polystyrene Sulfonate (Kayexalate) 30 gm THREE TIMES A DAY ORAL 07/29/18 09:00 08/28/18 08:59 07/30/18 14:14 Sodium Chloride 1,000 ml @ 125 mls/hr Q8H IV 07/30/18 14:05 08/29/18 14:04 07/30/18 14:14 Temazepam (Restoril) 15 mg HSPRN PRN ORAL Insomnia 07/28/18 07:00 08/04/18 06:59 Vancomycin HCl (Vanco rx to dose) 1 ea DAILY PRN MISC Per rx protocol 07/28/18 07:30 08/27/18 07:29 Vancomycin HCl/ Dextrose 250 ml @ 125 mls/hr Q24H IVPB 07/29/18 12:00 08/03/18 11:59 07/30/18 14:28 Lazaro Becker MD Jul 30, 2018 21:35
--- NOTE | 2018-07-30 21:45 | Consultation ---
DATE OF CONSULTATION: 07/30/2018 CONSULTING PHYSICIAN: Becki Coe M.D. HISTORY OF PRESENT ILLNESS: The patient is a 68-year-old male patient this patient continued to have extreme mood lability, confusion, disorganized thought process, worsened by stress of his medical illness. That is why, he does require inpatient treatment at this time. He has , feelings of helplessness, hopelessness, low energy, poor appetite, and loss of interest in activity. MENTAL STATUS EXAMINATION: This is a 68-year-old male patient. Appearance is disheveled. Attitude, irritable and agitated. Affect, guarded and restricted. Intellect poor. Mood depressed and anxious. Motor activity, psychomotor agitation. Attention span is poor. Orientation x2. Speech is pressured. Thought process, disorganized and illogical. Thought content, auditory hallucinations and paranoid delusions. Insight and judgment is poor. DIAGNOSIS: Schizoaffective, bipolar type. PLAN: Treat him with Risperdal 2 mg twice a day, Paxil 20 mg daily, Depakote 250 mg q.12 hours. Provided with 20 minutes of cognitive behavioral therapy to help him identify his automatic negative thoughts and help him to convert those negative thoughts to more positive thoughts to reduce depression, anxiety, and suicidality. Chart is reviewed and discussed with staff. Seen and assessed at bedside. Becki Coe M.D. DR: DANIELLE JOB#: [id number] CC:
--- NOTE | 2018-07-30 22:00 | Electroencephalogram ---
DATE OF PROCEDURE: 07/29/2018 REQUESTING PHYSICIAN: Michael Johnson D.O. HISTORY: This EEG was performed on a 68-year-old gentleman who was hospitalized for a change in mental state. The purpose of this EEG was to evaluate the patient for the degree and type of cerebral dysfunction and to exclude ongoing ictal or interictal phenomena. TECHNICAL NOTE: This EEG was performed on a [employer] with electrodes placed on the scalp according to the International 10-20 system. [id number] and [id number] montages were used. The EEG was technically satisfactory and was performed while the patient was in an awake but poorly responsive state. OBSERVATIONS: In the awake, but poorly responsive state the background activity consisted of 4-5 Hz theta and 2-2.5 Hz delta activity. Triphasic waveforms with an anterior to posterior gradient were seen throughout the tracing. At times, the triphasic waveforms assumed sharply contoured form. In addition F3, F4, T3, and T4 sharp discharges were also seen intermittently. No clinical or electrographic seizures were noted. IMPRESSION: This is an abnormal EEG characterized by: 1. Slowing of the background in the 4-5 Hz theta and 2-2.5 Hz delta range. 2. The presence of triphasic waveforms which at times assume sharply contoured character. 3. The presence of multifocal sharp discharges emanating from F3, F4, T3, and T4. COMMENT: This study is consistent with: 1. A severe encephalopathy with a toxic metabolic component as evidenced by the triphasic waveforms. 2. The multifocal frontal and temporal sharp discharges may be indicative of either brain irritability related to the encephalopathy or may be interictal phenomena. Preston Escalera M.D., M.S.P.H. DR: CELESTINE JOB#: [id number] CB
--- NOTE | 2018-07-30 22:00 | NUR ---
NURSE NOTES: CN and RN unsuccessful at declogging NGT at bedside, all possible intervention implemented with no effect. New NGT will be placed and previous one DCd.
[2018-07-30] MEDS: Dyna-Hex 2% Top Sol 2oz TOPIC SCH (22:24)
--- NOTE | 2018-07-30 23:10 | NUR ---
NURSE NOTES: NGT placement successful, placement and residual checked at bedside with Ismael Ovalle RN. Ordered and called in to Radiology an order for Portable Abd XR 1v to confirm placement
--- NOTE | 2018-07-30 23:15 | Consultation ---
DATE OF CONSULTATION: 07/29/2018 NOTE: POOR AUDIO PSYCHOTHERAPY CONSULTATION PROGRESS NOTE CONSULTING PHYSICIAN: Jasmine Johnson M.D. TREATING ATTENDING PHYSICIAN: Michael Johnson D.O. HISTORY OF PRESENT ILLNESS: The patient is a 68-year-old male patient from [facility]. The patient was brought into the hospital for upper extremity cellulitis. The patient has been disorganized, confused, and restless. He has a history of paranoid schizophrenia and for these reasons, the patient is referred for psychotherapeutic services. This clinician assessed this patient. The patient has been very disorganized and confused. He has been able to communicate very slowly, the speech has been very pressured. He is very disorganized. He states that he feels tired, he feels very weak, confused. The patient is cooperative and is able to follow verbal commands. He remains helpless. Denies suicidal or homicidal thoughts of ideation. Denies auditory or visual hallucinations. PAST MEDICAL HISTORY: Includes a history of renal insufficiency, UTI, chronic obstructive pulmonary disease, seizures, and cellulitis of the extremities. ALLERGIES: The patient is allergic to vitamin B12, vitamin D, atorvastatin. SUBSTANCE ABUSE HISTORY: The patient denies history of alcohol use or illicit substance use. PSYCHIATRIC HISTORY: The patient has a history of schizophrenia. He has been on psychotropic medications in the past. SOCIAL HISTORY: The patient is a 68-year-old single male patient from [facility]. Financially sustained through [employer]. MENTAL STATUS EXAMINATION: He is alert and oriented to person and place. His mood is dysphoric. Affect is blunted. Thought processes, disorganized. Thought content, he is confused. He has poor attention and concentration. Poor insight, judgment, and impulse control. He has been very confused and disorganized in the office today. DIAGNOSIS: Paranoid schizophrenia. PLAN: This clinician assessed this patient. Provided the patient with reality orientation confused and disoriented. Oriented to the person, place, time, and situation. Also provided the patient with cognitive behavioral therapy and positive coping skills for the patient. his negative thoughts and converting . This clinician has reviewed the patient's chart and discussed the treatment with treatment team. . Psychotherapy provided to this patient, 50 minutes. Jasmine Johnson PsyD. DR: RIGOBERTO JOB#: [id number] CC:
--- NOTE | 2018-07-30 23:40 | Diagnostic Imaging Report ---
EXAM: XR Abdomen, 1 View CLINICAL HISTORY: NGT TECHNIQUE: Frontal supine view of the abdomen/pelvis. COMPARISON: 07/30/18 at an earlier time. FINDINGS: Lower thorax: Small right-sided pleural effusion versus pleural thickening. Gastrointestinal tract: Abundant stool projected in the region of the rectum. This area is partially imaged. No dilation. Bones/joints: Degenerative changes of the thoracolumbar spine. Tubes, lines and devices: A nasogastric tube is seen with tip projected in the region of the fundus of the stomach. IMPRESSION: 1. A nasogastric tube is seen with tip projected in the region of the fundus of the stomach. 2. Abundant stool projected in the region of the rectum. This area is partially imaged.
[2018-07-31] VITALS: BP 129/66
--- NOTE | 2018-07-31 | NUR ---
NURSE NOTES: Ava puentes d/t late insertion of NGT. Will continue to monitor
[2018-07-31 04:00] VITALS: BP 138/69
--- NOTE | 2018-07-31 04:15 | Consultation ---
DATE OF CONSULTATION: 07/30/2018 NOTE: "POOR AUDIO QUALITY" GASTROENTEROLOGY CONSULTATION CONSULTING PHYSICIAN: Nacho Curry M.D. REFERRING PHYSICIAN: Michael Johnson D.O. CHIEF COMPLAINT: I was asked to see this patient by Dr. Michael Johnson for evaluation of anemia and dysphagia. HISTORY OF PRESENT ILLNESS: The patient is a debilitated unfortunate 68-year-old man, who was brought in to the hospital due to multiple issues including swelling of the legs, profound altered mental status, and renal failure. The patient has been seen by multiple consultants for the abnormalities. He was found with significant anemia. In addition, he has been suffering from pancytopenia, and he has felt also that he cannot swallow and therefore has a nasogastric tube in place for enteral feeding. The patient himself is nonverbal, nonresponsive, and unable to provide any history. Most of the information was only available from the chart. PAST MEDICAL HISTORY: Based on the chart information and the patient's medication list includes renal failure, COPD, seizure history, urinary tract infection, electrolyte abnormality, altered mental status, anemia, and dysphagia. FAMILY HISTORY: Noncontributory. SOCIAL HISTORY: The patient is unable to provide me social history. REVIEW OF SYSTEMS: Unable to ascertain due to the patient's mental status changes. MEDICATIONS: See the chart list for details. ALLERGIES: Atorvastatin, vitamin B12, and vitamin D. PHYSICAL EXAMINATION: GENERAL: A debilitated man, seen in his room. HEENT: Normocephalic and atraumatic. Sclerae were anicteric. Nasogastric tube is in place. NECK: Supple. CHEST: Revealed coarse breath sounds. CARDIOVASCULAR: Revealed regular rate. ABDOMEN: Soft and flat. Good bowel sounds. EXTREMITIES: Revealed no edema, but there were bandages on the lower extremities. LABORATORY DATA: Noted. ASSESSMENT: This patient has profound mental status change and is unable to eat by mouth. Nasogastric tube feeding is appropriate and should the patient's mental status not recover then permanent gastrostomy tube will be necessary. The patient does have some anemia, but it is really more of pancytopenia since all lines have been diminished. Hematology evaluation has been noted. The patient has stool occult blood written, but it is still pending. I would follow CBC for now. In this case, it is necessary. RECOMMENDATIONS: 1. Follow CBC. 2. Replace blood and iron as needed. 3. Proton-pump inhibitor. 4. Nasogastric tube feeding. 5. Elevate head of bed. 6. Possible gastrostomy tube. Thank you for asking me to participate in the care of this patient. Nacho Curry M.D. DR: DACIA JOB#: [id number] CC: CB
[2018-07-31] MEDS: NovoLOG Insulin Flexpen SUBQ SCH ×3 (06:00→17:27)
--- NOTE | 2018-07-31 06:15 | Progress Note ---
DATE: 07/31/2018 SUBJECTIVE: This is a male patient who is 68 years old. He came to the hospital with hypokalemia. He is very confused, disorganized, and mood labile. MENTAL STATUS EXAMINATION: This is a 68-year-old male. Appearance is disheveled. Attitude, irritable and agitated. Affect, guarded and restricted. Intellect poor. Mood, depressed and anxious. Motor activity, psychomotor agitation. Attention span is poor. Orientation x2. Speech is pressured. Thought process, disorganized and illogical. Thought content, auditory hallucinations and paranoid delusions. Insight and judgment are poor. DIAGNOSIS: Schizoaffective, bipolar type. PLAN: Treat the patient with medication regimen, Depakote 250 mg q.12 hours, Risperdal 2 mg twice a day, and Paxil 20 mg daily. Provided him with 20 minutes of supportive psychotherapy. I encouraged him to interact appropriately with staff and other patients. Twenty minutes of cognitive behavioral therapy is provided to help him identify his automatic negative thoughts and help him to convert those negative thoughts to more positive thoughts to reduce depression, anxiety, and suicidality and also help him to have a more adaptive behavior pattern . Also, I am recommending a transfer to seems to be non compliant with medications. Chart reviewed. Discussed with staff. Twenty minutes of cognitive behavioral therapy provided. Becki Coe M.D. DR: MARYCHUY JOB#: [id number] CC:
--- NOTE | 2018-07-31 07:10 | NUR ---
NURSE NOTES: Received report from Mark. CORONA. Patient is in bed with HOB at [facility] with patent NGT placement and Nepro tube feeding running at 40 ml/hr. Patient is non verbal with noted grunts, no acute pain noted at this time. Patient is clean, dry and comfortable in bed. PICC line on LUE (2 lumen) intact and patent. Safety and seizure precaution in place; side rails x2 up and padded, call light within reach, bed in lowest position, brakes and alarm on at all times, and suction equipment set up in place at bedside. No SOB/ resp distress noted at this time. Will continue plan of care and monitoring.
--- NOTE | 2018-07-31 07:27 | NUR ---
HAND-OFF: Report given to Robin Brito RN. Patient in stable condition, Endorsed plan of care.
[2018-07-31 07:31] LABS: HEMATOCRIT 29.5 % (42.0-52.0); HEMOGLOBIN 9.2 G/DL (14.2-18.0); MEAN CORPUSCULAR VOLUME 84 FL (80-99); PLATELET COUNT 93 K/UL (150-450); RED BLOOD COUNT 3.53 M/UL (4.70-6.10); RED CELL DISTRIBUTION WIDTH 17.9 % (11.6-14.8); WHITE BLOOD COUNT 4.2 K/UL (4.8-10.8)
[2018-07-31 08:00] VITALS: BP 121/61
[2018-07-31 08:15] LABS: ALANINE AMINOTRANSFERASE 26 U/L (12-78); ALBUMIN 1.9 G/DL (3.4-5.0); ALBUMIN/GLOBULIN RATIO 0.4 (1.0-2.7); ALKALINE PHOSPHATASE 143 U/L (46-116); ANION GAP 5 mmol/L (5-15); ASPARTATE AMINO TRANSFERASE 20 U/L (15-37); BILIRUBIN,TOTAL 0.6 MG/DL (0.2-1.0); BLOOD UREA NITROGEN 39 mg/dL (7-18); CALCIUM 9.5 MG/DL (8.5-10.1); CARBON DIOXIDE 28 MMOL/L (21-32); CHLORIDE 109 MMOL/L (98-107); CREATININE 1.4 MG/DL (0.55-1.30); PHOSPHORUS 3.7 MG/DL (2.5-4.9); POTASSIUM 4.6 MMOL/L (3.5-5.1); SODIUM 141 MMOL/L (136-145)
--- NOTE | 2018-07-31 08:53 | General Surgery Progress Note ---
General Surgery-Progress Note Subjective Additional Comments right arm cellulitis much improved. dressings intact Objective Last 24 Hour Vital Signs Date Time Temp Pulse Resp B/P (MAP) Pulse Ox O2 Delivery O2 Flow Rate FiO2 07/31/18 04:00 89 07/31/18 04:00 97.4 91 19 138/69 (92) 97 07/31/18 00:00 96.8 100 18 129/66 (87) 93 07/31/18 00:00 98 07/30/18 21:00 Room Air 07/30/18 20:00 97.0 98 19 115/70 (85) 92 07/30/18 20:00 98 07/30/18 16:00 97.4 93 20 137/95 (109) 94 07/30/18 15:33 88 07/30/18 12:00 97.6 97 20 129/61 (83) 94 07/30/18 11:29 100 07/30/18 09:00 Room Air I&O Intake and Output 07/30/18 07/31/18 19:00 07:00 Intake Total 770 ml Output Total 1500 ml 1500 ml Balance -1500 ml -730 ml Free Water 500 ml Tube Feeding 270 ml Output Urine Total 1500 ml 1500 ml Dressing: saturated Wound: other Drains: other Cardiovascular: RSR Respiratory: clear, decreased breath sounds Abdomen: soft, present bowel sounds Extremities: other Laboratory Tests Test 07/31/18 06:44 White Blood Count 4.2 K/UL (4.8-10.8) L Red Blood Count 3.53 M/UL (4.70-6.10) L Hemoglobin 9.2 G/DL (14.2-18.0) L Hematocrit 29.5 % (42.0-52.0) L Mean Corpuscular Volume 84 FL (80-99) Mean Corpuscular Hemoglobin 26.0 PG (27.0-31.0) L Mean Corpuscular Hemoglobin Concent 31.2 G/DL (32.0-36.0) L Red Cell Distribution Width 17.9 % (11.6-14.8) H Platelet Count 93 K/UL (150-450) L Mean Platelet Volume 6.2 FL (6.5-10.1) L Neutrophils (%) (Auto) % (45.0-75.0) Lymphocytes (%) (Auto) % (20.0-45.0) Monocytes (%) (Auto) % (1.0-10.0) Eosinophils (%) (Auto) % (0.0-3.0) Basophils (%) (Auto) % (0.0-2.0) Differential Total Cells Counted 100 Neutrophils % (Manual) 75 % (45-75) Lymphocytes % (Manual) 18 % (20-45) L Monocytes % (Manual) 6 % (1-10) Eosinophils % (Manual) 1 % (0-3) Basophils % (Manual) 0 % (0-2) Band Neutrophils 0 % (0-8) Platelet Estimate Decreased L Platelet Morphology Normal Hypochromasia 1+ Anisocytosis 1+ Sodium Level 141 MMOL/L (136-145) Potassium Level 4.6 MMOL/L (3.5-5.1) Chloride Level 109 MMOL/L (98-107) H Carbon Dioxide Level 28 MMOL/L (21-32) Anion Gap 5 mmol/L (5-15) Blood Urea Nitrogen 39 mg/dL (7-18) H Creatinine 1.4 MG/DL (0.55-1.30) H Estimat Glomerular Filtration Rate 50.7 mL/min (>60) Glucose Level 92 MG/DL (74-106) Calcium Level 9.5 MG/DL (8.5-10.1) Phosphorus Level 3.7 MG/DL (2.5-4.9) Magnesium Level 1.4 MG/DL (1.8-2.4) L Total Bilirubin 0.6 MG/DL (0.2-1.0) Aspartate Amino Transf (AST/SGOT) 20 U/L (15-37) Alanine Aminotransferase (ALT/SGPT) 26 U/L (12-78) Alkaline Phosphatase 143 U/L (46-116) H Total Protein 6.7 G/DL (6.4-8.2) Albumin 1.9 G/DL (3.4-5.0) L Globulin 4.8 g/dL Albumin/Globulin Ratio 0.4 (1.0-2.7) L Plan Problems: (1) Cellulitis of right upper extremity Assessment & Plan: right wrist cellulitis. 1.5cm ulceration noted. seropurulent drainage noted. minimal foul odor. cellulitis circumferential. pulses okay. hand okay. proximally okay edema improved today ulceration still draining edema in right arm and hand 2+ pitting. no abscess palpated. no areas of significant induration -MRI of right wrist pending -IV abx (lost IV access. STAT PICC) -skin protectant and dressings for now -keep right arm elevated awaiting MRI results but clinically improved and no signs of abscess that needs drainage as ulceration is draining will monitor clinically on medical therapy. (2) Decubitus ulcer of right buttock, stage 4 Assessment & Plan: patient presents with multiple wounds upon admission moderate sized stage 4 right buttock lower decubitus ulcer clean and seems to have had debridement prior right heel dti -apply hydrogel, gauze packing, dressings daily and prn -heel protectors, apply foam dressing to right heel -will monitor and treat wounds while in hospital -turn q2h -off load pressure -air mattress thank you Jin Hogan Jul 31, 2018 08:53
[2018-07-31] MEDS: Depakote 125mg Sprinkles ORAL SCH ×2 (09:00→21:37)
[2018-07-31] MEDS: PARoxetine 20mg tab ORAL SCH (10:42)
[2018-07-31] MEDS: Sodium Polystyrene Sulfonate 15gm Powder ORAL SCH ×2 (10:43→13:36)
--- NOTE | 2018-07-31 10:43 | General Progress Note ---
Assessment/Plan Problem List: (1) Anemia ICD Codes: D64.9 - Anemia, unspecified SNOMED: 517996422 Qualifiers: Qualified Codes: D64.9 - Anemia, unspecified (2) Cellulitis of right upper extremity ICD Codes: L03.113 - Cellulitis of right upper limb SNOMED: 975014369 (3) Renal insufficiency ICD Codes: N28.9 - Disorder of kidney and ureter, unspecified SNOMED: 397324972, 822365188 (4) UTI (urinary tract infection) ICD Codes: N39.0 - Urinary tract infection, site not specified SNOMED: 59336124, 492313304 Qualifiers: Qualified Codes: N39.0 - Urinary tract infection, site not specified (5) History of seizure ICD Codes: Z87.898 - Personal history of other specified conditions SNOMED: 613134765 (6) COPD (chronic obstructive pulmonary disease) ICD Codes: J44.9 - Chronic obstructive pulmonary disease, unspecified SNOMED: 95864779 (7) ATN (acute tubular necrosis) ICD Codes: N17.0 - Acute kidney failure with tubular necrosis SNOMED: 57066765 (8) Hyperkalemia, diminished renal excretion ICD Codes: E87.5 - Hyperkalemia SNOMED: 26158109, 918579461 Status: unchanged Assessment/Plan wound care abx pt diet cbc bmp am gi eval Subjective Constitutional: Reports: weakness Allergies: Coded Allergies: ATORVASTATIN (Unverified Allergy, Unknown, 07/27/18) Uncoded Allergies: VITAMIN B12 (Allergy, Unknown, 07/27/18) VITAMIN D (Allergy, Unknown, 07/27/18) All Systems: reviewed and negative except above Subjective confused in bed ng Objective Last 24 Hour Vital Signs Date Time Temp Pulse Resp B/P (MAP) Pulse Ox O2 Delivery O2 Flow Rate FiO2 07/31/18 08:00 97.3 84 20 121/61 (81) 100 07/31/18 04:00 89 07/31/18 04:00 97.4 91 19 138/69 (92) 97 07/31/18 00:00 96.8 100 18 129/66 (87) 93 07/31/18 00:00 98 07/30/18 21:00 Room Air 07/30/18 20:00 97.0 98 19 115/70 (85) 92 07/30/18 20:00 98 07/30/18 16:00 97.4 93 20 137/95 (109) 94 07/30/18 15:33 88 07/30/18 12:00 97.6 97 20 129/61 (83) 94 07/30/18 11:29 100 Intake and Output 07/30/18 07/31/18 19:00 07:00 Intake Total 770 ml Output Total 1500 ml 1500 ml Balance -1500 ml -730 ml Free Water 500 ml Tube Feeding 270 ml Output Urine Total 1500 ml 1500 ml Laboratory Tests 07/31/18 06:44: White Blood Count 4.2L, Red Blood Count 3.53L, Hemoglobin 9.2L, Hematocrit 29.5L , Mean Corpuscular Volume 84, Mean Corpuscular Hemoglobin 26.0L, Mean Corpuscular Hemoglobin Concent 31.2L, Red Cell Distribution Width 17.9H, Platelet Count 93L, Mean Platelet Volume 6.2L, Neutrophils (%) (Auto) , Lymphocytes (%) (Auto) , Monocytes (%) (Auto) , Eosinophils (%) (Auto) , Basophils (%) (Auto) , Differential Total Cells Counted 100, Neutrophils % ( Manual) 75, Lymphocytes % (Manual) 18L, Monocytes % (Manual) 6, Eosinophils % ( Manual) 1, Basophils % (Manual) 0, Band Neutrophils 0, Platelet Estimate DecreasedL, Platelet Morphology Normal, Hypochromasia 1+, Anisocytosis 1+, Sodium Level 141, Potassium Level 4.6, Chloride Level 109H, Carbon Dioxide Level 28, Anion Gap 5, Blood Urea Nitrogen 39H, Creatinine 1.4H, Estimat Glomerular Filtration Rate 50.7, Glucose Level 92, Calcium Level 9.5, Phosphorus Level 3.7, Magnesium Level 1.4L, Total Bilirubin 0.6, Aspartate Amino Transf (AST/SGOT) 20, Alanine Aminotransferase (ALT/SGPT) 26, Alkaline Phosphatase 143H, Total Protein 6.7, Albumin 1.9L, Globulin 4.8, Albumin/ Globulin Ratio 0.4L Height (Feet): 5 Height (Inches): 6.00 Weight (Pounds): 185 General Appearance: lethargic EENT: normal ENT inspection Neck: normal alignment Cardiovascular: normal peripheral pulses, normal rate, regular rhythm Respiratory/Chest: chest wall non-tender, lungs clear, normal breath sounds Abdomen: normal bowel sounds, non tender, soft Extremities: normal inspection Edema: no edema noted Arm (L), no edema noted Arm (R), no edema noted Leg (L), no edema noted Leg (R), no edema noted Pedal (L), no edema noted Pedal (R), no edema noted Generalized Neurologic: motor weakness Skin: normal pigmentation, warm/dry Objective r wrist dressing c&d Michael Johnson DO Jul 31, 2018 10:43
[2018-07-31] MEDS: Cefepime 2gm/D5W 110ml IV SCH ×2 (10:48)
[2018-07-31 12:00] VITALS: BP 140/71
[2018-07-31] MEDS: Vancomycin 1.5 GM/D5W 250ML IVPB SCH (12:21)
--- NOTE | 2018-07-31 13:18 | Cardiac Electrophysiology PN ---
Assessment/Plan Assessment/Plan 1. Hyperkalemia. Resolved after Kayexalate. The patient's EKG showed no acute ischemic changes. Echocardiogram 55% 2. History of hypertension. Blood pressure currently is stable off antihypertensive agents. 3. Pancytopenia. 4. Right arm swelling and cellulitis, on IV antibiotics. 5. Renal insufficiency 6. Dysphagia, Swallow eval pending 7. SOB. EF 55% 8. COPD FU Dr Rosita WALL RN Subjective Subjective Transferred to [facility] for SOB. Has NG tube in. Swallow eval still pending on Wednesday Objective Last 24 Hour Vital Signs Date Time Temp Pulse Resp B/P (MAP) Pulse Ox O2 Delivery O2 Flow Rate FiO2 07/31/18 12:00 97.5 81 20 140/71 (94) 100 07/31/18 09:00 Room Air 07/31/18 08:00 97.3 84 20 121/61 (81) 100 07/31/18 08:00 85 07/31/18 04:00 89 07/31/18 04:00 97.4 91 19 138/69 (92) 97 07/31/18 00:00 96.8 100 18 129/66 (87) 93 07/31/18 00:00 98 07/30/18 21:00 Room Air 07/30/18 20:00 97.0 98 19 115/70 (85) 92 07/30/18 20:00 98 07/30/18 16:00 97.4 93 20 137/95 (109) 94 07/30/18 15:33 88 Intake and Output 07/30/18 07/31/18 19:00 07:00 Intake Total 770 ml Output Total 1500 ml 1500 ml Balance -1500 ml -730 ml Free Water 500 ml Tube Feeding 270 ml Output Urine Total 1500 ml 1500 ml Laboratory Tests Test 07/31/18 06:44 White Blood Count 4.2 K/UL (4.8-10.8) L Red Blood Count 3.53 M/UL (4.70-6.10) L Hemoglobin 9.2 G/DL (14.2-18.0) L Hematocrit 29.5 % (42.0-52.0) L Mean Corpuscular Volume 84 FL (80-99) Mean Corpuscular Hemoglobin 26.0 PG (27.0-31.0) L Mean Corpuscular Hemoglobin Concent 31.2 G/DL (32.0-36.0) L Red Cell Distribution Width 17.9 % (11.6-14.8) H Platelet Count 93 K/UL (150-450) L Mean Platelet Volume 6.2 FL (6.5-10.1) L Neutrophils (%) (Auto) % (45.0-75.0) Lymphocytes (%) (Auto) % (20.0-45.0) Monocytes (%) (Auto) % (1.0-10.0) Eosinophils (%) (Auto) % (0.0-3.0) Basophils (%) (Auto) % (0.0-2.0) Differential Total Cells Counted 100 Neutrophils % (Manual) 75 % (45-75) Lymphocytes % (Manual) 18 % (20-45) L Monocytes % (Manual) 6 % (1-10) Eosinophils % (Manual) 1 % (0-3) Basophils % (Manual) 0 % (0-2) Band Neutrophils 0 % (0-8) Platelet Estimate Decreased L Platelet Morphology Normal Hypochromasia 1+ Anisocytosis 1+ Sodium Level 141 MMOL/L (136-145) Potassium Level 4.6 MMOL/L (3.5-5.1) Chloride Level 109 MMOL/L (98-107) H Carbon Dioxide Level 28 MMOL/L (21-32) Anion Gap 5 mmol/L (5-15) Blood Urea Nitrogen 39 mg/dL (7-18) H Creatinine 1.4 MG/DL (0.55-1.30) H Estimat Glomerular Filtration Rate 50.7 mL/min (>60) Glucose Level 92 MG/DL (74-106) Calcium Level 9.5 MG/DL (8.5-10.1) Phosphorus Level 3.7 MG/DL (2.5-4.9) Magnesium Level 1.4 MG/DL (1.8-2.4) L Total Bilirubin 0.6 MG/DL (0.2-1.0) Aspartate Amino Transf (AST/SGOT) 20 U/L (15-37) Alanine Aminotransferase (ALT/SGPT) 26 U/L (12-78) Alkaline Phosphatase 143 U/L (46-116) H Total Protein 6.7 G/DL (6.4-8.2) Albumin 1.9 G/DL (3.4-5.0) L Globulin 4.8 g/dL Albumin/Globulin Ratio 0.4 (1.0-2.7) L Objective HEAD AND NECK: No JVD. LUNGS: Coarse rhonchi CARDIOVASCULAR: Shows regular S1 and S2 with no gallop. ABDOMEN: Soft. EXTREMITIES: 2+ pitting edema on the right arm and leg. Rios Barron MD Jul 31, 2018 13:18
--- NOTE | 2018-07-31 13:39 | Neurology Progress Note ---
Interim History Interim History Interim History Mr. Tran is awake and alert. He is able to say a few words and able to understand commands. He however is still moderately aphasic. He continues to be cognitively impoverished. He continues to be generally weak. His right UE however is less swollen. He wants to eat. Review of Systems Neuro Review of Systems Unable to evaluate. Objective Physical Exam Last Vital Signs Date Time Temp Pulse Resp B/P (MAP) Pulse Ox O2 Delivery O2 Flow Rate FiO2 07/31/18 12:00 97.5 81 20 140/71 (94) 100 07/31/18 09:00 Room Air 07/30/18 08:36 21 07/29/18 16:40 2.0 Laboratory Tests Test 07/31/18 06:44 White Blood Count 4.2 K/UL (4.8-10.8) L Red Blood Count 3.53 M/UL (4.70-6.10) L Hemoglobin 9.2 G/DL (14.2-18.0) L Hematocrit 29.5 % (42.0-52.0) L Mean Corpuscular Volume 84 FL (80-99) Mean Corpuscular Hemoglobin 26.0 PG (27.0-31.0) L Mean Corpuscular Hemoglobin Concent 31.2 G/DL (32.0-36.0) L Red Cell Distribution Width 17.9 % (11.6-14.8) H Platelet Count 93 K/UL (150-450) L Mean Platelet Volume 6.2 FL (6.5-10.1) L Neutrophils (%) (Auto) % (45.0-75.0) Lymphocytes (%) (Auto) % (20.0-45.0) Monocytes (%) (Auto) % (1.0-10.0) Eosinophils (%) (Auto) % (0.0-3.0) Basophils (%) (Auto) % (0.0-2.0) Differential Total Cells Counted 100 Neutrophils % (Manual) 75 % (45-75) Lymphocytes % (Manual) 18 % (20-45) L Monocytes % (Manual) 6 % (1-10) Eosinophils % (Manual) 1 % (0-3) Basophils % (Manual) 0 % (0-2) Band Neutrophils 0 % (0-8) Platelet Estimate Decreased L Platelet Morphology Normal Hypochromasia 1+ Anisocytosis 1+ Sodium Level 141 MMOL/L (136-145) Potassium Level 4.6 MMOL/L (3.5-5.1) Chloride Level 109 MMOL/L (98-107) H Carbon Dioxide Level 28 MMOL/L (21-32) Anion Gap 5 mmol/L (5-15) Blood Urea Nitrogen 39 mg/dL (7-18) H Creatinine 1.4 MG/DL (0.55-1.30) H Estimat Glomerular Filtration Rate 50.7 mL/min (>60) Glucose Level 92 MG/DL (74-106) Calcium Level 9.5 MG/DL (8.5-10.1) Phosphorus Level 3.7 MG/DL (2.5-4.9) Magnesium Level 1.4 MG/DL (1.8-2.4) L Total Bilirubin 0.6 MG/DL (0.2-1.0) Aspartate Amino Transf (AST/SGOT) 20 U/L (15-37) Alanine Aminotransferase (ALT/SGPT) 26 U/L (12-78) Alkaline Phosphatase 143 U/L (46-116) H Total Protein 6.7 G/DL (6.4-8.2) Albumin 1.9 G/DL (3.4-5.0) L Globulin 4.8 g/dL Albumin/Globulin Ratio 0.4 (1.0-2.7) L Neurologic Exam Objective PHYSICAL EXAMINATION: GENERAL: He is a well-developed, well-nourished, gentleman, lying in bed, in no acute distress. HEAD: Normocephalic and atraumatic. EENT: Examination benign. NECK: No neck rigidity was observed. NEUROLOGIC EXAMINATION: MENTAL STATUS EXAMINATION: He was awake and alert. He was oriented to self only. He was able to follow simple commands. He was unable to cooperate for further mental status testing. SPEECH: He was dysarthric. LANGUAGE: He was able to follow simple commands inconsistently and able to express himself minimally. CRANIAL NERVE EXAMINATION: II: He did blink to threat. He was able to count fingers. III, IV & : The external ocular movements were present. The pupils were 3 mm in diameter, equal, round, regular, and reactive sluggishly to light. V & VII: The corneal reflexes were equal and brisker. VIII: He did respond to sounds and had no nystagmus. IX & X: The gag reflex was present, but significantly subdued. XI: The sternocleidomastoids and trapezii did function. XII: The tongue was in the midline without any fasciculations or atrophy. MOTOR SYSTEM: The tone was increased in all four extremities with a combination of spasticity and gegenhalten. Examination of muscle mass revealed generalized wasting. Examination of power was difficult to perform accurately. He moved all four extremities on command but was generally weak. SENSORY EXAMINATION: He responded appropriately to deep painful stimuli. He could not cooperate for other sensory modalities. REFLEXES: 0 at the biceps, triceps, brachioradialis, knees, and ankles. The plantar responses were flexor bilaterally. COORDINATION, STANCE & GAIT: Could not be tested. Impression/Recommendations Diagnostic Impression 1. Mr. Juan Tran is a 68-year-old, gentleman, of unknown handedness , who [facility] in a jail. He has a past history of hypertension, chronic obstructive pulmonary disease, renal dysfunction, seizure disorder, anemia, urinary tract infections, and right upper extremity cellulitis. He was hospitalized for an alteration in mental state and worsening of his right upper extremity cellulitis. At this point in time, he is nonverbal and is unable to give any history. 2. He is awake and alert. He is able to say a few words and able to understand commands. He however is still moderately aphasic. He continues to be cognitively impoverished. He continues to be generally weak. His right UE however is less swollen. He wants to eat. 3. On neurological examination, at this time, he is awake, alert and minimally verbal. He is oriented to self only. He is able to follow simple commands. He is unable to cooperate for further mental status testing. His speech is dysarthric. He is able to follow simple commands inconsistently and able to express himself minimally. He does not demonstrate any lateralizing cranial nerve dysfunction. He he moves all four extremities on command and his deep tendon reflexes are globally absent. His plantar responses are flexor. 4. Laboratory data obtained thus far revealed that he is anemic with a hemoglobin of 8.0 G. His chemistry panel revealed an elevated potassium at 6.6 , BUN elevated at 48, creatinine elevated at 1.3, blood glucose elevated at 198 , alkaline phosphatase elevated to 129, albumin low at 1.8. His urinalysis revealed 3+ leukocyte esterase, 15-20 RBCs and too numerous to count WBCs per high-power field. 5. Further laboratory tests have revealed an elevated TSH. 6. The MRI done on 07/29/18 was marred by movement artifact but did not reveal any acute pathology. Old deep white matter disease and atrophy was seen. 7. The EEG done on 07/29/18 revealed a severe toxic metabolic encephalopathy and multifocal epileptogenic discharges from F3/F4/T3/T4. No electrographic or clinical seizures were noted. 8. The patient's history and neurological examination are most compatible with cellulitis of the right upper extremity and a significant urinary tract infection. However, it is unclear as to what his change of mental state represents as his baseline mental state is unknown to us. 9. In addition, he also carries a history of a seizure disorder, but it is unclear as to what type of seizure disorder he has. Recommendations 1. Continue present management. 2. Would try to obtain a better history regarding his baseline mental state and seizure type. 3. Continue Depakote to 1 G q 12 hours. 4. Aggressive treatment of infection. 5. Observe closely. 6. Swallowing study as planned. Preston Escalera M.D., M.S.P.H. Preston Escalera MD Jul 31, 2018 13:39
--- NOTE | 2018-07-31 14:41 | Cardiology Report ---
APPROVED REPORT EXAM: Two-dimensional and M-mode echocardiogram with Doppler and color Doppler. INDICATION Congestive Heart Failure M-Mode DIMENSIONS IVSd0.9 (0.7-1.1cm)Left Atrium (MM)3.6 (1.6-4.0cm) LVDd4.6 (3.5-5.6cm)Aortic Root2.9 (2.0-3.7cm) PWd1.0 (0.7-1.1cm)Aortic Cusp Exc.2.0 (1.5-2.0cm) LVDs2.6 (2.5-4.0cm) PWs1.7 cm Technically difficult study due to poor acoustic windows. Study quality precludes accurate assessment of regional wall motion. Normal left ventricular chamber size, systolic function and wall motion. Left ventricular ejection fraction estimated to be 55 %. No evidence of left ventricular hypertrophy. No evidence of pericardial effusion. All other cardiac chamber sizes are within normal limits. Mild focal aortic valve sclerosis with adequate cusp excursion. Mildly thickened mitral valve leaflets with normal excursion. Mild mitral annulus and aortic root calcification. Pulmonic valve not visualized. Normal tricuspid valve structure. IVC dilated at 2.5 cm with physiological collapse, suggestive of increased RA pressure. A color flow and spectral Doppler study was performed and revealed: Trace aortic insufficiency. Peak aortic valve gradient of 18 mmHg and a mean of 10 mmHg. Trace mitral regurgitation. Normal left ventricular diastolic function. Trace tricuspid regurgitation. Tricuspid systolic velocities suggests peak right ventricular systolic pressure of 39 mmHg, consistent with mild pulmonary hypertension.
--- NOTE | 2018-07-31 14:51 | General Progress Note ---
Assessment/Plan Assessment/Plan # Pancytopenia -- mutliple etiologies possible, potentially related to infection /viralcauses, ongoing multiple infections, celluliis, baseline unknown, 1st time admitted --> hepatitis and hiv are negative --> anemia panel reviewed and is cw acd --> us of the abdomen has been ordered and shows fatty liver infiltration --> if no underyling cause, consider a bone marrow biopsy --> peripheral smear review --> med reviewed as well # Anemia of chronic disease --> panel has been reviewed --> transfuse to hgb goal >7 # Cellulitis of right upper extremity --> s/p treatment with abx --> appre id and surg recs # Hyperkalemia, diminished renal excretion --> as per renal recs --> on ivf # Renal insufficiency --> s/p ivf administration # UTI (urinary tract infection) # Dysphagia --> ng in place Greatly appreciate consultation! Subjective Constitutional: Denies: no symptoms, chills, diaphoresis, fever, malaise, weakness, other HEENT: Denies: no symptoms, eye pain, blurred vision, tearing, double vision, ear pain, ear discharge, nose pain, nose congestion, throat pain, throat swelling, mouth pain, mouth swelling, other Cardiovascular: Denies: no symptoms, chest pain, edema, irregular heart rate, lightheadedness, palpitations, syncope, other Respiratory: Denies: no symptoms, cough, orthopnea, shortness of breath, SOB with excertion, SOB at rest, sputum, stridor, wheezing, other Gastrointestinal/Abdominal: Denies: no symptoms, abdomen distended, abdominal pain, black stools, tarry stools, blood in stool, constipated, diarrhea, difficulty swallowing, nausea, poor appetite, poor fluid intake, rectal bleeding , vomiting, other Genitourinary: Denies: no symptoms, burning, discharge, frequency, flank pain, hematuria, incontinence, pain, urgency, other Neurologic/Psychiatric: Denies: no symptoms, anxiety, depressed, emotional problems, headache, numbness, paresthesia, pre-existing deficit, seizure, tingling, tremors, weakness, other Hematologic/Lymphatic: Denies: no symptoms, anemia, easy bleeding, easy bruising, other Allergies: Coded Allergies: ATORVASTATIN (Unverified Allergy, Unknown, 07/27/18) Uncoded Allergies: VITAMIN B12 (Allergy, Unknown, 07/27/18) VITAMIN D (Allergy, Unknown, 07/27/18) Subjective 07/30: remains without events, nonverbal, less swollen arm/less cellulitis 07/31: getting wound care, Transferred to [facility] for SOB. Has NG tube in. Swallow eval still pending on Wednesday Objective Last 24 Hour Vital Signs Date Time Temp Pulse Resp B/P (MAP) Pulse Ox O2 Delivery O2 Flow Rate FiO2 07/31/18 12:00 97.5 81 20 140/71 (94) 100 07/31/18 11:43 81 07/31/18 09:00 Room Air 07/31/18 08:00 97.3 84 20 121/61 (81) 100 07/31/18 08:00 85 07/31/18 04:00 89 07/31/18 04:00 97.4 91 19 138/69 (92) 97 07/31/18 00:00 96.8 100 18 129/66 (87) 93 07/31/18 00:00 98 07/30/18 21:00 Room Air 07/30/18 20:00 97.0 98 19 115/70 (85) 92 07/30/18 20:00 98 07/30/18 16:00 97.4 93 20 137/95 (109) 94 07/30/18 15:33 88 Intake and Output 07/30/18 07/31/18 19:00 07:00 Intake Total 770 ml Output Total 1500 ml 1500 ml Balance -1500 ml -730 ml Free Water 500 ml Tube Feeding 270 ml Output Urine Total 1500 ml 1500 ml Laboratory Tests 07/31/18 06:44: White Blood Count 4.2L, Red Blood Count 3.53L, Hemoglobin 9.2L, Hematocrit 29.5L , Mean Corpuscular Volume 84, Mean Corpuscular Hemoglobin 26.0L, Mean Corpuscular Hemoglobin Concent 31.2L, Red Cell Distribution Width 17.9H, Platelet Count 93L, Mean Platelet Volume 6.2L, Neutrophils (%) (Auto) , Lymphocytes (%) (Auto) , Monocytes (%) (Auto) , Eosinophils (%) (Auto) , Basophils (%) (Auto) , Differential Total Cells Counted 100, Neutrophils % ( Manual) 75, Lymphocytes % (Manual) 18L, Monocytes % (Manual) 6, Eosinophils % ( Manual) 1, Basophils % (Manual) 0, Band Neutrophils 0, Platelet Estimate DecreasedL, Platelet Morphology Normal, Hypochromasia 1+, Anisocytosis 1+, Sodium Level 141, Potassium Level 4.6, Chloride Level 109H, Carbon Dioxide Level 28, Anion Gap 5, Blood Urea Nitrogen 39H, Creatinine 1.4H, Estimat Glomerular Filtration Rate 50.7, Glucose Level 92, Calcium Level 9.5, Phosphorus Level 3.7, Magnesium Level 1.4L, Total Bilirubin 0.6, Aspartate Amino Transf (AST/SGOT) 20, Alanine Aminotransferase (ALT/SGPT) 26, Alkaline Phosphatase 143H, Total Protein 6.7, Albumin 1.9L, Globulin 4.8, Albumin/ Globulin Ratio 0.4L Height (Feet): 5 Height (Inches): 6.00 Weight (Pounds): 185 Objective HEAD AND NECK: No JVD. LUNGS: Coarse rhonchi CARDIOVASCULAR: Shows regular S1 and S2 with no gallop. ABDOMEN: Soft. EXTREMITIES: 2+ pitting edema on the right arm and leg. Alex Lino MD Jul 31, 2018 14:50
--- NOTE | 2018-07-31 15:38 | Pulmonology Progress Note ---
Assessment/Plan Problems: (1) ATN (acute tubular necrosis) (2) COPD (chronic obstructive pulmonary disease) (3) History of seizure (4) UTI (urinary tract infection) (5) Hyperkalemia, diminished renal excretion (6) Cellulitis of right upper extremity (7) Anemia Assessment/Plan NG tube, tolerating well symptomatic treatment K slightly lower iv fluids neuro f/u respiratory treatment. Subjective ROS Limited/Unobtainable: No Constitutional: Reports: no symptoms HEENT: Repors: no symptoms Respiratory: Reports: no symptoms Allergies: Coded Allergies: ATORVASTATIN (Unverified Allergy, Unknown, 07/27/18) Uncoded Allergies: VITAMIN B12 (Allergy, Unknown, 07/27/18) VITAMIN D (Allergy, Unknown, 07/27/18) Objective Last 24 Hour Vital Signs Date Time Temp Pulse Resp B/P (MAP) Pulse Ox O2 Delivery O2 Flow Rate FiO2 07/31/18 12:00 97.5 81 20 140/71 (94) 100 07/31/18 11:43 81 07/31/18 09:00 Room Air 07/31/18 08:00 97.3 84 20 121/61 (81) 100 07/31/18 08:00 85 07/31/18 04:00 89 07/31/18 04:00 97.4 91 19 138/69 (92) 97 07/31/18 00:00 96.8 100 18 129/66 (87) 93 07/31/18 00:00 98 07/30/18 21:00 Room Air 07/30/18 20:00 97.0 98 19 115/70 (85) 92 07/30/18 20:00 98 07/30/18 16:00 97.4 93 20 137/95 (109) 94 Intake and Output 07/30/18 07/31/18 19:00 07:00 Intake Total 770 ml Output Total 1500 ml 1500 ml Balance -1500 ml -730 ml Free Water 500 ml Tube Feeding 270 ml Output Urine Total 1500 ml 1500 ml Objective General Appearance: WD/WN Lines, tubes and drains: peripheral HEENT: normocephalic, atraumatic Neck: non-tender, normal alignment Breasts: no masses Cardiovascular/Chest: normal rate Genitourinary/Rectal: normal genital exam Skin Exam: normal pigmentation, rash, other - Laboratory Tests 07/31/18 06:44: White Blood Count 4.2L, Red Blood Count 3.53L, Hemoglobin 9.2L, Hematocrit 29.5L , Mean Corpuscular Volume 84, Mean Corpuscular Hemoglobin 26.0L, Mean Corpuscular Hemoglobin Concent 31.2L, Red Cell Distribution Width 17.9H, Platelet Count 93L, Mean Platelet Volume 6.2L, Neutrophils (%) (Auto) , Lymphocytes (%) (Auto) , Monocytes (%) (Auto) , Eosinophils (%) (Auto) , Basophils (%) (Auto) , Differential Total Cells Counted 100, Neutrophils % ( Manual) 75, Lymphocytes % (Manual) 18L, Monocytes % (Manual) 6, Eosinophils % ( Manual) 1, Basophils % (Manual) 0, Band Neutrophils 0, Platelet Estimate DecreasedL, Platelet Morphology Normal, Hypochromasia 1+, Anisocytosis 1+, Sodium Level 141, Potassium Level 4.6, Chloride Level 109H, Carbon Dioxide Level 28, Anion Gap 5, Blood Urea Nitrogen 39H, Creatinine 1.4H, Estimat Glomerular Filtration Rate 50.7, Glucose Level 92, Calcium Level 9.5, Phosphorus Level 3.7, Magnesium Level 1.4L, Total Bilirubin 0.6, Aspartate Amino Transf (AST/SGOT) 20, Alanine Aminotransferase (ALT/SGPT) 26, Alkaline Phosphatase 143H, Total Protein 6.7, Albumin 1.9L, Globulin 4.8, Albumin/ Globulin Ratio 0.4L Current Medications Medications (Trade) Dose Ordered Sig/Violette Route PRN Reason Start Time Stop Time Status Last Admin Dose Admin Acetaminophen (Tylenol) 650 mg Q4H PRN ORAL fever 07/28/18 07:00 08/27/18 06:59 Albuterol/ Ipratropium (Albuterol/ Ipratropium) 3 ml Q4H PRN HHN Shortness of Breath 07/28/18 07:00 08/02/18 06:59 Cefepime HCl 2 gm/ Dextrose 110 ml @ 220 mls/hr DAILY IV 07/31/18 09:00 08/07/18 08:59 07/31/18 10:48 Chlorhexidine Gluconate (Samantha-Hex 2%) 1 applic DAILY@2000 TOPIC 07/29/18 20:00 08/28/18 19:59 07/30/18 22:24 Dextrose (Dextrose 50%) 25 ml Q30M PRN IV Hypoglycemia 07/28/18 09:15 08/27/18 09:14 Dextrose (Dextrose 50%) 50 ml Q30M PRN IV Hypoglycemia 07/28/18 09:15 08/27/18 09:14 Divalproex Sodium (Depakote Sprinkles) 1,000 mg Q12HR ORAL 07/30/18 21:00 08/29/18 20:59 Insulin Aspart (NovoLOG) Q6HR SUBQ 07/31/18 06:00 08/27/18 11:29 Lansoprazole (Prevacid) 30 mg DAILY NG 07/31/18 09:00 08/27/18 08:59 07/31/18 10:42 Lorazepam (Ativan) 0.5 mg Q6H PRN ORAL For Anxiety 07/29/18 04:30 08/05/18 04:29 Magnesium Sulfate 100 ml @ 100 mls/hr Q1H IVPB 07/31/18 14:00 07/31/18 17:59 07/31/18 15:07 Morphine Sulfate (Morphine Sulfate) 2 mg Q4H PRN IVP Moderate Pain (Pain Scale 4-6) 07/28/18 07:00 08/04/18 06:59 Nitroglycerin (Ntg) 0.4 mg Q5M PRN SL Prn Chest Pain 07/28/18 07:00 08/27/18 06:59 Ondansetron HCl (Zofran) 4 mg Q6H PRN IVP Nausea & Vomiting 07/28/18 07:00 08/27/18 06:59 Paroxetine HCl (Paxil) 20 mg DAILY ORAL 07/29/18 09:00 08/28/18 08:59 07/31/18 10:42 Polyethylene Glycol (Miralax) 17 gm DAILYPRN PRN ORAL Constipation 07/28/18 07:00 08/27/18 06:59 Risperidone (RisperDAL) 1 mg BID ORAL 07/29/18 09:00 08/28/18 08:59 07/31/18 10:42 Sodium Polystyrene Sulfonate (Kayexalate) 30 gm THREE TIMES A DAY ORAL 07/29/18 09:00 08/28/18 08:59 07/31/18 13:36 Sodium Chloride 1,000 ml @ 125 mls/hr Q8H IV 07/30/18 14:05 08/29/18 14:04 07/31/18 13:36 Temazepam (Restoril) 15 mg HSPRN PRN ORAL Insomnia 07/28/18 07:00 08/04/18 06:59 Vancomycin HCl (Vanco rx to dose) 1 ea DAILY PRN MISC Per rx protocol 07/28/18 07:30 08/27/18 07:29 Vancomycin HCl/ Dextrose 250 ml @ 125 mls/hr Q24H IVPB 07/29/18 12:00 08/03/18 11:59 07/31/18 12:21 Lazaro Becker MD Jul 31, 2018 15:38
--- NOTE | 2018-07-31 15:43 | Nephrology Progress Note ---
Assessment/Plan Problem List: (1) Renal insufficiency Assessment: acute on chronic (2) Hyperkalemia (3) Anemia (4) Hypoalbuminemia (5) History of seizure Assessment Renal failure- Acute on Chronic, presents with hyperkalemia COPD Sz disorder UTI Anemia cellulitis Rt UE HypoAlbuminemia Plan NGT St eval Hydrate Kayexelate Nepro NGT stop heparin SQ Monitor renal parameters Anemia shay antibiotics avoid Nephrotoxics per orders Subjective ROS Limited/Unobtainable: No Constitutional: Reports: other - more responsive Objective Objective Last 24 Hour Vital Signs Date Time Temp Pulse Resp B/P (MAP) Pulse Ox O2 Delivery O2 Flow Rate FiO2 07/31/18 12:00 97.5 81 20 140/71 (94) 100 07/31/18 11:43 81 07/31/18 09:00 Room Air 07/31/18 08:00 97.3 84 20 121/61 (81) 100 07/31/18 08:00 85 07/31/18 04:00 89 07/31/18 04:00 97.4 91 19 138/69 (92) 97 07/31/18 00:00 96.8 100 18 129/66 (87) 93 07/31/18 00:00 98 07/30/18 21:00 Room Air 07/30/18 20:00 97.0 98 19 115/70 (85) 92 07/30/18 20:00 98 07/30/18 16:00 97.4 93 20 137/95 (109) 94 Intake and Output 07/30/18 07/31/18 19:00 07:00 Intake Total 770 ml Output Total 1500 ml 1500 ml Balance -1500 ml -730 ml Free Water 500 ml Tube Feeding 270 ml Output Urine Total 1500 ml 1500 ml Laboratory Tests 07/31/18 06:44: White Blood Count 4.2L, Red Blood Count 3.53L, Hemoglobin 9.2L, Hematocrit 29.5L , Mean Corpuscular Volume 84, Mean Corpuscular Hemoglobin 26.0L, Mean Corpuscular Hemoglobin Concent 31.2L, Red Cell Distribution Width 17.9H, Platelet Count 93L, Mean Platelet Volume 6.2L, Neutrophils (%) (Auto) , Lymphocytes (%) (Auto) , Monocytes (%) (Auto) , Eosinophils (%) (Auto) , Basophils (%) (Auto) , Differential Total Cells Counted 100, Neutrophils % ( Manual) 75, Lymphocytes % (Manual) 18L, Monocytes % (Manual) 6, Eosinophils % ( Manual) 1, Basophils % (Manual) 0, Band Neutrophils 0, Platelet Estimate DecreasedL, Platelet Morphology Normal, Hypochromasia 1+, Anisocytosis 1+, Sodium Level 141, Potassium Level 4.6, Chloride Level 109H, Carbon Dioxide Level 28, Anion Gap 5, Blood Urea Nitrogen 39H, Creatinine 1.4H, Estimat Glomerular Filtration Rate 50.7, Glucose Level 92, Calcium Level 9.5, Phosphorus Level 3.7, Magnesium Level 1.4L, Total Bilirubin 0.6, Aspartate Amino Transf (AST/SGOT) 20, Alanine Aminotransferase (ALT/SGPT) 26, Alkaline Phosphatase 143H, Total Protein 6.7, Albumin 1.9L, Globulin 4.8, Albumin/ Globulin Ratio 0.4L Height (Feet): 5 Height (Inches): 6.00 Weight (Pounds): 185 General Appearance: no apparent distress Cardiovascular: normal rate Respiratory/Chest: lungs clear Abdomen: soft Objective no change Shashi Patel MD Jul 31, 2018 15:43
[2018-07-31 16:00] VITALS: BP 149/75
[2018-07-31] MEDS ORDERED: 1/2 NS 1000ml IV ONE (16:37)
[2018-07-31] MEDS ORDERED: Sterile Water Irrig 1000ml IRRIG ONE (16:37)
--- NOTE | 2018-07-31 17:31 | General Progress Note ---
Assessment/Plan Assessment/Plan Assessment - AMS - COPD - NGT - Renal failure - Anemia RECOMMENDATIONS: 1. Follow CBC. 2. Replace blood and iron as needed. 3. Proton-pump inhibitor. 4. Nasogastric tube feeding. 5. Elevate head of bed. 6. Possible gastrostomy tube. 7. Stool OB pending Subjective Allergies: Coded Allergies: ATORVASTATIN (Unverified Allergy, Unknown, 07/27/18) Uncoded Allergies: VITAMIN B12 (Allergy, Unknown, 07/27/18) VITAMIN D (Allergy, Unknown, 07/27/18) Objective Last 24 Hour Vital Signs Date Time Temp Pulse Resp B/P (MAP) Pulse Ox O2 Delivery O2 Flow Rate FiO2 07/31/18 12:00 97.5 81 20 140/71 (94) 100 07/31/18 11:43 81 07/31/18 09:00 Room Air 07/31/18 08:00 97.3 84 20 121/61 (81) 100 07/31/18 08:00 85 07/31/18 04:00 89 07/31/18 04:00 97.4 91 19 138/69 (92) 97 07/31/18 00:00 96.8 100 18 129/66 (87) 93 07/31/18 00:00 98 07/30/18 21:00 Room Air 07/30/18 20:00 97.0 98 19 115/70 (85) 92 07/30/18 20:00 98 Intake and Output 07/30/18 07/31/18 19:00 07:00 Intake Total 770 ml Output Total 1500 ml 1500 ml Balance -1500 ml -730 ml Free Water 500 ml Tube Feeding 270 ml Output Urine Total 1500 ml 1500 ml Laboratory Tests 07/31/18 06:44: White Blood Count 4.2L, Red Blood Count 3.53L, Hemoglobin 9.2L, Hematocrit 29.5L , Mean Corpuscular Volume 84, Mean Corpuscular Hemoglobin 26.0L, Mean Corpuscular Hemoglobin Concent 31.2L, Red Cell Distribution Width 17.9H, Platelet Count 93L, Mean Platelet Volume 6.2L, Neutrophils (%) (Auto) , Lymphocytes (%) (Auto) , Monocytes (%) (Auto) , Eosinophils (%) (Auto) , Basophils (%) (Auto) , Differential Total Cells Counted 100, Neutrophils % ( Manual) 75, Lymphocytes % (Manual) 18L, Monocytes % (Manual) 6, Eosinophils % ( Manual) 1, Basophils % (Manual) 0, Band Neutrophils 0, Platelet Estimate DecreasedL, Platelet Morphology Normal, Hypochromasia 1+, Anisocytosis 1+, Sodium Level 141, Potassium Level 4.6, Chloride Level 109H, Carbon Dioxide Level 28, Anion Gap 5, Blood Urea Nitrogen 39H, Creatinine 1.4H, Estimat Glomerular Filtration Rate 50.7, Glucose Level 92, Calcium Level 9.5, Phosphorus Level 3.7, Magnesium Level 1.4L, Total Bilirubin 0.6, Aspartate Amino Transf (AST/SGOT) 20, Alanine Aminotransferase (ALT/SGPT) 26, Alkaline Phosphatase 143H, Total Protein 6.7, Albumin 1.9L, Globulin 4.8, Albumin/ Globulin Ratio 0.4L Height (Feet): 5 Height (Inches): 6.00 Weight (Pounds): 185 Objective Debilitated man NCAT supple CTA RR soft ND NT no edema OBS Nacho Curry MD Jul 31, 2018 17:31
--- NOTE | 2018-07-31 19:30 | NUR ---
HAND-OFF: Report given to CJ Jade. Endorsed plan of care.
--- NOTE | 2018-07-31 19:35 | NUR ---
NURSE NOTES: Received pt from CJ Wray. Pt awake, but unable to understand speech. Bed in lowest position. Pt on P200 mattress. Call light within reach. Will continue to monitor.
[2018-07-31 20:00] VITALS: BP 151/69
[2018-07-31] MEDS: Dyna-Hex 2% Top Sol 2oz TOPIC SCH (21:37)
[2018-08-01] VITALS: BP 152/71
[2018-08-01 04:00] VITALS: BP 121/70
[2018-08-01] MEDS: NovoLOG Insulin Flexpen SUBQ SCH ×5 (06:00→22:06)
[2018-08-01 06:36] LABS: HEMATOCRIT 26.5 % (42.0-52.0); HEMOGLOBIN 8.2 G/DL (14.2-18.0); MEAN CORPUSCULAR VOLUME 84 FL (80-99); PLATELET COUNT 75 K/UL (150-450); RED BLOOD COUNT 3.15 M/UL (4.70-6.10); RED CELL DISTRIBUTION WIDTH 17.8 % (11.6-14.8); WHITE BLOOD COUNT 4.9 K/UL (4.8-10.8)
[2018-08-01 06:54] LABS: ALANINE AMINOTRANSFERASE 25 U/L (12-78); ALBUMIN 1.9 G/DL (3.4-5.0); ALBUMIN/GLOBULIN RATIO 0.4 (1.0-2.7); ALKALINE PHOSPHATASE 148 U/L (46-116); ANION GAP 3 mmol/L (5-15); ASPARTATE AMINO TRANSFERASE 15 U/L (15-37); BILIRUBIN,TOTAL 0.5 MG/DL (0.2-1.0); BLOOD UREA NITROGEN 33 mg/dL (7-18); CALCIUM 9.6 MG/DL (8.5-10.1); CARBON DIOXIDE 31 MMOL/L (21-32); CHLORIDE 106 MMOL/L (98-107); CREATININE 1.3 MG/DL (0.55-1.30); PHOSPHORUS 3.5 MG/DL (2.5-4.9); POTASSIUM 3.6 MMOL/L (3.5-5.1); SODIUM 140 MMOL/L (136-145)
--- NOTE | 2018-08-01 07:57 | NUR ---
NURSE NOTES: Report received from CJ Jade. Observed patient in bed sleeping. Arousable by voice. No s/s of pain at this time. No distress noted in room air. NG tube intact with ongoing feeding. HOB elevated. F/C intact and draining well. IV site intact and patent. Bed in lowest position. Call light within reach. Will continue to monitor.
[2018-08-01 08:00] VITALS: BP 147/74
[2018-08-01] MEDS ORDERED: Sodium Polystyrene Sulfonate 15gm Powder ORAL SCH (09:00)
--- NOTE | 2018-08-01 09:00 | NUR ---
NURSE NOTES: Noted with patient pulled out his NG tube. NGT reinserted and ordered for KUB STAT. NEAL Miller made aware.
--- NOTE | 2018-08-01 09:26 | NUR ---
ST NOTE: BEDSIDE SWALLOW EVAL RECEIVED BEDSIDE SWALLOW EVAL CHART REVIEWED PRIOR THE EVALUATION PT IS A 68-YEAR-OLD MOH[place]-SPEAKING MALE WHO WAS ADMITTED DUE TO HYPERKALEMIA AND AMS. DYSPHAGIA RISK FACTORS: SEIZURES, GERD, H/O DYSPHAGIA, COPD, PSYCH(PARANOID SCHIZOPHRENIA), HTN, DMII, PARKINSONISM. PER CHART(TARDIVE DYSKINESIA) PER MRI: NO ACUTE CVA, HOWEVER MODERATE ATROPHY PER EEG: REVEALED SEVERE TOXIC METABOLIC ENCEPHALOPATHY AND MULTIFOCAL EPILEPTOGENIC DISCHARGES. PLOF: PT RESIDES AT SNF. PER CHART, PT WAS ON PUREE WITH NECTAR THICK LIQUIDS DIET AND PT IS ALSO FULL CODE. CURRENT STATUS: PT SEEN AT BEDSIDE IN AM. ALERT, COOPERATIVE, FOLLOWS SIMPLE DIRECTIONS WITH MAX CUES. PT WITH NC(2L), NO RESP DISTRESS WAS NOTED. PT WITH NGT. GIVEN PO TRIALS: MOISTEN SPONGE, AND ICE- CHIPS X 1(TSP) INITIAL IMPRESSION: S/S OF AT LEAST MILD TO MODERATE OR WORSENED OROPHARYNGEAL DYSPHAGIA MILD L-SIDED FACIAL WEAKNESS PT EDENTULOUS, FAIR TO GOOD LINGUAL MOVEMENT. MILD INCREASED ORAL TRANSIT TIME AND OROPHARYNGEAL TRANSIT TIME, FAIR LARYNGEAL ELEVATION, NO OVERT S/S OF ASPIRATION. NO FURTHER PO WAS GIVEN AT THIS TIME. HAS RISK FOR (SILENT) ASPIRATION. RECOMMENDATIONS: 1. CONTINUE NPO WITH NGT FEEDING 2. ORAL CARE 3. MODIFIED BARIUM SWALLOW STUDY(VIDEOSWALLOW STUDY) TO R/O ANY (SILENT) ASPIRATION RISK AND ETIOLOGY. (RECEIVED TELEPHONE ORDER, WILL FOLLOW) D/W RN, PT AND PATRICIO.
[2018-08-01] MEDS: PARoxetine 20mg tab ORAL SCH (09:58)
[2018-08-01] MEDS: Cefepime 2gm/D5W 110ml IV SCH ×2 (09:58)
--- NOTE | 2018-08-01 10:53 | NUR ---
RADIOLOGY DEPT CHEST X-RAY DONE.-P.DYE
--- NOTE | 2018-08-01 10:59 | General Surgery Progress Note ---
General Surgery-Progress Note Subjective Additional Comments no acute events. comfortable. labs noted Objective Last 24 Hour Vital Signs Date Time Temp Pulse Resp B/P (MAP) Pulse Ox O2 Delivery O2 Flow Rate FiO2 08/01/18 09:00 Nasal Cannula 2.0 08/01/18 08:00 97.2 79 20 147/74 (98) 98 08/01/18 07:29 Nasal Cannula 28 08/01/18 07:29 71 18 Nasal Cannula 28 08/01/18 07:29 100 Nasal Cannula 28 08/01/18 04:00 97.1 80 19 121/70 (87) 96 08/01/18 04:00 76 08/01/18 00:00 97.3 81 18 152/71 (98) 96 08/01/18 00:00 83 07/31/18 21:00 Room Air 07/31/18 20:00 97.2 81 18 151/69 (96) 96 07/31/18 19:59 92 18 Room Air 21 07/31/18 19:59 Room Air 21 07/31/18 19:59 92 Room Air 21 07/31/18 16:00 97.3 83 20 149/75 (99) 100 07/31/18 15:37 80 07/31/18 12:00 97.5 81 20 140/71 (94) 100 07/31/18 11:43 81 I&O Intake and Output 07/31/18 08/01/18 19:00 07:00 Output Total 700 ml 1000 ml Balance -700 ml -1000 ml Output Urine Total 700 ml 1000 ml # Bowel Movements 1 Dressing: saturated Wound: other Drains: other Cardiovascular: RSR Respiratory: clear Abdomen: soft, flat, non-tender, present bowel sounds Extremities: other Laboratory Tests Test 08/01/18 06:00 White Blood Count 4.9 K/UL (4.8-10.8) Red Blood Count 3.15 M/UL (4.70-6.10) L Hemoglobin 8.2 G/DL (14.2-18.0) L Hematocrit 26.5 % (42.0-52.0) L Mean Corpuscular Volume 84 FL (80-99) Mean Corpuscular Hemoglobin 26.1 PG (27.0-31.0) L Mean Corpuscular Hemoglobin Concent 31.1 G/DL (32.0-36.0) L Red Cell Distribution Width 17.8 % (11.6-14.8) H Platelet Count 75 K/UL (150-450) L Mean Platelet Volume 6.7 FL (6.5-10.1) Neutrophils (%) (Auto) % (45.0-75.0) Lymphocytes (%) (Auto) % (20.0-45.0) Monocytes (%) (Auto) % (1.0-10.0) Eosinophils (%) (Auto) % (0.0-3.0) Basophils (%) (Auto) % (0.0-2.0) Differential Total Cells Counted 100 Neutrophils % (Manual) 71 % (45-75) Lymphocytes % (Manual) 15 % (20-45) L Monocytes % (Manual) 7 % (1-10) Eosinophils % (Manual) 3 % (0-3) Basophils % (Manual) 1 % (0-2) Band Neutrophils 3 % (0-8) Platelet Estimate Decreased L Platelet Morphology Normal Anisocytosis 1+ Sodium Level 140 MMOL/L (136-145) Potassium Level 3.6 MMOL/L (3.5-5.1) Chloride Level 106 MMOL/L (98-107) Carbon Dioxide Level 31 MMOL/L (21-32) Anion Gap 3 mmol/L (5-15) L Blood Urea Nitrogen 33 mg/dL (7-18) H Creatinine 1.3 MG/DL (0.55-1.30) Estimat Glomerular Filtration Rate 55.2 mL/min (>60) Glucose Level 121 MG/DL (74-106) H Calcium Level 9.6 MG/DL (8.5-10.1) Phosphorus Level 3.5 MG/DL (2.5-4.9) Magnesium Level 2.0 MG/DL (1.8-2.4) Total Bilirubin 0.5 MG/DL (0.2-1.0) Aspartate Amino Transf (AST/SGOT) 15 U/L (15-37) Alanine Aminotransferase (ALT/SGPT) 25 U/L (12-78) Alkaline Phosphatase 148 U/L (46-116) H Total Protein 6.8 G/DL (6.4-8.2) Albumin 1.9 G/DL (3.4-5.0) L Globulin 4.9 g/dL Albumin/Globulin Ratio 0.4 (1.0-2.7) L Plan Problems: (1) Cellulitis of right upper extremity Assessment & Plan: right wrist cellulitis. 1.5cm ulceration noted. seropurulent drainage noted. minimal foul odor. cellulitis circumferential. pulses okay. hand okay. proximally okay edema improved today ulceration still draining edema in right arm and hand 2+ pitting. no abscess palpated. no areas of significant induration -Cont ABx -skin protectant and dressings for now -keep right arm elevated awaiting MRI results but clinically improved and no signs of abscess that needs drainage as ulceration is draining d/c planning will monitor clinically on medical therapy. (2) Decubitus ulcer of right buttock, stage 4 Assessment & Plan: patient presents with multiple wounds upon admission moderate sized stage 4 right buttock lower decubitus ulcer clean and seems to have had debridement prior right heel dti -apply hydrogel, gauze packing, dressings daily and prn -heel protectors, apply foam dressing to right heel -will monitor and treat wounds while in hospital -turn q2h -off load pressure -air mattress thank you Jin Hogan Aug 01, 2018 10:59
[2018-08-01] MEDS: Valproic Acid 250mg/5ml Liquid NG SCH ×2 (11:30→21:56)
--- NOTE | 2018-08-01 11:30 | Progress Note ---
DATE: 08/01/2018 SUBJECTIVE: This is a 68-year-old male patient with hypokalemia, but he still has a lot of mood lability and a lot of agitation in the unit. That is why, daily psychiatric consultation requested for this patient. MENTAL STATUS EXAMINATION: This is a 68-year-old male. Appearance is disheveled. Attitude, irritable and agitated. Affect, guarded and restricted. Intellect poor. Mood depressed and anxious. Motor activity, psychomotor agitation. Attention span is poor. Orientation x2. Speech is low volume and slurred. Thought process, disorganized and illogical. Thought content, auditory hallucinations and paranoid delusions. Insight and judgment is poor. DIAGNOSIS: Schizoaffective, bipolar type. PLAN: Treat him with Depakote 250 mg q.12 hours, Risperdal 2 mg twice a day, Paxil 20 mg every afternoon. Provide him with 20 minutes of cognitive behavioral therapy to help him identify his automatic negative thoughts and help him to convert those negative thoughts to more positive thoughts to reduce depression, anxiety, and suicidality. Chart is reviewed and discussed with staff. Seen and assessed at bedside. Becki Coe M.D. DR: RACHEL JOB#: [id number] CC:
[2018-08-01 11:53] VITALS: BP 143/71
--- NOTE | 2018-08-01 12:01 | GI Progress Note ---
Assessment/Plan Problems: (1) Dysphasia ICD Codes: R47.02 - Dysphasia SNOMED: 86813977 (2) Dehydration ICD Codes: E86.0 - Dehydration SNOMED: 55505321 (3) Hypoalbuminemia ICD Codes: E88.09 - Other disorders of plasma-protein metabolism, not elsewhere classified SNOMED: 248423350 (4) Anemia ICD Codes: D64.9 - Anemia, unspecified SNOMED: 715372147 Qualifiers: Qualified Codes: D64.9 - Anemia, unspecified Status: unchanged Status Narrative Discussed with Dr. Blanco Assessment/Plan Assessment/Plan Assessment - AMS - COPD - NGT - Renal failure - Anemia RECOMMENDATIONS: 1. Follow CBC. 2. Replace blood and iron as needed. 3. Proton-pump inhibitor. 4. Nasogastric tube feeding. 5. Elevate head of bed. 6. Possible gastrostomy tube, pending swallow evaluation 7. Stool OB pending Follow-up labs The patient was seen and examined at bedside and all new and available data was reviewed in the patients chart. I agree with the above findings, impression and plan. (Patient seen earlier today. Signature stamp does not reflect patient encounter time.). - Jyace Blanco MD Subjective Subjective Limited Objective Last 24 Hour Vital Signs Date Time Temp Pulse Resp B/P (MAP) Pulse Ox O2 Delivery O2 Flow Rate FiO2 08/01/18 11:53 97.1 71 20 143/71 (95) 96 08/01/18 09:00 Nasal Cannula 2.0 08/01/18 08:00 72 08/01/18 08:00 97.2 79 20 147/74 (98) 98 08/01/18 07:29 Nasal Cannula 28 08/01/18 07:29 71 18 Nasal Cannula 28 08/01/18 07:29 100 Nasal Cannula 28 08/01/18 04:00 97.1 80 19 121/70 (87) 96 08/01/18 04:00 76 08/01/18 00:00 97.3 81 18 152/71 (98) 96 08/01/18 00:00 83 07/31/18 21:00 Room Air 07/31/18 20:00 97.2 81 18 151/69 (96) 96 07/31/18 19:59 92 18 Room Air 21 07/31/18 19:59 Room Air 21 07/31/18 19:59 92 Room Air 21 07/31/18 16:00 97.3 83 20 149/75 (99) 100 07/31/18 15:37 80 Intake and Output 07/31/18 08/01/18 19:00 07:00 Output Total 700 ml 1000 ml Balance -700 ml -1000 ml Output Urine Total 700 ml 1000 ml # Bowel Movements 1 Laboratory Tests Test 08/01/18 06:00 08/01/18 11:00 White Blood Count 4.9 K/UL (4.8-10.8) Red Blood Count 3.15 M/UL (4.70-6.10) L Hemoglobin 8.2 G/DL (14.2-18.0) L Hematocrit 26.5 % (42.0-52.0) L Mean Corpuscular Volume 84 FL (80-99) Mean Corpuscular Hemoglobin 26.1 PG (27.0-31.0) L Mean Corpuscular Hemoglobin Concent 31.1 G/DL (32.0-36.0) L Red Cell Distribution Width 17.8 % (11.6-14.8) H Platelet Count 75 K/UL (150-450) L Mean Platelet Volume 6.7 FL (6.5-10.1) Neutrophils (%) (Auto) % (45.0-75.0) Lymphocytes (%) (Auto) % (20.0-45.0) Monocytes (%) (Auto) % (1.0-10.0) Eosinophils (%) (Auto) % (0.0-3.0) Basophils (%) (Auto) % (0.0-2.0) Differential Total Cells Counted 100 Neutrophils % (Manual) 71 % (45-75) Lymphocytes % (Manual) 15 % (20-45) L Monocytes % (Manual) 7 % (1-10) Eosinophils % (Manual) 3 % (0-3) Basophils % (Manual) 1 % (0-2) Band Neutrophils 3 % (0-8) Platelet Estimate Decreased L Platelet Morphology Normal Anisocytosis 1+ Sodium Level 140 MMOL/L (136-145) Potassium Level 3.6 MMOL/L (3.5-5.1) Chloride Level 106 MMOL/L (98-107) Carbon Dioxide Level 31 MMOL/L (21-32) Anion Gap 3 mmol/L (5-15) L Blood Urea Nitrogen 33 mg/dL (7-18) H Creatinine 1.3 MG/DL (0.55-1.30) Estimat Glomerular Filtration Rate 55.2 mL/min (>60) Glucose Level 121 MG/DL (74-106) H Calcium Level 9.6 MG/DL (8.5-10.1) Phosphorus Level 3.5 MG/DL (2.5-4.9) Magnesium Level 2.0 MG/DL (1.8-2.4) Total Bilirubin 0.5 MG/DL (0.2-1.0) Aspartate Amino Transf (AST/SGOT) 15 U/L (15-37) Alanine Aminotransferase (ALT/SGPT) 25 U/L (12-78) Alkaline Phosphatase 148 U/L (46-116) H Total Protein 6.8 G/DL (6.4-8.2) Albumin 1.9 G/DL (3.4-5.0) L Globulin 4.9 g/dL Albumin/Globulin Ratio 0.4 (1.0-2.7) L Vancomycin Level Trough Pending Height (Feet): 5 Height (Inches): 6.00 Weight (Pounds): 185 Cardiovascular: normal rate Respiratory/Chest: no respiratory distress Abdominal Exam: soft Josiane Mendoza NP Aug 01, 2018 12:01
--- NOTE | 2018-08-01 12:02 | Diagnostic Imaging Report ---
Indication: Right wrist and forearm cellulitis. Pain. Technique: MRI of the left distal forearm and wrist obtained in a 1.5 Keyonna magnet. Due to immobility and difficulty positioning the patient given underlying dementia, the wrist coil could not be utilized. Torso PA was used. Therefore the study was limited with regard to [id number] ratio and resolution. Pulse sequences obtained included multiplanar proton and T2 fast spin-echo with fat saturation, STIR and T1 fast spin-echo. No gadolinium was given. Comparison: None Findings: Some mild heterogeneous marrow signal noted throughout the carpus, visualized metatarsal bases and within the distal radius and ulna but no compelling evidence for osteomyelitis. Some curvilinear intramedullary signal abnormalities within the distal radius and ulna may be bone infarcts. Suggest plain film correlation. There is a fairly marked amount of subcutaneous edema present. In addition there is multiseptated ovoid to round fluid demonstrated in the volar aspect of the wrist adjacent to and in association with the distended distal radial ulnar joint capsule. These most likely represent ganglion or synovial cysts. There is moderate arthrosis of the wrist as well characterized by absent and degenerated articular cartilage, narrowed joint spaces subchondral signal changes. Evaluation for internal derangement is limited on this study due to field of view limitations. IMPRESSION: No evidence of acute osteomyelitis. 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 Correlation with plain film may be helpful. Moderate arthrosis of the wrist. Multiseptated collections noted adjacent to the distal radial ulnar joint and the flexor/palmar aspect of the distal forearm. These are likely ganglion cysts.
--- NOTE | 2018-08-01 12:35 | Nephrology Progress Note ---
Assessment/Plan Problem List: (1) Renal insufficiency Assessment: acute on chronic (2) Hyperkalemia Assessment: resolved (3) Anemia (4) Hypoalbuminemia (5) History of seizure Assessment Renal failure- Acute on Chronic, presents with hyperkalemia COPD Sz disorder UTI Anemia cellulitis Rt UE HypoAlbuminemia Plan St eval Hydrate stop Kayexelate Nepro NGT stop heparin SQ Monitor renal parameters Anemia shay antibiotics avoid Nephrotoxics per orders Subjective ROS Limited/Unobtainable: No Constitutional: Reports: malaise, weakness Objective Objective Last 24 Hour Vital Signs Date Time Temp Pulse Resp B/P (MAP) Pulse Ox O2 Delivery O2 Flow Rate FiO2 08/01/18 11:53 97.1 71 20 143/71 (95) 96 08/01/18 09:00 Nasal Cannula 2.0 08/01/18 08:00 72 08/01/18 08:00 97.2 79 20 147/74 (98) 98 08/01/18 07:29 Nasal Cannula 28 08/01/18 07:29 71 18 Nasal Cannula 28 08/01/18 07:29 100 Nasal Cannula 28 08/01/18 04:00 97.1 80 19 121/70 (87) 96 08/01/18 04:00 76 08/01/18 00:00 97.3 81 18 152/71 (98) 96 08/01/18 00:00 83 07/31/18 21:00 Room Air 07/31/18 20:00 97.2 81 18 151/69 (96) 96 07/31/18 19:59 92 18 Room Air 21 07/31/18 19:59 Room Air 21 07/31/18 19:59 92 Room Air 21 07/31/18 16:00 97.3 83 20 149/75 (99) 100 07/31/18 15:37 80 Intake and Output 07/31/18 08/01/18 19:00 07:00 Output Total 700 ml 1000 ml Balance -700 ml -1000 ml Output Urine Total 700 ml 1000 ml # Bowel Movements 1 Laboratory Tests 08/01/18 06:00: White Blood Count 4.9, Red Blood Count 3.15L, Hemoglobin 8.2L, Hematocrit 26.5L , Mean Corpuscular Volume 84, Mean Corpuscular Hemoglobin 26.1L, Mean Corpuscular Hemoglobin Concent 31.1L, Red Cell Distribution Width 17.8H, Platelet Count 75L, Mean Platelet Volume 6.7, Neutrophils (%) (Auto) , Lymphocytes (%) (Auto) , Monocytes (%) (Auto) , Eosinophils (%) (Auto) , Basophils (%) (Auto) , Differential Total Cells Counted 100, Neutrophils % ( Manual) 71, Lymphocytes % (Manual) 15L, Monocytes % (Manual) 7, Eosinophils % ( Manual) 3, Basophils % (Manual) 1, Band Neutrophils 3, Platelet Estimate DecreasedL, Platelet Morphology Normal, Anisocytosis 1+, Sodium Level 140, Potassium Level 3.6, Chloride Level 106, Carbon Dioxide Level 31, Anion Gap 3L, Blood Urea Nitrogen 33H, Creatinine 1.3, Estimat Glomerular Filtration Rate 55.2 , Glucose Level 121H, Calcium Level 9.6, Phosphorus Level 3.5, Magnesium Level 2.0, Total Bilirubin 0.5, Aspartate Amino Transf (AST/SGOT) 15, Alanine Aminotransferase (ALT/SGPT) 25, Alkaline Phosphatase 148H, Total Protein 6.8, Albumin 1.9L, Globulin 4.9, Albumin/Globulin Ratio 0.4L 08/01/18 11:00: Vancomycin Level Trough 24.6H Height (Feet): 5 Height (Inches): 6.00 Weight (Pounds): 185 General Appearance: no apparent distress EENT: other - NGT Cardiovascular: normal rate Respiratory/Chest: decreased breath sounds Abdomen: soft Objective no change Shashi Patel MD Aug 01, 2018 12:35
--- NOTE | 2018-08-01 12:46 | NUR ---
NURSE NOTES: Called radiology department twice for verify the placement of NGT result but still no result yet. Valproic acid which scheduled at 1130 could administer due to no result of KUB at this time.
--- NOTE | 2018-08-01 12:52 | Diagnostic Imaging Report ---
Indication: Abdominal pain Comparison: None Single view of the abdomen obtained Findings: NG tube is in good position within the stomach. Bowel gas pattern is nonspecific. Degenerative changes of the lower lumbar spine noted. IMPRESSION: NG tube in good position. No change
--- NOTE | 2018-08-01 13:45 | Infectious Diseases Prog Note ---
Assessment/Plan Assessment/Plan 68 yo male who was sent to the ED from his halfway for right arm swelling. right wrist cellulitisl improving- 1.5cm ulceration noted. seropurulent drainage noted. minimal foul odor. cellulitis circumferential. -wound cx NTD -MRI R wrist :No evidence of acute osteomyelitis. 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 Correlation with plain film may be helpful. Moderate arthrosis of the wrist. Multiseptated collections noted adjacent to the distal radial ulnar joint and thflexor/palmar aspect of the distal forearm. These are likely ganglion cysts. US no DVT No X-ray No Fever No leukocytosis Sacral Decub Stage 4, R buttock- no signs of infection -wound cx ESBL e.coli; colonizer Dysphagia HTN DM PLAN - Continue Cefepime #5 and vancomycin #/- for R wrist cellulitis -upon further improvement, expect switching to PO abx - Wound care - Monitor CBC and Temps - Monitor BMs Thank you for this consult. We will continue to follow the patient during this hospitalization. Subjective Allergies: Coded Allergies: ATORVASTATIN (Unverified Allergy, Unknown, 07/27/18) Uncoded Allergies: VITAMIN B12 (Allergy, Unknown, 07/27/18) VITAMIN D (Allergy, Unknown, 07/27/18) Subjective afebrile wound cx NTD Objective Vital Signs Last 24 Hour Vital Signs Date Time Temp Pulse Resp B/P (MAP) Pulse Ox O2 Delivery O2 Flow Rate FiO2 08/01/18 12:00 70 08/01/18 11:53 97.1 71 20 143/71 (95) 96 08/01/18 09:00 Nasal Cannula 2.0 08/01/18 08:00 72 08/01/18 08:00 97.2 79 20 147/74 (98) 98 08/01/18 07:29 Nasal Cannula 28 08/01/18 07:29 71 18 Nasal Cannula 28 08/01/18 07:29 100 Nasal Cannula 28 08/01/18 04:00 97.1 80 19 121/70 (87) 96 08/01/18 04:00 76 08/01/18 00:00 97.3 81 18 152/71 (98) 96 08/01/18 00:00 83 07/31/18 21:00 Room Air 1/13/19 20:00 97.2 81 18 151/69 (96) 96 07/31/18 19:59 92 18 Room Air 21 07/31/18 19:59 Room Air 21 07/31/18 19:59 92 Room Air 21 07/31/18 16:00 97.3 83 20 149/75 (99) 100 07/31/18 15:37 80 Height (Feet): 5 Height (Inches): 6.00 Weight (Pounds): 185 Objective Gen: NAD, Opens eyes not following commands HEENT: NCAT, MMM, EOMI LUNGS: CTAB, No W CARDS: RRR, S1, S2, No M/R/G, ABD: Soft, NT, ND, + BS Ext: C/C/E, Pulses 2+ B/L (DP, Rad): Right upper extremity with swelling with ulcer. some eschar covering SKIN: Warm/dry, No rashes, Stage 4 sacral decube. No Purulent drainage Laboratory Tests Test 08/01/18 06:00 08/01/18 11:00 White Blood Count 4.9 K/UL (4.8-10.8) Red Blood Count 3.15 M/UL (4.70-6.10) L Hemoglobin 8.2 G/DL (14.2-18.0) L Hematocrit 26.5 % (42.0-52.0) L Mean Corpuscular Volume 84 FL (80-99) Mean Corpuscular Hemoglobin 26.1 PG (27.0-31.0) L Mean Corpuscular Hemoglobin Concent 31.1 G/DL (32.0-36.0) L Red Cell Distribution Width 17.8 % (11.6-14.8) H Platelet Count 75 K/UL (150-450) L Mean Platelet Volume 6.7 FL (6.5-10.1) Neutrophils (%) (Auto) % (45.0-75.0) Lymphocytes (%) (Auto) % (20.0-45.0) Monocytes (%) (Auto) % (1.0-10.0) Eosinophils (%) (Auto) % (0.0-3.0) Basophils (%) (Auto) % (0.0-2.0) Differential Total Cells Counted 100 Neutrophils % (Manual) 71 % (45-75) Lymphocytes % (Manual) 15 % (20-45) L Monocytes % (Manual) 7 % (1-10) Eosinophils % (Manual) 3 % (0-3) Basophils % (Manual) 1 % (0-2) Band Neutrophils 3 % (0-8) Platelet Estimate Decreased L Platelet Morphology Normal Anisocytosis 1+ Sodium Level 140 MMOL/L (136-145) Potassium Level 3.6 MMOL/L (3.5-5.1) Chloride Level 106 MMOL/L (98-107) Carbon Dioxide Level 31 MMOL/L (21-32) Anion Gap 3 mmol/L (5-15) L Blood Urea Nitrogen 33 mg/dL (7-18) H Creatinine 1.3 MG/DL (0.55-1.30) Estimat Glomerular Filtration Rate 55.2 mL/min (>60) Glucose Level 121 MG/DL (74-106) H Calcium Level 9.6 MG/DL (8.5-10.1) Phosphorus Level 3.5 MG/DL (2.5-4.9) Magnesium Level 2.0 MG/DL (1.8-2.4) Total Bilirubin 0.5 MG/DL (0.2-1.0) Aspartate Amino Transf (AST/SGOT) 15 U/L (15-37) Alanine Aminotransferase (ALT/SGPT) 25 U/L (12-78) Alkaline Phosphatase 148 U/L (46-116) H Total Protein 6.8 G/DL (6.4-8.2) Albumin 1.9 G/DL (3.4-5.0) L Globulin 4.9 g/dL Albumin/Globulin Ratio 0.4 (1.0-2.7) L Vancomycin Level Trough 24.6 ug/mL (5.0-12.0) H Current Medications Medications (Trade) Dose Ordered Sig/Violette Route PRN Reason Start Time Stop Time Status Last Admin Dose Admin Acetaminophen (Tylenol) 650 mg Q4H PRN ORAL fever 07/28/18 07:00 08/27/18 06:59 Albuterol/ Ipratropium (Albuterol/ Ipratropium) 3 ml Q4H PRN HHN Shortness of Breath 07/28/18 07:00 08/02/18 06:59 Cefepime HCl 2 gm/ Dextrose 110 ml @ 220 mls/hr DAILY IV 07/31/18 09:00 08/07/18 08:59 08/01/18 09:58 Chlorhexidine Gluconate (Samantha-Hex 2%) 1 applic DAILY@2000 TOPIC 07/29/18 20:00 08/28/18 19:59 07/31/18 21:37 Dextrose (Dextrose 50%) 25 ml Q30M PRN IV Hypoglycemia 07/28/18 09:15 08/27/18 09:14 Dextrose (Dextrose 50%) 50 ml Q30M PRN IV Hypoglycemia 07/28/18 09:15 08/27/18 09:14 Insulin Aspart (NovoLOG) Q6HR SUBQ 07/31/18 06:00 08/27/18 11:29 07/31/18 17:27 Lansoprazole (Prevacid) 30 mg DAILY NG 07/31/18 09:00 08/27/18 08:59 08/01/18 09:58 Lorazepam (Ativan) 0.5 mg Q6H PRN ORAL For Anxiety 07/29/18 04:30 08/05/18 04:29 Morphine Sulfate (Morphine Sulfate) 2 mg Q4H PRN IVP Moderate Pain (Pain Scale 4-6) 07/28/18 07:00 08/04/18 06:59 Nitroglycerin (Ntg) 0.4 mg Q5M PRN SL Prn Chest Pain 07/28/18 07:00 08/27/18 06:59 Ondansetron HCl (Zofran) 4 mg Q6H PRN IVP Nausea & Vomiting 07/28/18 07:00 08/27/18 06:59 Paroxetine HCl (Paxil) 20 mg DAILY ORAL 07/29/18 09:00 08/28/18 08:59 08/01/18 09:58 Polyethylene Glycol (Miralax) 17 gm DAILYPRN PRN ORAL Constipation 07/28/18 07:00 08/27/18 06:59 Risperidone (RisperDAL) 1 mg BID ORAL 07/29/18 09:00 08/28/18 08:59 08/01/18 09:58 Sodium Chloride 1,000 ml @ 75 mls/hr [id number] ONCE IV 08/01/18 15:45 08/02/18 05:04 Temazepam (Restoril) 15 mg HSPRN PRN ORAL Insomnia 07/28/18 07:00 08/04/18 06:59 Valproic Acid (Depakene) 1,000 mg EVERY 12 HOURS NG 08/01/18 11:30 08/31/18 11:29 Vancomycin HCl (Vanco rx to dose) 1 ea DAILY PRN MISC Per rx protocol 07/28/18 07:30 08/27/18 07:29 Rima Reardon M.D. Aug 01, 2018 13:45
--- NOTE | 2018-08-01 14:00 | Cardiac Electrophysiology PN ---
Assessment/Plan Assessment/Plan 1. Hyperkalemia. Resolved after Kayexalate. The patient's EKG showed no acute ischemic changes. Echocardiogram 55% 2. History of hypertension. Blood pressure stable off antihypertensive agents. 3. Pancytopenia. 4. Right arm swelling and cellulitis, on IV antibiotics. 5. Renal insufficiency 6. Dysphagia, Swallow eval pending 7. SOB. EF 55% 8. COPD FU Dr Rosita WALL RN Subjective Subjective Pulled out NGT and was placed back in. Now getting video swallow. Objective Last 24 Hour Vital Signs Date Time Temp Pulse Resp B/P (MAP) Pulse Ox O2 Delivery O2 Flow Rate FiO2 08/01/18 12:00 70 08/01/18 11:53 97.1 71 20 143/71 (95) 96 08/01/18 09:00 Nasal Cannula 2.0 08/01/18 08:00 72 08/01/18 08:00 97.2 79 20 147/74 (98) 98 08/01/18 07:29 Nasal Cannula 28 08/01/18 07:29 71 18 Nasal Cannula 28 08/01/18 07:29 100 Nasal Cannula 28 08/01/18 04:00 97.1 80 19 121/70 (87) 96 08/01/18 04:00 76 08/01/18 00:00 97.3 81 18 152/71 (98) 96 08/01/18 00:00 83 07/31/18 21:00 Room Air 07/31/18 20:00 97.2 81 18 151/69 (96) 96 07/31/18 19:59 92 18 Room Air 21 07/31/18 19:59 Room Air 21 07/31/18 19:59 92 Room Air 21 07/31/18 16:00 97.3 83 20 149/75 (99) 100 07/31/18 15:37 80 Intake and Output 07/31/18 08/01/18 19:00 07:00 Output Total 700 ml 1000 ml Balance -700 ml -1000 ml Output Urine Total 700 ml 1000 ml # Bowel Movements 1 Laboratory Tests Test 08/01/18 06:00 08/01/18 11:00 White Blood Count 4.9 K/UL (4.8-10.8) Red Blood Count 3.15 M/UL (4.70-6.10) L Hemoglobin 8.2 G/DL (14.2-18.0) L Hematocrit 26.5 % (42.0-52.0) L Mean Corpuscular Volume 84 FL (80-99) Mean Corpuscular Hemoglobin 26.1 PG (27.0-31.0) L Mean Corpuscular Hemoglobin Concent 31.1 G/DL (32.0-36.0) L Red Cell Distribution Width 17.8 % (11.6-14.8) H Platelet Count 75 K/UL (150-450) L Mean Platelet Volume 6.7 FL (6.5-10.1) Neutrophils (%) (Auto) % (45.0-75.0) Lymphocytes (%) (Auto) % (20.0-45.0) Monocytes (%) (Auto) % (1.0-10.0) Eosinophils (%) (Auto) % (0.0-3.0) Basophils (%) (Auto) % (0.0-2.0) Differential Total Cells Counted 100 Neutrophils % (Manual) 71 % (45-75) Lymphocytes % (Manual) 15 % (20-45) L Monocytes % (Manual) 7 % (1-10) Eosinophils % (Manual) 3 % (0-3) Basophils % (Manual) 1 % (0-2) Band Neutrophils 3 % (0-8) Platelet Estimate Decreased L Platelet Morphology Normal Anisocytosis 1+ Sodium Level 140 MMOL/L (136-145) Potassium Level 3.6 MMOL/L (3.5-5.1) Chloride Level 106 MMOL/L (98-107) Carbon Dioxide Level 31 MMOL/L (21-32) Anion Gap 3 mmol/L (5-15) L Blood Urea Nitrogen 33 mg/dL (7-18) H Creatinine 1.3 MG/DL (0.55-1.30) Estimat Glomerular Filtration Rate 55.2 mL/min (>60) Glucose Level 121 MG/DL (74-106) H Calcium Level 9.6 MG/DL (8.5-10.1) Phosphorus Level 3.5 MG/DL (2.5-4.9) Magnesium Level 2.0 MG/DL (1.8-2.4) Total Bilirubin 0.5 MG/DL (0.2-1.0) Aspartate Amino Transf (AST/SGOT) 15 U/L (15-37) Alanine Aminotransferase (ALT/SGPT) 25 U/L (12-78) Alkaline Phosphatase 148 U/L (46-116) H Total Protein 6.8 G/DL (6.4-8.2) Albumin 1.9 G/DL (3.4-5.0) L Globulin 4.9 g/dL Albumin/Globulin Ratio 0.4 (1.0-2.7) L Vancomycin Level Trough 24.6 ug/mL (5.0-12.0) H Objective HEAD AND NECK: No JVD.NG tube in LUNGS: Coarse rhonchi CARDIOVASCULAR: Regular S1 and S2 with no gallop or murmur. ABDOMEN: Soft. EXTREMITIES: 2+ pitting edema on the right arm and leg. Rios Barron MD Aug 01, 2018 14:00
--- NOTE | 2018-08-01 14:29 | General Progress Note ---
Assessment/Plan Problem List: (1) Anemia ICD Codes: D64.9 - Anemia, unspecified SNOMED: 655158332 Qualifiers: Qualified Codes: D64.9 - Anemia, unspecified (2) Cellulitis of right upper extremity ICD Codes: L03.113 - Cellulitis of right upper limb SNOMED: 058749171 (3) Renal insufficiency ICD Codes: N28.9 - Disorder of kidney and ureter, unspecified SNOMED: 691728282, 821829051 (4) UTI (urinary tract infection) ICD Codes: N39.0 - Urinary tract infection, site not specified SNOMED: 04134334, 376950659 Qualifiers: Qualified Codes: N39.0 - Urinary tract infection, site not specified (5) History of seizure ICD Codes: Z87.898 - Personal history of other specified conditions SNOMED: 799694708 (6) COPD (chronic obstructive pulmonary disease) ICD Codes: J44.9 - Chronic obstructive pulmonary disease, unspecified SNOMED: 19394772 (7) ATN (acute tubular necrosis) ICD Codes: N17.0 - Acute kidney failure with tubular necrosis SNOMED: 17348467 (8) Hyperkalemia, diminished renal excretion ICD Codes: E87.5 - Hyperkalemia SNOMED: 90464763, 570899528 Status: unchanged Assessment/Plan wound care abx pt diet cbc bmp am gi eval Subjective Constitutional: Reports: weakness Allergies: Coded Allergies: ATORVASTATIN (Unverified Allergy, Unknown, 07/27/18) Uncoded Allergies: VITAMIN B12 (Allergy, Unknown, 07/27/18) VITAMIN D (Allergy, Unknown, 07/27/18) All Systems: reviewed and negative except above Subjective confused in bed ng Objective Last 24 Hour Vital Signs Date Time Temp Pulse Resp B/P (MAP) Pulse Ox O2 Delivery O2 Flow Rate FiO2 08/01/18 12:00 70 08/01/18 11:53 97.1 71 20 143/71 (95) 96 08/01/18 09:00 Nasal Cannula 2.0 08/01/18 08:00 72 08/01/18 08:00 97.2 79 20 147/74 (98) 98 08/01/18 07:29 Nasal Cannula 28 08/01/18 07:29 71 18 Nasal Cannula 28 08/01/18 07:29 100 Nasal Cannula 28 08/01/18 04:00 97.1 80 19 121/70 (87) 96 08/01/18 04:00 76 08/01/18 00:00 97.3 81 18 152/71 (98) 96 08/01/18 00:00 83 07/31/18 21:00 Room Air 07/31/18 20:00 97.2 81 18 151/69 (96) 96 07/31/18 19:59 92 18 Room Air 21 07/31/18 19:59 Room Air 21 07/31/18 19:59 92 Room Air 21 07/31/18 16:00 97.3 83 20 149/75 (99) 100 07/31/18 15:37 80 Intake and Output 07/31/18 08/01/18 19:00 07:00 Output Total 700 ml 1000 ml Balance -700 ml -1000 ml Output Urine Total 700 ml 1000 ml # Bowel Movements 1 Laboratory Tests 08/01/18 06:00: White Blood Count 4.9, Red Blood Count 3.15L, Hemoglobin 8.2L, Hematocrit 26.5L , Mean Corpuscular Volume 84, Mean Corpuscular Hemoglobin 26.1L, Mean Corpuscular Hemoglobin Concent 31.1L, Red Cell Distribution Width 17.8H, Platelet Count 75L, Mean Platelet Volume 6.7, Neutrophils (%) (Auto) , Lymphocytes (%) (Auto) , Monocytes (%) (Auto) , Eosinophils (%) (Auto) , Basophils (%) (Auto) , Differential Total Cells Counted 100, Neutrophils % ( Manual) 71, Lymphocytes % (Manual) 15L, Monocytes % (Manual) 7, Eosinophils % ( Manual) 3, Basophils % (Manual) 1, Band Neutrophils 3, Platelet Estimate DecreasedL, Platelet Morphology Normal, Anisocytosis 1+, Sodium Level 140, Potassium Level 3.6, Chloride Level 106, Carbon Dioxide Level 31, Anion Gap 3L, Blood Urea Nitrogen 33H, Creatinine 1.3, Estimat Glomerular Filtration Rate 55.2 , Glucose Level 121H, Calcium Level 9.6, Phosphorus Level 3.5, Magnesium Level 2.0, Total Bilirubin 0.5, Aspartate Amino Transf (AST/SGOT) 15, Alanine Aminotransferase (ALT/SGPT) 25, Alkaline Phosphatase 148H, Total Protein 6.8, Albumin 1.9L, Globulin 4.9, Albumin/Globulin Ratio 0.4L 08/01/18 11:00: Vancomycin Level Trough 24.6H Height (Feet): 5 Height (Inches): 6.00 Weight (Pounds): 185 General Appearance: lethargic EENT: normal ENT inspection Neck: normal alignment Cardiovascular: normal peripheral pulses, normal rate, regular rhythm Respiratory/Chest: chest wall non-tender, lungs clear, normal breath sounds Abdomen: normal bowel sounds, non tender, soft Extremities: normal inspection Edema: no edema noted Arm (L), no edema noted Arm (R), no edema noted Leg (L), no edema noted Leg (R), no edema noted Pedal (L), no edema noted Pedal (R), no edema noted Generalized Neurologic: motor weakness Skin: normal pigmentation, warm/dry Objective r wrist dressing c&d Michael Johnson DO Aug 01, 2018 14:29
--- NOTE | 2018-08-01 14:53 | Pulmonology Progress Note ---
Assessment/Plan Problems: (1) ATN (acute tubular necrosis) (2) COPD (chronic obstructive pulmonary disease) (3) History of seizure (4) UTI (urinary tract infection) (5) Hyperkalemia, diminished renal excretion (6) Cellulitis of right upper extremity (7) Anemia Assessment/Plan NG tube, tolerating well symptomatic treatment K slightly lower iv fluids neuro f/u respiratory treatment. ,med/surg Subjective ROS Limited/Unobtainable: No Constitutional: Reports: no symptoms HEENT: Repors: no symptoms Respiratory: Reports: no symptoms Allergies: Coded Allergies: ATORVASTATIN (Unverified Allergy, Unknown, 07/27/18) Uncoded Allergies: VITAMIN B12 (Allergy, Unknown, 07/27/18) VITAMIN D (Allergy, Unknown, 07/27/18) Objective Last 24 Hour Vital Signs Date Time Temp Pulse Resp B/P (MAP) Pulse Ox O2 Delivery O2 Flow Rate FiO2 08/01/18 12:00 70 08/01/18 11:53 97.1 71 20 143/71 (95) 96 08/01/18 09:00 Nasal Cannula 2.0 08/01/18 08:00 72 08/01/18 08:00 97.2 79 20 147/74 (98) 98 08/01/18 07:29 Nasal Cannula 28 08/01/18 07:29 71 18 Nasal Cannula 28 08/01/18 07:29 100 Nasal Cannula 28 08/01/18 04:00 97.1 80 19 121/70 (87) 96 08/01/18 04:00 76 08/01/18 00:00 97.3 81 18 152/71 (98) 96 08/01/18 00:00 83 07/31/18 21:00 Room Air 07/31/18 20:00 97.2 81 18 151/69 (96) 96 07/31/18 19:59 92 18 Room Air 21 07/31/18 19:59 Room Air 21 07/31/18 19:59 92 Room Air 21 07/31/18 16:00 97.3 83 20 149/75 (99) 100 07/31/18 15:37 80 Intake and Output 07/31/18 08/01/18 19:00 07:00 Output Total 700 ml 1000 ml Balance -700 ml -1000 ml Output Urine Total 700 ml 1000 ml # Bowel Movements 1 Objective General Appearance: WD/WN Lines, tubes and drains: peripheral HEENT: normocephalic, atraumatic Neck: non-tender, normal alignment Breasts: no masses Cardiovascular/Chest: normal rate Genitourinary/Rectal: normal genital exam Skin Exam: normal pigmentation, rash, other - Laboratory Tests 08/01/18 06:00: White Blood Count 4.9, Red Blood Count 3.15L, Hemoglobin 8.2L, Hematocrit 26.5L , Mean Corpuscular Volume 84, Mean Corpuscular Hemoglobin 26.1L, Mean Corpuscular Hemoglobin Concent 31.1L, Red Cell Distribution Width 17.8H, Platelet Count 75L, Mean Platelet Volume 6.7, Neutrophils (%) (Auto) , Lymphocytes (%) (Auto) , Monocytes (%) (Auto) , Eosinophils (%) (Auto) , Basophils (%) (Auto) , Differential Total Cells Counted 100, Neutrophils % ( Manual) 71, Lymphocytes % (Manual) 15L, Monocytes % (Manual) 7, Eosinophils % ( Manual) 3, Basophils % (Manual) 1, Band Neutrophils 3, Platelet Estimate DecreasedL, Platelet Morphology Normal, Anisocytosis 1+, Sodium Level 140, Potassium Level 3.6, Chloride Level 106, Carbon Dioxide Level 31, Anion Gap 3L, Blood Urea Nitrogen 33H, Creatinine 1.3, Estimat Glomerular Filtration Rate 55.2 , Glucose Level 121H, Calcium Level 9.6, Phosphorus Level 3.5, Magnesium Level 2.0, Total Bilirubin 0.5, Aspartate Amino Transf (AST/SGOT) 15, Alanine Aminotransferase (ALT/SGPT) 25, Alkaline Phosphatase 148H, Total Protein 6.8, Albumin 1.9L, Globulin 4.9, Albumin/Globulin Ratio 0.4L 08/01/18 11:00: Vancomycin Level Trough 24.6H Current Medications Medications (Trade) Dose Ordered Sig/Violette Route PRN Reason Start Time Stop Time Status Last Admin Dose Admin Acetaminophen (Tylenol) 650 mg Q4H PRN ORAL fever 07/28/18 07:00 08/27/18 06:59 Albuterol/ Ipratropium (Albuterol/ Ipratropium) 3 ml Q4H PRN HHN Shortness of Breath 07/28/18 07:00 08/02/18 06:59 Cefepime HCl 2 gm/ Dextrose 110 ml @ 220 mls/hr DAILY IV 07/31/18 09:00 08/07/18 08:59 08/01/18 09:58 Chlorhexidine Gluconate (Samantha-Hex 2%) 1 applic DAILY@2000 TOPIC 07/29/18 20:00 08/28/18 19:59 07/31/18 21:37 Dextrose (Dextrose 50%) 25 ml Q30M PRN IV Hypoglycemia 07/28/18 09:15 08/27/18 09:14 Dextrose (Dextrose 50%) 50 ml Q30M PRN IV Hypoglycemia 07/28/18 09:15 08/27/18 09:14 Insulin Aspart (NovoLOG) Q6HR SUBQ 07/31/18 06:00 08/27/18 11:29 07/31/18 17:27 Lansoprazole (Prevacid) 30 mg DAILY NG 07/31/18 09:00 08/27/18 08:59 08/01/18 09:58 Lorazepam (Ativan) 0.5 mg Q6H PRN ORAL For Anxiety 07/29/18 04:30 08/05/18 04:29 Morphine Sulfate (Morphine Sulfate) 2 mg Q4H PRN IVP Moderate Pain (Pain Scale 4-6) 07/28/18 07:00 08/04/18 06:59 Nitroglycerin (Ntg) 0.4 mg Q5M PRN SL Prn Chest Pain 07/28/18 07:00 08/27/18 06:59 Ondansetron HCl (Zofran) 4 mg Q6H PRN IVP Nausea & Vomiting 07/28/18 07:00 08/27/18 06:59 Paroxetine HCl (Paxil) 20 mg DAILY ORAL 07/29/18 09:00 08/28/18 08:59 08/01/18 09:58 Polyethylene Glycol (Miralax) 17 gm DAILYPRN PRN ORAL Constipation 07/28/18 07:00 08/27/18 06:59 Risperidone (RisperDAL) 1 mg BID ORAL 07/29/18 09:00 08/28/18 08:59 08/01/18 09:58 Sodium Chloride 1,000 ml @ 75 mls/hr [id number] ONCE IV 08/01/18 15:45 08/02/18 05:04 Temazepam (Restoril) 15 mg HSPRN PRN ORAL Insomnia 07/28/18 07:00 08/04/18 06:59 Valproic Acid (Depakene) 1,000 mg EVERY 12 HOURS NG 08/01/18 11:30 08/31/18 11:29 Vancomycin HCl (Vanco rx to dose) 1 ea DAILY PRN MISC Per rx protocol 07/28/18 07:30 08/27/18 07:29 Lazaro Becker MD Aug 01, 2018 14:52
--- NOTE | 2018-08-01 15:42 | NUR ---
ST NOTE: VIDEOSWALLOW STUDY COMPLETED VIDEOSWALLOW STUDY FULL REPORT WILL FOLLOW OR CALL FOR FULL REPORT. PT ALERT, COOPERATIVE, FOLLOW SIMPLE DIRECTIONS WITH MAX CUES. PT WITH NC(2L) AND NGT(MEDIUM SIZE), SOFT VOICE IS NOTED. OBLIQUE VIEW. GIVEN PO TRIALS: THIN(TSPX2/MED CUP/STRAW-SEQUENTIAL), NECTAR THICK(TSP/MED CUP/STRAW-SEQUENTIAL), HONEY THICK(TSP), PUDDING(TSP) IMPRESSION: PT PRESENTS WITH MODERATE OROPHARYNGEAL DYSPHAGIA CHARACTERIZED BY INCREASED ORAL TRANSIT TIME, ESPECIALLY WITH PUDDING AND OROPHARYNGEAL TRANSIT TIME DUE TO SENSORIMOTOR DEFICITS. TRACE SILENT ASPIRATION(2-5%), ENTERED THE AIRWAY, BELOW THE VOCAL FOLDS, NO EFFORT, WITH THIN LIQUIDS(STRAW-SEQUENTIAL) WHEN CLEARING PHARYNGEAL RESIDUE IN PYRIFORM SINUSES, ALSO DUE TO REDUCED LARYNGEAL ELEVATION AND LARYNGEAL VESTIBULE CLOSURE. MILD TO MODERATE TONGUE BASE AND VALLECULAR RESIDUE DUE TO REDUCED TONGUE BASE RETRACTION, AND MILD PHARYNGEAL RESIDUE(PYRIFORM SINUSES) DUE TO REDUCED LARYNGEAL ELEVATION. NO ASPIRATION WITH THIN(TSP/MED CUP), NECTAR THICK, HONEY THICK AND PUDDING BUT HAS HIGH RISK IF PRECAUTIONS ARE NOT STRICTLY APPLIED. PROBABLE CERVICAL OSTEOPHYTES AT C4 TO C5. PLEASE REFER TO RADIOLOGIST REPORT FOR DETAILS. PT BENEFITS FROM EFFORTFUL SWALLOW WITH BREATH HOLD, SWALLOW X 2 TIMES, ALLOW TIMES AND CHIN DOWN. RECOMMENDATIONS: 1. FOR QUALITY OF LIFE(PT EXPRESSES THE WANT TO EAT/DRINK BY MOUTH), SLOWLY INITIATE LIQUIFIED PUREED, LIKE HONEY THICK SOUP CONSISTENCY WITH HONEY THICK LIQUIDS. 2. STRICT ASPIRATION PRECAUTIONS WITH 1TO1 FEEDING. 3. SWALLOW TX D/W PATRICIO CORONA, AND INFORMED , DR. BUCK RE:RESULTS AND RECOMMENDATIONS. MD APPROVED THE DIET. POSTED ASPIRATION PRECAUTIONS SIGN.
--- NOTE | 2018-08-01 15:47 | NUR ---
CASE MANAGEMENT:REVIEW 08/01/18 SI: RUE CELLULITIS. HYPERKALEMIA. UTI 97.1 71 20 143/71 96% ON 2L/NC H/H-8.2/26.5 PLT-75 IS: IVF@75/HR IV CEFEPIME QD : TELEMETRY STATUS
--- NOTE | 2018-08-01 15:51 | NUR ---
RD ASSESSMENT & RECOMMENDATIONS SEE CARE ACTIVITY FOR COMPLETE ASSESSMENT DAILY ESTIMATED NEEDS: Needs based on Wound, DM 73kg adj 30-35 kcals/kg [id number] total kcals 1-1.5 g protein/kg 73-110 g total protein 25-30 mL/kg 7437-0305 total fluid mLs NUTRITION DIAGNOSIS: 1) Swallowing difficulty r/t dysphagia as evidenced by pt adm w/ puree texture diet and NTL, now s/p VSS w/ rec for liquify pureed, HTL. 2) Altered nutrition related lab values r/t clinical status as evidenced by elev K (6.6-> wnl), elev BUN (53->33 trend down), elev creat (1.4-> wnl), elev BG (167-> 121 92 improved). 3) Increased kcal and protein needs r/t wasting and wound healing as evidenced by pt w/ BL LE moderate to severe wasting, w/ advanced wounds including full thickness wound above R wrist and R ischium, DTPI @ L trochanter, and non-blanchable erythema @ L heel. CURRENT DIET:REGULAR/ LIQUIFY PUREED, HTL PO DIET RECOMMENDATIONS: Maintain Regular diet (texture per FACILITIES MANAGER) + GLUCERNA TID ADDITIONAL RECOMMENDATIONS: 1) MONITOR K, RENAL LABS/ need for diet restriction -> K now wnl, creat normalized 2) Monitor BG, need for CCHO MED diet 3) WOUND CARE: Add JACKIE BID, MVI x 1, Vit C 500mg BID 4) Obtain a calibrated bed scale wt for CBW 5) Glucerna 1 tetra radha TID w/ meals 6) Monitor PO intake and tolerance closely
--- NOTE | 2018-08-01 15:55 | General Progress Note ---
Assessment/Plan Assessment/Plan # Pancytopenia -- mutliple etiologies possible, potentially related to infection /viralcauses, ongoing multiple infections, celluliis, baseline unknown, 1st time admitted --> hepatitis and hiv are negative --> anemia panel reviewed and is cw acd --> us of the abdomen has been ordered and shows fatty liver infiltration --> if no underyling cause, consider a bone marrow biopsy --> peripheral smear review --> med reviewed as well # Anemia of chronic disease --> panel has been reviewed --> transfuse to hgb goal >7 # Cellulitis of right upper extremity --> s/p treatment with abx --> appre id and surg recs # Hyperkalemia, diminished renal excretion --> as per renal recs --> on ivf # Renal insufficiency --> s/p ivf administration # UTI (urinary tract infection) # Dysphagia --> ng in place -->Pulled out NGT and was placed back in, received video swallow 08/01 Greatly appreciate consultation! Subjective Allergies: Coded Allergies: ATORVASTATIN (Unverified Allergy, Unknown, 07/27/18) Uncoded Allergies: VITAMIN B12 (Allergy, Unknown, 07/27/18) VITAMIN D (Allergy, Unknown, 07/27/18) Subjective 07/30: remains without events, nonverbal, less swollen arm/less cellulitis 07/31: getting wound care, Transferred to [facility] for SOB. Has NG tube in. Swallow eval still pending on Tuesday 08/01: awake and comfortable ,Pulled out NGT and was placed back in,getting video swallow.plt 75 Objective Last 24 Hour Vital Signs Date Time Temp Pulse Resp B/P (MAP) Pulse Ox O2 Delivery O2 Flow Rate FiO2 08/01/18 12:00 70 08/01/18 11:53 97.1 71 20 143/71 (95) 96 08/01/18 09:00 Nasal Cannula 2.0 08/01/18 08:00 72 08/01/18 08:00 97.2 79 20 147/74 (98) 98 08/01/18 07:29 Nasal Cannula 28 08/01/18 07:29 71 18 Nasal Cannula 28 08/01/18 07:29 100 Nasal Cannula 28 08/01/18 04:00 97.1 80 19 121/70 (87) 96 08/01/18 04:00 76 08/01/18 00:00 97.3 81 18 152/71 (98) 96 08/01/18 00:00 83 07/31/18 21:00 Room Air 07/31/18 20:00 97.2 81 18 151/69 (96) 96 07/31/18 19:59 92 18 Room Air 21 07/31/18 19:59 Room Air 21 07/31/18 19:59 92 Room Air 21 07/31/18 16:00 97.3 83 20 149/75 (99) 100 Intake and Output 07/31/18 08/01/18 19:00 07:00 Output Total 700 ml 1000 ml Balance -700 ml -1000 ml Output Urine Total 700 ml 1000 ml # Bowel Movements 1 Laboratory Tests 08/01/18 06:00: White Blood Count 4.9, Red Blood Count 3.15L, Hemoglobin 8.2L, Hematocrit 26.5L , Mean Corpuscular Volume 84, Mean Corpuscular Hemoglobin 26.1L, Mean Corpuscular Hemoglobin Concent 31.1L, Red Cell Distribution Width 17.8H, Platelet Count 75L, Mean Platelet Volume 6.7, Neutrophils (%) (Auto) , Lymphocytes (%) (Auto) , Monocytes (%) (Auto) , Eosinophils (%) (Auto) , Basophils (%) (Auto) , Differential Total Cells Counted 100, Neutrophils % ( Manual) 71, Lymphocytes % (Manual) 15L, Monocytes % (Manual) 7, Eosinophils % ( Manual) 3, Basophils % (Manual) 1, Band Neutrophils 3, Platelet Estimate DecreasedL, Platelet Morphology Normal, Anisocytosis 1+, Sodium Level 140, Potassium Level 3.6, Chloride Level 106, Carbon Dioxide Level 31, Anion Gap 3L, Blood Urea Nitrogen 33H, Creatinine 1.3, Estimat Glomerular Filtration Rate 55.2 , Glucose Level 121H, Calcium Level 9.6, Phosphorus Level 3.5, Magnesium Level 2.0, Total Bilirubin 0.5, Aspartate Amino Transf (AST/SGOT) 15, Alanine Aminotransferase (ALT/SGPT) 25, Alkaline Phosphatase 148H, Total Protein 6.8, Albumin 1.9L, Globulin 4.9, Albumin/Globulin Ratio 0.4L 08/01/18 11:00: Vancomycin Level Trough 24.6H Height (Feet): 5 Height (Inches): 6.00 Weight (Pounds): 185 Objective HEAD AND NECK: No JVD. LUNGS: Coarse rhonchi CARDIOVASCULAR: Shows regular S1 and S2 with no gallop. ABDOMEN: Soft. EXTREMITIES: 2+ pitting edema on the right arm and leg. Alex Lino MD Aug 01, 2018 15:55
[2018-08-01 16:00] VITALS: BP 117/54
--- NOTE | 2018-08-01 19:20 | Neurology Progress Note ---
Interim History Interim History Interim History Mr. Tran feels "better." He is awake and much more alert. He is able to say a few words and able to understand commands. He is still moderately aphasic. He continues to be cognitively impoverished. He continues to be generally weak. His right UE however is less swollen. He says he ate today and enjoyed his meals. Review of Systems Neuro Review of Systems Unable to evaluate. Objective Physical Exam Last Vital Signs Date Time Temp Pulse Resp B/P (MAP) Pulse Ox O2 Delivery O2 Flow Rate FiO2 08/01/18 16:00 96.3 60 20 117/54 (75) 100 08/01/18 09:00 Nasal Cannula 2.0 08/01/18 07:29 28 Laboratory Tests Test 08/01/18 06:00 08/01/18 11:00 White Blood Count 4.9 K/UL (4.8-10.8) Red Blood Count 3.15 M/UL (4.70-6.10) L Hemoglobin 8.2 G/DL (14.2-18.0) L Hematocrit 26.5 % (42.0-52.0) L Mean Corpuscular Volume 84 FL (80-99) Mean Corpuscular Hemoglobin 26.1 PG (27.0-31.0) L Mean Corpuscular Hemoglobin Concent 31.1 G/DL (32.0-36.0) L Red Cell Distribution Width 17.8 % (11.6-14.8) H Platelet Count 75 K/UL (150-450) L Mean Platelet Volume 6.7 FL (6.5-10.1) Neutrophils (%) (Auto) % (45.0-75.0) Lymphocytes (%) (Auto) % (20.0-45.0) Monocytes (%) (Auto) % (1.0-10.0) Eosinophils (%) (Auto) % (0.0-3.0) Basophils (%) (Auto) % (0.0-2.0) Differential Total Cells Counted 100 Neutrophils % (Manual) 71 % (45-75) Lymphocytes % (Manual) 15 % (20-45) L Monocytes % (Manual) 7 % (1-10) Eosinophils % (Manual) 3 % (0-3) Basophils % (Manual) 1 % (0-2) Band Neutrophils 3 % (0-8) Platelet Estimate Decreased L Platelet Morphology Normal Anisocytosis 1+ Sodium Level 140 MMOL/L (136-145) Potassium Level 3.6 MMOL/L (3.5-5.1) Chloride Level 106 MMOL/L (98-107) Carbon Dioxide Level 31 MMOL/L (21-32) Anion Gap 3 mmol/L (5-15) L Blood Urea Nitrogen 33 mg/dL (7-18) H Creatinine 1.3 MG/DL (0.55-1.30) Estimat Glomerular Filtration Rate 55.2 mL/min (>60) Glucose Level 121 MG/DL (74-106) H Calcium Level 9.6 MG/DL (8.5-10.1) Phosphorus Level 3.5 MG/DL (2.5-4.9) Magnesium Level 2.0 MG/DL (1.8-2.4) Total Bilirubin 0.5 MG/DL (0.2-1.0) Aspartate Amino Transf (AST/SGOT) 15 U/L (15-37) Alanine Aminotransferase (ALT/SGPT) 25 U/L (12-78) Alkaline Phosphatase 148 U/L (46-116) H Total Protein 6.8 G/DL (6.4-8.2) Albumin 1.9 G/DL (3.4-5.0) L Globulin 4.9 g/dL Albumin/Globulin Ratio 0.4 (1.0-2.7) L Vancomycin Level Trough 24.6 ug/mL (5.0-12.0) H Neurologic Exam Objective PHYSICAL EXAMINATION: GENERAL: He is a well-developed, well-nourished, gentleman, lying in bed, in no acute distress. HEAD: Normocephalic and atraumatic. EENT: Examination benign. NECK: No neck rigidity was observed. NEUROLOGIC EXAMINATION: MENTAL STATUS EXAMINATION: He was awake and alert. He was oriented to self only. He was able to follow simple commands. He was unable to cooperate for further mental status testing. SPEECH: He was dysarthric. LANGUAGE: He was able to follow simple commands more consistently and able to express himself minimally. CRANIAL NERVE EXAMINATION: II: He did blink to threat. He was able to count fingers. III, IV & : The external ocular movements were present. The pupils were 3 mm in diameter, equal, round, regular, and reactive sluggishly to light. V: He had normal facial sensations, and the temporales, masseters and pterygoids functioned normally. VII: He had a left VII central facial paresis VIII: He did respond to sounds and had no nystagmus. IX: The palate moved symmetrically on phonation. X: He had no hoarseness of voice. XI: The sternocleidomastoids and trapezii did function. XII: The tongue was in the midline without any fasciculations or atrophy. MOTOR SYSTEM: The tone was increased in all four extremities with mild spasticity. Examination of muscle mass revealed generalized wasting. Examination of power was difficult to perform accurately. He moved all four extremities on command but was generally weak. The lower extremities were weaker than the upper extremities. SENSORY EXAMINATION: He responded appropriately to light touch. He could not cooperate for other sensory modalities. REFLEXES: 0 at the biceps, triceps, brachioradialis, knees, and ankles. The plantar responses were flexor bilaterally. COORDINATION, STANCE & GAIT: Could not be tested. Impression/Recommendations Diagnostic Impression 1. Mr. Juan Tran is a 68-year-old, right handed, gentleman, who lives in a care home. He has a past history of hypertension, chronic obstructive pulmonary disease, renal dysfunction, seizure disorder, anemia, urinary tract infections, and right upper extremity cellulitis. He was hospitalized for an alteration in mental state and worsening of his right upper extremity cellulitis. 2. He feels "better." He is awake and much more alert. He is able to say a few words and able to understand commands. He is still moderately aphasic. He continues to be cognitively impoverished. He continues to be generally weak. His right UE however is less swollen. He says he ate today and enjoyed his meals. 3. On neurological examination, at this time, he is awake, alert and more verbal. He is oriented to self only. He is able to follow simple commands. He is unable to cooperate for further mental status testing. His speech is dysarthric. He is able to follow simple commands more consistently and able to express himself minimally. He has a left VII central facial paresis. He he moves all four extremities on command but is weaker in the lower extremities. His deep tendon reflexes are globally absent. His plantar responses are flexor. 4. Laboratory data obtained thus far revealed that he is anemic with a hemoglobin of 8.0 G. His chemistry panel revealed an elevated potassium at 6.6 , BUN elevated at 48, creatinine elevated at 1.3, blood glucose elevated at 198 , alkaline phosphatase elevated to 129, albumin low at 1.8. His urinalysis revealed 3+ leukocyte esterase, 15-20 RBCs and too numerous to count WBCs per high-power field. 5. Further laboratory tests have revealed an elevated TSH. 6. The MRI done on 07/29/18 was marred by movement artifact but did not reveal any acute pathology. Old deep white matter disease and atrophy was seen. 7. The EEG done on 07/29/18 revealed a severe toxic metabolic encephalopathy and multifocal epileptogenic discharges from F3/F4/T3/T4. No electrographic or clinical seizures were noted. 8. The patient's history and neurological examination are most compatible with cellulitis of the right upper extremity and a significant urinary tract infection. However, it is unclear as to what his change of mental state represents as his baseline mental state is unknown to us. 9. In addition, he also carries a history of a seizure disorder, but it is unclear as to what type of seizure disorder he has. He has been seizure free on a theraputic dose of valproate. Recommendations 1. Continue present management. 2. Would try to obtain a better history regarding his baseline mental state and seizure type. 3. Continue Depakene 1 G q 12 hours. 4. Aggressive treatment of infection. 5. Observe. Preston Escalera M.D., M.S.P.H. Preston Escalera MD Aug 01, 2018 19:20
--- NOTE | 2018-08-01 19:32 | NUR ---
HAND-OFF: Report given to CJ Jade. Stable condition.
--- NOTE | 2018-08-01 19:50 | NUR ---
NURSE NOTES: Received pt from CJ Galvan. Pt awake, alert, and watching TV. Bed in lowest position. Call light within reach. Will continue to monitor.
[2018-08-01 20:00] VITALS: BP 145/60
[2018-08-01] MEDS: Dyna-Hex 2% Top Sol 2oz TOPIC SCH (21:55)
[2018-08-02] VITALS: BP 137/64
[2018-08-02 04:00] VITALS: BP 139/56
[2018-08-02] MEDS: NovoLOG Insulin Flexpen SUBQ SCH ×4 (06:20→20:38)
[2018-08-02 06:27] LABS: HEMATOCRIT 24.9 % (42.0-52.0); HEMOGLOBIN 7.8 G/DL (14.2-18.0); MEAN CORPUSCULAR VOLUME 84 FL (80-99); PLATELET COUNT 62 K/UL (150-450); RED BLOOD COUNT 2.95 M/UL (4.70-6.10); RED CELL DISTRIBUTION WIDTH 18.4 % (11.6-14.8); WHITE BLOOD COUNT 3.1 K/UL (4.8-10.8)
[2018-08-02 06:48] LABS: ANION GAP 3 mmol/L (5-15); BLOOD UREA NITROGEN 30 mg/dL (7-18); CALCIUM 9.3 MG/DL (8.5-10.1); CARBON DIOXIDE 33 MMOL/L (21-32); CHLORIDE 109 MMOL/L (98-107); CREATININE 1.2 MG/DL (0.55-1.30); POTASSIUM 3.6 MMOL/L (3.5-5.1); SODIUM 145 MMOL/L (136-145)
--- NOTE | 2018-08-02 07:44 | NUR ---
HAND-OFF: Report given to Tana Calzada RN. Pt stable.
[2018-08-02 08:32] VITALS: BP 132/67
[2018-08-02] MEDS ORDERED: Vancomycin 1gm/D5W 275ml IVPB SCH ×2 (09:00)
--- NOTE | 2018-08-02 09:18 | Cardiac Electrophysiology PN ---
Assessment/Plan Assessment/Plan 1. Hyperkalemia. Resolved after Kayexalate. The patient's EKG showed no acute ischemic changes. Echocardiogram 55% 2. History of hypertension. Blood pressure stable off antihypertensive agents. 3. Pancytopenia. 4. Right arm swelling and cellulitis, on IV antibiotics. 5. Renal insufficiency 6. Dysphagia, had video Swallow and is now eating 7. SOB. EF 55% 8. COPD FU Dr Rosita WALL RN Subjective Subjective Had video swallow and now eating. Objective Last 24 Hour Vital Signs Date Time Temp Pulse Resp B/P (MAP) Pulse Ox O2 Delivery O2 Flow Rate FiO2 08/02/18 08:32 77 08/02/18 08:32 96.8 73 20 132/67 (88) 100 08/02/18 04:00 53 08/02/18 04:00 98.5 58 17 139/56 (83) 100 08/02/18 00:00 98.0 66 18 137/64 (88) 100 08/02/18 00:00 61 08/01/18 21:00 Nasal Cannula 2.0 08/01/18 20:52 100 Nasal Cannula 28 08/01/18 20:52 Nasal Cannula 28 08/01/18 20:00 98.0 61 18 145/60 (88) 100 08/01/18 20:00 67 08/01/18 16:00 96.3 60 20 117/54 (75) 100 08/01/18 16:00 58 08/01/18 12:00 70 08/01/18 11:53 97.1 71 20 143/71 (95) 96 Intake and Output 08/01/18 08/02/18 19:00 07:00 Intake Total 665 ml Output Total 1100 ml 800 ml Balance -435 ml -800 ml Intake Oral 150 ml Free Water 100 ml IV Total 335 ml Tube Feeding 80 ml Output Urine Total 1100 ml 800 ml # Bowel Movements 1 Laboratory Tests Test 08/01/18 11:00 08/02/18 06:00 Vancomycin Level Trough 24.6 ug/mL (5.0-12.0) H White Blood Count 3.1 K/UL (4.8-10.8) L Red Blood Count 2.95 M/UL (4.70-6.10) L Hemoglobin 7.8 G/DL (14.2-18.0) L Hematocrit 24.9 % (42.0-52.0) L Mean Corpuscular Volume 84 FL (80-99) Mean Corpuscular Hemoglobin 26.4 PG (27.0-31.0) L Mean Corpuscular Hemoglobin Concent 31.3 G/DL (32.0-36.0) L Red Cell Distribution Width 18.4 % (11.6-14.8) H Platelet Count 62 K/UL (150-450) L Mean Platelet Volume 7.1 FL (6.5-10.1) Neutrophils (%) (Auto) % (45.0-75.0) Lymphocytes (%) (Auto) % (20.0-45.0) Monocytes (%) (Auto) % (1.0-10.0) Eosinophils (%) (Auto) % (0.0-3.0) Basophils (%) (Auto) % (0.0-2.0) Differential Total Cells Counted 100 Neutrophils % (Manual) 71 % (45-75) Lymphocytes % (Manual) 16 % (20-45) L Monocytes % (Manual) 5 % (1-10) Eosinophils % (Manual) 3 % (0-3) Basophils % (Manual) 0 % (0-2) Band Neutrophils 5 % (0-8) Platelet Estimate Decreased L Platelet Morphology Normal Hypochromasia 1+ Anisocytosis 2+ Sodium Level 145 MMOL/L (136-145) Potassium Level 3.6 MMOL/L (3.5-5.1) Chloride Level 109 MMOL/L (98-107) H Carbon Dioxide Level 33 MMOL/L (21-32) H Anion Gap 3 mmol/L (5-15) L Blood Urea Nitrogen 30 mg/dL (7-18) H Creatinine 1.2 MG/DL (0.55-1.30) Estimat Glomerular Filtration Rate > 60 mL/min (>60) Glucose Level 65 MG/DL (74-106) L Calcium Level 9.3 MG/DL (8.5-10.1) Random Vancomycin Level 18.8 ug/mL Objective HEAD AND NECK: No JVD. LUNGS: Coarse rhonchi CARDIOVASCULAR: Regular S1 and S2 with no gallop or murmur. ABDOMEN: Soft. EXTREMITIES: 2+ pitting edema on the right arm and leg. Rios Barron MD Aug 02, 2018 09:18
[2018-08-02] MEDS: PARoxetine 20mg tab ORAL SCH (09:37)
[2018-08-02] MEDS: Valproic Acid 250mg/5ml Liquid NG SCH ×2 (09:42→20:31)
[2018-08-02] MEDS: Cefepime 2gm/D5W 110ml IV SCH ×2 (09:42)
--- NOTE | 2018-08-02 10:24 | NUR ---
ST NOTE: SWALLOW/SPEECH/LANGUAGE STATUS FOLLOWED UP PT'S CONDITIONS AFTER PUTTING BACK ON THE DIET. PER CHART, PT ATE 100% YESTERDAY AND TODAY MORNING. PT SEEN AT BEDSIDE IN AM. ALERT, COOPERATIVE, ABLE TO FOLLOW SIMPLE DIRECTIONS. TRAINED PT RE EFFORTFUL/HARD SWALLOW EXS. PT COMPLETED IT 80% OF THE TIME WITH MAX CUES. GIVEN PT NECTAR THICK(VIA CUP-SMALL SIPS), MILD INCREASED ORAL TRANSIT TIME AND OROPHARYNGEAL TRANSIT TIME, FAIR LARYNGEAL ELEVATION, INSTRUCTED PT TO USE SWALLOW X 2 TECHNIQUE, NO OVERT S/S OF ASPIRATION. DISCUSSED WITH DR. AUDREY. FLORENCIO AND RN, NISREEN, RE:PT'S CONDITIONS AND VIDEOSWALLOW STUDY. WILL COMPLETE VIDEOSWALLOW STUDY REPORT. CONTINUE SWALLOW TX.
--- NOTE | 2018-08-02 10:58 | Infectious Diseases Prog Note ---
Assessment/Plan Assessment/Plan 68 yo male who was sent to the ED from his skilled nursing for right arm swelling. right wrist cellulitisl improving- 1.5cm ulceration noted. seropurulent drainage noted. minimal foul odor. cellulitis circumferential. -wound cx Neg -MRI R wrist :No evidence of acute osteomyelitis. 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 Correlation with plain film may be helpful. Moderate arthrosis of the wrist. Multiseptated collections noted adjacent to the distal radial ulnar joint and thflexor/palmar aspect of the distal forearm. These are likely ganglion cysts. US no DVT No X-ray No Fever No leukocytosis Sacral Decub Stage 4, R buttock- no signs of infection -wound cx ESBL e.coli; colonizer Dysphagia HTN DM PLAN - Continue Cefepime #6 and vancomycin #/- for R wrist cellulitis -upon further improvement, expect switching to PO abx (ie. bactrim and levaquin) - Wound care - Monitor CBC and Temps - Monitor BMs Thank you for this consult. We will continue to follow the patient during this hospitalization. Subjective Allergies: Coded Allergies: ATORVASTATIN (Unverified Allergy, Unknown, 07/27/18) Uncoded Allergies: VITAMIN B12 (Allergy, Unknown, 07/27/18) VITAMIN D (Allergy, Unknown, 07/27/18) Subjective afebrile wound cx NTD Objective Vital Signs Last 24 Hour Vital Signs Date Time Temp Pulse Resp B/P (MAP) Pulse Ox O2 Delivery O2 Flow Rate FiO2 08/02/18 08:32 77 08/02/18 08:32 96.8 73 20 132/67 (88) 100 08/02/18 04:00 53 08/02/18 04:00 98.5 58 17 139/56 (83) 100 08/02/18 00:00 98.0 66 18 137/64 (88) 100 08/02/18 00:00 61 08/01/18 21:00 Nasal Cannula 2.0 08/01/18 20:52 100 Nasal Cannula 28 08/01/18 20:52 Nasal Cannula 28 08/01/18 20:00 98.0 61 18 145/60 (88) 100 08/01/18 20:00 67 08/01/18 16:00 96.3 60 20 117/54 (75) 100 08/01/18 16:00 58 08/01/18 12:00 70 08/01/18 11:53 97.1 71 20 143/71 (95) 96 Height (Feet): 5 Height (Inches): 6.00 Weight (Pounds): 185 Objective Gen: NAD, Opens eyes not following commands HEENT: NCAT, MMM, EOMI LUNGS: CTAB, No W CARDS: RRR, S1, S2, No M/R/G, ABD: Soft, NT, ND, + BS Ext: C/C/E, Pulses 2+ B/L (DP, Rad): Right upper extremity with swelling with ulcer. some eschar covering SKIN: Warm/dry, No rashes, Stage 4 sacral decube. No Purulent drainage Laboratory Tests Test 08/01/18 11:00 08/02/18 06:00 Vancomycin Level Trough 24.6 ug/mL (5.0-12.0) H White Blood Count 3.1 K/UL (4.8-10.8) L Red Blood Count 2.95 M/UL (4.70-6.10) L Hemoglobin 7.8 G/DL (14.2-18.0) L Hematocrit 24.9 % (42.0-52.0) L Mean Corpuscular Volume 84 FL (80-99) Mean Corpuscular Hemoglobin 26.4 PG (27.0-31.0) L Mean Corpuscular Hemoglobin Concent 31.3 G/DL (32.0-36.0) L Red Cell Distribution Width 18.4 % (11.6-14.8) H Platelet Count 62 K/UL (150-450) L Mean Platelet Volume 7.1 FL (6.5-10.1) Neutrophils (%) (Auto) % (45.0-75.0) Lymphocytes (%) (Auto) % (20.0-45.0) Monocytes (%) (Auto) % (1.0-10.0) Eosinophils (%) (Auto) % (0.0-3.0) Basophils (%) (Auto) % (0.0-2.0) Differential Total Cells Counted 100 Neutrophils % (Manual) 71 % (45-75) Lymphocytes % (Manual) 16 % (20-45) L Monocytes % (Manual) 5 % (1-10) Eosinophils % (Manual) 3 % (0-3) Basophils % (Manual) 0 % (0-2) Band Neutrophils 5 % (0-8) Platelet Estimate Decreased L Platelet Morphology Normal Hypochromasia 1+ Anisocytosis 2+ Sodium Level 145 MMOL/L (136-145) Potassium Level 3.6 MMOL/L (3.5-5.1) Chloride Level 109 MMOL/L (98-107) H Carbon Dioxide Level 33 MMOL/L (21-32) H Anion Gap 3 mmol/L (5-15) L Blood Urea Nitrogen 30 mg/dL (7-18) H Creatinine 1.2 MG/DL (0.55-1.30) Estimat Glomerular Filtration Rate > 60 mL/min (>60) Glucose Level 65 MG/DL (74-106) L Calcium Level 9.3 MG/DL (8.5-10.1) Random Vancomycin Level 18.8 ug/mL Current Medications Medications (Trade) Dose Ordered Sig/Violette Route PRN Reason Start Time Stop Time Status Last Admin Dose Admin Acetaminophen (Tylenol) 650 mg Q4H PRN ORAL fever 07/28/18 07:00 08/27/18 06:59 Cefepime HCl 2 gm/ Dextrose 110 ml @ 220 mls/hr DAILY IV 07/31/18 09:00 08/07/18 08:59 08/02/18 09:42 Chlorhexidine Gluconate (Samantha-Hex 2%) 1 applic DAILY@2000 TOPIC 07/29/18 20:00 08/28/18 19:59 08/01/18 21:55 Dextrose (Dextrose 50%) 25 ml Q30M PRN IV Hypoglycemia 07/28/18 09:15 08/27/18 09:14 Dextrose (Dextrose 50%) 50 ml Q30M PRN IV Hypoglycemia 07/28/18 09:15 08/27/18 09:14 Docusate Sodium (Colace) 100 mg TWICE A DAY ORAL 08/02/18 18:00 09/01/18 17:59 Insulin Aspart (NovoLOG) BEFORE MEALS AND HS SUBQ 08/01/18 16:30 08/31/18 16:29 08/01/18 22:06 Lansoprazole (Prevacid) 30 mg DAILY NG 07/31/18 09:00 08/27/18 08:59 08/02/18 09:37 Lorazepam (Ativan) 0.5 mg Q6H PRN ORAL For Anxiety 07/29/18 04:30 08/05/18 04:29 Morphine Sulfate (Morphine Sulfate) 2 mg Q4H PRN IVP Moderate Pain (Pain Scale 4-6) 07/28/18 07:00 08/04/18 06:59 Nitroglycerin (Ntg) 0.4 mg Q5M PRN SL Prn Chest Pain 07/28/18 07:00 08/27/18 06:59 Ondansetron HCl (Zofran) 4 mg Q6H PRN IVP Nausea & Vomiting 07/28/18 07:00 08/27/18 06:59 Paroxetine HCl (Paxil) 20 mg DAILY ORAL 07/29/18 09:00 08/28/18 08:59 08/02/18 09:37 Polyethylene Glycol (Miralax) 17 gm DAILYPRN PRN ORAL Constipation 07/28/18 07:00 08/27/18 06:59 Risperidone (RisperDAL) 1 mg BID ORAL 07/29/18 09:00 08/28/18 08:59 08/02/18 09:37 Temazepam (Restoril) 15 mg HSPRN PRN ORAL Insomnia 07/28/18 07:00 08/04/18 06:59 Valproic Acid (Depakene) 1,000 mg EVERY 12 HOURS NG 08/01/18 11:30 08/31/18 11:29 08/02/18 09:42 Vancomycin HCl (Vanco rx to dose) 1 ea DAILY PRN MISC Per rx protocol 07/28/18 07:30 08/27/18 07:29 Vancomycin HCl 1 gm/Dextrose 275 ml @ 183.708 mls/hr Q48H IVPB 08/02/18 09:00 08/07/18 08:59 08/02/18 09:42 Rima Reardon M.D. Aug 02, 2018 10:58
--- NOTE | 2018-08-02 11:00 | NUR ---
NURSE NOTES: Report given to Yannick COORNA. ENDORSED TO YANNICK CORONA FOR COLLECTING STOOL SAMPLE, RADHA DR. OLIVAS'S ORDER. PT HAS NO BELONGINGS. PATIENT'S BACK/SACRAL CHECKED, CLEAN/DRY, DRESSING INTACT.
--- NOTE | 2018-08-02 11:00 | NUR ---
NURSE NOTES: Received pt from [facility]. Pt is oriented x1. No SOB or acute respiratory distress noted. pt has PICC ISMAEL HL. pt has Moyer in place is running well. pt is in seizure precautions. pads are around side rails. HB 7.[address] palacios ordered hold off blood transfusion. all orders noted and carried out. will continue to monitor.all needs attended, bed is locked and is in the lowest position. call light within easy reach. will continue to monitor.
--- NOTE | 2018-08-02 11:06 | Nephrology Progress Note ---
Assessment/Plan Problem List: (1) Renal insufficiency Assessment: acute on chronic (2) Hyperkalemia Assessment: resolved (3) Anemia (4) Hypoalbuminemia (5) History of seizure Assessment Renal failure- Acute on Chronic, presents with hyperkalemia COPD Sz disorder UTI Anemia cellulitis Rt UE HypoAlbuminemia Plan St eval Hydrate stop Kayexelate NGT out stop heparin SQ Monitor renal parameters Anemia shay antibiotics avoid Nephrotoxics per orders Subjective ROS Limited/Unobtainable: No Constitutional: Reports: malaise Objective Objective Last 24 Hour Vital Signs Date Time Temp Pulse Resp B/P (MAP) Pulse Ox O2 Delivery O2 Flow Rate FiO2 08/02/18 08:32 77 08/02/18 08:32 96.8 73 20 132/67 (88) 100 08/02/18 04:00 53 08/02/18 04:00 98.5 58 17 139/56 (83) 100 08/02/18 00:00 98.0 66 18 137/64 (88) 100 08/02/18 00:00 61 08/01/18 21:00 Nasal Cannula 2.0 08/01/18 20:52 100 Nasal Cannula 28 08/01/18 20:52 Nasal Cannula 28 08/01/18 20:00 98.0 61 18 145/60 (88) 100 08/01/18 20:00 67 08/01/18 16:00 96.3 60 20 117/54 (75) 100 08/01/18 16:00 58 08/01/18 12:00 70 08/01/18 11:53 97.1 71 20 143/71 (95) 96 Intake and Output 08/01/18 08/02/18 19:00 07:00 Intake Total 665 ml Output Total 1100 ml 800 ml Balance -435 ml -800 ml Intake Oral 150 ml Free Water 100 ml IV Total 335 ml Tube Feeding 80 ml Output Urine Total 1100 ml 800 ml # Bowel Movements 1 Current Medications Medications (Trade) Dose Ordered Sig/Violette Route PRN Reason Start Time Stop Time Status Last Admin Dose Admin Acetaminophen (Tylenol) 650 mg Q4H PRN ORAL fever 07/28/18 07:00 08/27/18 06:59 Cefepime HCl 2 gm/ Dextrose 110 ml @ 220 mls/hr DAILY IV 07/31/18 09:00 08/07/18 08:59 08/02/18 09:42 Chlorhexidine Gluconate (Samantha-Hex 2%) 1 applic DAILY@2000 TOPIC 07/29/18 20:00 08/28/18 19:59 08/01/18 21:55 Dextrose (Dextrose 50%) 25 ml Q30M PRN IV Hypoglycemia 07/28/18 09:15 08/27/18 09:14 Dextrose (Dextrose 50%) 50 ml Q30M PRN IV Hypoglycemia 07/28/18 09:15 08/27/18 09:14 Docusate Sodium (Colace) 100 mg TWICE A DAY ORAL 08/02/18 18:00 09/01/18 17:59 Insulin Aspart (NovoLOG) BEFORE MEALS AND HS SUBQ 08/01/18 16:30 08/31/18 16:29 08/01/18 22:06 Lansoprazole (Prevacid) 30 mg DAILY NG 07/31/18 09:00 08/27/18 08:59 08/02/18 09:37 Lorazepam (Ativan) 0.5 mg Q6H PRN ORAL For Anxiety 07/29/18 04:30 08/05/18 04:29 Morphine Sulfate (Morphine Sulfate) 2 mg Q4H PRN IVP Moderate Pain (Pain Scale 4-6) 07/28/18 07:00 08/04/18 06:59 Nitroglycerin (Ntg) 0.4 mg Q5M PRN SL Prn Chest Pain 07/28/18 07:00 08/27/18 06:59 Ondansetron HCl (Zofran) 4 mg Q6H PRN IVP Nausea & Vomiting 07/28/18 07:00 08/27/18 06:59 Paroxetine HCl (Paxil) 20 mg DAILY ORAL 07/29/18 09:00 08/28/18 08:59 08/02/18 09:37 Polyethylene Glycol (Miralax) 17 gm DAILYPRN PRN ORAL Constipation 07/28/18 07:00 08/27/18 06:59 Risperidone (RisperDAL) 1 mg BID ORAL 07/29/18 09:00 08/28/18 08:59 08/02/18 09:37 Temazepam (Restoril) 15 mg HSPRN PRN ORAL Insomnia 07/28/18 07:00 08/04/18 06:59 Valproic Acid (Depakene) 1,000 mg EVERY 12 HOURS NG 08/01/18 11:30 08/31/18 11:29 08/02/18 09:42 Vancomycin HCl (Vanco rx to dose) 1 ea DAILY PRN MISC Per rx protocol 07/28/18 07:30 08/27/18 07:29 Vancomycin HCl 1 gm/Dextrose 275 ml @ 183.708 mls/hr Q48H IVPB 08/02/18 09:00 08/07/18 08:59 08/02/18 09:42 Laboratory Tests 08/02/18 06:00: White Blood Count 3.1L, Red Blood Count 2.95L, Hemoglobin 7.8L, Hematocrit 24.9L , Mean Corpuscular Volume 84, Mean Corpuscular Hemoglobin 26.4L, Mean Corpuscular Hemoglobin Concent 31.3L, Red Cell Distribution Width 18.4H, Platelet Count 62L, Mean Platelet Volume 7.1, Neutrophils (%) (Auto) , Lymphocytes (%) (Auto) , Monocytes (%) (Auto) , Eosinophils (%) (Auto) , Basophils (%) (Auto) , Differential Total Cells Counted 100, Neutrophils % ( Manual) 71, Lymphocytes % (Manual) 16L, Monocytes % (Manual) 5, Eosinophils % ( Manual) 3, Basophils % (Manual) 0, Band Neutrophils 5, Platelet Estimate DecreasedL, Platelet Morphology Normal, Hypochromasia 1+, Anisocytosis 2+, Sodium Level 145, Potassium Level 3.6, Chloride Level 109H, Carbon Dioxide Level 33H, Anion Gap 3L, Blood Urea Nitrogen 30H, Creatinine 1.2, Estimat Glomerular Filtration Rate > 60, Glucose Level 65L, Calcium Level 9.3, Random Vancomycin Level 18.8 Height (Feet): 5 Height (Inches): 6.00 Weight (Pounds): 185 General Appearance: no apparent distress Objective no change Shashi Patel MD Aug 02, 2018 11:06
[2018-08-02 12:00] VITALS: BP 139/62
[2018-08-02] MEDS ORDERED: Morphine Sulfate 4mg/ml Inj (IV USE ONLY) IVP PRN (12:00)
[2018-08-02] MEDS ORDERED: Miralax 17gm pkt ORAL PRN (12:00)
[2018-08-02] MEDS ORDERED: Nitroglycerin Subl 0.4mg tab SL PRN (12:00)
[2018-08-02] MEDS ORDERED: LORazepam 0.5mg tab ORAL PRN (12:00)
--- NOTE | 2018-08-02 13:40 | General Progress Note ---
Assessment/Plan Problem List: (1) Anemia ICD Codes: D64.9 - Anemia, unspecified SNOMED: 190366288 Qualifiers: Qualified Codes: D64.9 - Anemia, unspecified (2) Cellulitis of right upper extremity ICD Codes: L03.113 - Cellulitis of right upper limb SNOMED: 081766707 (3) Renal insufficiency ICD Codes: N28.9 - Disorder of kidney and ureter, unspecified SNOMED: 193575613, 520573914 (4) UTI (urinary tract infection) ICD Codes: N39.0 - Urinary tract infection, site not specified SNOMED: 43128445, 004648327 Qualifiers: Qualified Codes: N39.0 - Urinary tract infection, site not specified (5) History of seizure ICD Codes: Z87.898 - Personal history of other specified conditions SNOMED: 731208664 (6) COPD (chronic obstructive pulmonary disease) ICD Codes: J44.9 - Chronic obstructive pulmonary disease, unspecified SNOMED: 60089207 (7) ATN (acute tubular necrosis) ICD Codes: N17.0 - Acute kidney failure with tubular necrosis SNOMED: 67174291 (8) Hyperkalemia, diminished renal excretion ICD Codes: E87.5 - Hyperkalemia SNOMED: 63673822, 148507205 Status: unchanged Assessment/Plan wound care abx pt diet cbc bmp am gi eval transfuse prn Subjective Constitutional: Reports: weakness Allergies: Coded Allergies: ATORVASTATIN (Unverified Allergy, Unknown, 07/27/18) Uncoded Allergies: VITAMIN B12 (Allergy, Unknown, 07/27/18) VITAMIN D (Allergy, Unknown, 07/27/18) All Systems: reviewed and negative except above Subjective confused in bed Objective Last 24 Hour Vital Signs Date Time Temp Pulse Resp B/P (MAP) Pulse Ox O2 Delivery O2 Flow Rate FiO2 08/02/18 12:00 97.3 68 20 139/62 (87) 98 08/02/18 11:37 Nasal Cannula 2.0 08/02/18 08:32 77 08/02/18 08:32 96.8 73 20 132/67 (88) 100 08/02/18 04:00 53 08/02/18 04:00 98.5 58 17 139/56 (83) 100 08/02/18 00:00 98.0 66 18 137/64 (88) 100 08/02/18 00:00 61 08/01/18 21:00 Nasal Cannula 2.0 08/01/18 20:52 100 Nasal Cannula 28 08/01/18 20:52 Nasal Cannula 28 08/01/18 20:00 98.0 61 18 145/60 (88) 100 08/01/18 20:00 67 08/01/18 16:00 96.3 60 20 117/54 (75) 100 08/01/18 16:00 58 Intake and Output 08/01/18 08/02/18 19:00 07:00 Intake Total 665 ml Output Total 1100 ml 800 ml Balance -435 ml -800 ml Intake Oral 150 ml Free Water 100 ml IV Total 335 ml Tube Feeding 80 ml Output Urine Total 1100 ml 800 ml # Bowel Movements 1 Laboratory Tests 08/02/18 06:00: White Blood Count 3.1L, Red Blood Count 2.95L, Hemoglobin 7.8L, Hematocrit 24.9L , Mean Corpuscular Volume 84, Mean Corpuscular Hemoglobin 26.4L, Mean Corpuscular Hemoglobin Concent 31.3L, Red Cell Distribution Width 18.4H, Platelet Count 62L, Mean Platelet Volume 7.1, Neutrophils (%) (Auto) , Lymphocytes (%) (Auto) , Monocytes (%) (Auto) , Eosinophils (%) (Auto) , Basophils (%) (Auto) , Differential Total Cells Counted 100, Neutrophils % ( Manual) 71, Lymphocytes % (Manual) 16L, Monocytes % (Manual) 5, Eosinophils % ( Manual) 3, Basophils % (Manual) 0, Band Neutrophils 5, Platelet Estimate DecreasedL, Platelet Morphology Normal, Hypochromasia 1+, Anisocytosis 2+, Sodium Level 145, Potassium Level 3.6, Chloride Level 109H, Carbon Dioxide Level 33H, Anion Gap 3L, Blood Urea Nitrogen 30H, Creatinine 1.2, Estimat Glomerular Filtration Rate > 60, Glucose Level 65L, Calcium Level 9.3, Random Vancomycin Level 18.8 Height (Feet): 5 Height (Inches): 6.00 Weight (Pounds): 185 General Appearance: lethargic EENT: normal ENT inspection Neck: normal alignment Cardiovascular: normal peripheral pulses, normal rate, regular rhythm Respiratory/Chest: chest wall non-tender, lungs clear, normal breath sounds Abdomen: normal bowel sounds, non tender, soft Extremities: normal inspection Edema: no edema noted Arm (L), no edema noted Arm (R), no edema noted Leg (L), no edema noted Leg (R), no edema noted Pedal (L), no edema noted Pedal (R), no edema noted Generalized Neurologic: motor weakness Skin: normal pigmentation, warm/dry Objective r wrist dressing c&d Michael Johnson DO Aug 02, 2018 13:40
--- NOTE | 2018-08-02 14:28 | Pulmonology Progress Note ---
Assessment/Plan Problems: (1) ATN (acute tubular necrosis) (2) COPD (chronic obstructive pulmonary disease) (3) History of seizure (4) UTI (urinary tract infection) (5) Hyperkalemia, diminished renal excretion (6) Cellulitis of right upper extremity (7) Anemia Assessment/Plan more awake, d/w speech pathologist symptomatic treatment K slightly lower iv fluids neuro f/u respiratory treatment. ,med/surg Subjective ROS Limited/Unobtainable: No Constitutional: Reports: no symptoms HEENT: Repors: no symptoms Allergies: Coded Allergies: ATORVASTATIN (Unverified Allergy, Unknown, 07/27/18) Uncoded Allergies: VITAMIN B12 (Allergy, Unknown, 07/27/18) VITAMIN D (Allergy, Unknown, 07/27/18) Objective Last 24 Hour Vital Signs Date Time Temp Pulse Resp B/P (MAP) Pulse Ox O2 Delivery O2 Flow Rate FiO2 08/02/18 12:00 97.3 68 20 139/62 (87) 98 08/02/18 11:37 Nasal Cannula 2.0 08/02/18 08:32 77 08/02/18 08:32 96.8 73 20 132/67 (88) 100 08/02/18 04:00 53 08/02/18 04:00 98.5 58 17 139/56 (83) 100 08/02/18 00:00 98.0 66 18 137/64 (88) 100 08/02/18 00:00 61 08/01/18 21:00 Nasal Cannula 2.0 08/01/18 20:52 100 Nasal Cannula 28 08/01/18 20:52 Nasal Cannula 28 08/01/18 20:00 98.0 61 18 145/60 (88) 100 08/01/18 20:00 67 08/01/18 16:00 96.3 60 20 117/54 (75) 100 08/01/18 16:00 58 Intake and Output 08/01/18 08/02/18 19:00 07:00 Intake Total 665 ml Output Total 1100 ml 800 ml Balance -435 ml -800 ml Intake Oral 150 ml Free Water 100 ml IV Total 335 ml Tube Feeding 80 ml Output Urine Total 1100 ml 800 ml # Bowel Movements 1 Objective General Appearance: WD/WN Lines, tubes and drains: peripheral HEENT: normocephalic, atraumatic Neck: non-tender, normal alignment Breasts: no masses Cardiovascular/Chest: normal rate Genitourinary/Rectal: normal genital exam Skin Exam: normal pigmentation, rash, other - Laboratory Tests 08/02/18 06:00: White Blood Count 3.1L, Red Blood Count 2.95L, Hemoglobin 7.8L, Hematocrit 24.9L , Mean Corpuscular Volume 84, Mean Corpuscular Hemoglobin 26.4L, Mean Corpuscular Hemoglobin Concent 31.3L, Red Cell Distribution Width 18.4H, Platelet Count 62L, Mean Platelet Volume 7.1, Neutrophils (%) (Auto) , Lymphocytes (%) (Auto) , Monocytes (%) (Auto) , Eosinophils (%) (Auto) , Basophils (%) (Auto) , Differential Total Cells Counted 100, Neutrophils % ( Manual) 71, Lymphocytes % (Manual) 16L, Monocytes % (Manual) 5, Eosinophils % ( Manual) 3, Basophils % (Manual) 0, Band Neutrophils 5, Platelet Estimate DecreasedL, Platelet Morphology Normal, Hypochromasia 1+, Anisocytosis 2+, Sodium Level 145, Potassium Level 3.6, Chloride Level 109H, Carbon Dioxide Level 33H, Anion Gap 3L, Blood Urea Nitrogen 30H, Creatinine 1.2, Estimat Glomerular Filtration Rate > 60, Glucose Level 65L, Calcium Level 9.3, Random Vancomycin Level 18.8 Current Medications Medications (Trade) Dose Ordered Sig/Violette Route PRN Reason Start Time Stop Time Status Last Admin Dose Admin Acetaminophen (Tylenol) 650 mg Q4H PRN ORAL T>100.5 08/02/18 12:00 08/27/18 11:59 Cefepime HCl 2 gm/ Dextrose 110 ml @ 220 mls/hr DAILY IV 08/03/18 09:00 08/07/18 08:59 Chlorhexidine Gluconate (Samantha-Hex 2%) 1 applic DAILY@2000 TOPIC 08/02/18 20:00 08/28/18 19:59 Dextrose (Dextrose 50%) 25 ml Q30M PRN IV Hypoglycemia 08/02/18 11:45 08/27/18 09:14 Dextrose (Dextrose 50%) 50 ml Q30M PRN IV Hypoglycemia 08/02/18 11:45 08/27/18 09:14 Docusate Sodium (Colace) 100 mg TWICE A DAY ORAL 08/02/18 18:00 09/01/18 17:59 Insulin Aspart (NovoLOG) BEFORE MEALS AND HS SUBQ 08/02/18 16:30 08/31/18 16:29 Lansoprazole (Prevacid) 30 mg DAILY NG 08/03/18 09:00 08/27/18 08:59 Lorazepam (Ativan) 0.5 mg Q6H PRN ORAL For Anxiety 08/02/18 12:00 08/05/18 11:59 Morphine Sulfate (Morphine Sulfate) 2 mg Q4H PRN IVP Moderate Pain (Pain Scale 4-6) 08/02/18 12:00 08/04/18 11:59 Nitroglycerin (Ntg) 0.4 mg Q5M PRN SL Prn Chest Pain 08/02/18 12:00 08/27/18 11:59 Ondansetron HCl (Zofran) 4 mg Q6H PRN IVP Nausea & Vomiting 08/02/18 12:00 08/27/18 11:59 Paroxetine HCl (Paxil) 20 mg DAILY ORAL 08/03/18 09:00 08/28/18 08:59 Polyethylene Glycol (Miralax) 17 gm DAILYPRN PRN ORAL Constipation 08/02/18 12:00 09/01/18 11:59 Risperidone (RisperDAL) 1 mg Q12HR ORAL 08/02/18 21:00 09/01/18 20:59 Temazepam (Restoril) 15 mg HSPRN PRN ORAL Insomnia 08/02/18 22:00 08/09/18 21:59 Valproic Acid (Depakene) 1,000 mg EVERY 12 HOURS NG 08/02/18 21:00 08/31/18 11:29 Vancomycin HCl (Vanco rx to dose) 1 ea DAILY PRN MISC Per rx protocol 08/02/18 12:00 09/01/18 11:59 Vancomycin HCl 1 gm/Dextrose 275 ml @ 183.708 mls/hr Q48H IVPB 08/04/18 09:00 08/07/18 08:59 Lazaro Becker MD Aug 02, 2018 14:28
--- NOTE | 2018-08-02 14:37 | General Surgery Progress Note ---
General Surgery-Progress Note Subjective Additional Comments more awake today. responsive. following commands. states he is comfortable Objective Last 24 Hour Vital Signs Date Time Temp Pulse Resp B/P (MAP) Pulse Ox O2 Delivery O2 Flow Rate FiO2 08/02/18 12:00 97.3 68 20 139/62 (87) 98 08/02/18 11:37 Nasal Cannula 2.0 08/02/18 08:32 77 08/02/18 08:32 96.8 73 20 132/67 (88) 100 08/02/18 04:00 53 08/02/18 04:00 98.5 58 17 139/56 (83) 100 08/02/18 00:00 98.0 66 18 137/64 (88) 100 08/02/18 00:00 61 08/01/18 21:00 Nasal Cannula 2.0 08/01/18 20:52 100 Nasal Cannula 28 08/01/18 20:52 Nasal Cannula 28 08/01/18 20:00 98.0 61 18 145/60 (88) 100 08/01/18 20:00 67 08/01/18 16:00 96.3 60 20 117/54 (75) 100 08/01/18 16:00 58 I&O Intake and Output 08/01/18 08/02/18 19:00 07:00 Intake Total 665 ml Output Total 1100 ml 800 ml Balance -435 ml -800 ml Intake Oral 150 ml Free Water 100 ml IV Total 335 ml Tube Feeding 80 ml Output Urine Total 1100 ml 800 ml # Bowel Movements 1 Dressing: dry Wound: clean Drains: other Cardiovascular: RSR Respiratory: clear Abdomen: soft, flat, non-distended Extremities: other Laboratory Tests Test 08/02/18 06:00 White Blood Count 3.1 K/UL (4.8-10.8) L Red Blood Count 2.95 M/UL (4.70-6.10) L Hemoglobin 7.8 G/DL (14.2-18.0) L Hematocrit 24.9 % (42.0-52.0) L Mean Corpuscular Volume 84 FL (80-99) Mean Corpuscular Hemoglobin 26.4 PG (27.0-31.0) L Mean Corpuscular Hemoglobin Concent 31.3 G/DL (32.0-36.0) L Red Cell Distribution Width 18.4 % (11.6-14.8) H Platelet Count 62 K/UL (150-450) L Mean Platelet Volume 7.1 FL (6.5-10.1) Neutrophils (%) (Auto) % (45.0-75.0) Lymphocytes (%) (Auto) % (20.0-45.0) Monocytes (%) (Auto) % (1.0-10.0) Eosinophils (%) (Auto) % (0.0-3.0) Basophils (%) (Auto) % (0.0-2.0) Differential Total Cells Counted 100 Neutrophils % (Manual) 71 % (45-75) Lymphocytes % (Manual) 16 % (20-45) L Monocytes % (Manual) 5 % (1-10) Eosinophils % (Manual) 3 % (0-3) Basophils % (Manual) 0 % (0-2) Band Neutrophils 5 % (0-8) Platelet Estimate Decreased L Platelet Morphology Normal Hypochromasia 1+ Anisocytosis 2+ Sodium Level 145 MMOL/L (136-145) Potassium Level 3.6 MMOL/L (3.5-5.1) Chloride Level 109 MMOL/L (98-107) H Carbon Dioxide Level 33 MMOL/L (21-32) H Anion Gap 3 mmol/L (5-15) L Blood Urea Nitrogen 30 mg/dL (7-18) H Creatinine 1.2 MG/DL (0.55-1.30) Estimat Glomerular Filtration Rate > 60 mL/min (>60) Glucose Level 65 MG/DL (74-106) L Calcium Level 9.3 MG/DL (8.5-10.1) Random Vancomycin Level 18.8 ug/mL Plan Problems: (1) Cellulitis of right upper extremity Assessment & Plan: right wrist cellulitis. 1.5cm ulceration noted. seropurulent drainage noted. minimal foul odor. cellulitis circumferential. pulses okay. hand okay. proximally okay edema improved today ulceration still draining edema in right arm and hand 2+ pitting. no abscess palpated. no areas of significant induration -Cont ABx -skin protectant and dressings for now -keep right arm elevated MRI noted. no abscess. d/c planning will monitor clinically on medical therapy. (2) Decubitus ulcer of right buttock, stage 4 Assessment & Plan: patient presents with multiple wounds upon admission moderate sized stage 4 right buttock lower decubitus ulcer clean and seems to have had debridement prior right heel dti -apply hydrogel, gauze packing, dressings daily and prn -heel protectors, apply foam dressing to right heel -will monitor and treat wounds while in hospital -turn q2h -off load pressure -air mattress thank you Jin Hogan Aug 02, 2018 14:37
--- NOTE | 2018-08-02 14:47 | NUR ---
CASE MANAGEMENT:REVIEW 08/01/18 SI: H/H-7.8/24.9 IS: TRANSFUSE 1 UNIT PRBC'S : TRANSFER TO MED/SURG
--- NOTE | 2018-08-02 15:00 | Progress Note ---
DATE: 08/02/2018 SUBJECTIVE: This is a 68-year-old male patient who continues to have some confusion, some disorganized thought process, and mood lability worsened by stress of his medical illness. He has , confused, disorganized, altered mental status that is why the attending has requested daily psychiatric consultation because he has extreme mood lability and agitation. MENTAL STATUS EXAMINATION: This is a 68-year-old male. Appearance is disheveled. Attitude, irritable and agitated. Affect, guarded and restricted. Intellect poor. Mood depressed and anxious. Motor activity, psychomotor agitation. Attention is poor. Orientation x2. Speech is pressured. Thought process, disorganized and illogical. Thought content, auditory hallucinations and paranoid delusions. Insight and judgment is poor. DIAGNOSIS: Paranoid schizophrenia with acute exacerbation. PLAN: We will continue titrating up on his medications to stabilize his mood. Provide him with 20 minutes of cognitive behavioral therapy to help him identify his automatic negative thoughts and help him to convert those negative thoughts to more positive thoughts to reduce depression, anxiety, and suicidality. Chart is reviewed and discussed with staff. Seen and assessed in his room. Becki Coe M.D. DR: Bon JOB#: [id number] CC:
--- NOTE | 2018-08-02 15:04 | NUR ---
HAND-OFF: Report given to CJ PULIDO.
--- NOTE | 2018-08-02 15:06 | GI Progress Note ---
Assessment/Plan Problems: (1) Dysphasia ICD Codes: R47.02 - Dysphasia SNOMED: 61282460 (2) Dehydration ICD Codes: E86.0 - Dehydration SNOMED: 78146656 (3) Hypoalbuminemia ICD Codes: E88.09 - Other disorders of plasma-protein metabolism, not elsewhere classified SNOMED: 484102212 (4) Anemia ICD Codes: D64.9 - Anemia, unspecified SNOMED: 441115469 Qualifiers: Qualified Codes: D64.9 - Anemia, unspecified Status: stable, progressing, unchanged Status Narrative Discussed with Dr. Blanco. Assessment/Plan Assessment/Plan Assessment - AMS - COPD - NGT - Renal failure - Anemia RECOMMENDATIONS: 1. Follow CBC, stable at this time 2. Replace blood and iron as needed. 3. Proton-pump inhibitor. 4. Nasogastric tube feeding. 5. Elevate head of bed. 6. Possible gastrostomy tube, pending swallow evaluation 7. Stool OB not collected, will consider EGD/colonoscopy if positive Follow-up labs The patient was seen and examined at bedside and all new and available data was reviewed in the patients chart. I agree with the above findings, impression and plan. (Patient seen earlier today. Signature stamp does not reflect patient encounter time.). - Jayce Blanco MD Subjective Subjective Limited Objective Last 24 Hour Vital Signs Date Time Temp Pulse Resp B/P (MAP) Pulse Ox O2 Delivery O2 Flow Rate FiO2 08/02/18 12:00 97.3 68 20 139/62 (87) 98 08/02/18 11:37 Nasal Cannula 2.0 08/02/18 08:32 77 08/02/18 08:32 96.8 73 20 132/67 (88) 100 08/02/18 04:00 53 08/02/18 04:00 98.5 58 17 139/56 (83) 100 08/02/18 00:00 98.0 66 18 137/64 (88) 100 08/02/18 00:00 61 08/01/18 21:00 Nasal Cannula 2.0 08/01/18 20:52 100 Nasal Cannula 28 08/01/18 20:52 Nasal Cannula 28 08/01/18 20:00 98.0 61 18 145/60 (88) 100 08/01/18 20:00 67 08/01/18 16:00 96.3 60 20 117/54 (75) 100 08/01/18 16:00 58 Intake and Output 08/01/18 08/02/18 19:00 07:00 Intake Total 665 ml Output Total 1100 ml 800 ml Balance -435 ml -800 ml Intake Oral 150 ml Free Water 100 ml IV Total 335 ml Tube Feeding 80 ml Output Urine Total 1100 ml 800 ml # Bowel Movements 1 Laboratory Tests Test 08/02/18 06:00 White Blood Count 3.1 K/UL (4.8-10.8) L Red Blood Count 2.95 M/UL (4.70-6.10) L Hemoglobin 7.8 G/DL (14.2-18.0) L Hematocrit 24.9 % (42.0-52.0) L Mean Corpuscular Volume 84 FL (80-99) Mean Corpuscular Hemoglobin 26.4 PG (27.0-31.0) L Mean Corpuscular Hemoglobin Concent 31.3 G/DL (32.0-36.0) L Red Cell Distribution Width 18.4 % (11.6-14.8) H Platelet Count 62 K/UL (150-450) L Mean Platelet Volume 7.1 FL (6.5-10.1) Neutrophils (%) (Auto) % (45.0-75.0) Lymphocytes (%) (Auto) % (20.0-45.0) Monocytes (%) (Auto) % (1.0-10.0) Eosinophils (%) (Auto) % (0.0-3.0) Basophils (%) (Auto) % (0.0-2.0) Differential Total Cells Counted 100 Neutrophils % (Manual) 71 % (45-75) Lymphocytes % (Manual) 16 % (20-45) L Monocytes % (Manual) 5 % (1-10) Eosinophils % (Manual) 3 % (0-3) Basophils % (Manual) 0 % (0-2) Band Neutrophils 5 % (0-8) Platelet Estimate Decreased L Platelet Morphology Normal Hypochromasia 1+ Anisocytosis 2+ Sodium Level 145 MMOL/L (136-145) Potassium Level 3.6 MMOL/L (3.5-5.1) Chloride Level 109 MMOL/L (98-107) H Carbon Dioxide Level 33 MMOL/L (21-32) H Anion Gap 3 mmol/L (5-15) L Blood Urea Nitrogen 30 mg/dL (7-18) H Creatinine 1.2 MG/DL (0.55-1.30) Estimat Glomerular Filtration Rate > 60 mL/min (>60) Glucose Level 65 MG/DL (74-106) L Calcium Level 9.3 MG/DL (8.5-10.1) Random Vancomycin Level 18.8 ug/mL Height (Feet): 5 Height (Inches): 6.00 Weight (Pounds): 185 General Appearance: WD/WN, no apparent distress, alert Cardiovascular: normal rate Respiratory/Chest: normal breath sounds, no respiratory distress Abdominal Exam: normal bowel sounds, non tender, soft Extremities: normal range of motion, non-tender Josiane Mendoza NP Aug 02, 2018 15:06
[2018-08-02 16:00] VITALS: BP 122/58
[2018-08-02] MEDS: Docusate 100mg cap ORAL SCH (17:13)
--- NOTE | 2018-08-02 17:16 | General Progress Note ---
Assessment/Plan Assessment/Plan # Pancytopenia -- mutliple etiologies possible, potentially related to infection /viralcauses, ongoing multiple infections, celluliis, baseline unknown, 1st time admitted --> hepatitis and hiv are negative --> anemia panel reviewed and is cw acd --> us of the abdomen has been ordered and shows fatty liver infiltration --> if no underyling cause, consider a bone marrow biopsy --> peripheral smear review --> med reviewed as well # Anemia of chronic disease --> panel has been reviewed --> transfuse to hgb goal >7 # Cellulitis of right upper extremity --> s/p treatment with abx --> appre id and surg recs #Thrombocytopenia---mutliple etiologies possible, potentially related to infection/viralcauses -->plt trend-->90-->93-->75-->62 # Hyperkalemia, diminished renal excretion --> as per renal recs --> on ivf # Renal insufficiency --> s/p ivf administration # UTI (urinary tract infection) # Dysphagia --> ng in place -->Pulled out NGT and was placed back in, received video swallow 08/01 Greatly appreciate consultation! Subjective Constitutional: Denies: no symptoms, chills, diaphoresis, fever, malaise, weakness, other HEENT: Denies: no symptoms, eye pain, blurred vision, tearing, double vision, ear pain, ear discharge, nose pain, nose congestion, throat pain, throat swelling, mouth pain, mouth swelling, other Cardiovascular: Denies: no symptoms, chest pain, edema, irregular heart rate, lightheadedness, palpitations, syncope, other Respiratory: Denies: no symptoms, cough, orthopnea, shortness of breath, SOB with excertion, SOB at rest, sputum, stridor, wheezing, other Gastrointestinal/Abdominal: Denies: no symptoms, abdomen distended, abdominal pain, black stools, tarry stools, blood in stool, constipated, diarrhea, difficulty swallowing, nausea, poor appetite, poor fluid intake, rectal bleeding , vomiting, other Genitourinary: Denies: no symptoms, burning, discharge, frequency, flank pain, hematuria, incontinence, pain, urgency, other Neurologic/Psychiatric: Denies: no symptoms, anxiety, depressed, emotional problems, headache, numbness, paresthesia, pre-existing deficit, seizure, tingling, tremors, weakness, other Endocrine: Denies: no symptoms, excessive sweating, flushing, intolerance to cold, intolerance to heat, increased hunger, increased thirst, increased urine, unexplained weight gain, unexplained weight loss, other Hematologic/Lymphatic: Denies: no symptoms, anemia, easy bleeding, easy bruising, other Allergies: Coded Allergies: ATORVASTATIN (Unverified Allergy, Unknown, 07/27/18) Uncoded Allergies: VITAMIN B12 (Allergy, Unknown, 07/27/18) VITAMIN D (Allergy, Unknown, 07/27/18) Subjective 07/30: remains without events, nonverbal, less swollen arm/less cellulitis 07/31: getting wound care, Transferred to [facility] for SOB. Has NG tube in. Swallow eval still pending on Tuesday 08/01: awake and comfortable ,Pulled out NGT and was placed back in,getting video swallow.plt 75 08/02: Pt is seen by bedside, awake, confused, following commands, had video swallow. plt trending down at 62 Objective Last 24 Hour Vital Signs Date Time Temp Pulse Resp B/P (MAP) Pulse Ox O2 Delivery O2 Flow Rate FiO2 08/02/18 16:00 97.1 67 20 122/58 (79) 97 08/02/18 12:00 97.3 68 20 139/62 (87) 98 08/02/18 11:37 Nasal Cannula 2.0 08/02/18 08:32 77 08/02/18 08:32 96.8 73 20 132/67 (88) 100 08/02/18 04:00 53 08/02/18 04:00 98.5 58 17 139/56 (83) 100 08/02/18 00:00 98.0 66 18 137/64 (88) 100 08/02/18 00:00 61 08/01/18 21:00 Nasal Cannula 2.0 08/01/18 20:52 100 Nasal Cannula 28 08/01/18 20:52 Nasal Cannula 28 08/01/18 20:00 98.0 61 18 145/60 (88) 100 08/01/18 20:00 67 Intake and Output 08/01/18 08/02/18 19:00 07:00 Intake Total 665 ml Output Total 1100 ml 800 ml Balance -435 ml -800 ml Intake Oral 150 ml Free Water 100 ml IV Total 335 ml Tube Feeding 80 ml Output Urine Total 1100 ml 800 ml # Bowel Movements 1 Laboratory Tests 08/02/18 06:00: White Blood Count 3.1L, Red Blood Count 2.95L, Hemoglobin 7.8L, Hematocrit 24.9L , Mean Corpuscular Volume 84, Mean Corpuscular Hemoglobin 26.4L, Mean Corpuscular Hemoglobin Concent 31.3L, Red Cell Distribution Width 18.4H, Platelet Count 62L, Mean Platelet Volume 7.1, Neutrophils (%) (Auto) , Lymphocytes (%) (Auto) , Monocytes (%) (Auto) , Eosinophils (%) (Auto) , Basophils (%) (Auto) , Differential Total Cells Counted 100, Neutrophils % ( Manual) 71, Lymphocytes % (Manual) 16L, Monocytes % (Manual) 5, Eosinophils % ( Manual) 3, Basophils % (Manual) 0, Band Neutrophils 5, Platelet Estimate DecreasedL, Platelet Morphology Normal, Hypochromasia 1+, Anisocytosis 2+, Sodium Level 145, Potassium Level 3.6, Chloride Level 109H, Carbon Dioxide Level 33H, Anion Gap 3L, Blood Urea Nitrogen 30H, Creatinine 1.2, Estimat Glomerular Filtration Rate > 60, Glucose Level 65L, Calcium Level 9.3, Random Vancomycin Level 18.8 Height (Feet): 5 Height (Inches): 6.00 Weight (Pounds): 185 Objective HEAD AND NECK: No JVD. LUNGS: Coarse rhonchi CARDIOVASCULAR: Shows regular S1 and S2 with no gallop. ABDOMEN: Soft. EXTREMITIES: 2+ pitting edema on the right arm and leg. Alex Lino MD Aug 02, 2018 17:16
--- NOTE | 2018-08-02 17:24 | NUR ---
NURSE NOTES: FSBS of 69 noted, Dextrose given per protocol, retest FSBS of 99, Dr. Johnson made aware of blood sugars, left message, awaiting call back, pt eating dinner currently, asymptomatic, no distress, will continue to monitor.
--- NOTE | 2018-08-02 17:36 | Neurology Progress Note ---
Interim History Interim History Interim History Mr. Tran feels "much better." He is awake and alert. He is able to communicate better. He is still moderately aphasic. He continues to be cognitively impoverished. He continues to be generally weak. His right UE however is less swollen. He says he ate well today and enjoyed his meals. Review of Systems Neuro Review of Systems Unable to evaluate. Objective Physical Exam Last Vital Signs Date Time Temp Pulse Resp B/P (MAP) Pulse Ox O2 Delivery O2 Flow Rate FiO2 08/02/18 16:00 97.1 67 20 122/58 (79) 97 08/02/18 11:37 Nasal Cannula 2.0 08/01/18 20:52 28 Laboratory Tests Test 08/02/18 06:00 White Blood Count 3.1 K/UL (4.8-10.8) L Red Blood Count 2.95 M/UL (4.70-6.10) L Hemoglobin 7.8 G/DL (14.2-18.0) L Hematocrit 24.9 % (42.0-52.0) L Mean Corpuscular Volume 84 FL (80-99) Mean Corpuscular Hemoglobin 26.4 PG (27.0-31.0) L Mean Corpuscular Hemoglobin Concent 31.3 G/DL (32.0-36.0) L Red Cell Distribution Width 18.4 % (11.6-14.8) H Platelet Count 62 K/UL (150-450) L Mean Platelet Volume 7.1 FL (6.5-10.1) Neutrophils (%) (Auto) % (45.0-75.0) Lymphocytes (%) (Auto) % (20.0-45.0) Monocytes (%) (Auto) % (1.0-10.0) Eosinophils (%) (Auto) % (0.0-3.0) Basophils (%) (Auto) % (0.0-2.0) Differential Total Cells Counted 100 Neutrophils % (Manual) 71 % (45-75) Lymphocytes % (Manual) 16 % (20-45) L Monocytes % (Manual) 5 % (1-10) Eosinophils % (Manual) 3 % (0-3) Basophils % (Manual) 0 % (0-2) Band Neutrophils 5 % (0-8) Platelet Estimate Decreased L Platelet Morphology Normal Hypochromasia 1+ Anisocytosis 2+ Sodium Level 145 MMOL/L (136-145) Potassium Level 3.6 MMOL/L (3.5-5.1) Chloride Level 109 MMOL/L (98-107) H Carbon Dioxide Level 33 MMOL/L (21-32) H Anion Gap 3 mmol/L (5-15) L Blood Urea Nitrogen 30 mg/dL (7-18) H Creatinine 1.2 MG/DL (0.55-1.30) Estimat Glomerular Filtration Rate > 60 mL/min (>60) Glucose Level 65 MG/DL (74-106) L Calcium Level 9.3 MG/DL (8.5-10.1) Random Vancomycin Level 18.8 ug/mL Neurologic Exam Objective PHYSICAL EXAMINATION: GENERAL: He is a well-developed, well-nourished, gentleman, lying in bed, in no acute distress. HEAD: Normocephalic and atraumatic. EENT: Examination benign. NECK: No neck rigidity was observed. NEUROLOGIC EXAMINATION: MENTAL STATUS EXAMINATION: He was awake and alert. He was oriented to self only. He was able to follow simple commands. He was unable to cooperate for further mental status testing. SPEECH: He was dysarthric. LANGUAGE: He was able to follow simple commands consistently and able to express himself better. CRANIAL NERVE EXAMINATION: II: He did blink to threat. He was able to count fingers. III, IV & : The external ocular movements were present. The pupils were 3 mm in diameter, equal, round, regular, and reactive sluggishly to light. V: He had normal facial sensations, and the temporales, masseters and pterygoids functioned normally. VII: He had a left VII central facial paresis VIII: He did respond to sounds and had no nystagmus. IX: The palate moved symmetrically on phonation. X: He had no hoarseness of voice. XI: The sternocleidomastoids and trapezii did function. XII: The tongue was in the midline without any fasciculations or atrophy. MOTOR SYSTEM: The tone was increased in all four extremities with mild spasticity. Examination of muscle mass revealed generalized wasting. Examination of power was difficult to perform accurately. He moved all four extremities on command but was generally weak. The lower extremities were weaker than the upper extremities. SENSORY EXAMINATION: He responded appropriately to light touch. He could not cooperate for other sensory modalities. REFLEXES: 0 at the biceps, triceps, brachioradialis, knees, and ankles. The plantar responses were flexor bilaterally. COORDINATION, STANCE & GAIT: Could not be tested. Impression/Recommendations Diagnostic Impression 1. Mr. Juan Tran is a 68-year-old, right handed, gentleman, who lives in a care home. He has a past history of hypertension, chronic obstructive pulmonary disease, renal dysfunction, seizure disorder, anemia, urinary tract infections, and right upper extremity cellulitis. He was hospitalized for an alteration in mental state and worsening of his right upper extremity cellulitis. 2. He feels "much better." He is awake and alert. He is able to say a few words and able to understand commands. He is still moderately aphasic. He continues to be cognitively impoverished. He continues to be generally weak. His right UE however is less swollen. He says he ate well today and enjoyed his meals. 3. On neurological examination, at this time, he is awake, alert and more verbal. He is oriented to self only. He is able to follow simple commands well. He is unable to cooperate for further mental status testing. His speech is dysarthric. He is able to follow simple commands consistently and able to express himself better. He has a left VII central facial paresis. He he moves all four extremities on command but is weaker in the lower extremities. His deep tendon reflexes are globally absent. His plantar responses are flexor. 4. Laboratory data obtained thus far revealed that he is anemic with a hemoglobin of 8.0 G. His chemistry panel revealed an elevated potassium at 6.6 , BUN elevated at 48, creatinine elevated at 1.3, blood glucose elevated at 198 , alkaline phosphatase elevated to 129, albumin low at 1.8. His urinalysis revealed 3+ leukocyte esterase, 15-20 RBCs and too numerous to count WBCs per high-power field. 5. Further laboratory tests have revealed an elevated TSH. 6. The MRI done on 07/29/18 was marred by movement artifact but did not reveal any acute pathology. Old deep white matter disease and atrophy was seen. 7. The EEG done on 07/29/18 revealed a severe toxic metabolic encephalopathy and multifocal epileptogenic discharges from F3/F4/T3/T4. No electrographic or clinical seizures were noted. 8. The patient's history and neurological examination are most compatible with cellulitis of the right upper extremity and a significant urinary tract infection. However, it is unclear as to what his change of mental state represents as his baseline mental state is unknown to us. 9. In addition, he also carries a history of a seizure disorder, but it is unclear as to what type of seizure disorder he has. He has been seizure free on a therapeutic dose of valproate. Recommendations 1. Continue present management. 2. Would try to obtain a better history regarding his baseline mental state and seizure type. 3. Continue Depakene 1 G q 12 hours. 4. Aggressive treatment of infection. 5. Observe. Preston Escalera M.D., M.S.P.H. Preston Escalera MD Aug 02, 2018 17:36
[2018-08-02] MEDS ORDERED: Docusate 100mg cap ORAL SCH (18:00)
--- NOTE | 2018-08-02 19:23 | NUR ---
HAND-OFF: Report given to Jesus Alberto CORONA.
--- NOTE | 2018-08-02 19:40 | NUR ---
NURSE NOTES: Received patient in bed, awake, No acute distress noted, No c/on pain or any discomfort noted, Bed is in lowest position and locked, alarm is on, Call light and needs within reach, Will continue to monitor.
[2018-08-02 20:00] VITALS: BP 124/64
[2018-08-02] MEDS: Dyna-Hex 2% Top Sol 2oz TOPIC SCH (20:29)
[2018-08-03] VITALS: BP 127/63
[2018-08-03 04:00] VITALS: BP 133/57
[2018-08-03] MEDS: NovoLOG Insulin Flexpen SUBQ SCH ×4 (05:56→20:27)
[2018-08-03 06:39] LABS: HEMATOCRIT 23.8 % (42.0-52.0); HEMOGLOBIN 7.4 G/DL (14.2-18.0); MEAN CORPUSCULAR VOLUME 85 FL (80-99); PLATELET COUNT 59 K/UL (150-450); RED CELL DISTRIBUTION WIDTH 18.2 % (11.6-14.8); WHITE BLOOD COUNT 2.7 K/UL (4.8-10.8)
[2018-08-03 06:55] LABS: ANION GAP 3 mmol/L (5-15); BLOOD UREA NITROGEN 26 mg/dL (7-18); CALCIUM 9.4 MG/DL (8.5-10.1); CARBON DIOXIDE 33 MMOL/L (21-32); CHLORIDE 108 MMOL/L (98-107); CREATININE 1.1 MG/DL (0.55-1.30); POTASSIUM 3.5 MMOL/L (3.5-5.1); SODIUM 144 MMOL/L (136-145)
--- NOTE | 2018-08-03 07:11 | General Progress Note ---
Assessment/Plan Problem List: (1) Abnormal thyroid blood test ICD Codes: R79.89 - Other specified abnormal findings of blood chemistry SNOMED: 809351462, [id number] (2) Cellulitis of right upper extremity ICD Codes: L03.113 - Cellulitis of right upper limb SNOMED: 985329990 (3) Renal insufficiency ICD Codes: N28.9 - Disorder of kidney and ureter, unspecified SNOMED: 526772026, 450017654 (4) History of seizure ICD Codes: Z87.898 - Personal history of other specified conditions SNOMED: 372325181 (5) COPD (chronic obstructive pulmonary disease) ICD Codes: J44.9 - Chronic obstructive pulmonary disease, unspecified SNOMED: 88017441 (6) Diabetes mellitus ICD Codes: E11.9 - Type 2 diabetes mellitus without complications SNOMED: 67342206 Assessment/Plan abnormal thyroid function - mildly elevated TSH, normal free T4 and mildly low free T3 - most likely due to "non thyroidal illness" - will repeat thyroid function - no need for thyroid hormone replacement for now continue low dose NISS Subjective ROS Limited/Unobtainable: Yes Allergies: Coded Allergies: ATORVASTATIN (Unverified Allergy, Unknown, 07/27/18) Uncoded Allergies: VITAMIN B12 (Allergy, Unknown, 07/27/18) VITAMIN D (Allergy, Unknown, 07/27/18) Subjective events noted Objective Last 24 Hour Vital Signs Date Time Temp Pulse Resp B/P (MAP) Pulse Ox O2 Delivery O2 Flow Rate FiO2 08/03/18 04:00 97.2 57 18 133/57 (82) 100 08/03/18 00:00 98.0 58 18 127/63 (84) 97 08/02/18 21:00 Nasal Cannula 2.0 08/02/18 20:00 Nasal Cannula 2.0 28 08/02/18 20:00 97.0 60 20 124/64 (84) 100 08/02/18 20:00 98 Nasal Cannula 2.0 28 08/02/18 16:00 97.1 67 20 122/58 (79) 97 08/02/18 12:00 97.3 68 20 139/62 (87) 98 08/02/18 11:37 Nasal Cannula 2.0 08/02/18 08:32 77 08/02/18 08:32 96.8 73 20 132/67 (88) 100 Intake and Output 08/02/18 08/03/18 18:59 06:59 Intake Total 720 ml Output Total 700 ml Balance 20 ml Intake Oral 720 ml Output Urine Total 700 ml Laboratory Tests 08/03/18 05:50: White Blood Count [Pending], Red Blood Count [Pending], Hemoglobin [Pending], Hematocrit [Pending], Mean Corpuscular Volume [Pending], Mean Corpuscular Hemoglobin [Pending], Mean Corpuscular Hemoglobin Concent [Pending], Red Cell Distribution Width [Pending], Platelet Count [Pending], Mean Platelet Volume [ Pending], Neutrophils (%) (Auto) [Pending], Lymphocytes (%) (Auto) [Pending], Monocytes (%) (Auto) [Pending], Eosinophils (%) (Auto) [Pending], Basophils (%) (Auto) [Pending], Sodium Level 144, Potassium Level 3.5, Chloride Level 108H, Carbon Dioxide Level 33H, Anion Gap 3L, Blood Urea Nitrogen 26H, Creatinine 1.1 , Estimat Glomerular Filtration Rate > 60, Glucose Level 71L, Calcium Level 9.4 , Phosphorus Level [Pending], Magnesium Level 1.5L Height (Feet): 5 Height (Inches): 6.00 Weight (Pounds): 205 General Appearance: no apparent distress Neck: normal alignment Cardiovascular: normal rate Respiratory/Chest: lungs clear Abdomen: normal bowel sounds Pelvis: normal external exam Objective Current Medications Medications (Trade) Dose Ordered Sig/Violette Route PRN Reason Start Time Stop Time Status Last Admin Dose Admin Acetaminophen (Tylenol) 650 mg Q4H PRN ORAL T>100.5 08/02/18 12:00 08/27/18 11:59 Cefepime HCl 2 gm/ Dextrose 110 ml @ 220 mls/hr DAILY IV 08/03/18 09:00 08/07/18 08:59 Chlorhexidine Gluconate (Samantha-Hex 2%) 1 applic DAILY@2000 TOPIC 08/02/18 20:00 08/28/18 19:59 08/02/18 20:29 Dextrose (Dextrose 50%) 25 ml Q30M PRN IV Hypoglycemia 08/02/18 11:45 08/27/18 09:14 Dextrose (Dextrose 50%) 50 ml Q30M PRN IV Hypoglycemia 08/02/18 11:45 08/27/18 09:14 Docusate Sodium (Colace) 100 mg TWICE A DAY ORAL 08/02/18 18:00 09/01/18 17:59 08/02/18 17:13 Insulin Aspart (NovoLOG) BEFORE MEALS AND HS SUBQ 08/02/18 16:30 08/31/18 16:29 Lansoprazole (Prevacid) 30 mg DAILY NG 08/03/18 09:00 08/27/18 08:59 Lorazepam (Ativan) 0.5 mg Q6H PRN ORAL For Anxiety 08/02/18 12:00 08/05/18 11:59 Morphine Sulfate (Morphine Sulfate) 2 mg Q4H PRN IVP Moderate Pain (Pain Scale 4-6) 08/02/18 12:00 08/04/18 11:59 Nitroglycerin (Ntg) 0.4 mg Q5M PRN SL Prn Chest Pain 08/02/18 12:00 08/27/18 11:59 Ondansetron HCl (Zofran) 4 mg Q6H PRN IVP Nausea & Vomiting 08/02/18 12:00 08/27/18 11:59 Paroxetine HCl (Paxil) 20 mg DAILY ORAL 08/03/18 09:00 08/28/18 08:59 Polyethylene Glycol (Miralax) 17 gm DAILYPRN PRN ORAL Constipation 08/02/18 12:00 09/01/18 11:59 Risperidone (RisperDAL) 1 mg Q12HR ORAL 08/02/18 21:00 09/01/18 20:59 08/02/18 20:29 Temazepam (Restoril) 15 mg HSPRN PRN ORAL Insomnia 08/02/18 22:00 08/09/18 21:59 Valproic Acid (Depakene) 1,000 mg EVERY 12 HOURS NG 08/02/18 21:00 08/31/18 11:29 08/02/18 20:31 Vancomycin HCl (Vanco rx to dose) 1 ea DAILY PRN MISC Per rx protocol 08/02/18 12:00 09/01/18 11:59 Vancomycin HCl 1 gm/Dextrose 275 ml @ 183.708 mls/hr Q48H IVPB 08/04/18 09:00 08/07/18 08:59 Item Value Date Time Bedside Blood Glucose 74 mg/dl 08/03/18 0556 Bedside Blood Glucose 84 mg/dl 08/02/18 2100 Bedside Blood Glucose 99 mg/dl 08/02/18 1721 Bedside Blood Glucose 197 mg/dl H 08/02/18 1211 Bedside Blood Glucose 74 mg/dl 08/02/18 0637 Jeremias Olvera MD Aug 03, 2018 07:11
[2018-08-03 07:17] LABS: PHOSPHORUS 3.5 MG/DL (2.5-4.9)
--- NOTE | 2018-08-03 07:30 | NUR ---
HAND-OFF: Report given to Desmond CORONA.
--- NOTE | 2018-08-03 07:45 | NUR ---
NURSE NOTES: Received patient from CJ Shaffer. Patient is not in respiratory distress. Patient is awake, in room air. Bed in the lowest position, call light within reach.Will continue to monitor patient.
[2018-08-03 08:00] VITALS: BP 126/55
--- NOTE | 2018-08-03 08:02 | NUR ---
NURSE NOTES: Received patient from Jesus Alberto RN, patient in bed, no distress noted, bed is locked and in lowest position, will continue to monitor.
[2018-08-03] MEDS: PARoxetine 20mg tab ORAL SCH (08:57)
[2018-08-03] MEDS: Docusate 100mg cap ORAL SCH ×2 (08:57→17:23)
[2018-08-03] MEDS: Valproic Acid 250mg/5ml Liquid NG SCH ×2 (08:58→20:26)
[2018-08-03] MEDS: Cefepime HCl 2 GM in D5W 110 ML IV SCH (09:00)
--- NOTE | 2018-08-03 10:15 | NUR ---
NURSE NOTES: RN notified Dr. Lino of Hgb: 7.4, Hct:23.8, and Plt: 59, no new orders at this time, will continue to monitor.
--- NOTE | 2018-08-03 11:13 | NUR ---
ST NOTE: SWALLOW/SPEECH/LANGUAGE/COGNITIONS STATUS PT SEEN AT BEDSIDE IN AM. ALERT, COOPERATIVE , ABLE TO FOLLOW SIMPLE DIRECTIONS. PER RN, PT TOLERATED CURRENT DIET WITHOUT OVERT S/S OF ASPIRATION. PT CONSUMED 100% OF THE MEAL. PER PT, FEELING BETTER AND ABLE TO EXPRESS BASIC WANTS AND NEEDS VERBALLY. DECREASED VOCAL LOUDNESS AND MILD HOARSENESS WAS STILL NOTED. GIVEN HONEY THICK LIQUIDS VIA TABLESPOON, MILD INCREASED ORAL TRANSIT TIME, AND OROPHARYNGEAL TRANSIT TIME, FAIR LARYNGEAL ELEVATION, NO OVERT S/S OF ASPIRATION. TRAINED PT TO USE EFFORTFUL SWALLOW AND SWALLOW X 2 TECHNIQUES ON EACH BITES. CONTINUE SKILLED ST SERVICE. RECOMMEND: PO TRIAL WITH NECTAR THICK LIQUIDS. SWALLOW TX. D/W RN AND THE STAFF.
--- NOTE | 2018-08-03 11:49 | GI Progress Note ---
Assessment/Plan Problems: (1) Dysphasia ICD Codes: R47.02 - Dysphasia SNOMED: 92393271 (2) Dehydration ICD Codes: E86.0 - Dehydration SNOMED: 29448025 (3) Hypoalbuminemia ICD Codes: E88.09 - Other disorders of plasma-protein metabolism, not elsewhere classified SNOMED: 506088067 (4) Anemia ICD Codes: D64.9 - Anemia, unspecified SNOMED: 058648746 Qualifiers: Qualified Codes: D64.9 - Anemia, unspecified Status: progressing Status Narrative Discussed with Dr. Blanco Assessment/Plan Assessment - AMS - COPD -- Renal failure - Anemia Patient passed video swallow study, now on diet RECOMMENDATIONS: Still be not collected, will consider EGD colonoscopy if positive. Monitor H&H, prn transfusions ppi fu labs on renal diet The patient was seen and examined at bedside and all new and available data was reviewed in the patients chart. I agree with the above findings, impression and plan. (Patient seen earlier today. Signature stamp does not reflect patient encounter time.). - Jayce Blanco MD Subjective Subjective Limited Objective Last 24 Hour Vital Signs Date Time Temp Pulse Resp B/P (MAP) Pulse Ox O2 Delivery O2 Flow Rate FiO2 08/03/18 09:00 Room Air 08/03/18 08:55 Nasal Cannula 2.0 28 08/03/18 08:55 99 Nasal Cannula 2.0 28 08/03/18 08:00 97.6 61 18 126/55 (78) 99 08/03/18 04:00 97.2 57 18 133/57 (82) 100 08/03/18 00:00 98.0 58 18 127/63 (84) 97 08/02/18 21:00 Nasal Cannula 2.0 08/02/18 20:00 Nasal Cannula 2.0 28 08/02/18 20:00 97.0 60 20 124/64 (84) 100 08/02/18 20:00 98 Nasal Cannula 2.0 28 08/02/18 16:00 97.1 67 20 122/58 (79) 97 08/02/18 12:00 97.3 68 20 139/62 (87) 98 Intake and Output 08/02/18 08/03/18 19:00 07:00 Intake Total 720 ml Output Total 700 ml 1000 ml Balance 20 ml -1000 ml Intake Oral 720 ml Output Urine Total 700 ml 1000 ml Laboratory Tests Test 08/03/18 05:50 White Blood Count 2.7 K/UL (4.8-10.8) L Red Blood Count 2.80 M/UL (4.70-6.10) L Hemoglobin 7.4 G/DL (14.2-18.0) L Hematocrit 23.8 % (42.0-52.0) L Mean Corpuscular Volume 85 FL (80-99) Mean Corpuscular Hemoglobin 26.5 PG (27.0-31.0) L Mean Corpuscular Hemoglobin Concent 31.2 G/DL (32.0-36.0) L Red Cell Distribution Width 18.2 % (11.6-14.8) H Platelet Count 59 K/UL (150-450) L Mean Platelet Volume 6.5 FL (6.5-10.1) Neutrophils (%) (Auto) % (45.0-75.0) Lymphocytes (%) (Auto) % (20.0-45.0) Monocytes (%) (Auto) % (1.0-10.0) Eosinophils (%) (Auto) % (0.0-3.0) Basophils (%) (Auto) % (0.0-2.0) Differential Total Cells Counted 100 Neutrophils % (Manual) 67 % (45-75) Lymphocytes % (Manual) 21 % (20-45) Monocytes % (Manual) 4 % (1-10) Eosinophils % (Manual) 6 % (0-3) H Basophils % (Manual) 0 % (0-2) Band Neutrophils 2 % (0-8) Platelet Estimate Decreased L Platelet Morphology Normal Hypochromasia 2+ Anisocytosis 1+ Sodium Level 144 MMOL/L (136-145) Potassium Level 3.5 MMOL/L (3.5-5.1) Chloride Level 108 MMOL/L (98-107) H Carbon Dioxide Level 33 MMOL/L (21-32) H Anion Gap 3 mmol/L (5-15) L Blood Urea Nitrogen 26 mg/dL (7-18) H Creatinine 1.1 MG/DL (0.55-1.30) Estimat Glomerular Filtration Rate > 60 mL/min (>60) Glucose Level 71 MG/DL (74-106) L Calcium Level 9.4 MG/DL (8.5-10.1) Phosphorus Level 3.5 MG/DL (2.5-4.9) Magnesium Level 1.5 MG/DL (1.8-2.4) L Thyroid Stimulating Hormone (TSH) 2.708 uiU/mL (0.358-3.740) Height (Feet): 5 Height (Inches): 6.00 Weight (Pounds): 205 General Appearance: WD/WN, no apparent distress, alert Cardiovascular: normal rate Respiratory/Chest: normal breath sounds, no respiratory distress Abdominal Exam: normal bowel sounds, non tender, soft Extremities: normal range of motion, non-tender Josiane Mendoza NP Aug 03, 2018 11:49
[2018-08-03 12:00] VITALS: BP 116/55
--- NOTE | 2018-08-03 12:10 | Infectious Diseases Prog Note ---
Assessment/Plan Assessment/Plan 68 yo male who was sent to the ED from his [facility] for right arm swelling. right wrist cellulitisl improving- 1.5cm ulceration noted. seropurulent drainage noted. minimal foul odor. cellulitis circumferential. -wound cx Neg -MRI R wrist :No evidence of acute osteomyelitis. 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 Correlation with plain film may be helpful. Moderate arthrosis of the wrist. Multiseptated collections noted adjacent to the distal radial ulnar joint and thflexor/palmar aspect of the distal forearm. These are likely ganglion cysts. US no DVT No X-ray No Fever No leukocytosis Sacral Decub Stage 4, R buttock- no signs of infection -wound cx ESBL e.coli; colonizer Dysphagia HTN DM PLAN - Continue Cefepime #7 and vancomycin #7/-14 for R wrist cellulitis -upon further improvement, expect switching to PO abx (ie. bactrim and levaquin) - Wound care - Monitor CBC and Temps - Monitor BMs Thank you for this consult. We will continue to follow the patient during this hospitalization. Subjective Allergies: Coded Allergies: ATORVASTATIN (Unverified Allergy, Unknown, 07/27/18) Uncoded Allergies: VITAMIN B12 (Allergy, Unknown, 07/27/18) VITAMIN D (Allergy, Unknown, 07/27/18) Subjective afebrile no leukocytosis Objective Vital Signs Last 24 Hour Vital Signs Date Time Temp Pulse Resp B/P (MAP) Pulse Ox O2 Delivery O2 Flow Rate FiO2 08/03/18 09:00 Room Air 08/03/18 08:55 Nasal Cannula 2.0 28 08/03/18 08:55 99 Nasal Cannula 2.0 28 08/03/18 08:00 97.6 61 18 126/55 (78) 99 08/03/18 04:00 97.2 57 18 133/57 (82) 100 08/03/18 00:00 98.0 58 18 127/63 (84) 97 08/02/18 21:00 Nasal Cannula 2.0 08/02/18 20:00 Nasal Cannula 2.0 28 08/02/18 20:00 97.0 60 20 124/64 (84) 100 08/02/18 20:00 98 Nasal Cannula 2.0 28 08/02/18 16:00 97.1 67 20 122/58 (79) 97 Height (Feet): 5 Height (Inches): 6.00 Weight (Pounds): 205 Objective Gen: NAD, Opens eyes not following commands HEENT: NCAT, MMM, EOMI LUNGS: CTAB, No W CARDS: RRR, S1, S2, No M/R/G, ABD: Soft, NT, ND, + BS Ext: C/C/E, Pulses 2+ B/L (DP, Rad): Right upper extremity with swelling with ulcer. some eschar covering SKIN: Warm/dry, No rashes, Stage 4 sacral decube. No Purulent drainage Laboratory Tests Test 08/03/18 05:50 White Blood Count 2.7 K/UL (4.8-10.8) L Red Blood Count 2.80 M/UL (4.70-6.10) L Hemoglobin 7.4 G/DL (14.2-18.0) L Hematocrit 23.8 % (42.0-52.0) L Mean Corpuscular Volume 85 FL (80-99) Mean Corpuscular Hemoglobin 26.5 PG (27.0-31.0) L Mean Corpuscular Hemoglobin Concent 31.2 G/DL (32.0-36.0) L Red Cell Distribution Width 18.2 % (11.6-14.8) H Platelet Count 59 K/UL (150-450) L Mean Platelet Volume 6.5 FL (6.5-10.1) Neutrophils (%) (Auto) % (45.0-75.0) Lymphocytes (%) (Auto) % (20.0-45.0) Monocytes (%) (Auto) % (1.0-10.0) Eosinophils (%) (Auto) % (0.0-3.0) Basophils (%) (Auto) % (0.0-2.0) Differential Total Cells Counted 100 Neutrophils % (Manual) 67 % (45-75) Lymphocytes % (Manual) 21 % (20-45) Monocytes % (Manual) 4 % (1-10) Eosinophils % (Manual) 6 % (0-3) H Basophils % (Manual) 0 % (0-2) Band Neutrophils 2 % (0-8) Platelet Estimate Decreased L Platelet Morphology Normal Hypochromasia 2+ Anisocytosis 1+ Sodium Level 144 MMOL/L (136-145) Potassium Level 3.5 MMOL/L (3.5-5.1) Chloride Level 108 MMOL/L (98-107) H Carbon Dioxide Level 33 MMOL/L (21-32) H Anion Gap 3 mmol/L (5-15) L Blood Urea Nitrogen 26 mg/dL (7-18) H Creatinine 1.1 MG/DL (0.55-1.30) Estimat Glomerular Filtration Rate > 60 mL/min (>60) Glucose Level 71 MG/DL (74-106) L Calcium Level 9.4 MG/DL (8.5-10.1) Phosphorus Level 3.5 MG/DL (2.5-4.9) Magnesium Level 1.5 MG/DL (1.8-2.4) L Thyroid Stimulating Hormone (TSH) 2.708 uiU/mL (0.358-3.740) Current Medications Medications (Trade) Dose Ordered Sig/Violette Route PRN Reason Start Time Stop Time Status Last Admin Dose Admin Acetaminophen (Tylenol) 650 mg Q4H PRN ORAL T>100.5 08/02/18 12:00 08/27/18 11:59 Cefepime HCl 2 gm/ Dextrose 110 ml @ 220 mls/hr DAILY IV 08/03/18 09:00 08/07/18 08:59 08/03/18 09:00 Chlorhexidine Gluconate (Samantha-Hex 2%) 1 applic DAILY@2000 TOPIC 08/02/18 20:00 08/28/18 19:59 08/02/18 20:29 Dextrose (Dextrose 50%) 25 ml Q30M PRN IV Hypoglycemia 08/02/18 11:45 08/27/18 09:14 Dextrose (Dextrose 50%) 50 ml Q30M PRN IV Hypoglycemia 08/02/18 11:45 08/27/18 09:14 Docusate Sodium (Colace) 100 mg TWICE A DAY ORAL 08/02/18 18:00 09/01/18 17:59 08/03/18 08:57 Insulin Aspart (NovoLOG) BEFORE MEALS AND HS SUBQ 08/02/18 16:30 08/31/18 16:29 Lansoprazole (Prevacid) 30 mg DAILY NG 08/03/18 09:00 08/27/18 08:59 08/03/18 08:56 Lorazepam (Ativan) 0.5 mg Q6H PRN ORAL For Anxiety 08/02/18 12:00 08/05/18 11:59 Morphine Sulfate (Morphine Sulfate) 2 mg Q4H PRN IVP Moderate Pain (Pain Scale 4-6) 08/02/18 12:00 08/04/18 11:59 Nitroglycerin (Ntg) 0.4 mg Q5M PRN SL Prn Chest Pain 08/02/18 12:00 08/27/18 11:59 Ondansetron HCl (Zofran) 4 mg Q6H PRN IVP Nausea & Vomiting 08/02/18 12:00 08/27/18 11:59 Paroxetine HCl (Paxil) 20 mg DAILY ORAL 08/03/18 09:00 08/28/18 08:59 08/03/18 08:57 Polyethylene Glycol (Miralax) 17 gm DAILYPRN PRN ORAL Constipation 08/02/18 12:00 09/01/18 11:59 Risperidone (RisperDAL) 1 mg Q12HR ORAL 08/02/18 21:00 09/01/18 20:59 08/03/18 08:57 Temazepam (Restoril) 15 mg HSPRN PRN ORAL Insomnia 08/02/18 22:00 08/09/18 21:59 Valproic Acid (Depakene) 1,000 mg EVERY 12 HOURS NG 08/02/18 21:00 08/31/18 11:29 08/03/18 08:58 Vancomycin HCl (Vanco rx to dose) 1 ea DAILY PRN MISC Per rx protocol 08/02/18 12:00 09/01/18 11:59 Vancomycin HCl 1 gm/Dextrose 275 ml @ 183.708 mls/hr Q48H IVPB 08/04/18 09:00 08/07/18 08:59 Rima Reardon M.D. Aug 03, 2018 12:10
--- NOTE | 2018-08-03 13:05 | NUR ---
NURSE NOTES:WOUND CARE FOLLOW-UP NOTE: R forearm /R hand swollen with full thickness wound in close proximity to R wrist.Wound bed with 100% loose slough and undermining (L)2cm x (W)2.3cm x (D)0.6cm, undermining 8-11 by 2.2cm @8o'clock Erythema noted to borders and periwound.Small amt non-odorous seropurulent exudate.Loose dry eschar removed from wrist area and skin is pink and dry.L trochanter resolving -non-blanchable erythema without induration noted .Dark skin tone noted to L ischium . Full thickness pressure injury R ischium(L)4cm x (W)3cm x(D)2.1cm .Base of ischial wound granular .Edges adherent and flat.Dark skin tone periwound without erythema or induration. No odor noted .Minimal serous exudate noted.Scrotal redness noted. DTPI R heel reabsorbed with partial opening to wound that is granular .Wound measures 4.5cm x (W)5.2cm with open wound (L)3.3cm x (W)1.9cm .Small amt serosanguineous exudate noted. L heel boggy but blanchable. Tx.Plan:Cleanse wound R forearm with Saline.Pat dry . Apply Mupirocin oint ( attention to undermined areas @8-11o'clock) Apply ABD pad and wrap with Kerlix TWICE Daily. Cleanse R heel wound with saline. Apply TheraHoney. Cavilon Skin Barrier periwound. Cover with Abd Pad .Wrap with Kerlix Daily and prn. Cleanse R Ischial wound with Saline. loosely pack with Hydrogel impregnated gauze. Cavilon Skin Barrier Periwound. Cover with Optifoam drsg Daily and PRN. Apply Triad to scrotum with each perineal care. Cavilon Skin Barrier to L trochanter .Cover with Optifoam drsg .Change every 7 days and prn. Cavilon to L heel .Cover with Optifoam. Change every 7 days and prn. Off-load heels with pillow. Reposition at least every 2hours and prn. Air fluidized mattress.
--- NOTE | 2018-08-03 14:00 | Cardiac Electrophysiology PN ---
Assessment/Plan Assessment/Plan 1. Hyperkalemia. Resolved after Kayexalate. EKG showed no acute ischemic changes. Echocardiogram 55% 2. History of hypertension. Blood pressure stable off antihypertensive agents. 3. Pancytopenia. 4. Right arm swelling and cellulitis, on IV antibiotics. 5. Renal insufficiency 6. Dysphagia, had video Swallow and is now eating 7. SOB. EF 55% 8. COPD FU Dr Rosita WALL RN Subjective Subjective Feeling better. No CP or SOB Objective Last 24 Hour Vital Signs Date Time Temp Pulse Resp B/P (MAP) Pulse Ox O2 Delivery O2 Flow Rate FiO2 08/03/18 12:00 62 19 116/55 (75) 97 08/03/18 09:00 Room Air 08/03/18 08:55 Nasal Cannula 2.0 28 08/03/18 08:55 99 Nasal Cannula 2.0 28 08/03/18 08:00 97.6 61 18 126/55 (78) 99 08/03/18 04:00 97.2 57 18 133/57 (82) 100 08/03/18 00:00 98.0 58 18 127/63 (84) 97 08/02/18 21:00 Nasal Cannula 2.0 08/02/18 20:00 Nasal Cannula 2.0 28 08/02/18 20:00 97.0 60 20 124/64 (84) 100 08/02/18 20:00 98 Nasal Cannula 2.0 28 08/02/18 16:00 97.1 67 20 122/58 (79) 97 Intake and Output 08/02/18 08/03/18 19:00 07:00 Intake Total 720 ml Output Total 700 ml 1000 ml Balance 20 ml -1000 ml Intake Oral 720 ml Output Urine Total 700 ml 1000 ml Laboratory Tests Test 08/03/18 05:50 White Blood Count 2.7 K/UL (4.8-10.8) L Red Blood Count 2.80 M/UL (4.70-6.10) L Hemoglobin 7.4 G/DL (14.2-18.0) L Hematocrit 23.8 % (42.0-52.0) L Mean Corpuscular Volume 85 FL (80-99) Mean Corpuscular Hemoglobin 26.5 PG (27.0-31.0) L Mean Corpuscular Hemoglobin Concent 31.2 G/DL (32.0-36.0) L Red Cell Distribution Width 18.2 % (11.6-14.8) H Platelet Count 59 K/UL (150-450) L Mean Platelet Volume 6.5 FL (6.5-10.1) Neutrophils (%) (Auto) % (45.0-75.0) Lymphocytes (%) (Auto) % (20.0-45.0) Monocytes (%) (Auto) % (1.0-10.0) Eosinophils (%) (Auto) % (0.0-3.0) Basophils (%) (Auto) % (0.0-2.0) Differential Total Cells Counted 100 Neutrophils % (Manual) 67 % (45-75) Lymphocytes % (Manual) 21 % (20-45) Monocytes % (Manual) 4 % (1-10) Eosinophils % (Manual) 6 % (0-3) H Basophils % (Manual) 0 % (0-2) Band Neutrophils 2 % (0-8) Platelet Estimate Decreased L Platelet Morphology Normal Hypochromasia 2+ Anisocytosis 1+ Sodium Level 144 MMOL/L (136-145) Potassium Level 3.5 MMOL/L (3.5-5.1) Chloride Level 108 MMOL/L (98-107) H Carbon Dioxide Level 33 MMOL/L (21-32) H Anion Gap 3 mmol/L (5-15) L Blood Urea Nitrogen 26 mg/dL (7-18) H Creatinine 1.1 MG/DL (0.55-1.30) Estimat Glomerular Filtration Rate > 60 mL/min (>60) Glucose Level 71 MG/DL (74-106) L Calcium Level 9.4 MG/DL (8.5-10.1) Phosphorus Level 3.5 MG/DL (2.5-4.9) Magnesium Level 1.5 MG/DL (1.8-2.4) L Thyroid Stimulating Hormone (TSH) 2.708 uiU/mL (0.358-3.740) Objective HEAD AND NECK: No JVD. LUNGS: Coarse rhonchi CARDIOVASCULAR: Regular S1 and S2 with no gallop or murmur. ABDOMEN: Soft. EXTREMITIES: 2+ pitting edema of right arm and leg. Rios Barron MD Aug 03, 2018 14:00
--- NOTE | 2018-08-03 14:27 | General Progress Note ---
Assessment/Plan Problem List: (1) Anemia ICD Codes: D64.9 - Anemia, unspecified SNOMED: 251190789 Qualifiers: Qualified Codes: D64.9 - Anemia, unspecified (2) Cellulitis of right upper extremity ICD Codes: L03.113 - Cellulitis of right upper limb SNOMED: 153263432 (3) Renal insufficiency ICD Codes: N28.9 - Disorder of kidney and ureter, unspecified SNOMED: 180087870, 433776823 (4) UTI (urinary tract infection) ICD Codes: N39.0 - Urinary tract infection, site not specified SNOMED: 76456919, 287965265 Qualifiers: Qualified Codes: N39.0 - Urinary tract infection, site not specified (5) History of seizure ICD Codes: Z87.898 - Personal history of other specified conditions SNOMED: 093288966 (6) COPD (chronic obstructive pulmonary disease) ICD Codes: J44.9 - Chronic obstructive pulmonary disease, unspecified SNOMED: 99186698 (7) ATN (acute tubular necrosis) ICD Codes: N17.0 - Acute kidney failure with tubular necrosis SNOMED: 15277546 (8) Hyperkalemia, diminished renal excretion ICD Codes: E87.5 - Hyperkalemia SNOMED: 90359540, 352359910 Status: unchanged Assessment/Plan wound care abx pt diet cbc bmp am heme gi eval transfuse prn Subjective Constitutional: Reports: weakness Allergies: Coded Allergies: ATORVASTATIN (Unverified Allergy, Unknown, 07/27/18) Uncoded Allergies: VITAMIN B12 (Allergy, Unknown, 07/27/18) VITAMIN D (Allergy, Unknown, 07/27/18) All Systems: reviewed and negative except above Subjective confused in bed Objective Last 24 Hour Vital Signs Date Time Temp Pulse Resp B/P (MAP) Pulse Ox O2 Delivery O2 Flow Rate FiO2 08/03/18 12:00 62 19 116/55 (75) 97 08/03/18 09:00 Room Air 08/03/18 08:55 Nasal Cannula 2.0 28 08/03/18 08:55 99 Nasal Cannula 2.0 28 08/03/18 08:00 97.6 61 18 126/55 (78) 99 08/03/18 04:00 97.2 57 18 133/57 (82) 100 08/03/18 00:00 98.0 58 18 127/63 (84) 97 08/02/18 21:00 Nasal Cannula 2.0 08/02/18 20:00 Nasal Cannula 2.0 28 08/02/18 20:00 97.0 60 20 124/64 (84) 100 08/02/18 20:00 98 Nasal Cannula 2.0 28 08/02/18 16:00 97.1 67 20 122/58 (79) 97 Intake and Output 08/02/18 08/03/18 19:00 07:00 Intake Total 720 ml Output Total 700 ml 1000 ml Balance 20 ml -1000 ml Intake Oral 720 ml Output Urine Total 700 ml 1000 ml Laboratory Tests 08/03/18 05:50: White Blood Count 2.7L, Red Blood Count 2.80L, Hemoglobin 7.4L, Hematocrit 23.8L , Mean Corpuscular Volume 85, Mean Corpuscular Hemoglobin 26.5L, Mean Corpuscular Hemoglobin Concent 31.2L, Red Cell Distribution Width 18.2H, Platelet Count 59L, Mean Platelet Volume 6.5, Neutrophils (%) (Auto) , Lymphocytes (%) (Auto) , Monocytes (%) (Auto) , Eosinophils (%) (Auto) , Basophils (%) (Auto) , Differential Total Cells Counted 100, Neutrophils % ( Manual) 67, Lymphocytes % (Manual) 21, Monocytes % (Manual) 4, Eosinophils % ( Manual) 6H, Basophils % (Manual) 0, Band Neutrophils 2, Platelet Estimate DecreasedL, Platelet Morphology Normal, Hypochromasia 2+, Anisocytosis 1+, Sodium Level 144, Potassium Level 3.5, Chloride Level 108H, Carbon Dioxide Level 33H, Anion Gap 3L, Blood Urea Nitrogen 26H, Creatinine 1.1, Estimat Glomerular Filtration Rate > 60, Glucose Level 71L, Calcium Level 9.4, Phosphorus Level 3.5, Magnesium Level 1.5L, Thyroid Stimulating Hormone (TSH) 2.708 Height (Feet): 5 Height (Inches): 6.00 Weight (Pounds): 205 General Appearance: lethargic EENT: normal ENT inspection Neck: normal alignment Cardiovascular: normal peripheral pulses, normal rate, regular rhythm Respiratory/Chest: chest wall non-tender, lungs clear, normal breath sounds Abdomen: normal bowel sounds, non tender, soft Extremities: normal inspection Edema: no edema noted Arm (L), no edema noted Arm (R), no edema noted Leg (L), no edema noted Leg (R), no edema noted Pedal (L), no edema noted Pedal (R), no edema noted Generalized Neurologic: motor weakness Skin: normal pigmentation, warm/dry Objective r wrist dressing c&d Michael Johnson DO Aug 03, 2018 14:27
--- NOTE | 2018-08-03 14:41 | Neurology Progress Note ---
Interim History Interim History Interim History Mr. Tran continues to feel "much better." He is awake and alert. He is able to communicate better. He is still moderately aphasic. He continues to be cognitively impoverished. He continues to be generally weak. His right UE however is less swollen. He says he ate well today and enjoyed his meals. Review of Systems Neuro Review of Systems Unable to evaluate. Objective Physical Exam Last Vital Signs Date Time Temp Pulse Resp B/P (MAP) Pulse Ox O2 Delivery O2 Flow Rate FiO2 08/03/18 12:00 62 19 116/55 (75) 97 08/03/18 09:00 Room Air 08/03/18 08:55 2.0 28 08/03/18 08:00 97.6 Laboratory Tests Test 08/03/18 05:50 White Blood Count 2.7 K/UL (4.8-10.8) L Red Blood Count 2.80 M/UL (4.70-6.10) L Hemoglobin 7.4 G/DL (14.2-18.0) L Hematocrit 23.8 % (42.0-52.0) L Mean Corpuscular Volume 85 FL (80-99) Mean Corpuscular Hemoglobin 26.5 PG (27.0-31.0) L Mean Corpuscular Hemoglobin Concent 31.2 G/DL (32.0-36.0) L Red Cell Distribution Width 18.2 % (11.6-14.8) H Platelet Count 59 K/UL (150-450) L Mean Platelet Volume 6.5 FL (6.5-10.1) Neutrophils (%) (Auto) % (45.0-75.0) Lymphocytes (%) (Auto) % (20.0-45.0) Monocytes (%) (Auto) % (1.0-10.0) Eosinophils (%) (Auto) % (0.0-3.0) Basophils (%) (Auto) % (0.0-2.0) Differential Total Cells Counted 100 Neutrophils % (Manual) 67 % (45-75) Lymphocytes % (Manual) 21 % (20-45) Monocytes % (Manual) 4 % (1-10) Eosinophils % (Manual) 6 % (0-3) H Basophils % (Manual) 0 % (0-2) Band Neutrophils 2 % (0-8) Platelet Estimate Decreased L Platelet Morphology Normal Hypochromasia 2+ Anisocytosis 1+ Sodium Level 144 MMOL/L (136-145) Potassium Level 3.5 MMOL/L (3.5-5.1) Chloride Level 108 MMOL/L (98-107) H Carbon Dioxide Level 33 MMOL/L (21-32) H Anion Gap 3 mmol/L (5-15) L Blood Urea Nitrogen 26 mg/dL (7-18) H Creatinine 1.1 MG/DL (0.55-1.30) Estimat Glomerular Filtration Rate > 60 mL/min (>60) Glucose Level 71 MG/DL (74-106) L Calcium Level 9.4 MG/DL (8.5-10.1) Phosphorus Level 3.5 MG/DL (2.5-4.9) Magnesium Level 1.5 MG/DL (1.8-2.4) L Thyroid Stimulating Hormone (TSH) 2.708 uiU/mL (0.358-3.740) Neurologic Exam Objective PHYSICAL EXAMINATION: GENERAL: He is a well-developed, well-nourished, gentleman, lying in bed, in no acute distress. HEAD: Normocephalic and atraumatic. EENT: Examination benign. NECK: No neck rigidity was observed. NEUROLOGIC EXAMINATION: MENTAL STATUS EXAMINATION: He was awake and alert. He was oriented to self only. He was able to follow simple commands. He was unable to cooperate for further mental status testing. SPEECH: He was dysarthric. LANGUAGE: He was able to follow simple commands consistently and able to express himself better. CRANIAL NERVE EXAMINATION: II: He did blink to threat. He was able to count fingers. III, IV & : The external ocular movements were present. The pupils were 3 mm in diameter, equal, round, regular, and reactive sluggishly to light. V: He had normal facial sensations, and the temporales, masseters and pterygoids functioned normally. VII: He had a left VII central facial paresis VIII: He did respond to sounds and had no nystagmus. IX: The palate moved symmetrically on phonation. X: He had no hoarseness of voice. XI: The sternocleidomastoids and trapezii did function. XII: The tongue was in the midline without any fasciculations or atrophy. MOTOR SYSTEM: The tone was increased in all four extremities with mild spasticity. Examination of muscle mass revealed generalized wasting. Examination of power was difficult to perform accurately. He moved all four extremities on command but was generally weak. The lower extremities were weaker than the upper extremities. The right upper extremity was weaker than the left. SENSORY EXAMINATION: He responded appropriately to light touch. He could not cooperate for other sensory modalities. REFLEXES: 0 at the biceps, triceps, brachioradialis, knees, and ankles. The plantar responses were flexor bilaterally. COORDINATION, STANCE & GAIT: Could not be tested. Impression/Recommendations Diagnostic Impression 1. Mr. Juan Tran is a 68-year-old, right handed, gentleman, who lives in a long-term. He has a past history of hypertension, chronic obstructive pulmonary disease, renal dysfunction, seizure disorder, anemia, urinary tract infections, and right upper extremity cellulitis. He was hospitalized for an alteration in mental state and worsening of his right upper extremity cellulitis. 2. He continues to feel "much better." He is awake and alert. He is able to communicate better. He is still moderately aphasic. He continues to be cognitively impoverished. He continues to be generally weak. His right UE however is less swollen. He says he ate well today and enjoyed his meals. 3. On neurological examination, at this time, he is awake, alert and more verbal. He is oriented to self only. He is able to follow simple commands well. He is unable to cooperate for further mental status testing. His speech is dysarthric. He is able to follow simple commands consistently and able to express himself better. He has a left VII central facial paresis. He he moves all four extremities on command but is weaker in the lower extremities. His deep tendon reflexes are globally absent. His plantar responses are flexor. 4. Laboratory data obtained thus far revealed that he is anemic with a hemoglobin of 8.0 G. His chemistry panel revealed an elevated potassium at 6.6 , BUN elevated at 48, creatinine elevated at 1.3, blood glucose elevated at 198 , alkaline phosphatase elevated to 129, albumin low at 1.8. His urinalysis revealed 3+ leukocyte esterase, 15-20 RBCs and too numerous to count WBCs per high-power field. 5. Further laboratory tests have revealed an elevated TSH. 6. The MRI done on 07/29/18 was marred by movement artifact but did not reveal any acute pathology. Old deep white matter disease and atrophy was seen. 7. The EEG done on 07/29/18 revealed a severe toxic metabolic encephalopathy and multifocal epileptogenic discharges from F3/F4/T3/T4. No electrographic or clinical seizures were noted. 8. The patient's history and neurological examination are most compatible with cellulitis of the right upper extremity and a significant urinary tract infection. However, it is unclear as to what his change of mental state represents as his baseline mental state is unknown to us. 9. In addition, he also carries a history of a seizure disorder, but it is unclear as to what type of seizure disorder he has. He has been seizure free on a therapeutic dose of valproate. Recommendations 1. Continue present management. 2. Would try to obtain a better history regarding his baseline mental state and seizure type. 3. Continue Depakene 1 G q 12 hours. 4. Aggressive treatment of infection. 5. Observe. Preston Escalera M.D., M.S.P.H. Preston Escalera MD Aug 03, 2018 14:41
--- NOTE | 2018-08-03 14:45 | Nephrology Progress Note ---
Assessment/Plan Problem List: (1) Renal insufficiency Assessment: acute on chronic (2) Hyperkalemia Assessment: resolved (3) Anemia (4) Hypoalbuminemia (5) History of seizure Assessment Renal failure- Acute on Chronic, presents with hyperkalemia COPD Sz disorder UTI Anemia cellulitis Rt UE HypoAlbuminemia Plan mag supplement St eval- ? transfusion? Hydrate stop Kayexelate NGT out stop heparin SQ Monitor renal parameters Anemia shay antibiotics avoid Nephrotoxics per orders Subjective ROS Limited/Unobtainable: No Constitutional: Reports: malaise, weakness Objective Objective Last 24 Hour Vital Signs Date Time Temp Pulse Resp B/P (MAP) Pulse Ox O2 Delivery O2 Flow Rate FiO2 08/03/18 12:00 62 19 116/55 (75) 97 08/03/18 09:00 Room Air 08/03/18 08:55 Nasal Cannula 2.0 28 08/03/18 08:55 99 Nasal Cannula 2.0 28 08/03/18 08:00 97.6 61 18 126/55 (78) 99 08/03/18 04:00 97.2 57 18 133/57 (82) 100 08/03/18 00:00 98.0 58 18 127/63 (84) 97 08/02/18 21:00 Nasal Cannula 2.0 08/02/18 20:00 Nasal Cannula 2.0 28 08/02/18 20:00 97.0 60 20 124/64 (84) 100 08/02/18 20:00 98 Nasal Cannula 2.0 28 08/02/18 16:00 97.1 67 20 122/58 (79) 97 Intake and Output 08/02/18 08/03/18 19:00 07:00 Intake Total 720 ml Output Total 700 ml 1000 ml Balance 20 ml -1000 ml Intake Oral 720 ml Output Urine Total 700 ml 1000 ml Laboratory Tests 08/03/18 05:50: White Blood Count 2.7L, Red Blood Count 2.80L, Hemoglobin 7.4L, Hematocrit 23.8L , Mean Corpuscular Volume 85, Mean Corpuscular Hemoglobin 26.5L, Mean Corpuscular Hemoglobin Concent 31.2L, Red Cell Distribution Width 18.2H, Platelet Count 59L, Mean Platelet Volume 6.5, Neutrophils (%) (Auto) , Lymphocytes (%) (Auto) , Monocytes (%) (Auto) , Eosinophils (%) (Auto) , Basophils (%) (Auto) , Differential Total Cells Counted 100, Neutrophils % ( Manual) 67, Lymphocytes % (Manual) 21, Monocytes % (Manual) 4, Eosinophils % ( Manual) 6H, Basophils % (Manual) 0, Band Neutrophils 2, Platelet Estimate DecreasedL, Platelet Morphology Normal, Hypochromasia 2+, Anisocytosis 1+, Sodium Level 144, Potassium Level 3.5, Chloride Level 108H, Carbon Dioxide Level 33H, Anion Gap 3L, Blood Urea Nitrogen 26H, Creatinine 1.1, Estimat Glomerular Filtration Rate > 60, Glucose Level 71L, Calcium Level 9.4, Phosphorus Level 3.5, Magnesium Level 1.5L, Thyroid Stimulating Hormone (TSH) 2.708 Height (Feet): 5 Height (Inches): 6.00 Weight (Pounds): 205 General Appearance: no apparent distress Cardiovascular: normal rate Respiratory/Chest: decreased breath sounds Abdomen: soft Objective no change Shashi Patel MD Aug 03, 2018 14:45
--- NOTE | 2018-08-03 14:57 | NUR ---
CASE MANAGEMENT:REVIEW 08/03/18 SI: RUE CELLULITIS. HYPERKALEMIA. UTI 97.2 61 18 126/55 97% ON 2L/NC H/H-7.4/23.8 PLT-59 MAG-1.5 IS: IV VANCOMYCIN Q48HRS IV CEFEPIME QD IV MAG SULFATE Q1HRS X2 : TELEMETRY STATUS DCP: FROM [facility]
[2018-08-03 16:00] VITALS: BP_SYST 126; BP_SYST 136; BP_DIAS 55; BP_DIAS 66
--- NOTE | 2018-08-03 16:24 | Pulmonology Progress Note ---
Assessment/Plan Problems: (1) ATN (acute tubular necrosis) (2) COPD (chronic obstructive pulmonary disease) (3) History of seizure (4) UTI (urinary tract infection) (5) Hyperkalemia, diminished renal excretion (6) Cellulitis of right upper extremity (7) Anemia Assessment/Plan more awake, tolerating diet d/w speech pathologist symptomatic treatment iv fluids neuro f/u respiratory treatment. ,med/surg Subjective ROS Limited/Unobtainable: No Constitutional: Reports: no symptoms HEENT: Repors: no symptoms Allergies: Coded Allergies: ATORVASTATIN (Unverified Allergy, Unknown, 07/27/18) Uncoded Allergies: VITAMIN B12 (Allergy, Unknown, 07/27/18) VITAMIN D (Allergy, Unknown, 07/27/18) Objective Last 24 Hour Vital Signs Date Time Temp Pulse Resp B/P (MAP) Pulse Ox O2 Delivery O2 Flow Rate FiO2 08/03/18 12:00 62 19 116/55 (75) 97 08/03/18 09:00 Room Air 08/03/18 08:55 Nasal Cannula 2.0 28 08/03/18 08:55 99 Nasal Cannula 2.0 28 08/03/18 08:00 97.6 61 18 126/55 (78) 99 08/03/18 04:00 97.2 57 18 133/57 (82) 100 08/03/18 00:00 98.0 58 18 127/63 (84) 97 08/02/18 21:00 Nasal Cannula 2.0 08/02/18 20:00 Nasal Cannula 2.0 28 08/02/18 20:00 97.0 60 20 124/64 (84) 100 08/02/18 20:00 98 Nasal Cannula 2.0 28 Intake and Output 08/02/18 08/03/18 19:00 07:00 Intake Total 720 ml Output Total 700 ml 1000 ml Balance 20 ml -1000 ml Intake Oral 720 ml Output Urine Total 700 ml 1000 ml Objective General Appearance: WD/WN Lines, tubes and drains: peripheral HEENT: normocephalic, atraumatic Neck: non-tender, normal alignment Breasts: no masses Cardiovascular/Chest: normal rate Genitourinary/Rectal: normal genital exam Skin Exam: normal pigmentation, rash, other - Laboratory Tests 08/03/18 05:50: White Blood Count 2.7L, Red Blood Count 2.80L, Hemoglobin 7.4L, Hematocrit 23.8L , Mean Corpuscular Volume 85, Mean Corpuscular Hemoglobin 26.5L, Mean Corpuscular Hemoglobin Concent 31.2L, Red Cell Distribution Width 18.2H, Platelet Count 59L, Mean Platelet Volume 6.5, Neutrophils (%) (Auto) , Lymphocytes (%) (Auto) , Monocytes (%) (Auto) , Eosinophils (%) (Auto) , Basophils (%) (Auto) , Differential Total Cells Counted 100, Neutrophils % ( Manual) 67, Lymphocytes % (Manual) 21, Monocytes % (Manual) 4, Eosinophils % ( Manual) 6H, Basophils % (Manual) 0, Band Neutrophils 2, Platelet Estimate DecreasedL, Platelet Morphology Normal, Hypochromasia 2+, Anisocytosis 1+, Sodium Level 144, Potassium Level 3.5, Chloride Level 108H, Carbon Dioxide Level 33H, Anion Gap 3L, Blood Urea Nitrogen 26H, Creatinine 1.1, Estimat Glomerular Filtration Rate > 60, Glucose Level 71L, Calcium Level 9.4, Phosphorus Level 3.5, Magnesium Level 1.5L, Thyroid Stimulating Hormone (TSH) 2.708 Current Medications Medications (Trade) Dose Ordered Sig/Violette Route PRN Reason Start Time Stop Time Status Last Admin Dose Admin Acetaminophen (Tylenol) 650 mg Q4H PRN ORAL T>100.5 08/02/18 12:00 08/27/18 11:59 Cefepime HCl 2 gm/ Dextrose 110 ml @ 220 mls/hr DAILY IV 08/03/18 09:00 08/07/18 08:59 08/03/18 09:00 Chlorhexidine Gluconate (Samantha-Hex 2%) 1 applic DAILY@2000 TOPIC 08/02/18 20:00 08/28/18 19:59 08/02/18 20:29 Dextrose (Dextrose 50%) 25 ml Q30M PRN IV Hypoglycemia 08/02/18 11:45 08/27/18 09:14 Dextrose (Dextrose 50%) 50 ml Q30M PRN IV Hypoglycemia 08/02/18 11:45 08/27/18 09:14 Docusate Sodium (Colace) 100 mg TWICE A DAY ORAL 08/02/18 18:00 09/01/18 17:59 08/03/18 08:57 Insulin Aspart (NovoLOG) BEFORE MEALS AND HS SUBQ 08/02/18 16:30 08/31/18 16:29 08/03/18 12:27 Lansoprazole (Prevacid) 30 mg DAILY NG 08/03/18 09:00 08/27/18 08:59 08/03/18 08:56 Lorazepam (Ativan) 0.5 mg Q6H PRN ORAL For Anxiety 08/02/18 12:00 08/05/18 11:59 Magnesium Sulfate 100 ml @ 100 mls/hr Q1H IVPB 08/03/18 15:00 08/03/18 16:59 08/03/18 16:08 Morphine Sulfate (Morphine Sulfate) 2 mg Q4H PRN IVP Moderate Pain (Pain Scale 4-6) 08/02/18 12:00 08/04/18 11:59 Mupirocin (Bactroban Oint) 1 applic TWICE A DAY TOPIC 08/03/18 18:00 08/08/18 17:59 Nitroglycerin (Ntg) 0.4 mg Q5M PRN SL Prn Chest Pain 08/02/18 12:00 08/27/18 11:59 Ondansetron HCl (Zofran) 4 mg Q6H PRN IVP Nausea & Vomiting 08/02/18 12:00 08/27/18 11:59 Paroxetine HCl (Paxil) 20 mg DAILY ORAL 08/03/18 09:00 08/28/18 08:59 08/03/18 08:57 Polyethylene Glycol (Miralax) 17 gm DAILYPRN PRN ORAL Constipation 08/02/18 12:00 09/01/18 11:59 Risperidone (RisperDAL) 1 mg Q12HR ORAL 08/02/18 21:00 09/01/18 20:59 08/03/18 08:57 Temazepam (Restoril) 15 mg HSPRN PRN ORAL Insomnia 08/02/18 22:00 08/09/18 21:59 Valproic Acid (Depakene) 1,000 mg EVERY 12 HOURS NG 08/02/18 21:00 08/31/18 11:29 08/03/18 08:58 Vancomycin HCl (Vanco rx to dose) 1 ea DAILY PRN MISC Per rx protocol 08/02/18 12:00 09/01/18 11:59 Vancomycin HCl 1 gm/Dextrose 275 ml @ 183.708 mls/hr Q48H IVPB 08/04/18 09:00 08/07/18 08:59 Lazaro Becker MD Aug 03, 2018 16:24
--- NOTE | 2018-08-03 16:37 | Diagnostic Imaging Report ---
Indication: Dysphasia Procedure and findings: Real-time fluoroscopic imaging performed in a lateral projection in conjunction with the speech pathologist evaluation. Variable consistencies of barium given per mouth. Findings: Significant abnormalities of both oral and pharyngeal phases of swallowing are demonstrated. Total fluoroscopic time 182 seconds. Trace aspiration demonstrated on one of the sequences with thin barium. No cough was elicited. Abnormal video swallow. Please refer to speech pathology evaluation for more information.
--- NOTE | 2018-08-03 16:44 | General Progress Note ---
Assessment/Plan Assessment/Plan # Pancytopenia -- mutliple etiologies possible, potentially related to infection /viralcauses, ongoing multiple infections, celluliis, baseline unknown, 1st time admitted --> hepatitis and hiv are negative --> anemia panel reviewed and is cw acd --> us of the abdomen has been ordered and shows fatty liver infiltration --> if no underyling cause, consider a bone marrow biopsy --> peripheral smear review --> med reviewed as well # Anemia of chronic disease --> panel has been reviewed --> transfuse to hgb goal >7 --->7.4--> # Cellulitis of right upper extremity --> s/p treatment with abx --> appre id and surg recs #Thrombocytopenia---mutliple etiologies possible, potentially related to infection/viralcauses -->plt trend-->90-->93-->75-->62-->59 # Hyperkalemia, diminished renal excretion --> as per renal recs --> on ivf # Renal insufficiency --> s/p ivf administration # UTI (urinary tract infection) # Dysphagia --> ng in place -->Pulled out NGT and was placed back in, received video swallow 08/01 --->Patient passed video swallow study, now on diet Greatly appreciate consultation! Subjective Allergies: Coded Allergies: ATORVASTATIN (Unverified Allergy, Unknown, 07/27/18) Uncoded Allergies: VITAMIN B12 (Allergy, Unknown, 07/27/18) VITAMIN D (Allergy, Unknown, 07/27/18) Subjective 07/30: remains without events, nonverbal, less swollen arm/less cellulitis 07/31: getting wound care, Transferred to [facility] for SOB. Has NG tube in. Swallow eval still pending on Tuesday 08/01: awake and comfortable ,Pulled out NGT and was placed back in,getting video swallow.plt 75 08/02: Pt is seen by bedside, awake, confused, following commands, had video swallow. plt trending down at 62 08/03: Pt is awake and comfortable, getting wound care, on abx, passed video swallow study, now on diet, hgb 7.4, plt trending down Objective Last 24 Hour Vital Signs Date Time Temp Pulse Resp B/P (MAP) Pulse Ox O2 Delivery O2 Flow Rate FiO2 08/03/18 16:00 97.6 61 18 126/55 (78) 99 08/03/18 12:00 62 19 116/55 (75) 97 08/03/18 09:00 Room Air 08/03/18 08:55 Nasal Cannula 2.0 28 08/03/18 08:55 99 Nasal Cannula 2.0 28 08/03/18 08:00 97.6 61 18 126/55 (78) 99 08/03/18 04:00 97.2 57 18 133/57 (82) 100 08/03/18 00:00 98.0 58 18 127/63 (84) 97 08/02/18 21:00 Nasal Cannula 2.0 08/02/18 20:00 Nasal Cannula 2.0 28 08/02/18 20:00 97.0 60 20 124/64 (84) 100 08/02/18 20:00 98 Nasal Cannula 2.0 28 Intake and Output 08/02/18 08/03/18 19:00 07:00 Intake Total 720 ml Output Total 700 ml 1000 ml Balance 20 ml -1000 ml Intake Oral 720 ml Output Urine Total 700 ml 1000 ml Laboratory Tests 08/03/18 05:50: White Blood Count 2.7L, Red Blood Count 2.80L, Hemoglobin 7.4L, Hematocrit 23.8L , Mean Corpuscular Volume 85, Mean Corpuscular Hemoglobin 26.5L, Mean Corpuscular Hemoglobin Concent 31.2L, Red Cell Distribution Width 18.2H, Platelet Count 59L, Mean Platelet Volume 6.5, Neutrophils (%) (Auto) , Lymphocytes (%) (Auto) , Monocytes (%) (Auto) , Eosinophils (%) (Auto) , Basophils (%) (Auto) , Differential Total Cells Counted 100, Neutrophils % ( Manual) 67, Lymphocytes % (Manual) 21, Monocytes % (Manual) 4, Eosinophils % ( Manual) 6H, Basophils % (Manual) 0, Band Neutrophils 2, Platelet Estimate DecreasedL, Platelet Morphology Normal, Hypochromasia 2+, Anisocytosis 1+, Sodium Level 144, Potassium Level 3.5, Chloride Level 108H, Carbon Dioxide Level 33H, Anion Gap 3L, Blood Urea Nitrogen 26H, Creatinine 1.1, Estimat Glomerular Filtration Rate > 60, Glucose Level 71L, Calcium Level 9.4, Phosphorus Level 3.5, Magnesium Level 1.5L, Thyroid Stimulating Hormone (TSH) 2.708 Height (Feet): 5 Height (Inches): 6.00 Weight (Pounds): 205 Objective HEAD AND NECK: No JVD. LUNGS: Coarse rhonchi CARDIOVASCULAR: Shows regular S1 and S2 with no gallop. ABDOMEN: Soft. EXTREMITIES: 2+ pitting edema on the right arm and leg. Alex Lino MD Aug 03, 2018 16:44
--- NOTE | 2018-08-03 19:00 | Progress Note ---
DATE: 08/03/2018 SUBJECTIVE: This is a 68-year-old male patient with hypokalemia and right upper extremity mass, still has lot of agitation, mood lability, confusion that is why the attending has requested daily psychiatric consultation. MENTAL STATUS EXAMINATION: This is a 68-year-old male. Appearance is disheveled. Attitude, irritable and agitated. Affect, guarded and restricted. Intellect poor. Mood depressed and anxious. Motor activity, psychomotor agitation. Attention is poor. Orientation x2. Speech is low volume, slurred. Thought process, disorganized and illogical. Thought content, auditory hallucinations and paranoid delusions. Insight and judgment is poor. DIAGNOSIS: Paranoid schizophrenia with acute exacerbation. PLAN: We will continue titrating up on his medications to stabilize his mood. Provide him with 20 minutes of cognitive behavioral therapy to help him identify his automatic negative thoughts and help him to convert those negative thoughts to more positive thoughts to reduce depression, anxiety, and suicidality. Chart is reviewed and discussed with staff. Seen and assessed in his room. Becki Coe M.D. DR: Bon JOB#: [id number] CC:
--- NOTE | 2018-08-03 19:05 | NUR ---
HAND-OFF: Report given to Jesus Alberto CORONA.
--- NOTE | 2018-08-03 19:30 | NUR ---
NURSE NOTES: Patient received in bed, awake, sitting up. No acute distress noted at this time. Dressings dry and intact. PICC line intact and patent. Call light in reach. Bed alarm on. Fall and aspiration precautions. Will continue to monitor.
[2018-08-03 20:00] VITALS: BP 138/68
[2018-08-03] MEDS: Dyna-Hex 2% Top Sol 2oz TOPIC SCH (20:25)
[2018-08-04 00:19] VITALS: BP 155/74
[2018-08-04 04:00] VITALS: BP 149/74
[2018-08-04] MEDS: NovoLOG Insulin Flexpen SUBQ SCH ×4 (06:30→21:00)
--- NOTE | 2018-08-04 06:53 | NUR ---
NURSE NOTES: Patient seen by Dr. smith at bedside.
[2018-08-04 07:00] LABS: ANION GAP 3 mmol/L (5-15); BLOOD UREA NITROGEN 22 mg/dL (7-18); CALCIUM 9.4 MG/DL (8.5-10.1); CARBON DIOXIDE 33 MMOL/L (21-32); CHLORIDE 107 MMOL/L (98-107); CREATININE 1.1 MG/DL (0.55-1.30); PHOSPHORUS 3.2 MG/DL (2.5-4.9); POTASSIUM 3.5 MMOL/L (3.5-5.1); SODIUM 142 MMOL/L (136-145)
[2018-08-04 07:02] LABS: HEMATOCRIT 24.4 % (42.0-52.0); HEMOGLOBIN 7.7 G/DL (14.2-18.0); MEAN CORPUSCULAR VOLUME 84 FL (80-99); PLATELET COUNT 52 K/UL (150-450); RED BLOOD COUNT 2.89 M/UL (4.70-6.10); RED CELL DISTRIBUTION WIDTH 19.2 % (11.6-14.8); WHITE BLOOD COUNT 2.5 K/UL (4.8-10.8)
--- NOTE | 2018-08-04 07:22 | NUR ---
HAND-OFF: Report given to Yodit CORONA.
--- NOTE | 2018-08-04 07:44 | NUR ---
NURSE NOTES: pt in bed with no sob nor in any form of distress noted. Bed in lowest position. call light within reach at all time. will continue to monitor
[2018-08-04 08:00] VITALS: BP 141/70
[2018-08-04] MEDS: Valproic Acid 250mg/5ml Liquid NG SCH ×2 (08:47→21:39)
[2018-08-04] MEDS: Docusate 100mg cap ORAL SCH ×2 (08:48→17:05)
[2018-08-04] MEDS: PARoxetine 20mg tab ORAL SCH (08:48)
[2018-08-04] MEDS: Cefepime HCl 2 GM in D5W 110 ML IV SCH ×2 (08:48→21:00)
[2018-08-04] MEDS ORDERED: Vancomycin 1 GM in D5W 275 ML IVPB SCH (09:00)
--- NOTE | 2018-08-04 10:50 | NUR ---
RD ASSESSMENT & RECOMMENDATIONS SEE CARE ACTIVITY FOR COMPLETE ASSESSMENT DAILY ESTIMATED NEEDS: Needs based on Wound, DM 73kg adj 30-35 kcals/kg 8045-8780 total kcals 1.25-1.5 g protein/kg 91-110 g total protein 25-30 mL/kg 2485-0538 total fluid mLs NUTRITION DIAGNOSIS: 1) Swallowing difficulty r/t dysphagia as evidenced by pt adm w/ puree texture diet and NTL, now s/p VSS w/ rec for liquify pureed, HTL. 2) Altered nutrition related lab values r/t clinical status as evidenced by elev K (6.6-> wnl), elev BUN (53->22 trend down), elev creat (1.4-> wnl), elev BG (167-> 121 92 improved). 3) Increased kcal and protein needs r/t wasting and wound healing as evidenced by pt w/ BL LE moderate to severe wasting, w/ advanced wounds including full thickness wound above R wrist and R ischium, DTPI @ L trochanter, and non-blanchable erythema @ L heel. CURRENT DIET: REGULAR/ LIQUIFY PUREED, HTL PO DIET RECOMMENDATIONS: Maintain Regular diet (texture per [employer]) + GLUCERNA TID ADDITIONAL RECOMMENDATIONS: 1) MONITOR K, RENAL LABS/ need for diet restriction -> K now wnl, creat normalized 2) Monitor BG, need for CCHO MED diet 3) WOUND CARE: Add JACKIE BID, MVI x 1, Vit C 500mg BID 4) Obtain a calibrated bed scale wt for CBW 5) Glucerna 1 tetra radha TID w/ meals 6) Monitor PO intake and tolerance closely- 100% all meals
--- NOTE | 2018-08-04 11:49 | Neurology Progress Note ---
Interim History Interim History Interim History Mr. Tran continues to feel "better." He is awake, alert and more responsive. He is able to communicate fairly well. He is still moderately aphasic. He continues to be cognitively impoverished. He continues to be generally weak. His right UE is still swollen, painful and weak. He says he ate well today. He denies any new neurologic symptoms. Review of Systems Neuro Review of Systems Benign. Objective Physical Exam Last Vital Signs Date Time Temp Pulse Resp B/P (MAP) Pulse Ox O2 Delivery O2 Flow Rate FiO2 08/04/18 09:27 Nasal Cannula 2.0 08/04/18 08:00 97.9 67 19 141/70 (93) 100 08/04/18 07:50 21 Laboratory Tests Test 08/04/18 05:20 08/04/18 06:30 Stool Occult Blood Positive (NEGATIVE) White Blood Count 2.5 K/UL (4.8-10.8) L Red Blood Count 2.89 M/UL (4.70-6.10) L Hemoglobin 7.7 G/DL (14.2-18.0) L Hematocrit 24.4 % (42.0-52.0) L Mean Corpuscular Volume 84 FL (80-99) Mean Corpuscular Hemoglobin 26.5 PG (27.0-31.0) L Mean Corpuscular Hemoglobin Concent 31.4 G/DL (32.0-36.0) L Red Cell Distribution Width 19.2 % (11.6-14.8) H Platelet Count 52 K/UL (150-450) L Mean Platelet Volume 6.0 FL (6.5-10.1) L Neutrophils (%) (Auto) % (45.0-75.0) Lymphocytes (%) (Auto) % (20.0-45.0) Monocytes (%) (Auto) % (1.0-10.0) Eosinophils (%) (Auto) % (0.0-3.0) Basophils (%) (Auto) % (0.0-2.0) Differential Total Cells Counted 100 Neutrophils % (Manual) 68 % (45-75) Lymphocytes % (Manual) 24 % (20-45) Monocytes % (Manual) 5 % (1-10) Eosinophils % (Manual) 2 % (0-3) Basophils % (Manual) 0 % (0-2) Band Neutrophils 1 % (0-8) Platelet Estimate Decreased L Platelet Morphology Normal Hypochromasia 2+ Anisocytosis 2+ Sodium Level 142 MMOL/L (136-145) Potassium Level 3.5 MMOL/L (3.5-5.1) Chloride Level 107 MMOL/L (98-107) Carbon Dioxide Level 33 MMOL/L (21-32) H Anion Gap 3 mmol/L (5-15) L Blood Urea Nitrogen 22 mg/dL (7-18) H Creatinine 1.1 MG/DL (0.55-1.30) Estimat Glomerular Filtration Rate > 60 mL/min (>60) Glucose Level 78 MG/DL (74-106) Calcium Level 9.4 MG/DL (8.5-10.1) Phosphorus Level 3.2 MG/DL (2.5-4.9) Magnesium Level 1.8 MG/DL (1.8-2.4) Neurologic Exam Objective PHYSICAL EXAMINATION: GENERAL: He is a well-developed, well-nourished, gentleman, lying in bed, in no acute distress. HEAD: Normocephalic and atraumatic. EENT: Examination benign. NECK: No neck rigidity was observed. NEUROLOGIC EXAMINATION: MENTAL STATUS EXAMINATION: He was awake and alert. He was oriented to self only. He was able to follow simple commands. He was unable to cooperate for further mental status testing. SPEECH: He was mildly dysarthric. LANGUAGE: He was able to follow simple commands consistently and able to express himself better. CRANIAL NERVE EXAMINATION: II: He did blink to threat. He was able to count fingers. III, IV & : The external ocular movements were present. The pupils were 3 mm in diameter, equal, round, regular, and reactive sluggishly to light. V: He had normal facial sensations, and the temporales, masseters and pterygoids functioned normally. VII: He had a left VII central facial paresis VIII: He did respond to sounds and had no nystagmus. IX: The palate moved symmetrically on phonation. X: He had no hoarseness of voice. XI: The sternocleidomastoids and trapezii did function. XII: The tongue was in the midline without any fasciculations or atrophy. MOTOR SYSTEM: The tone was increased in all four extremities with mild spasticity. Examination of muscle mass revealed generalized wasting. Examination of power was difficult to perform accurately. He moved all four extremities on command but was generally weak. The lower extremities were weaker than the upper extremities. The right upper extremity was weaker than the left. SENSORY EXAMINATION: He responded appropriately to light touch. He could not cooperate for other sensory modalities. REFLEXES: 0 at the biceps, triceps, brachioradialis, knees, and ankles. The plantar responses were flexor bilaterally. COORDINATION, STANCE & GAIT: Could not be tested. Impression/Recommendations Diagnostic Impression 1. Mr. Juan Tran is a 68-year-old, right handed, gentleman, who lives in a alf. He has a past history of hypertension, chronic obstructive pulmonary disease, renal dysfunction, seizure disorder, anemia, urinary tract infections, and right upper extremity cellulitis. He was hospitalized for an alteration in mental state and worsening of his right upper extremity cellulitis. 2. He continues to feel "better." He is awake, alert and more responsive. He is able to communicate fairly well. He is still moderately aphasic. He continues to be cognitively impoverished. He continues to be generally weak. His right UE is still swollen, painful and weak. He says he ate well today. He denies any new neurologic symptoms. 3. On neurological examination, at this time, he is awake, alert and more verbal. He is oriented to self only. He is able to follow simple commands well. He is unable to cooperate for further mental status testing. His speech is dysarthric. He is able to follow simple commands consistently and able to express himself better. He has a left VII central facial paresis. He he moves all four extremities on command but is weaker in the lower extremities. His deep tendon reflexes are globally absent. His plantar responses are flexor. 4. Laboratory data obtained thus far revealed that he is anemic with a hemoglobin of 8.0 G. His chemistry panel revealed an elevated potassium at 6.6 , BUN elevated at 48, creatinine elevated at 1.3, blood glucose elevated at 198 , alkaline phosphatase elevated to 129, albumin low at 1.8. His urinalysis revealed 3+ leukocyte esterase, 15-20 RBCs and too numerous to count WBCs per high-power field. 5. Further laboratory tests have revealed an elevated TSH. 6. The MRI done on 07/29/18 was marred by movement artifact but did not reveal any acute pathology. Old deep white matter disease and atrophy was seen. 7. The EEG done on 07/29/18 revealed a severe toxic metabolic encephalopathy and multifocal epileptogenic discharges from F3/F4/T3/T4. No electrographic or clinical seizures were noted. 8. The patient's history and neurological examination are most compatible with cellulitis of the right upper extremity and a significant urinary tract infection. However, it is unclear as to what his change of mental state represents as his baseline mental state is unknown to us. 9. In addition, he also carries a history of a seizure disorder, but it is unclear as to what type of seizure disorder he has. He has been seizure free on a therapeutic dose of valproate. Recommendations 1. Continue present management. 2. Continue Depakene 1 G q 12 hours. 3. Aggressive treatment of infection. 4. Observe. Preston Escalera M.D., M.S.P.H. Preston Escalera MD Aug 04, 2018 11:49
[2018-08-04 12:00] VITALS: BP 138/76
--- NOTE | 2018-08-04 13:17 | NUR ---
ST NOTE: SWALLOW/SPEECH/LANGUAGE/COGNITION STATUS PT SEEN AT BEDSIDE IN PM FOR LUNCH. ALERT, COOPERATIVE, ADJUST PT AT UPRIGHT POSITION WITH COMPUTER TRAINING SPECIALIST AND RN. PT SEEN TO INCREASE LARYNGEAL ELEVATION. COMPLETED [place] "EE" EXS X 10 WITH VERBAL AND VISUAL CUES. PT WAS ABLE TO COMPLETE DRY SWALLOW RESPONSE EXS WITH MAX CUES. COMPLETED LUNCH WITH PT, PT TOLERATED LIQUIFIED PUREED, LIKE HONEY THICK SOUP CONSISTENCY WITH HONEY THICK LIQUIDS, MILD INCREASED ORAL TRANSIT TIME AND OROPHARYNGEAL TRANSIT TIME, FAIR LARYNGEAL ELEVATION, TRAINED PT TO USE EFFORTFUL SWALLOW AND SWALLOW X 2 TIMES, NO OVERT S/S OF ASPIRATION. PT COMPLETED 75% OF THE MEALS. PT ASKED FOR THE LEMON CAKE. D/W THE STAFF.
--- NOTE | 2018-08-04 13:24 | General Progress Note ---
Assessment/Plan Assessment/Plan # Pancytopenia -- mutliple etiologies possible, potentially related to infection /viralcauses, ongoing multiple infections, celluliis, baseline unknown, 1st time admitted --> med reviewed as well and abx may be culprit --> hepatitis and hiv are negative --> anemia panel reviewed and is cw acd --> us of the abdomen has been ordered and shows fatty liver infiltration --> if no underyling cause or improvement, consider a bone marrow biopsy --> peripheral smear review # Anemia of chronic disease --> panel has been reviewed --> transfuse to hgb goal >7 --->7.4-->7.7 # Cellulitis of right upper extremity --> s/p treatment with abx --> appre id and surg recs #Thrombocytopenia---mutliple etiologies possible, potentially related to infection/viralcauses -->plt trend-->90-->93-->75-->62-->59 # Hyperkalemia, diminished renal excretion --> as per renal recs --> on ivf # Renal insufficiency --> s/p ivf administration # UTI (urinary tract infection) # Dysphagia --> ng in place -->Pulled out NGT and was placed back in, received video swallow 08/01 --->Patient passed video swallow study, now on diet Greatly appreciate consultation! Subjective Constitutional: Denies: no symptoms, chills, diaphoresis, fever, malaise, weakness, other HEENT: Denies: no symptoms, eye pain, blurred vision, tearing, double vision, ear pain, ear discharge, nose pain, nose congestion, throat pain, throat swelling, mouth pain, mouth swelling, other Cardiovascular: Denies: no symptoms, chest pain, edema, irregular heart rate, lightheadedness, palpitations, syncope, other Neurologic/Psychiatric: Denies: no symptoms, anxiety, depressed, emotional problems, headache, numbness, paresthesia, pre-existing deficit, seizure, tingling, tremors, weakness, other Endocrine: Denies: no symptoms, excessive sweating, flushing, intolerance to cold, intolerance to heat, increased hunger, increased thirst, increased urine, unexplained weight gain, unexplained weight loss, other Allergies: Coded Allergies: ATORVASTATIN (Unverified Allergy, Unknown, 07/27/18) Uncoded Allergies: VITAMIN B12 (Allergy, Unknown, 07/27/18) VITAMIN D (Allergy, Unknown, 07/27/18) Subjective 07/30: remains without events, nonverbal, less swollen arm/less cellulitis 07/31: getting wound care, Transferred to [facility] for SOB. Has NG tube in. Swallow eval still pending on Tuesday 08/01: awake and comfortable ,Pulled out NGT and was placed back in,getting video swallow.plt 75 08/02: Pt is seen by bedside, awake, confused, following commands, had video swallow. plt trending down at 62 08/03: Pt is awake and comfortable, getting wound care, on abx, passed video swallow study, now on diet, hgb 7.4, plt trending down 08/04: remains on vanc and cefepime, no complaints, plts still lower Objective Last 24 Hour Vital Signs Date Time Temp Pulse Resp B/P (MAP) Pulse Ox O2 Delivery O2 Flow Rate FiO2 08/04/18 12:00 98.0 70 20 138/76 (96) 100 08/04/18 09:27 Nasal Cannula 2.0 08/04/18 08:00 97.9 67 19 141/70 (93) 100 08/04/18 07:50 Room Air 21 08/04/18 07:50 96 Room Air 21 08/04/18 04:00 97.4 63 18 149/74 (99) 100 08/04/18 00:19 98.0 64 18 155/74 (101) 08/03/18 21:45 Nasal Cannula 2.0 28 08/03/18 21:44 98 Nasal Cannula 2.0 28 08/03/18 21:00 Nasal Cannula 2.0 08/03/18 20:00 97.9 58 18 138/68 (91) 100 08/03/18 16:00 61 19 136/66 (89) 99 63 Intake and Output 08/03/18 08/04/18 18:59 06:59 Intake Total 360 ml Output Total 750 ml Balance -390 ml Intake Oral 250 ml IV Total 110 ml Output Urine Total 750 ml # Voids 2 Laboratory Tests 08/04/18 05:20: Stool Occult Blood Positive 08/04/18 06:30: White Blood Count 2.5L, Red Blood Count 2.89L, Hemoglobin 7.7L, Hematocrit 24.4L , Mean Corpuscular Volume 84, Mean Corpuscular Hemoglobin 26.5L, Mean Corpuscular Hemoglobin Concent 31.4L, Red Cell Distribution Width 19.2H, Platelet Count 52L, Mean Platelet Volume 6.0L, Neutrophils (%) (Auto) , Lymphocytes (%) (Auto) , Monocytes (%) (Auto) , Eosinophils (%) (Auto) , Basophils (%) (Auto) , Differential Total Cells Counted 100, Neutrophils % ( Manual) 68, Lymphocytes % (Manual) 24, Monocytes % (Manual) 5, Eosinophils % ( Manual) 2, Basophils % (Manual) 0, Band Neutrophils 1, Platelet Estimate DecreasedL, Platelet Morphology Normal, Hypochromasia 2+, Anisocytosis 2+, Sodium Level 142, Potassium Level 3.5, Chloride Level 107, Carbon Dioxide Level 33H, Anion Gap 3L, Blood Urea Nitrogen 22H, Creatinine 1.1, Estimat Glomerular Filtration Rate > 60, Glucose Level 78, Calcium Level 9.4, Phosphorus Level 3.2 , Magnesium Level 1.8 Height (Feet): 5 Height (Inches): 6.00 Weight (Pounds): 205 Objective HEAD AND NECK: No JVD. LUNGS: Coarse rhonchi CARDIOVASCULAR: Shows regular S1 and S2 with no gallop. ABDOMEN: Soft. EXTREMITIES: 2+ pitting edema on the right arm and leg. Alex Lino MD Aug 04, 2018 13:24
--- NOTE | 2018-08-04 14:05 | GI Progress Note ---
Assessment/Plan Problems: (1) Dysphasia ICD Codes: R47.02 - Dysphasia SNOMED: 31903716 (2) Dehydration ICD Codes: E86.0 - Dehydration SNOMED: 04130476 (3) Hypoalbuminemia ICD Codes: E88.09 - Other disorders of plasma-protein metabolism, not elsewhere classified SNOMED: 815199508 (4) Anemia ICD Codes: D64.9 - Anemia, unspecified SNOMED: 355574083 Qualifiers: Qualified Codes: D64.9 - Anemia, unspecified Status: stable Status Narrative Discussed with Dr. Blanco. Assessment/Plan Assessment - AMS - COPD -- Renal failure - Anemia Patient passed video swallow study, now on diet RECOMMENDATIONS: Patient scheduled for EGD/colonoscopy tomorrow. - normal diet, NPO @ MD. - hold all blood thinners tonight. Monitor H&H, prn transfusions ppi fu labs The patient was seen and examined at bedside and all new and available data was reviewed in the patients chart. I agree with the above findings, impression and plan. (Patient seen earlier today. Signature stamp does not reflect patient encounter time.). - Jayce Blanco MD Subjective Subjective Limited Objective Last 24 Hour Vital Signs Date Time Temp Pulse Resp B/P (MAP) Pulse Ox O2 Delivery O2 Flow Rate FiO2 08/04/18 12:00 98.0 70 20 138/76 (96) 100 08/04/18 09:27 Nasal Cannula 2.0 08/04/18 08:00 97.9 67 19 141/70 (93) 100 08/04/18 07:50 Room Air 21 08/04/18 07:50 96 Room Air 21 08/04/18 04:00 97.4 63 18 149/74 (99) 100 08/04/18 00:19 98.0 64 18 155/74 (101) 08/03/18 21:45 Nasal Cannula 2.0 28 08/03/18 21:44 98 Nasal Cannula 2.0 28 08/03/18 21:00 Nasal Cannula 2.0 08/03/18 20:00 97.9 58 18 138/68 (91) 100 08/03/18 16:00 61 19 136/66 (89) 99 63 Intake and Output 08/03/18 08/04/18 19:00 07:00 Intake Total 360 ml Output Total 750 ml Balance -390 ml Intake Oral 250 ml IV Total 110 ml Output Urine Total 750 ml # Voids 2 Laboratory Tests Test 08/04/18 05:20 08/04/18 06:30 Stool Occult Blood Positive (NEGATIVE) White Blood Count 2.5 K/UL (4.8-10.8) L Red Blood Count 2.89 M/UL (4.70-6.10) L Hemoglobin 7.7 G/DL (14.2-18.0) L Hematocrit 24.4 % (42.0-52.0) L Mean Corpuscular Volume 84 FL (80-99) Mean Corpuscular Hemoglobin 26.5 PG (27.0-31.0) L Mean Corpuscular Hemoglobin Concent 31.4 G/DL (32.0-36.0) L Red Cell Distribution Width 19.2 % (11.6-14.8) H Platelet Count 52 K/UL (150-450) L Mean Platelet Volume 6.0 FL (6.5-10.1) L Neutrophils (%) (Auto) % (45.0-75.0) Lymphocytes (%) (Auto) % (20.0-45.0) Monocytes (%) (Auto) % (1.0-10.0) Eosinophils (%) (Auto) % (0.0-3.0) Basophils (%) (Auto) % (0.0-2.0) Differential Total Cells Counted 100 Neutrophils % (Manual) 68 % (45-75) Lymphocytes % (Manual) 24 % (20-45) Monocytes % (Manual) 5 % (1-10) Eosinophils % (Manual) 2 % (0-3) Basophils % (Manual) 0 % (0-2) Band Neutrophils 1 % (0-8) Platelet Estimate Decreased L Platelet Morphology Normal Hypochromasia 2+ Anisocytosis 2+ Sodium Level 142 MMOL/L (136-145) Potassium Level 3.5 MMOL/L (3.5-5.1) Chloride Level 107 MMOL/L (98-107) Carbon Dioxide Level 33 MMOL/L (21-32) H Anion Gap 3 mmol/L (5-15) L Blood Urea Nitrogen 22 mg/dL (7-18) H Creatinine 1.1 MG/DL (0.55-1.30) Estimat Glomerular Filtration Rate > 60 mL/min (>60) Glucose Level 78 MG/DL (74-106) Calcium Level 9.4 MG/DL (8.5-10.1) Phosphorus Level 3.2 MG/DL (2.5-4.9) Magnesium Level 1.8 MG/DL (1.8-2.4) Height (Feet): 5 Height (Inches): 6.00 Weight (Pounds): 205 General Appearance: WD/WN, no apparent distress, alert Cardiovascular: normal rate Respiratory/Chest: normal breath sounds, no respiratory distress Abdominal Exam: normal bowel sounds, non tender, soft Extremities: normal range of motion, non-tender Josiane Mendoza NP Aug 04, 2018 14:04
--- NOTE | 2018-08-04 14:15 | General Progress Note ---
Assessment/Plan Problem List: (1) Anemia ICD Codes: D64.9 - Anemia, unspecified SNOMED: 425806930 Qualifiers: Qualified Codes: D64.9 - Anemia, unspecified (2) Cellulitis of right upper extremity ICD Codes: L03.113 - Cellulitis of right upper limb SNOMED: 592184091 (3) Renal insufficiency ICD Codes: N28.9 - Disorder of kidney and ureter, unspecified SNOMED: 895422484, 592588362 (4) UTI (urinary tract infection) ICD Codes: N39.0 - Urinary tract infection, site not specified SNOMED: 54135358, 978004342 Qualifiers: Qualified Codes: N39.0 - Urinary tract infection, site not specified (5) History of seizure ICD Codes: Z87.898 - Personal history of other specified conditions SNOMED: 539808374 (6) COPD (chronic obstructive pulmonary disease) ICD Codes: J44.9 - Chronic obstructive pulmonary disease, unspecified SNOMED: 42942917 (7) ATN (acute tubular necrosis) ICD Codes: N17.0 - Acute kidney failure with tubular necrosis SNOMED: 12262542 (8) Hyperkalemia, diminished renal excretion ICD Codes: E87.5 - Hyperkalemia SNOMED: 60086606, 993216129 Status: unchanged Assessment/Plan wound care abx pt diet cbc bmp am heme gi eval transfuse prn Subjective Constitutional: Reports: weakness Allergies: Coded Allergies: ATORVASTATIN (Unverified Allergy, Unknown, 07/27/18) Uncoded Allergies: VITAMIN B12 (Allergy, Unknown, 07/27/18) VITAMIN D (Allergy, Unknown, 07/27/18) All Systems: reviewed and negative except above Subjective confused in bed Objective Last 24 Hour Vital Signs Date Time Temp Pulse Resp B/P (MAP) Pulse Ox O2 Delivery O2 Flow Rate FiO2 08/04/18 12:00 98.0 70 20 138/76 (96) 100 08/04/18 09:27 Nasal Cannula 2.0 08/04/18 08:00 97.9 67 19 141/70 (93) 100 08/04/18 07:50 Room Air 21 08/04/18 07:50 96 Room Air 21 08/04/18 04:00 97.4 63 18 149/74 (99) 100 08/04/18 00:19 98.0 64 18 155/74 (101) 08/03/18 21:45 Nasal Cannula 2.0 28 08/03/18 21:44 98 Nasal Cannula 2.0 28 08/03/18 21:00 Nasal Cannula 2.0 08/03/18 20:00 97.9 58 18 138/68 (91) 100 08/03/18 16:00 61 19 136/66 (89) 99 63 Intake and Output 08/03/18 08/04/18 18:59 06:59 Intake Total 360 ml Output Total 750 ml Balance -390 ml Intake Oral 250 ml IV Total 110 ml Output Urine Total 750 ml # Voids 2 Laboratory Tests 08/04/18 05:20: Stool Occult Blood Positive 08/04/18 06:30: White Blood Count 2.5L, Red Blood Count 2.89L, Hemoglobin 7.7L, Hematocrit 24.4L , Mean Corpuscular Volume 84, Mean Corpuscular Hemoglobin 26.5L, Mean Corpuscular Hemoglobin Concent 31.4L, Red Cell Distribution Width 19.2H, Platelet Count 52L, Mean Platelet Volume 6.0L, Neutrophils (%) (Auto) , Lymphocytes (%) (Auto) , Monocytes (%) (Auto) , Eosinophils (%) (Auto) , Basophils (%) (Auto) , Differential Total Cells Counted 100, Neutrophils % ( Manual) 68, Lymphocytes % (Manual) 24, Monocytes % (Manual) 5, Eosinophils % ( Manual) 2, Basophils % (Manual) 0, Band Neutrophils 1, Platelet Estimate DecreasedL, Platelet Morphology Normal, Hypochromasia 2+, Anisocytosis 2+, Sodium Level 142, Potassium Level 3.5, Chloride Level 107, Carbon Dioxide Level 33H, Anion Gap 3L, Blood Urea Nitrogen 22H, Creatinine 1.1, Estimat Glomerular Filtration Rate > 60, Glucose Level 78, Calcium Level 9.4, Phosphorus Level 3.2 , Magnesium Level 1.8 Height (Feet): 5 Height (Inches): 6.00 Weight (Pounds): 205 General Appearance: lethargic EENT: normal ENT inspection Neck: normal alignment Cardiovascular: normal peripheral pulses, normal rate, regular rhythm Respiratory/Chest: chest wall non-tender, lungs clear, normal breath sounds Abdomen: normal bowel sounds, non tender, soft Extremities: normal inspection Edema: no edema noted Arm (L), no edema noted Arm (R), no edema noted Leg (L), no edema noted Leg (R), no edema noted Pedal (L), no edema noted Pedal (R), no edema noted Generalized Neurologic: motor weakness Skin: normal pigmentation, warm/dry Objective r wrist dressing c&Michael Stallworth DO Aug 04, 2018 14:15
--- NOTE | 2018-08-04 14:47 | General Surgery Progress Note ---
General Surgery-Progress Note Subjective Additional Comments doing okay. no complaints. hand still swollen but remainder of arm and ulcer improving Objective Last 24 Hour Vital Signs Date Time Temp Pulse Resp B/P (MAP) Pulse Ox O2 Delivery O2 Flow Rate FiO2 08/04/18 12:00 98.0 70 20 138/76 (96) 100 08/04/18 09:27 Nasal Cannula 2.0 08/04/18 08:00 97.9 67 19 141/70 (93) 100 08/04/18 07:50 Room Air 21 08/04/18 07:50 96 Room Air 21 08/04/18 04:00 97.4 63 18 149/74 (99) 100 08/04/18 00:19 98.0 64 18 155/74 (101) 08/03/18 21:45 Nasal Cannula 2.0 28 08/03/18 21:44 98 Nasal Cannula 2.0 28 08/03/18 21:00 Nasal Cannula 2.0 08/03/18 20:00 97.9 58 18 138/68 (91) 100 08/03/18 16:00 61 19 136/66 (89) 99 63 I&O Intake and Output 08/03/18 08/04/18 19:00 07:00 Intake Total 360 ml Output Total 750 ml Balance -390 ml Intake Oral 250 ml IV Total 110 ml Output Urine Total 750 ml # Voids 2 Dressing: saturated Wound: other Drains: other Cardiovascular: RSR Respiratory: clear Abdomen: soft, flat, present bowel sounds, non-distended Extremities: edema Laboratory Tests Test 08/04/18 05:20 08/04/18 06:30 Stool Occult Blood Positive (NEGATIVE) White Blood Count 2.5 K/UL (4.8-10.8) L Red Blood Count 2.89 M/UL (4.70-6.10) L Hemoglobin 7.7 G/DL (14.2-18.0) L Hematocrit 24.4 % (42.0-52.0) L Mean Corpuscular Volume 84 FL (80-99) Mean Corpuscular Hemoglobin 26.5 PG (27.0-31.0) L Mean Corpuscular Hemoglobin Concent 31.4 G/DL (32.0-36.0) L Red Cell Distribution Width 19.2 % (11.6-14.8) H Platelet Count 52 K/UL (150-450) L Mean Platelet Volume 6.0 FL (6.5-10.1) L Neutrophils (%) (Auto) % (45.0-75.0) Lymphocytes (%) (Auto) % (20.0-45.0) Monocytes (%) (Auto) % (1.0-10.0) Eosinophils (%) (Auto) % (0.0-3.0) Basophils (%) (Auto) % (0.0-2.0) Differential Total Cells Counted 100 Neutrophils % (Manual) 68 % (45-75) Lymphocytes % (Manual) 24 % (20-45) Monocytes % (Manual) 5 % (1-10) Eosinophils % (Manual) 2 % (0-3) Basophils % (Manual) 0 % (0-2) Band Neutrophils 1 % (0-8) Platelet Estimate Decreased L Platelet Morphology Normal Hypochromasia 2+ Anisocytosis 2+ Sodium Level 142 MMOL/L (136-145) Potassium Level 3.5 MMOL/L (3.5-5.1) Chloride Level 107 MMOL/L (98-107) Carbon Dioxide Level 33 MMOL/L (21-32) H Anion Gap 3 mmol/L (5-15) L Blood Urea Nitrogen 22 mg/dL (7-18) H Creatinine 1.1 MG/DL (0.55-1.30) Estimat Glomerular Filtration Rate > 60 mL/min (>60) Glucose Level 78 MG/DL (74-106) Calcium Level 9.4 MG/DL (8.5-10.1) Phosphorus Level 3.2 MG/DL (2.5-4.9) Magnesium Level 1.8 MG/DL (1.8-2.4) Plan Problems: (1) Cellulitis of right upper extremity Assessment & Plan: right wrist cellulitis. 1.5cm ulceration noted. seropurulent drainage noted. minimal foul odor. cellulitis circumferential. pulses okay. hand okay. proximally okay edema improved today ulceration still draining edema in right arm and hand 2+ pitting. no abscess palpated. no areas of significant induration -Cont ABx -skin protectant and dressings for now -keep right arm elevated MRI noted. no abscess. but still hand swollen. will take time to improve. ulcer improving. drainage decreasing plain films ordered d/c planning will monitor clinically on medical therapy. (2) Decubitus ulcer of right buttock, stage 4 Assessment & Plan: patient presents with multiple wounds upon admission moderate sized stage 4 right buttock lower decubitus ulcer clean and seems to have had debridement prior right heel dti -apply hydrogel, gauze packing, dressings daily and prn -heel protectors, apply foam dressing to right heel -will monitor and treat wounds while in hospital -turn q2h -off load pressure -air mattress thank you Jin Hogan Aug 04, 2018 14:47
--- NOTE | 2018-08-04 14:53 | Pulmonology Progress Note ---
Assessment/Plan Problems: (1) ATN (acute tubular necrosis) (2) COPD (chronic obstructive pulmonary disease) (3) History of seizure (4) UTI (urinary tract infection) (5) Hyperkalemia, diminished renal excretion (6) Cellulitis of right upper extremity (7) Anemia Assessment/Plan more awake, tolerating diet d/w speech pathologist symptomatic treatment iv fluids neuro f/u respiratory treatment. endoscopy planned Subjective ROS Limited/Unobtainable: No Constitutional: Reports: no symptoms HEENT: Repors: no symptoms Respiratory: Reports: no symptoms Cardiovascular: Reports: no symptoms Allergies: Coded Allergies: ATORVASTATIN (Unverified Allergy, Unknown, 07/27/18) Uncoded Allergies: VITAMIN B12 (Allergy, Unknown, 07/27/18) VITAMIN D (Allergy, Unknown, 07/27/18) Objective Last 24 Hour Vital Signs Date Time Temp Pulse Resp B/P (MAP) Pulse Ox O2 Delivery O2 Flow Rate FiO2 08/04/18 12:00 98.0 70 20 138/76 (96) 100 08/04/18 09:27 Nasal Cannula 2.0 08/04/18 08:00 97.9 67 19 141/70 (93) 100 08/04/18 07:50 Room Air 21 08/04/18 07:50 96 Room Air 21 08/04/18 04:00 97.4 63 18 149/74 (99) 100 08/04/18 00:19 98.0 64 18 155/74 (101) 08/03/18 21:45 Nasal Cannula 2.0 28 08/03/18 21:44 98 Nasal Cannula 2.0 28 08/03/18 21:00 Nasal Cannula 2.0 08/03/18 20:00 97.9 58 18 138/68 (91) 100 08/03/18 16:00 61 19 136/66 (89) 99 63 Intake and Output 08/03/18 08/04/18 19:00 07:00 Intake Total 360 ml Output Total 750 ml Balance -390 ml Intake Oral 250 ml IV Total 110 ml Output Urine Total 750 ml # Voids 2 Objective General Appearance: WD/WN Lines, tubes and drains: peripheral HEENT: normocephalic, atraumatic Neck: non-tender, normal alignment Breasts: no masses Cardiovascular/Chest: normal rate Genitourinary/Rectal: normal genital exam Skin Exam: normal pigmentation, rash, other - Laboratory Tests 08/04/18 05:20: Stool Occult Blood Positive 08/04/18 06:30: White Blood Count 2.5L, Red Blood Count 2.89L, Hemoglobin 7.7L, Hematocrit 24.4L , Mean Corpuscular Volume 84, Mean Corpuscular Hemoglobin 26.5L, Mean Corpuscular Hemoglobin Concent 31.4L, Red Cell Distribution Width 19.2H, Platelet Count 52L, Mean Platelet Volume 6.0L, Neutrophils (%) (Auto) , Lymphocytes (%) (Auto) , Monocytes (%) (Auto) , Eosinophils (%) (Auto) , Basophils (%) (Auto) , Differential Total Cells Counted 100, Neutrophils % ( Manual) 68, Lymphocytes % (Manual) 24, Monocytes % (Manual) 5, Eosinophils % ( Manual) 2, Basophils % (Manual) 0, Band Neutrophils 1, Platelet Estimate DecreasedL, Platelet Morphology Normal, Hypochromasia 2+, Anisocytosis 2+, Sodium Level 142, Potassium Level 3.5, Chloride Level 107, Carbon Dioxide Level 33H, Anion Gap 3L, Blood Urea Nitrogen 22H, Creatinine 1.1, Estimat Glomerular Filtration Rate > 60, Glucose Level 78, Calcium Level 9.4, Phosphorus Level 3.2 , Magnesium Level 1.8 Current Medications Medications (Trade) Dose Ordered Sig/Violette Route PRN Reason Start Time Stop Time Status Last Admin Dose Admin Acetaminophen (Tylenol) 650 mg Q4H PRN ORAL T>100.5 08/02/18 12:00 08/27/18 11:59 Bisacodyl (Dulcolax) 10 mg ONCE ORAL 08/04/18 16:00 08/04/18 18:00 Cefepime HCl 2 gm/ Dextrose 110 ml @ 220 mls/hr Q12HR IV 08/04/18 21:00 08/11/18 20:59 Chlorhexidine Gluconate (Samantha-Hex 2%) 1 applic DAILY@2000 TOPIC 08/02/18 20:00 08/28/18 19:59 08/03/18 20:25 Dextrose (Dextrose 50%) 25 ml Q30M PRN IV Hypoglycemia 08/02/18 11:45 08/27/18 09:14 Dextrose (Dextrose 50%) 50 ml Q30M PRN IV Hypoglycemia 08/02/18 11:45 08/27/18 09:14 Docusate Sodium (Colace) 100 mg TWICE A DAY ORAL 08/02/18 18:00 09/01/18 17:59 08/04/18 08:48 Insulin Aspart (NovoLOG) BEFORE MEALS AND HS SUBQ 08/02/18 16:30 08/31/18 16:29 08/04/18 11:47 Lorazepam (Ativan) 0.5 mg Q6H PRN ORAL For Anxiety 08/02/18 12:00 08/05/18 11:59 Magnesium Citrate (Citrate Of Magnesia) 300 ml ONCE ORAL 08/04/18 16:00 08/04/18 23:59 Mupirocin (Bactroban Oint) 1 applic TWICE A DAY TOPIC 08/03/18 18:00 08/08/18 17:59 08/04/18 08:48 Nitroglycerin (Ntg) 0.4 mg Q5M PRN SL Prn Chest Pain 08/02/18 12:00 08/27/18 11:59 Ondansetron HCl (Zofran) 4 mg Q6H PRN IVP Nausea & Vomiting 08/02/18 12:00 08/27/18 11:59 Pantoprazole (Protonix) 40 mg EVERY 12 HOURS ORAL 08/04/18 21:00 09/03/18 20:59 Paroxetine HCl (Paxil) 20 mg DAILY ORAL 08/03/18 09:00 08/28/18 08:59 08/04/18 08:48 Polyethylene Glycol (Miralax) 17 gm DAILYPRN PRN ORAL Constipation 08/02/18 12:00 09/01/18 11:59 Polyethylene Glycol (Miralax) 238 gm ONCE ORAL 08/04/18 16:00 08/04/18 23:59 Risperidone (RisperDAL) 1 mg Q12HR ORAL 08/02/18 21:00 09/01/18 20:59 08/04/18 08:48 Sodium Phosphate (Fleet's Sodium Phosl Enema) 133 ml ONCE RECTAL 08/04/18 23:00 08/05/18 01:00 Temazepam (Restoril) 15 mg HSPRN PRN ORAL Insomnia 08/02/18 22:00 08/09/18 21:59 Valproic Acid (Depakene) 1,000 mg EVERY 12 HOURS NG 08/02/18 21:00 08/31/18 11:29 08/04/18 08:47 Vancomycin HCl (Vanco rx to dose) 1 ea DAILY PRN MISC Per rx protocol 08/02/18 12:00 09/01/18 11:59 Vancomycin HCl 1 gm/Dextrose 275 ml @ 183.708 mls/hr Q48H IVPB 08/04/18 09:00 08/07/18 08:59 08/04/18 08:48 Lazaro Becker MD Aug 04, 2018 14:52
--- NOTE | 2018-08-04 15:23 | Infectious Diseases Prog Note ---
Assessment/Plan Assessment/Plan 68 yo male who was [facility] ED [facility] for right arm swelling. right wrist cellulitisl improving- 1.5cm ulceration noted. seropurulent drainage noted. minimal foul odor. cellulitis circumferential. -wound cx Neg -MRI R wrist :No evidence of acute osteomyelitis. 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 Correlation with plain film may be helpful. Moderate arthrosis of the wrist. Multiseptated collections noted adjacent to the distal radial ulnar joint and thflexor/palmar aspect of the distal forearm. These are likely ganglion cysts. US no DVT No X-ray No Fever No leukocytosis Sacral Decub Stage 4, R buttock- no signs of infection -wound cx ESBL e.coli; colonizer Dysphagia HTN DM PLAN - Continue Cefepime #8 and vancomycin #8/14 for R wrist cellulitis -upon further improvement, expect switching to PO abx (ie. bactrim and levaquin) - Wound care - Monitor CBC and Temps - Monitor BMs Thank you for this consult. We will continue to follow the patient during this hospitalization. Subjective Allergies: Coded Allergies: ATORVASTATIN (Unverified Allergy, Unknown, 07/27/18) Uncoded Allergies: VITAMIN B12 (Allergy, Unknown, 07/27/18) VITAMIN D (Allergy, Unknown, 07/27/18) Subjective afebrile no leukocytosis arm/hand edema improving but still significant Objective Vital Signs Last 24 Hour Vital Signs Date Time Temp Pulse Resp B/P (MAP) Pulse Ox O2 Delivery O2 Flow Rate FiO2 08/04/18 12:00 98.0 70 20 138/76 (96) 100 08/04/18 09:27 Nasal Cannula 2.0 08/04/18 08:00 97.9 67 19 141/70 (93) 100 08/04/18 07:50 Room Air 21 08/04/18 07:50 96 Room Air 21 08/04/18 04:00 97.4 63 18 149/74 (99) 100 08/04/18 00:19 98.0 64 18 155/74 (101) 08/03/18 21:45 Nasal Cannula 2.0 28 08/03/18 21:44 98 Nasal Cannula 2.0 28 08/03/18 21:00 Nasal Cannula 2.0 08/03/18 20:00 97.9 58 18 138/68 (91) 100 08/03/18 16:00 61 19 136/66 (89) 99 63 Height (Feet): 5 Height (Inches): 6.00 Weight (Pounds): 205 Objective Gen: NAD, Opens eyes not following commands HEENT: NCAT, MMM, EOMI LUNGS: CTAB, No W CARDS: RRR, S1, S2, No M/R/G, ABD: Soft, NT, ND, + BS Ext: C/C/E, Pulses 2+ B/L (DP, Rad): Right upper extremity with swelling with ulcer. some eschar covering SKIN: Warm/dry, No rashes, Stage 4 sacral decube. No Purulent drainage Laboratory Tests Test 08/04/18 05:20 08/04/18 06:30 Stool Occult Blood Positive (NEGATIVE) White Blood Count 2.5 K/UL (4.8-10.8) L Red Blood Count 2.89 M/UL (4.70-6.10) L Hemoglobin 7.7 G/DL (14.2-18.0) L Hematocrit 24.4 % (42.0-52.0) L Mean Corpuscular Volume 84 FL (80-99) Mean Corpuscular Hemoglobin 26.5 PG (27.0-31.0) L Mean Corpuscular Hemoglobin Concent 31.4 G/DL (32.0-36.0) L Red Cell Distribution Width 19.2 % (11.6-14.8) H Platelet Count 52 K/UL (150-450) L Mean Platelet Volume 6.0 FL (6.5-10.1) L Neutrophils (%) (Auto) % (45.0-75.0) Lymphocytes (%) (Auto) % (20.0-45.0) Monocytes (%) (Auto) % (1.0-10.0) Eosinophils (%) (Auto) % (0.0-3.0) Basophils (%) (Auto) % (0.0-2.0) Differential Total Cells Counted 100 Neutrophils % (Manual) 68 % (45-75) Lymphocytes % (Manual) 24 % (20-45) Monocytes % (Manual) 5 % (1-10) Eosinophils % (Manual) 2 % (0-3) Basophils % (Manual) 0 % (0-2) Band Neutrophils 1 % (0-8) Platelet Estimate Decreased L Platelet Morphology Normal Hypochromasia 2+ Anisocytosis 2+ Sodium Level 142 MMOL/L (136-145) Potassium Level 3.5 MMOL/L (3.5-5.1) Chloride Level 107 MMOL/L (98-107) Carbon Dioxide Level 33 MMOL/L (21-32) H Anion Gap 3 mmol/L (5-15) L Blood Urea Nitrogen 22 mg/dL (7-18) H Creatinine 1.1 MG/DL (0.55-1.30) Estimat Glomerular Filtration Rate > 60 mL/min (>60) Glucose Level 78 MG/DL (74-106) Calcium Level 9.4 MG/DL (8.5-10.1) Phosphorus Level 3.2 MG/DL (2.5-4.9) Magnesium Level 1.8 MG/DL (1.8-2.4) Current Medications Medications (Trade) Dose Ordered Sig/Violette Route PRN Reason Start Time Stop Time Status Last Admin Dose Admin Acetaminophen (Tylenol) 650 mg Q4H PRN ORAL T>100.5 08/02/18 12:00 08/27/18 11:59 Bisacodyl (Dulcolax) 10 mg ONCE ORAL 08/04/18 16:00 08/04/18 18:00 Cefepime HCl 2 gm/ Dextrose 110 ml @ 220 mls/hr Q12HR IV 08/04/18 21:00 08/11/18 20:59 Chlorhexidine Gluconate (Samantha-Hex 2%) 1 applic DAILY@2000 TOPIC 08/02/18 20:00 08/28/18 19:59 08/03/18 20:25 Dextrose (Dextrose 50%) 25 ml Q30M PRN IV Hypoglycemia 08/02/18 11:45 08/27/18 09:14 Dextrose (Dextrose 50%) 50 ml Q30M PRN IV Hypoglycemia 08/02/18 11:45 08/27/18 09:14 Docusate Sodium (Colace) 100 mg TWICE A DAY ORAL 08/02/18 18:00 09/01/18 17:59 08/04/18 08:48 Insulin Aspart (NovoLOG) BEFORE MEALS AND HS SUBQ 08/02/18 16:30 08/31/18 16:29 08/04/18 11:47 Lorazepam (Ativan) 0.5 mg Q6H PRN ORAL For Anxiety 08/02/18 12:00 08/05/18 11:59 Magnesium Citrate (Citrate Of Magnesia) 300 ml ONCE ORAL 08/04/18 16:00 08/04/18 23:59 Mupirocin (Bactroban Oint) 1 applic TWICE A DAY TOPIC 08/03/18 18:00 08/08/18 17:59 08/04/18 08:48 Nitroglycerin (Ntg) 0.4 mg Q5M PRN SL Prn Chest Pain 08/02/18 12:00 08/27/18 11:59 Ondansetron HCl (Zofran) 4 mg Q6H PRN IVP Nausea & Vomiting 08/02/18 12:00 08/27/18 11:59 Pantoprazole (Protonix) 40 mg EVERY 12 HOURS ORAL 08/04/18 21:00 09/03/18 20:59 Paroxetine HCl (Paxil) 20 mg DAILY ORAL 08/03/18 09:00 08/28/18 08:59 08/04/18 08:48 Polyethylene Glycol (Miralax) 17 gm DAILYPRN PRN ORAL Constipation 08/02/18 12:00 09/01/18 11:59 Polyethylene Glycol (Miralax) 238 gm ONCE ORAL 08/04/18 16:00 08/04/18 23:59 Risperidone (RisperDAL) 1 mg Q12HR ORAL 08/02/18 21:00 09/01/18 20:59 08/04/18 08:48 Sodium Phosphate (Fleet's Sodium Phosl Enema) 133 ml ONCE RECTAL 08/04/18 23:00 08/05/18 01:00 Temazepam (Restoril) 15 mg HSPRN PRN ORAL Insomnia 08/02/18 22:00 08/09/18 21:59 Valproic Acid (Depakene) 1,000 mg EVERY 12 HOURS NG 08/02/18 21:00 08/31/18 11:29 08/04/18 08:47 Vancomycin HCl (Vanco rx to dose) 1 ea DAILY PRN MISC Per rx protocol 08/02/18 12:00 09/01/18 11:59 Vancomycin HCl 1 gm/Dextrose 275 ml @ 183.708 mls/hr Q48H IVPB 1/17/19 09:00 08/07/18 08:59 08/04/18 08:48 Rima Reardon M.D. Aug 04, 2018 15:23
--- NOTE | 2018-08-04 15:32 | Nephrology Progress Note ---
Assessment/Plan Problem List: (1) Renal insufficiency Assessment: acute on chronic (2) Hyperkalemia Assessment: resolved (3) Anemia (4) Hypoalbuminemia (5) History of seizure Assessment Renal failure- Acute on Chronic, presented with hyperkalemia now resolved COPD Sz disorder UTI Anemia cellulitis Rt UE HypoAlbuminemia Plan mag supplement ? transfusion? Hydrate Kayexelate as needed NGT out stop heparin SQ Monitor renal parameters Anemia shay antibiotics avoid Nephrotoxics per orders Dc planning Subjective ROS Limited/Unobtainable: No Constitutional: Reports: malaise Objective Objective Last 24 Hour Vital Signs Date Time Temp Pulse Resp B/P (MAP) Pulse Ox O2 Delivery O2 Flow Rate FiO2 08/04/18 12:00 98.0 70 20 138/76 (96) 100 08/04/18 09:27 Nasal Cannula 2.0 08/04/18 08:00 97.9 67 19 141/70 (93) 100 08/04/18 07:50 Room Air 21 08/04/18 07:50 96 Room Air 21 08/04/18 04:00 97.4 63 18 149/74 (99) 100 08/04/18 00:19 98.0 64 18 155/74 (101) 08/03/18 21:45 Nasal Cannula 2.0 28 08/03/18 21:44 98 Nasal Cannula 2.0 28 08/03/18 21:00 Nasal Cannula 2.0 08/03/18 20:00 97.9 58 18 138/68 (91) 100 08/03/18 16:00 61 19 136/66 (89) 99 63 Intake and Output 08/03/18 08/04/18 19:00 07:00 Intake Total 360 ml Output Total 750 ml Balance -390 ml Intake Oral 250 ml IV Total 110 ml Output Urine Total 750 ml # Voids 2 Laboratory Tests 08/04/18 05:20: Stool Occult Blood Positive 08/04/18 06:30: White Blood Count 2.5L, Red Blood Count 2.89L, Hemoglobin 7.7L, Hematocrit 24.4L , Mean Corpuscular Volume 84, Mean Corpuscular Hemoglobin 26.5L, Mean Corpuscular Hemoglobin Concent 31.4L, Red Cell Distribution Width 19.2H, Platelet Count 52L, Mean Platelet Volume 6.0L, Neutrophils (%) (Auto) , Lymphocytes (%) (Auto) , Monocytes (%) (Auto) , Eosinophils (%) (Auto) , Basophils (%) (Auto) , Differential Total Cells Counted 100, Neutrophils % ( Manual) 68, Lymphocytes % (Manual) 24, Monocytes % (Manual) 5, Eosinophils % ( Manual) 2, Basophils % (Manual) 0, Band Neutrophils 1, Platelet Estimate DecreasedL, Platelet Morphology Normal, Hypochromasia 2+, Anisocytosis 2+, Sodium Level 142, Potassium Level 3.5, Chloride Level 107, Carbon Dioxide Level 33H, Anion Gap 3L, Blood Urea Nitrogen 22H, Creatinine 1.1, Estimat Glomerular Filtration Rate > 60, Glucose Level 78, Calcium Level 9.4, Phosphorus Level 3.2 , Magnesium Level 1.8 Height (Feet): 5 Height (Inches): 6.00 Weight (Pounds): 205 General Appearance: no apparent distress Objective no change Shashi Patel MD Aug 04, 2018 15:32
--- NOTE | 2018-08-04 15:42 | NUR ---
RADIOLOGY DEPT RIGHT HAND & WRIST X-RAYS PERFORMED.-P.DYE
--- NOTE | 2018-08-04 15:49 | Diagnostic Imaging Report ---
Indication: Right hand pain Findings: 3 views of the right hand were obtained. There is apparent ulceration or wound on the lateral aspect of the wrist. The bones appear osteopenic diffusely. The fingers are flexed and not evaluated well. There is no periostitis, obvious bony erosion or soft tissue air. No fracture is identified. There is diffuse soft tissue swelling of the hand and wrist. IMPRESSION: No plain film evidence for acute osteomyelitis. Fairly marked soft tissue swelling
--- NOTE | 2018-08-04 15:50 | Diagnostic Imaging Report ---
Indication: Right wrist pain Findings: 3 views of the right wrist were obtained. No acute fractures, malalignment, erosions or periostitis are identified. Soft tissue swelling demonstrated. There is a focus of a dermal lucency and subcutaneous lucency along the lateral aspect of the wrist. IMPRESSION: No plain film evidence for osteomyelitis appreciated.
[2018-08-04 16:00] VITALS: BP 115/66
[2018-08-04] MEDS ORDERED: Bisacodyl EC 5mg tab ORAL SCH (16:00)
[2018-08-04] MEDS ORDERED: Polyethylene Glycol 238gm bottle ORAL SCH (16:00)
[2018-08-04] MEDS ORDERED: Magnesium Citrate Liq Btl ORAL SCH (16:00)
--- NOTE | 2018-08-04 16:58 | Cardiac Electrophysiology PN ---
Assessment/Plan Assessment/Plan 1. Hyperkalemia. Resolved EKG showed no acute ischemic changes. Echocardiogram 55% 2. History of hypertension. Blood pressure stable off antihypertensive agents. 3. Anemia, EGD, colonoscopy tomorrow 4. Right arm swelling and cellulitis, on IV antibiotics. 5. Renal insufficiency 6. Dysphagia, passed video Swallow 7. SOB. EF 55% 8. COPD FU Dr Rosita WALL RN Subjective Subjective Feeling better. No CP or SOB Objective Last 24 Hour Vital Signs Date Time Temp Pulse Resp B/P (MAP) Pulse Ox O2 Delivery O2 Flow Rate FiO2 08/04/18 16:00 98.5 66 18 115/66 (82) 98 08/04/18 12:00 98.0 70 20 138/76 (96) 100 08/04/18 09:27 Nasal Cannula 2.0 08/04/18 08:00 97.9 67 19 141/70 (93) 100 08/04/18 07:50 Room Air 21 08/04/18 07:50 96 Room Air 21 08/04/18 04:00 97.4 63 18 149/74 (99) 100 08/04/18 00:19 98.0 64 18 155/74 (101) 08/03/18 21:45 Nasal Cannula 2.0 28 08/03/18 21:44 98 Nasal Cannula 2.0 28 08/03/18 21:00 Nasal Cannula 2.0 08/03/18 20:00 97.9 58 18 138/68 (91) 100 Intake and Output 08/03/18 08/04/18 19:00 07:00 Intake Total 360 ml Output Total 750 ml Balance -390 ml Intake Oral 250 ml IV Total 110 ml Output Urine Total 750 ml # Voids 2 Laboratory Tests Test 08/04/18 05:20 08/04/18 06:30 Stool Occult Blood Positive (NEGATIVE) White Blood Count 2.5 K/UL (4.8-10.8) L Red Blood Count 2.89 M/UL (4.70-6.10) L Hemoglobin 7.7 G/DL (14.2-18.0) L Hematocrit 24.4 % (42.0-52.0) L Mean Corpuscular Volume 84 FL (80-99) Mean Corpuscular Hemoglobin 26.5 PG (27.0-31.0) L Mean Corpuscular Hemoglobin Concent 31.4 G/DL (32.0-36.0) L Red Cell Distribution Width 19.2 % (11.6-14.8) H Platelet Count 52 K/UL (150-450) L Mean Platelet Volume 6.0 FL (6.5-10.1) L Neutrophils (%) (Auto) % (45.0-75.0) Lymphocytes (%) (Auto) % (20.0-45.0) Monocytes (%) (Auto) % (1.0-10.0) Eosinophils (%) (Auto) % (0.0-3.0) Basophils (%) (Auto) % (0.0-2.0) Differential Total Cells Counted 100 Neutrophils % (Manual) 68 % (45-75) Lymphocytes % (Manual) 24 % (20-45) Monocytes % (Manual) 5 % (1-10) Eosinophils % (Manual) 2 % (0-3) Basophils % (Manual) 0 % (0-2) Band Neutrophils 1 % (0-8) Platelet Estimate Decreased L Platelet Morphology Normal Hypochromasia 2+ Anisocytosis 2+ Sodium Level 142 MMOL/L (136-145) Potassium Level 3.5 MMOL/L (3.5-5.1) Chloride Level 107 MMOL/L (98-107) Carbon Dioxide Level 33 MMOL/L (21-32) H Anion Gap 3 mmol/L (5-15) L Blood Urea Nitrogen 22 mg/dL (7-18) H Creatinine 1.1 MG/DL (0.55-1.30) Estimat Glomerular Filtration Rate > 60 mL/min (>60) Glucose Level 78 MG/DL (74-106) Calcium Level 9.4 MG/DL (8.5-10.1) Phosphorus Level 3.2 MG/DL (2.5-4.9) Magnesium Level 1.8 MG/DL (1.8-2.4) Objective HEAD AND NECK: No JVD. LUNGS: Coarse rhonchi CARDIOVASCULAR: Regular S1 and S2 with no gallop or murmur. ABDOMEN: Soft. EXTREMITIES: 2+ pitting edema of right arm and leg. Rios Barron MD Aug 04, 2018 16:58
--- NOTE | 2018-08-04 19:00 | NUR ---
NURSE NOTES: Received a report from CJ Monsivais. Pt is in stable condition. AAOX4. Able to make needs known. No respiratory distress noted. On room air. No c/o pain/discomfort. Has a PICC line 2 lumen on L upper arm, is patent and intact. Has zacarias catheter, is draining. Bed in lowest position. Bed alarm is on. Call light within reach. Will continue to monitor.
--- NOTE | 2018-08-04 19:13 | NUR ---
HAND-OFF: Report given to CJ Fregoso.
[2018-08-04 20:00] VITALS: BP 155/71
[2018-08-04] MEDS: Dyna-Hex 2% Top Sol 2oz TOPIC SCH (21:37)
[2018-08-04] MEDS ORDERED: Fleet's Enema 133ml RECTAL SCH (23:00)
--- NOTE | 2018-08-04 23:15 | Progress Note ---
DATE: 08/04/2018 SUBJECTIVE: This is a 68-year-old male patient. He has decubitus ulcer stage IV. He has hyperkalemia, but this patient continues to have some confusion, disorganized thought process, and mood lability, worsened by stress of his medical illness and urinary tract infection as well includes altered mental status, agitation, and decline in cognition below his baseline ability. MENTAL STATUS EXAMINATION: This is a 68-year-old male. Appearance is disheveled. Attitude, irritable and agitated. Affect, guarded and restricted. Intellect poor. Mood depressed and anxious. Motor activity, psychomotor agitation. Attention span is poor. Orientation x2. Speech is pressured. Thought process, disorganized and illogical. Thought content, auditory hallucinations, paranoid delusions. Insight and judgment are poor. DIAGNOSIS: Major depressive disorder with psychotic features, rule out dementia with psychosis. PLAN: To treat him with a medication regimen consisting of Risperdal 1 mg q.12 h., Depakote 1000 mg per G-tube twice a day, 0.5 mg every 6 hours p.r.n. anxiety and agitation, and Paxil 20 mg daily. Provided him with 20 minutes of cognitive behavioral therapy to help him identify automatic negative thoughts and help him convert those negative thoughts to more positive thoughts to reduce depression and anxiety and help him maintain a more adaptive behavior pattern. An 18- to 20-minute cognitive behavioral therapy. Chart reviewed. Discussed with staff. Becki Coe M.D. DR: SURAJ JOB#: [id number] CC:
[2018-08-05] VITALS (8 sets, daily range): BP systolic 116–156; BP diastolic 62–73
[2018-08-05 05:40] LABS: HEMATOCRIT 27.5 % (42.0-52.0); HEMOGLOBIN 8.6 G/DL (14.2-18.0); MEAN CORPUSCULAR VOLUME 84 FL (80-99); PLATELET COUNT 64 K/UL (150-450); RED BLOOD COUNT 3.26 M/UL (4.70-6.10); RED CELL DISTRIBUTION WIDTH 18.8 % (11.6-14.8); WHITE BLOOD COUNT 3.5 K/UL (4.8-10.8)
[2018-08-05 05:47] LABS: INR 1.1 (0.9-1.1)
[2018-08-05 05:50] LABS: ANION GAP 3 mmol/L (5-15); BLOOD UREA NITROGEN 19 mg/dL (7-18); CALCIUM 9.8 MG/DL (8.5-10.1); CARBON DIOXIDE 34 MMOL/L (21-32); CHLORIDE 108 MMOL/L (98-107); CREATININE 1.1 MG/DL (0.55-1.30); POTASSIUM 4.7 MMOL/L (3.5-5.1); SODIUM 144 MMOL/L (136-145)
[2018-08-05] MEDS: NovoLOG Insulin Flexpen SUBQ SCH (06:09)
--- NOTE | 2018-08-05 06:15 | NUR ---
NURSE NOTES: Dr. Blanco ordered Fleet's enema once, because pt still had brown liquid stools this morning.
[2018-08-05] MEDS ORDERED: Fleet's Enema 133ml RECTAL ONE (06:30)
--- NOTE | 2018-08-05 07:05 | NUR ---
HAND-OFF: Report given to CJ Monsivais. Pt is in stable condition.
--- NOTE | 2018-08-05 07:15 | NUR ---
NURSE NOTES: Lazaro, medical staff, picked up the pt for procedure. Yodit RN is aware.
--- NOTE | 2018-08-05 07:28 | Pre-Procedure Note/Attestation ---
Pre-Procedure Note/Attestation Complete Prior to Procedure Planned Procedure: not applicable Procedure Narrative: esophagogastroduodenoscopy and colonoscopy Indications for Procedure Pre-Operative Diagnosis: anemia Attestation I attest that I discussed the nature of the procedure; its benefits; risks and complications; and alternatives (and the risks and benefits of such alternatives ), prior to the procedure, with the patient (or the patient's legal customer care representative). I attest that, if there was a reasonable possibility of needing a blood transfusion, the patient (or the patient's legal customer care representative) was given the [facility] standardized written summary, pursuant to the Sebastian Robert Blood Safety Act ([place] Health and Safety Code # 1645, as amended). I attest that I re-evaluated the patient just prior to the surgery and that there has been no change in the patient's H&P, except as documented below: Jayce Blanco MD Aug 05, 2018 07:28
[2018-08-05] MEDS ORDERED: NS 500ML IVPB ONE (07:30)
[2018-08-05] MEDS ORDERED: Propofol 200mg/20ml IV ONE (07:30)
[2018-08-05] MEDS ORDERED: Phenylephrine 10mg/ml Vial ONE (07:30)
[2018-08-05] MEDS ORDERED: Lidocaine 1% MPF 10mg/ml 5ml ONE (07:30)
--- NOTE | 2018-08-05 07:38 | General Progress Note ---
Assessment/Plan Problem List: (1) Anemia ICD Codes: D64.9 - Anemia, unspecified SNOMED: 139709447 Qualifiers: Qualified Codes: D64.9 - Anemia, unspecified (2) Cellulitis of right upper extremity ICD Codes: L03.113 - Cellulitis of right upper limb SNOMED: 797988106 (3) Renal insufficiency ICD Codes: N28.9 - Disorder of kidney and ureter, unspecified SNOMED: 095435009, 104020303 (4) UTI (urinary tract infection) ICD Codes: N39.0 - Urinary tract infection, site not specified SNOMED: 47828102, 718326922 Qualifiers: Qualified Codes: N39.0 - Urinary tract infection, site not specified (5) History of seizure ICD Codes: Z87.898 - Personal history of other specified conditions SNOMED: 703400864 (6) COPD (chronic obstructive pulmonary disease) ICD Codes: J44.9 - Chronic obstructive pulmonary disease, unspecified SNOMED: 15136863 (7) ATN (acute tubular necrosis) ICD Codes: N17.0 - Acute kidney failure with tubular necrosis SNOMED: 82173410 (8) Hyperkalemia, diminished renal excretion ICD Codes: E87.5 - Hyperkalemia SNOMED: 82553070, 406819708 Status: stable, progressing Assessment/Plan wound care abx pt diet cbc bmp am heme gi eval transfuse prn dc plan Subjective Constitutional: Reports: weakness Allergies: Coded Allergies: ATORVASTATIN (Unverified Allergy, Unknown, 07/27/18) Uncoded Allergies: VITAMIN B12 (Allergy, Unknown, 07/27/18) VITAMIN D (Allergy, Unknown, 07/27/18) All Systems: reviewed and negative except above Subjective awaiting gi study Objective Last 24 Hour Vital Signs Date Time Temp Pulse Resp B/P (MAP) Pulse Ox O2 Delivery O2 Flow Rate FiO2 08/05/18 04:00 97.9 77 18 153/73 (99) 100 08/05/18 00:00 97.7 67 18 156/73 (100) 95 08/04/18 21:00 Nasal Cannula 2.0 08/04/18 20:00 97.9 59 18 155/71 (99) 94 08/04/18 16:00 98.5 66 18 115/66 (82) 98 08/04/18 12:00 98.0 70 20 138/76 (96) 100 08/04/18 09:27 Nasal Cannula 2.0 08/04/18 08:00 97.9 67 19 141/70 (93) 100 08/04/18 07:50 Room Air 21 08/04/18 07:50 96 Room Air 21 Intake and Output 08/04/18 08/05/18 19:00 07:00 Intake Total 753.708 ml 110 ml Output Total 800 ml Balance -46.292 ml 110 ml Intake Oral 460 ml IV Total 293.708 ml 110 ml Output Urine Total 800 ml # Voids 3 # Bowel Movements 1 4 Laboratory Tests 08/05/18 01:00: Stool Occult Blood [Pending] 08/05/18 04:50: White Blood Count 3.5L, Red Blood Count 3.26L, Hemoglobin 8.6L, Hematocrit 27.5L , Mean Corpuscular Volume 84, Mean Corpuscular Hemoglobin 26.3L, Mean Corpuscular Hemoglobin Concent 31.2L, Red Cell Distribution Width 18.8H, Platelet Count 64L, Mean Platelet Volume 8.5, Neutrophils (%) (Auto) , Lymphocytes (%) (Auto) , Monocytes (%) (Auto) , Eosinophils (%) (Auto) , Basophils (%) (Auto) , Prothrombin Time 12.0H, Prothromb Time International Ratio 1.1, Activated Partial Thromboplast Time 44H, Sodium Level 144, Potassium Level 4.7, Chloride Level 108H, Carbon Dioxide Level 34H, Anion Gap 3L, Blood Urea Nitrogen 19H, Creatinine 1.1, Estimat Glomerular Filtration Rate > 60, Glucose Level 101, Calcium Level 9.8 Height (Feet): 5 Height (Inches): 5.00 Weight (Pounds): 205 General Appearance: lethargic EENT: normal ENT inspection Neck: normal alignment Cardiovascular: normal peripheral pulses, normal rate, regular rhythm Respiratory/Chest: chest wall non-tender, lungs clear, normal breath sounds Abdomen: normal bowel sounds, non tender, soft Extremities: normal inspection Edema: no edema noted Arm (L), no edema noted Arm (R), no edema noted Leg (L), no edema noted Leg (R), no edema noted Pedal (L), no edema noted Pedal (R), no edema noted Generalized Neurologic: motor weakness Skin: normal pigmentation, warm/dry Objective r wrist dressing c&d Michael Johnson DO Aug 05, 2018 07:38
--- NOTE | 2018-08-05 07:40 | Anethesia Preoperative Eval ---
Anesthesia Pre-op PMH/ROS General Date of Evaluation: Aug 05, 2018 Time of Evaluation: 07:26 Anesthesiologist: Brigette Walker CRNA ASA Score: ASA 3 Mallampati Score Class I : Soft palate, uvula, fauces, pillars visible Class II: Soft palate, uvula, fauces visible Class III: Soft palate, base of uvula visible Class IV: Only hard plate visible Mallampati Classification: Class III Surgeon: Bella Diagnosis: dehydration, anemia Surgical Procedure: EGD colonoscopy Anesthesia History: none Social History: smoking Family History: no anesthesia problems Allergies: Coded Allergies: ATORVASTATIN (Unverified Allergy, Unknown, 07/27/18) Uncoded Allergies: VITAMIN B12 (Allergy, Unknown, 07/27/18) VITAMIN D (Allergy, Unknown, 07/27/18) Medications: see eMAR Patient NPO?: Yes NPO Date: Aug 05, 2018 NPO Time: 00:00 Past Medical History Cardiovascular: Reports: HTN; Denies: CAD, [place], valve dz, arrhythmia, other Pulmonary: Reports: COPD; Denies: asthma, PUMA, other Gastrointestinal/Genitourinary: Reports: GERD, CRI, other - dysphagia Neurologic/Psychiatric: Reports: dementia, other - seizures; Denies: CVA, depression/anxiety, TIA Endocrine: Reports: DM; Denies: hypothyroidism, steroids, other HEENT: Denies: cataract (L), cataract (R), glaucoma, [place] (L), [place] (R), other Hematology/Immune: Reports: anemia Musculoskeletal/Integumentary: Reports: edema - RT hand infiltration, other - buttock decubitus ulcer; Denies: OA, RA, DJD, DDD PMH Narrative: as above Anesthesia Pre-op Phys. Exam Physician Exam Last Vital Signs Date Time Temp Pulse Resp B/P (MAP) Pulse Ox O2 Delivery O2 Flow Rate FiO2 08/05/18 04:00 97.9 77 18 153/73 (99) 100 08/04/18 21:00 Nasal Cannula 2.0 08/04/18 07:50 21 Constitutional: NAD Neurologic: CN 2-12 intact Cardiovascular: RRR Respiratory: CTA, other - productive cough Gastrointestinal: S/NT/ND Airway Exam Mallampati Score: Class III MO: limited Neck: limited TMD: > 3 FB ROM: full Teeth: missing, broken, loose Dentures: no upper, no lower Anesthesia Pre-op A/P Labs Hematology Test 08/05/18 04:50 White Blood Count 3.5 K/UL (4.8-10.8) L Red Blood Count 3.26 M/UL (4.70-6.10) L Hemoglobin 8.6 G/DL (14.2-18.0) L Hematocrit 27.5 % (42.0-52.0) L Mean Corpuscular Volume 84 FL (80-99) Mean Corpuscular Hemoglobin 26.3 PG (27.0-31.0) L Mean Corpuscular Hemoglobin Concent 31.2 G/DL (32.0-36.0) L Red Cell Distribution Width 18.8 % (11.6-14.8) H Platelet Count 64 K/UL (150-450) L Mean Platelet Volume 8.5 FL (6.5-10.1) Neutrophils (%) (Auto) % (45.0-75.0) Lymphocytes (%) (Auto) % (20.0-45.0) Monocytes (%) (Auto) % (1.0-10.0) Eosinophils (%) (Auto) % (0.0-3.0) Basophils (%) (Auto) % (0.0-2.0) Coagulation Test 08/05/18 04:50 Prothrombin Time 12.0 SEC (9.30-11.50) H Prothromb Time International Ratio 1.1 (0.9-1.1) Activated Partial Thromboplast Time 44 SEC (23-33) H Chemistry Test 08/05/18 04:50 Sodium Level 144 MMOL/L (136-145) Potassium Level 4.7 MMOL/L (3.5-5.1) Chloride Level 108 MMOL/L (98-107) H Carbon Dioxide Level 34 MMOL/L (21-32) H Anion Gap 3 mmol/L (5-15) L Blood Urea Nitrogen 19 mg/dL (7-18) H Creatinine 1.1 MG/DL (0.55-1.30) Estimat Glomerular Filtration Rate > 60 mL/min (>60) Glucose Level 101 MG/DL (74-106) Calcium Level 9.8 MG/DL (8.5-10.1) Studies Pre-op Studies: EKG - SR, no ischemic changes, echo - reviewed, see chart Risk Assessment & Plan Assessment: ASA 3, ok to proceed Plan: MAC Status Change Before Surgery: No Pre-Antibiotics Given Within 1 Hr of Incision: No Brigette Walker CRNA Aug 05, 2018 07:40
--- NOTE | 2018-08-05 08:10 | NUR ---
NURSE NOTES: pt finished last bowel prep and picked up by transporter to GI lab. denies any pain. will follow up accordingly.
--- NOTE | 2018-08-05 08:26 | Immediate Post-Op Evaluation ---
Immediate Post-Op Evalulation Immediate Post-Op Evalulation Procedure: EGD, colonoscopy, polypectomy Date of Evaluation: Aug 05, 2018 Time of Evaluation: 08:18 IV Fluids: 0.9 NS 250 ml Blood Pressure Systolic: 125 Blood Pressure Diastolic: 64 Pulse Rate: 80 Respiratory Rate: 22 O2 Sat by Pulse Oximetry: 100 Temperature (Fahrenheit): 97.3 Pain Score (1-10): 0 Nausea: No Vomiting: No Complications none Patient Status: awake, reacts Hydration Status: adequate Given Within 1 Hr of Incision: Brigette Boss CRNA Aug 05, 2018 08:26
[2018-08-05] MEDS: Cefepime HCl 2 GM in D5W 110 ML IV SCH ×2 (08:38→09:21)
[2018-08-05] MEDS: Docusate 100mg cap ORAL SCH ×2 (08:39→09:00)
[2018-08-05] MEDS: PARoxetine 20mg tab ORAL SCH ×2 (08:39→09:18)
[2018-08-05] MEDS: Valproic Acid 250mg/5ml Liquid NG SCH ×2 (08:39→09:17)
--- NOTE | 2018-08-05 09:44 | NUR ---
ST NOTE: SWALLOW/SPEECH/COGNITION STATUS PT SEEN AT BEDSIDE IN AM. ALERT AND COOPERATIVE, FOLLOWS SIMPLE DIRECTIONS WITH CUES. PT UNDERWENT THE PROCEDURE(EGD) THIS MORNING. PER RN, PT WAS NOTED TO HAVE GASTRITIS AND POLYPS. PER N.P., NIRMAL ZUNIGA TO SLOWLY INITIATE PREVIOUS DIET. COMPLETED ORAL MOTOR EXS AND LARYNGEAL/PHARYNGEAL EXS WITH MAX CUES. GIVEN HONEY THICK LIQUIDS(4OZ) VIA TSP, MILD INCREASED ORAL TRANSIT TIME AND OROPHARYNGEAL TRANSIT TIME, FAIR LARYNGEAL ELEVATION, MILD THROAT CLEARING X 1 WAS NOTED. TRAINED PT TO USE EFFORTFUL SWALLOW WITH SWALLOW X 2 TIMES TECHNIQUES. PT WAS ABLE TO FOLLOW THE DIRECTIONS. SPEECH/LANGUAGE/COGNITIONS STATUS: PT WAS ABLE TO PARTICIPATE IN SIMPLE CONSERVATION. PT WAS UNABLE TO RECALL HIS CHILDREN NAME. PER PT HE HAS 2 CHILDREN(1 BOY AND 1 GIRL). POOR SHORT-TERM MEMORY WAS NOTED. D/W RN,JAYASHREE
--- NOTE | 2018-08-05 10:00 | Endoscopy Procedure Note ---
Endoscopy Procedure Note General Indication for Procedure: anemia Procedures Performed: EGD, colonoscopy Operative Findings/Diagnosis: one polyp, gastritis Specimen: yes Pt Tolerated Procedure Well: Yes Estimated Blood Loss: none Anesthesia Anesthesiologist: sana Anesthesia: MAC Inserted Devices Implant(s) used?: No Quality Quality of Bowel Preparation: Poor GI Core Measures 50 yrs or older w/o bx or poly: Not Applicable 10yrs. F/U not recommended: Not Applicable Jayce Blanco MD Aug 05, 2018 10:00
--- NOTE | 2018-08-05 10:19 | NUR ---
*-* DISCHARGE PLANNING *-* PATIENT HAS BEEN REFERRED BACK TO: [facility] P:[phone] F:[phone] SPOKE TO BRETT PATIENT IS TO RETURN BACK TO ROOM # 37-C "SKILLED".
[2018-08-05] MEDS ORDERED: COLACE100 MG ORAL (10:26)
[2018-08-05] MEDS ORDERED: ATIVAN0.5 MG ORAL (10:27)
[2018-08-05] MEDS ORDERED: NITROSTAT0.4 M1 SL (10:28)
[2018-08-05] MEDS ORDERED: PROTONIX40 MG ORAL (10:28)
[2018-08-05] MEDS ORDERED: MIRALAX17 G2 ORAL (10:29)
[2018-08-05] MEDS ORDERED: RISPERDAL1 MG PO (10:30)
[2018-08-05] MEDS ORDERED: RESTORIL15 MG ORAL (10:30)
[2018-08-05] MEDS ORDERED: VALPROIC A250 MG/5 M PO (10:31)
--- NOTE | 2018-08-05 11:03 | NUR ---
*-* DISCHARGE PLANNED *-* PATIENT IS DISCHARD BACK TO: [facility] ROOM# 37-C SKILLED T:[phone] FOR NURSE TO NURSE REPORT [facility] HAS BEEN ARRANGED FOR [facility]OR [facility]ICE [facility]PERATIONS [id number]
--- NOTE | 2018-08-05 11:34 | General Surgery Progress Note ---
General Surgery-Progress Note Subjective Additional Comments no acute events. stable. plain films noted. no osteo but still with soft tissue swelling. Objective Last 24 Hour Vital Signs Date Time Temp Pulse Resp B/P (MAP) Pulse Ox O2 Delivery O2 Flow Rate FiO2 08/05/18 09:51 Nasal Cannula 2.0 08/05/18 08:45 97.3 80 22 119/69 100 Nasal Cannula 2 08/05/18 08:28 78 22 116/67 100 Nasal Cannula 2 08/05/18 08:26 80 22 100 08/05/18 08:23 79 22 121/62 100 Nasal Cannula 2 08/05/18 08:18 97.3 80 22 125/64 100 Nasal Cannula 2 08/05/18 04:00 97.9 77 18 153/73 (99) 100 08/05/18 00:00 97.7 67 18 156/73 (100) 95 08/04/18 21:00 Nasal Cannula 2.0 08/04/18 20:00 97.9 59 18 155/71 (99) 94 08/04/18 16:00 98.5 66 18 115/66 (82) 98 08/04/18 12:00 98.0 70 20 138/76 (96) 100 I&O Intake and Output 08/04/18 08/05/18 18:59 06:59 Intake Total 753.708 ml 110 ml Output Total 800 ml Balance -46.292 ml 110 ml Intake Oral 460 ml IV Total 293.708 ml 110 ml Output Urine Total 800 ml # Voids 3 # Bowel Movements 1 4 Dressing: saturated Wound: other Drains: other Cardiovascular: RSR Respiratory: clear Abdomen: soft, present bowel sounds, non-distended Extremities: edema, other Laboratory Tests Test 08/05/18 01:00 08/05/18 04:50 Stool Occult Blood Pending White Blood Count 3.5 K/UL (4.8-10.8) L Red Blood Count 3.26 M/UL (4.70-6.10) L Hemoglobin 8.6 G/DL (14.2-18.0) L Hematocrit 27.5 % (42.0-52.0) L Mean Corpuscular Volume 84 FL (80-99) Mean Corpuscular Hemoglobin 26.3 PG (27.0-31.0) L Mean Corpuscular Hemoglobin Concent 31.2 G/DL (32.0-36.0) L Red Cell Distribution Width 18.8 % (11.6-14.8) H Platelet Count 64 K/UL (150-450) L Mean Platelet Volume 8.5 FL (6.5-10.1) Neutrophils (%) (Auto) % (45.0-75.0) Lymphocytes (%) (Auto) % (20.0-45.0) Monocytes (%) (Auto) % (1.0-10.0) Eosinophils (%) (Auto) % (0.0-3.0) Basophils (%) (Auto) % (0.0-2.0) Prothrombin Time 12.0 SEC (9.30-11.50) H Prothromb Time International Ratio 1.1 (0.9-1.1) Activated Partial Thromboplast Time 44 SEC (23-33) H Sodium Level 144 MMOL/L (136-145) Potassium Level 4.7 MMOL/L (3.5-5.1) Chloride Level 108 MMOL/L (98-107) H Carbon Dioxide Level 34 MMOL/L (21-32) H Anion Gap 3 mmol/L (5-15) L Blood Urea Nitrogen 19 mg/dL (7-18) H Creatinine 1.1 MG/DL (0.55-1.30) Estimat Glomerular Filtration Rate > 60 mL/min (>60) Glucose Level 101 MG/DL (74-106) Calcium Level 9.8 MG/DL (8.5-10.1) Plan Problems: (1) Cellulitis of right upper extremity Assessment & Plan: right wrist cellulitis. 1.5cm ulceration noted. seropurulent drainage noted. minimal foul odor. cellulitis circumferential. pulses okay. hand okay. proximally okay edema improved today ulceration still draining edema in right arm and hand 2+ pitting. no abscess palpated. no areas of significant induration plain films noted. MRI noted. no abscess. but still hand swollen. will take time to improve. ulcer improving. drainage decreasing -Cont ABx -skin protectant and dressings for now -keep right arm elevated d/c planning will monitor clinically on medical therapy. (2) Decubitus ulcer of right buttock, stage 4 Assessment & Plan: patient presents with multiple wounds upon admission moderate sized stage 4 right buttock lower decubitus ulcer clean and seems to have had debridement prior right heel dti -apply hydrogel, gauze packing, dressings daily and prn -heel protectors, apply foam dressing to right heel -will monitor and treat wounds while in hospital -turn q2h -off load pressure -air mattress thank you Jin Hogan Aug 05, 2018 11:34
[2018-08-05] MEDS ORDERED: CEFEPIME-D2 GM/50 ML IVPB (11:42)
[2018-08-05] MEDS ORDERED: VANCOMYCIN1 GM/200 M IV (11:46)
[2018-08-05] MEDS ORDERED: 1/2 NS 1000ml IV ONE (13:09)
--- NOTE | 2018-08-05 13:10 | NUR ---
NURSE NOTES: pt discharged to [facility] picked up by ambulance with stable condition. pt denies any pain at this time. vss. Per Dr. Patel, pt may go with f/c. pt will also go with picc line due to continuation of IV atb x7days. all report given to the nurse (veronica) and verbalized understanding.
--- NOTE | 2018-08-05 13:27 | Nephrology Progress Note ---
Assessment/Plan Problem List: (1) Renal insufficiency Assessment: acute on chronic (2) Hyperkalemia Assessment: resolved (3) Anemia (4) Hypoalbuminemia (5) History of seizure Assessment Renal failure- Acute on Chronic, presented with hyperkalemia now resolved COPD Sz disorder UTI Anemia cellulitis Rt UE HypoAlbuminemia Plan Kayexelate as needed NGT out stop heparin SQ Monitor renal parameters antibiotics avoid Nephrotoxics per orders DC planning Subjective ROS Limited/Unobtainable: No Interval Events/Complaints seen at 10 am Objective Objective Last 24 Hour Vital Signs Date Time Temp Pulse Resp B/P (MAP) Pulse Ox O2 Delivery O2 Flow Rate FiO2 08/05/18 12:00 98.4 99 20 138/71 (93) 100 08/05/18 09:51 Nasal Cannula 2.0 08/05/18 08:45 97.3 80 22 119/69 100 Nasal Cannula 2 08/05/18 08:28 78 22 116/67 100 Nasal Cannula 2 08/05/18 08:26 80 22 100 08/05/18 08:23 79 22 121/62 100 Nasal Cannula 2 08/05/18 08:18 97.3 80 22 125/64 100 Nasal Cannula 2 08/05/18 04:00 97.9 77 18 153/73 (99) 100 08/05/18 00:00 97.7 67 18 156/73 (100) 95 08/04/18 21:00 Nasal Cannula 2.0 08/04/18 20:00 97.9 59 18 155/71 (99) 94 08/04/18 16:00 98.5 66 18 115/66 (82) 98 Intake and Output 08/04/18 08/05/18 18:59 06:59 Intake Total 753.708 ml 110 ml Output Total 800 ml Balance -46.292 ml 110 ml Intake Oral 460 ml IV Total 293.708 ml 110 ml Output Urine Total 800 ml # Voids 3 # Bowel Movements 1 4 Laboratory Tests 08/05/18 01:00: Stool Occult Blood [Pending] 08/05/18 04:50: White Blood Count 3.5L, Red Blood Count 3.26L, Hemoglobin 8.6L, Hematocrit 27.5L , Mean Corpuscular Volume 84, Mean Corpuscular Hemoglobin 26.3L, Mean Corpuscular Hemoglobin Concent 31.2L, Red Cell Distribution Width 18.8H, Platelet Count 64L, Mean Platelet Volume 8.5, Neutrophils (%) (Auto) , Lymphocytes (%) (Auto) , Monocytes (%) (Auto) , Eosinophils (%) (Auto) , Basophils (%) (Auto) , Prothrombin Time 12.0H, Prothromb Time International Ratio 1.1, Activated Partial Thromboplast Time 44H, Sodium Level 144, Potassium Level 4.7, Chloride Level 108H, Carbon Dioxide Level 34H, Anion Gap 3L, Blood Urea Nitrogen 19H, Creatinine 1.1, Estimat Glomerular Filtration Rate > 60, Glucose Level 101, Calcium Level 9.8 Height (Feet): 5 Height (Inches): 5.00 Weight (Pounds): 205 General Appearance: no apparent distress Cardiovascular: normal rate Respiratory/Chest: decreased breath sounds Abdomen: soft Objective no change Shashi Patel MD Aug 05, 2018 13:27
--- NOTE | 2018-08-05 13:30 | 48 Hour Post Anesthesia Eval ---
Post Anesthesia Evaluation Procedure: EGD, colonoscopy, polypectomy Date of Evaluation: Aug 05, 2018 Time of Evaluation: 13:29 Blood Pressure Systolic: 138 0: 71 Pulse Rate: 99 Respiratory Rate: 20 Temperature (Fahrenheit): 98.4 O2 Sat by Pulse Oximetry: 100 Airway: patent Nausea: No Vomiting: No Pain Intensity: 0 Hydration Status: adequate Cardiopulmonary Status: stable Mental Status/LOC: patient returned to baseline Follow-up Care/Observations: none Post-Anesthesia Complications: none Follow-up care needed: ready to discharge Brigette Walker CRNA Aug 05, 2018 13:30
--- NOTE | 2018-08-05 14:28 | Cardiac Electrophysiology PN ---
Assessment/Plan Assessment/Plan 1. Hyperkalemia. Resolved EKG showed no acute ischemic changes. Echocardiogram 55% 2. History of hypertension. Blood pressure stable off antihypertensive agents. 3. Anemia, s/p EGD, colonoscopy today by Dr Blanco 4. Right arm swelling and cellulitis, on IV antibiotics. 5. Renal insufficiency 6. Dysphagia, passed video Swallow 7. SOB. EF 55% 8. COPD FU Dr Rosita WALL RN Subjective Subjective DC in progress. No CP or SOB. Had EGD and colonoscopy today that showed Gastritis. Objective Last 24 Hour Vital Signs Date Time Temp Pulse Resp B/P (MAP) Pulse Ox O2 Delivery O2 Flow Rate FiO2 08/05/18 13:30 99 20 100 08/05/18 12:00 98.4 99 20 138/71 (93) 100 08/05/18 09:51 Nasal Cannula 2.0 08/05/18 08:45 97.3 80 22 119/69 100 Nasal Cannula 2 08/05/18 08:28 78 22 116/67 100 Nasal Cannula 2 08/05/18 08:26 80 22 100 08/05/18 08:23 79 22 121/62 100 Nasal Cannula 2 08/05/18 08:18 97.3 80 22 125/64 100 Nasal Cannula 2 08/05/18 04:00 97.9 77 18 153/73 (99) 100 08/05/18 00:00 97.7 67 18 156/73 (100) 95 08/04/18 21:00 Nasal Cannula 2.0 08/04/18 20:00 97.9 59 18 155/71 (99) 94 08/04/18 16:00 98.5 66 18 115/66 (82) 98 Intake and Output 08/04/18 08/05/18 18:59 06:59 Intake Total 753.708 ml 110 ml Output Total 800 ml Balance -46.292 ml 110 ml Intake Oral 460 ml IV Total 293.708 ml 110 ml Output Urine Total 800 ml # Voids 3 # Bowel Movements 1 4 Laboratory Tests Test 08/05/18 01:00 08/05/18 04:50 Stool Occult Blood Positive (NEGATIVE) White Blood Count 3.5 K/UL (4.8-10.8) L Red Blood Count 3.26 M/UL (4.70-6.10) L Hemoglobin 8.6 G/DL (14.2-18.0) L Hematocrit 27.5 % (42.0-52.0) L Mean Corpuscular Volume 84 FL (80-99) Mean Corpuscular Hemoglobin 26.3 PG (27.0-31.0) L Mean Corpuscular Hemoglobin Concent 31.2 G/DL (32.0-36.0) L Red Cell Distribution Width 18.8 % (11.6-14.8) H Platelet Count 64 K/UL (150-450) L Mean Platelet Volume 8.5 FL (6.5-10.1) Neutrophils (%) (Auto) % (45.0-75.0) Lymphocytes (%) (Auto) % (20.0-45.0) Monocytes (%) (Auto) % (1.0-10.0) Eosinophils (%) (Auto) % (0.0-3.0) Basophils (%) (Auto) % (0.0-2.0) Prothrombin Time 12.0 SEC (9.30-11.50) H Prothromb Time International Ratio 1.1 (0.9-1.1) Activated Partial Thromboplast Time 44 SEC (23-33) H Sodium Level 144 MMOL/L (136-145) Potassium Level 4.7 MMOL/L (3.5-5.1) Chloride Level 108 MMOL/L (98-107) H Carbon Dioxide Level 34 MMOL/L (21-32) H Anion Gap 3 mmol/L (5-15) L Blood Urea Nitrogen 19 mg/dL (7-18) H Creatinine 1.1 MG/DL (0.55-1.30) Estimat Glomerular Filtration Rate > 60 mL/min (>60) Glucose Level 101 MG/DL (74-106) Calcium Level 9.8 MG/DL (8.5-10.1) Objective HEAD AND NECK: No JVD. LUNGS: Coarse rhonchi CARDIOVASCULAR: Regular S1 and S2 with no gallop or murmur. ABDOMEN: Soft. EXTREMITIES: 2+ pitting edema of right arm and leg. Rios Barron MD Aug 05, 2018 14:28
--- NOTE | 2018-08-05 14:45 | Procedure Note ---
DATE OF PROCEDURE: 08/05/2018 SURGEON: Jayce Blanco M.D. PROCEDURE: Upper endoscopy with biopsy and colonoscopy with snare polypectomy. ANESTHESIA: Per Brigette ALFARO. INSTRUMENT: Olympus adult flexible upper endoscope and colonoscope. INDICATION: Anemia. REASON FOR PROCEDURE: The procedure, risks, benefits, and possible consequences, including hemorrhage, aspiration, perforation and infection, and alternative treatments, were explained to the patient/legal guardian by Dr. Jayce Blanco and the patient/legal guardian understood and accepted these risks. DESCRIPTION OF PROCEDURE: After informed consent was obtained, the patient was adequately sedated, Olympus upper endoscope was advanced from the mouth into the second portion of duodenum and retroflexion of the fundus stomach. The patient had evidence of medium-sized hiatal hernia and minimal distal esophagitis. In the stomach, there was diffuse gastritis. Random biopsy from antrum was obtained to rule out H. pylori infection. At this time, the upper endoscope was retrieved. The patient was turned over for colonoscopy. First rectal examination was performed, which was normal. Then, the scope was advanced from rectum into the hepatic flexure area. Quality of prep was extremely poor. This examination was extremely limited. We were able to see a polyp in the sigmoid, sessile, measured roughly about 6 millimeters, removed with the snare polypectomy technique, but unfortunately we lost it given there was so much stool around it and as soon as the polyp came off, it went to the polyp stools. We could not extract it. SUMMARY OF FINDINGS: 1. Medium-sized hiatal hernia. 2. Minimal distal esophagitis. 3. Gastritis, status post biopsy. 4. Incomplete colonoscopic examination and poor prep. 5. One colonic polyp, which after removal it was lost. RECOMMENDATIONS: 1. Follow biopsy results. 2. The patient will most probably benefit from repeat colonoscopy with better prep, but given the patient at this time is not actively bleeding, most probably this can be done as an outpatient. I want to thank, Dr. Michael Johnson, for this kind referral. Jayce Blanco M.D. DR: KEVON JOB#: [id number] CC: Michael Johnson D.O.
--- NOTE | 2018-08-05 15:55 | Infectious Diseases Prog Note ---
Assessment/Plan Assessment/Plan 68 yo male who was sent to the ED from his [facility] for right arm swelling. right wrist cellulitisl improving- 1.5cm ulceration noted. seropurulent drainage noted. minimal foul odor. cellulitis circumferential. -wound cx Neg -MRI R wrist :No evidence of acute osteomyelitis. 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 Correlation with plain film may be helpful. Moderate arthrosis of the wrist. Multiseptated collections noted adjacent to the distal radial ulnar joint and thflexor/palmar aspect of the distal forearm. These are likely ganglion cysts. US no DVT No X-ray No Fever No leukocytosis Sacral Decub Stage 4, R buttock- no signs of infection -wound cx ESBL e.coli; colonizer Dysphagia HTN DM PLAN - Continue Cefepime #9 and vancomycin #04/01 for R wrist cellulitis - Wound care - Monitor CBC and Temps - Monitor BMs Thank you for this consult. We will continue to follow the patient during this hospitalization. Subjective Allergies: Coded Allergies: ATORVASTATIN (Unverified Allergy, Unknown, 07/27/18) Uncoded Allergies: VITAMIN B12 (Allergy, Unknown, 07/27/18) VITAMIN D (Allergy, Unknown, 07/27/18) Subjective late entry afebrile no leukocytosis arm/hand edema improving but still significant Objective Vital Signs Last 24 Hour Vital Signs Date Time Temp Pulse Resp B/P (MAP) Pulse Ox O2 Delivery O2 Flow Rate FiO2 08/05/18 13:30 99 20 100 08/05/18 12:00 98.4 99 20 138/71 (93) 100 08/05/18 09:51 Nasal Cannula 2.0 08/05/18 08:45 97.3 80 22 119/69 100 Nasal Cannula 2 08/05/18 08:28 78 22 116/67 100 Nasal Cannula 2 08/05/18 08:26 80 22 100 08/05/18 08:23 79 22 121/62 100 Nasal Cannula 2 08/05/18 08:18 97.3 80 22 125/64 100 Nasal Cannula 2 08/05/18 04:00 97.9 77 18 153/73 (99) 100 08/05/18 00:00 97.7 67 18 156/73 (100) 95 08/04/18 21:00 Nasal Cannula 2.0 08/04/18 20:00 97.9 59 18 155/71 (99) 94 08/04/18 16:00 98.5 66 18 115/66 (82) 98 Height (Feet): 5 Height (Inches): 5.00 Weight (Pounds): 205 Objective Gen: NAD, Opens eyes not following commands HEENT: NCAT, MMM, EOMI LUNGS: CTAB, No W CARDS: RRR, S1, S2, No M/R/G, ABD: Soft, NT, ND, + BS Ext: C/C/E, Pulses 2+ B/L (DP, Rad): Right upper extremity with swelling with ulcer. some eschar covering SKIN: Warm/dry, No rashes, Stage 4 sacral decube. No Purulent drainage Laboratory Tests Test 08/05/18 01:00 08/05/18 04:50 Stool Occult Blood Positive (NEGATIVE) White Blood Count 3.5 K/UL (4.8-10.8) L Red Blood Count 3.26 M/UL (4.70-6.10) L Hemoglobin 8.6 G/DL (14.2-18.0) L Hematocrit 27.5 % (42.0-52.0) L Mean Corpuscular Volume 84 FL (80-99) Mean Corpuscular Hemoglobin 26.3 PG (27.0-31.0) L Mean Corpuscular Hemoglobin Concent 31.2 G/DL (32.0-36.0) L Red Cell Distribution Width 18.8 % (11.6-14.8) H Platelet Count 64 K/UL (150-450) L Mean Platelet Volume 8.5 FL (6.5-10.1) Neutrophils (%) (Auto) % (45.0-75.0) Lymphocytes (%) (Auto) % (20.0-45.0) Monocytes (%) (Auto) % (1.0-10.0) Eosinophils (%) (Auto) % (0.0-3.0) Basophils (%) (Auto) % (0.0-2.0) Prothrombin Time 12.0 SEC (9.30-11.50) H Prothromb Time International Ratio 1.1 (0.9-1.1) Activated Partial Thromboplast Time 44 SEC (23-33) H Sodium Level 144 MMOL/L (136-145) Potassium Level 4.7 MMOL/L (3.5-5.1) Chloride Level 108 MMOL/L (98-107) H Carbon Dioxide Level 34 MMOL/L (21-32) H Anion Gap 3 mmol/L (5-15) L Blood Urea Nitrogen 19 mg/dL (7-18) H Creatinine 1.1 MG/DL (0.55-1.30) Estimat Glomerular Filtration Rate > 60 mL/min (>60) Glucose Level 101 MG/DL (74-106) Calcium Level 9.8 MG/DL (8.5-10.1) Rima Reardon M.D. Aug 05, 2018 15:55
--- NOTE | 2018-08-05 17:15 | Progress Note ---
DATE: 08/05/2018 SUBJECTIVE: This is a 68-year-old male patient with hypokalemia, who continues to have some confusion and disorganized thought process. His cognition has declined below his baseline, and that is why his attending has requested daily psychiatric consultation. MENTAL STATUS EXAMINATION: This is a 68-year-old male. Appearance is disheveled. Attitude, irritable and agitated. Affect, guarded and restricted. Intellect, poor. Mood, depressed and anxious. Motor activity, psychomotor agitation. Attention span is poor. Orientation x2. Speech is low volume and slurred. Thought process, disorganized and illogical. Thought content, auditory hallucinations and paranoid delusions. Insight and judgment is poor. DIAGNOSIS: Paranoid schizophrenia with acute exacerbation. PLAN: We will continue to treat him with psychotropic medications to stabilize his mood and provide him with 20 minutes of cognitive behavioral therapy to help him identify his automatic negative thoughts and help him to convert those negative thoughts to more positive thoughts to reduce depression, anxiety, and suicidality. Chart is reviewed and discussed with staff. The patient was seen and assessed in his room. A 20 minutes of supportive psychotherapy provided. Becki Coe M.D. DR: CHERI JOB#: [id number] CC:
--- NOTE | 2018-08-05 20:02 | General Progress Note ---
Assessment/Plan Assessment/Plan # Pancytopenia -- mutliple etiologies possible, potentially related to infection /viralcauses, ongoing multiple infections, celluliis, baseline unknown, 1st time admitted --> med reviewed as well and abx may be culprit --> hepatitis and hiv are negative --> anemia panel reviewed and is cw acd --> us of the abdomen has been ordered and shows fatty liver infiltration --> if no underyling cause or improvement, consider a bone marrow biopsy --> peripheral smear review --> inr is mildly high potential low vit K --> plt trend-->90-->93-->75-->62-->59 # Anemia of chronic disease --> panel has been reviewed --> transfuse to hgb goal >7 --->7.4-->7.7-->8.6 # Cellulitis of right upper extremity --> s/p treatment with abx --> appre id and surg recs # Hyperkalemia, diminished renal excretion --> as per renal recs --> on ivf # Renal insufficiency --> s/p ivf administration # UTI (urinary tract infection) # Dysphagia --> ng in place -->Pulled out NGT and was placed back in, received video swallow 08/01 --->Patient passed video swallow study, now on diet Greatly appreciate consultation! Subjective Constitutional: Denies: no symptoms, chills, diaphoresis, fever, malaise, weakness, other Respiratory: Denies: no symptoms, cough, orthopnea, shortness of breath, SOB with excertion, SOB at rest, sputum, stridor, wheezing, other Gastrointestinal/Abdominal: Denies: no symptoms, abdomen distended, abdominal pain, black stools, tarry stools, blood in stool, constipated, diarrhea, difficulty swallowing, nausea, poor appetite, poor fluid intake, rectal bleeding , vomiting, other Genitourinary: Denies: no symptoms, burning, discharge, frequency, flank pain, hematuria, incontinence, pain, urgency, other Neurologic/Psychiatric: Denies: no symptoms, anxiety, depressed, emotional problems, headache, numbness, paresthesia, pre-existing deficit, seizure, tingling, tremors, weakness, other Endocrine: Denies: no symptoms, excessive sweating, flushing, intolerance to cold, intolerance to heat, increased hunger, increased thirst, increased urine, unexplained weight gain, unexplained weight loss, other Allergies: Coded Allergies: ATORVASTATIN (Unverified Allergy, Unknown, 07/27/18) Uncoded Allergies: VITAMIN B12 (Allergy, Unknown, 07/27/18) VITAMIN D (Allergy, Unknown, 07/27/18) Subjective 07/30: remains without events, nonverbal, less swollen arm/less cellulitis 07/31: getting wound care, [facility]. Has NG tube in. Swallow eval still pending on Tuesday 08/01: awake and comfortable ,Pulled out NGT and was placed back in,getting video swallow.plt 75 08/02: Pt is seen by bedside, awake, confused, following commands, had video swallow. plt trending down at 62 08/03: Pt is awake and comfortable, getting wound care, on abx, passed video swallow study, now on diet, hgb 7.4, plt trending down 08/04: remains on vanc and cefepime, no complaints, plts still lower 08/05: dc today to [facility], no bleeding, cbc reviewed Objective Last 24 Hour Vital Signs Date Time Temp Pulse Resp B/P (MAP) Pulse Ox O2 Delivery O2 Flow Rate FiO2 08/05/18 13:30 99 20 100 08/05/18 12:00 98.4 99 20 138/71 (93) 100 08/05/18 09:51 Nasal Cannula 2.0 08/05/18 08:45 97.3 80 22 119/69 100 Nasal Cannula 2 08/05/18 08:28 78 22 116/67 100 Nasal Cannula 2 08/05/18 08:26 80 22 100 08/05/18 08:23 79 22 121/62 100 Nasal Cannula 2 08/05/18 08:18 97.3 80 22 125/64 100 Nasal Cannula 2 08/05/18 04:00 97.9 77 18 153/73 (99) 100 08/05/18 00:00 97.7 67 18 156/73 (100) 95 08/04/18 21:00 Nasal Cannula 2.0 Intake and Output 08/04/18 08/05/18 19:00 07:00 Intake Total 753.708 ml 110 ml Output Total 800 ml Balance -46.292 ml 110 ml Intake Oral 460 ml IV Total 293.708 ml 110 ml Output Urine Total 800 ml # Voids 3 # Bowel Movements 1 4 Laboratory Tests 08/05/18 01:00: Stool Occult Blood Positive 08/05/18 04:50: White Blood Count 3.5L, Red Blood Count 3.26L, Hemoglobin 8.6L, Hematocrit 27.5L , Mean Corpuscular Volume 84, Mean Corpuscular Hemoglobin 26.3L, Mean Corpuscular Hemoglobin Concent 31.2L, Red Cell Distribution Width 18.8H, Platelet Count 64L, Mean Platelet Volume 8.5, Neutrophils (%) (Auto) , Lymphocytes (%) (Auto) , Monocytes (%) (Auto) , Eosinophils (%) (Auto) , Basophils (%) (Auto) , Prothrombin Time 12.0H, Prothromb Time International Ratio 1.1, Activated Partial Thromboplast Time 44H, Sodium Level 144, Potassium Level 4.7, Chloride Level 108H, Carbon Dioxide Level 34H, Anion Gap 3L, Blood Urea Nitrogen 19H, Creatinine 1.1, Estimat Glomerular Filtration Rate > 60, Glucose Level 101, Calcium Level 9.8 Height (Feet): 5 Height (Inches): 5.00 Weight (Pounds): 205 Objective HEAD AND NECK: No JVD. LUNGS: Coarse rhonchi CARDIOVASCULAR: Shows regular S1 and S2 with no gallop. ABDOMEN: Soft. nt, nd EXTREMITIES: 2+ pitting edema on the right arm and leg. Alex Lino MD Aug 05, 2018 20:02
--- NOTE | 2018-08-08 11:41 | Discharge Summary ---
Discharge Summary Discharge Summary _ DATE OF ADMISSION: 07/27/2018 DATE OF DISCHARGE: 08/05/2018 DISCHARGED BY: Dr. Johnson REASON FOR ADMISSION: 68 years old male with past medical history of hypertension, COPD, dysphagia, GERD, was brought to emergency department due to swelling of right upper extremity , noted by nursing staff at the halfway facility. Upon arrival patient was not in respiratory distress. No fever or chills reported . No chest pain reported. Patient nonverbal at baseline. Upon evaluation vital signs were stable. Laboratory workup revealed no leukocytosis, hemoglobin 8.4, hematocrit 27.5, platelets 65. Potassium 6.6. BUN 53 creatinine 1.4 Troponin - 0.042. EKG revealed sinus rhythm with peaked T waves in anterior leads. Lactic acid 1.2. Albumin 2.0. Stable LFT. Urinalysis with evidence of pyuria and moderate bacteria. Venous duplex right upper extremity revealed no evidence of venous thrombosis. Physical examination revealed erythematous indurated swelling right wrist area. In the emergency room patient was treated for hyperkalemia with calcium, insulin , and D50. Patient started on broad-spectrum antibiotics for cellulitis. Patient subsequently was admitted for further management to monitored floor initially due to hyperkalemia. CONSULTANTS: gem technician Dr. Cabrera neurologist Dr. Escalera pulmonary Dr. Becker ID specialist Dr. Hutchinson GI specialist Dr. Blanco rn obgyn Dr. Patel hand buffer/oncologist Dr. Lino surgery Dr. Hogan psychiatrist Dr. Coe HOSPITAL COURSE: Patient admitted and started on IV fluids and empiric antibiotics. Movie Actor closely followed. Patient was kept on intravenous hydration. Renal parameters and electrolytes were closely monitored. Electrolytes corrected as needed. Nephrotoxins were avoided. Prior to discharge potassium 4.7. BUN 19, creatinine 1.1. According to rn obgyn patient had acute on chronic renal failure along with hyperkalemia , both resolved. ID specialist closely followed for right wrist cellulitis. X-ray of the right hand and right wrist revealed no evidence of acute osteomyelitis. MRI of the right wrist revealed no evidence of acute osteomyelitis. 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 Moderate arthrosis of the wrist. Multiseptated collections noted adjacent to the distal radial ulnar joint and the flexor/palmar aspect of the distal forearm. These were likely ganglion cysts. Patient was on antibiotic as per ID recommendation. Blood cultures were negative. Urine cultures were negative. Right wrist wound culture revealed no growth . Surgeon followed. Per surgeon, MRI revealed no abscess , however the right hand was still swollen and likely will take time to improve. He recommended to complete antibiotic as per ID recommendation and continue elevation of the right arm. Skin protectant and dressing were implemented. Patient was monitored clinically on medical therapy, and showed improvement. Continue wound care at the facility. Infectious disease specialist recommended to complete antibiotic treatment at the facility for total of 14 days for right wrist cellulitis. Patient had stage IV sacral decub /right buttock decubitus ulcer present on admission. Wound showed no evidence of infection, despite wound culture being positive for E. coli ESBL , likely colonized as per ID j2ee consultant. Wound care provided as per surgeon recommendation. Continue wound care at the facility. Supplemental oxygen and pulmonary toilet provided as needed. Administrative Support Manager closely followed. Chest x-ray negative. Pulse oximetry was stable on 2 L of oxygen via nasal cannula. Heparin initially started for DVT prophylaxis , but due to thrombocytopenia was discontinued. Patient had sequential compression device for mechanical DVT prophylaxis. Venous Doppler of bilateral lower extremity revealed no evidence of acute DVT. Echocardiogram revealed preserved ejection fraction 55%. No evidence of left ventricular hypertrophy. No evidence of wall motion abnormality. Right ventricular systolic pressure of 39 consistent with mild pulmonary hypertension. Blood pressure was closely monitored and remained stable; patient was off antihypertensive medication. Neurologist closely followed. MRI of the brain revealed no acute intracranial findings. Moderate atrophy and evidence of chronic small vessel disease noted, involving white matter tracts. Baseline mental status was unclear. Seizure precautions maintained. No seizure activity while in the hospital. Depakote was continued. Patient initially had an NG tube for nutrition. Video swallow evaluation was done and revealed evidence of moderate oropharyngeal dysphagia with high aspiration risk. Diet provided as per speech therapist recommendations with strict aspiration/ reflux precautions and one-to-one feeding. Swallow treatment was recommended to be continued at the halfway facility. [facility] followed for pancytopenia. Lowest reading with WBC 2.5, platelets 52, hemoglobin 7.7, hematocrit 24.4. Per hand buffer , pancytopenia had multiply etiologies, possibly related to infectious/viral causes, ongoing multiple infection, cellulitis, baseline was unknown. Patient was first time admitted to this facility. Hepatitis panel was negative. HIV test and RPR were nonreactive. Abdominal ultrasound revealed hepatomegaly likely fatty liver. Hematology recommended closely monitor counts at the facility and if no improvement , consider bone marrow biopsy. Hemoglobinand hematocrit were closely monitored with goal to keep hemoglobin above 7. Anemia workup was consistent with anemia of chronic disease. Patient received transfusion of 1 unit of packed red blood cells. Stool for occult blood was positive x2. GI closely followed. Patient subsequently undergone upper endoscopy and colonoscopy with snare polypectomy. The results revealed medium sized hiatal hernia, minimal distal esophagitis, gastritis status post biopsy, incomplete colonoscopy examination and due to poor preparation, one colonic polyp, status post removal. GI recommended follow-up biopsy result. Patient will benefit from repeated colonoscopy with better preparation. Given that patient was not actively bleeding , colonoscopy could be repeated as outpatient. GI prophylaxis provided. Bowel regimen instituted, results still pending at time of this dictation. Results still pending. Prior to discharge hemoglobin 8.6 hematocrit 27.5. Blood sugar was managed with sliding scale of insulin. Psychiatrist seen and evaluated patient and diagnosed patient with paranoid schizophrenia with acute exacerbation . Psychiatric medication regimen was optimized as epr psychiatrist. Supportive psychotherapy provided. Aletred mental status was liekly due to paranoid schizophrenia with acute exacerbation. Patient clinically stabilized and was ready for transfer back to halfway facility for continuation of care. FINAL DIAGNOSES: Cellulitis of right wrist Acute on chronic renal failure Hyperkalemia, diminished excretion Altered ental status secondary to paranoid schizophrenia with acute exacerbation Dehydration Dysphagia Pancytopenia Anemia of chronic disease COPD Seizure disorder Sacral decubitus ulcer, stage IV present on admission History of hypertension Diabetes mellitus Hypoalbuminemia Status post EGD Medium sized hiatal hernia Minimal distal esophagitis Gastritis, status post biopsy, DISCHARGE MEDICATIONS: See Medication Reconciliation list. DISCHARGE INSTRUCTIONS: Patient was discharged to the halfway facility. Follow up with medical doctor at the facility. I have been assigned to dictate discharge summary for this account. I was not involved in the patient's management. Teresita Eng NP Aug 08, 2018 11:40
--- NOTE | 2018-08-10 11:11 | Diagnostic Imaging Report ---
APPROVED REPORT CPT Code: 41129 Present Symptoms Comments: Pain BILATERAL: Imaging reveals a patent deep venous system bilaterally. There is no evidence of thrombus within the femoral, popliteal or tibial segments. The greater saphenous veins are also within normal limits. Doppler indicates normal spontaneous flow within these segments.
--- NOTE | 2018-08-18 14:40 | Cardiology Report ---
APPROVED REPORT EKG Measurement Heart [id number] Normal sinus rhythm Normal ECG
== END 2018-08-05 13:10 | DRG 602 ==
LOC: EDBD 21:42 → EMR 22:20 → 2E 23:30 → EDBEDREQ 07-28 03:22 → 4E 08-02 11:06
PROC: 02HV33Z Insertion of Infusion Device into Superior Vena Cava, Percutaneous Approach (ICD-10-PCS; principal; 2018-07-29)
PROC: B518ZZA Fluoroscopy of Superior Vena Cava, Guidance (ICD-10-PCS; principal; 2018-07-29)
PROC: 0DBN8ZX Excision of Sigmoid Colon, Via Natural or Artificial Opening Endoscopic, Diagnostic (ICD-10-PCS; 2018-08-05 07:42)
PROC: 0DB78ZX Excision of Stomach, Pylorus, Via Natural or Artificial Opening Endoscopic, Diagnostic (ICD-10-PCS; 2018-08-05 07:42)
DX: L03.113 Cellulitis of right upper limb (principal); L89.154 Pressure ulcer of sacral region, stage 4; N17.0 Acute kidney failure with tubular necrosis; G92 Toxic encephalopathy; N39.0 Urinary tract infection, site not specified; E46 Unspecified protein-calorie malnutrition; D61.818 Other pancytopenia; F32.3 Major depressive disorder, single episode, severe with psychotic features; E87.5 Hyperkalemia; I12.9 Hypertensive chronic kidney disease with stage 1 through stage 4 chronic kidney disease, or unspecified chronic kidney disease; N18.9 Chronic kidney disease, unspecified; J44.9 Chronic obstructive pulmonary disease, unspecified; Z68.30 Body mass index [BMI] 30.0-30.9, adult; R13.10 Dysphagia, unspecified; G40.909 Epilepsy, unspecified, not intractable, without status epilepticus; D64.9 Anemia, unspecified; E86.0 Dehydration; E11.22 Type 2 diabetes mellitus with diabetic chronic kidney disease; F25.0 Schizoaffective disorder, bipolar type; D69.6 Thrombocytopenia, unspecified; K29.70 Gastritis, unspecified, without bleeding; K44.9 Diaphragmatic hernia without obstruction or gangrene; K63.5 Polyp of colon
CPT/HCPCS: 36415; 36569; 70551; 71045; 74018; 74230; 76700; 76937; 80048; 80053; 80061; 80202; 81003; 82270; 82306; 82607; 82728; 82746; 82962; 82977; 83036; 83540; 83550; 83605; 83735; 84100; 84132; 84439; 84443; 84481; 84484; 84550; 85007; 85025; 85610; 85730; 86592; 86703; 86705; 86709; 86803; 86850; 86900; 86901; 86920; 87040; 87070; 87081; 87086; 87181; 87205; 87340; 93005; 93306; 93970; 93971; 94003; 94150; 94664; 94760; 95819; 96365; 96366; 96375; 99291; J1815; J2370